=== PATIENT | female | born 1965 | race Caucasian/White ===

== ENCOUNTER 2020-05-08 10:59 | Outpatient (REF) | payer OTHER, SELFPAY ==
--- NOTE | 2020-05-08 11:04 | XR_ITS ---
EXAMINATION: XR ANKLE, LEFT XR FOOT, LEFT CLINICAL INFORMATION: Pain in left ankle and foot COMPARISON: None TECHNIQUE: 3 views of the left foot. 2 additional views of the left ankle. FINDINGS: Left foot: No fracture or dislocation. Alignment is anatomic. Degenerative changes at the first digit interphalangeal joint with narrowing and flattening of the head of the proximal phalanx. Osteophyte formation. Prominent heel spurs. The soft tissues are unremarkable. Left ankle: No fracture or dislocation. The ankle mortise is congruent. Mild degenerative change along the medial aspect of the ankle mortise at the medial malleolus with osseous spurring. The soft tissues are unremarkable. No ankle joint effusion. IMPRESSION: No acute abnormality of the left ankle or foot. Mild degenerative changes along the ankle mortise. Degenerative changes at the first interphalangeal joint.
== END 2020-05-08 11:00 | disposition home or self-care (01) ==
LOC: HO.HMGCX 10:59
PROVIDERS: PCP Internal Medicine; Visit Provider Hospitalist
DX: M25.572 Pain in left ankle and joints of left foot (principal)
CPT/HCPCS: 73600; 73620

== ENCOUNTER 2020-06-20 12:37 | Outpatient (REF) | payer OTHER, SELFPAY ==
[2020-06-20 13:15] LABS: MANUAL DIFF FLAG NO
[2020-06-20 13:21] LABS: Basophils Absolute Auto 0.1 X10*3/uL (0.0-0.2); Basophils Percent Auto 0.7 % (0-2); Eosinophils Absolute Auto 0.2 X10*3/uL (0.0-0.4); Eosinophils Percent Auto 2.7 % (0-4); Hematocrit 38.2 % (37-47); Hemoglobin 11.9 g/dl (12.0-16.0); Imm Gran Abs Auto 0.03 X10*3/uL (0.00-0.03); Imm Gran Pct Auto 0.3 % (0.0-0.4); Lymphocytes Absolute Auto 1.5 X10*3/uL (1.2-4.9); Mean Corpuscular HGB Conc 31.2 g/dl (31.0-35.0); Mean Corpuscular Hemoglobin 29.7 pg (27.0-33.0); Mean Corpuscular Volume 95.3 fL (80-98); Mean Platelet Volume 10.1 fL (9.4-12.3); Monocytes Absolute Auto 0.9 X10*3/uL (0.1-1.2); Monocytes Percent Auto 10.9 % (2-11); Neutrophils Absolute Auto 5.9 X10*3/uL (2.0-8.3); Neutrophils Percent Auto 68.4 % (45-73); Platelet Count 328 X10*3/uL (160-400); Red Blood Count 4.01 X10*6/uL (4.20-5.50); Red Cell Distribution Width 15.3 % (11.0-16.0); White Blood Count 8.7 X10*3/uL (4.8-10.8)
[2020-06-20 13:40] LABS: Alanine Aminotransferase 17 U/L (0-31); Albumin Level 4.1 g/dL (3.5-5.0); Alkaline Phosphatase 104 U/L (39-117); Anion Gap 12 (12-20); Anion Gap 13 (12-20); Aspartate Amino Transferase 19 U/L (5-31); Bilirubin Total 0.3 mg/dL (0.0-1.0); Blood Urea Nitrogen 17 mg/dL (9-16); Calcium 9.6 mg/dL (8.4-10.2); Carbon Dioxide 28 mmol/L (22-29); Carbon Dioxide 29 mmol/L (22-29); Chloride 102 mmol/L (96-108); Estimated Glomerular Filt Rate 30; Phosphorus 3.1 mg/dL (2.7-4.5); Potassium 3.6 mmol/l (3.3-5.1); Sodium 139 mmol/L (135-145); Total Protein 6.9 g/dL (6.5-8.0)
[2020-06-20 13:42] LABS: Glucose Random 92 mg/dL (60-115)
[2020-06-20 15:06] LABS: Protein/Creatinine Ratio, Ur 2.77 (<0.2); Total Protein Urine Random 341 mg/dL (<12)
[2020-06-23 16:22] LABS: Calcium (PTHI) 9.8 mg/dL (8.6-10.4); PTHI 45 pg/mL (14-64)
== END 2020-06-20 12:38 | disposition home or self-care (01) ==
LOC: HO.US 12:37
PROVIDERS: PCP Internal Medicine; Visit Provider Internal Medicine Gastroenterology
DX: K83.8 Other specified diseases of biliary tract (principal); R13.10 Dysphagia, unspecified
CPT/HCPCS: 36415; 80051; 80053; 82040; 82310; 82565; 83735; 83970; 84100; 84156; 84520; 85025

== ENCOUNTER 2020-07-03 10:10 | Outpatient (REF) | payer OTHER, SELFPAY ==
--- NOTE | 2020-07-03 10:15 | FL_ITS ---
EXAMINATION: FL BARIUM SWALLOW CLINICAL INFORMATION: Dysphagia. COMPARISON: None TECHNIQUE: Barium swallow examination is performed using fluoroscopic evaluation in addition to multiple fluoroscopic spot views. The patient is imaged both upright and prone and using both thick and thin sulfate along with effervescent granules. Fluoroscopy time: 2.1 minutes DAP: 19.465 Gycm2 Images: 54 FINDINGS: Following oral administration of thick barium, barium-coated turkey and thin barium in the upright view, there is normal propagation of bolus from the oral cavity through the pharynx into the stomach without any obstruction, narrowing or stricture. There is mild ballooning of the distal esophagus due to a gastric Lap-Band in the proximal stomach. The GE junction is open, however, restricted due to the Lap-Band. No intraluminal filling defects seen. On placing patient supine and prone, there is mild gastroesophageal reflux with no hiatal hernia seen. On the few images obtained through the upper abdomen reveals stomach to be of normal caliber. FL/FL barium swallow IMPRESSION: Slightly distended distal esophagus secondary to a gastric Lap-Band in the proximal stomach restriction emptying of the esophagus. Mild gastroesophageal reflux was seen in supine position but no hernia noted.
== END 2020-07-03 10:11 | disposition home or self-care (01) ==
LOC: HO.XRAY 10:10
PROVIDERS: Visit Provider Internal Medicine Gastroenterology
DX: R13.10 Dysphagia, unspecified (principal)
CPT/HCPCS: 74220

== ENCOUNTER → 2020-08-04 14:52 | Outpatient (BNVA) | payer OTHER, SELFPAY | PROVIDERS: PCP Internal Medicine; Referring Provider Internal Medicine; Visit Provider Internal Medicine Gastroenterology | DX: K83.8 Other specified diseases of biliary tract (principal); R13.10 Dysphagia, unspecified | CPT/HCPCS: Q3014 ==

== ENCOUNTER 2020-09-26 15:43 | Outpatient (REF) | payer OTHER, SELFPAY ==
[2020-09-26 16:12] LABS: MANUAL DIFF FLAG NO
[2020-09-26 16:23] LABS: Basophils Absolute Auto 0.1 X10*3/uL (0.0-0.2); Basophils Percent Auto 0.6 % (0-2); Eosinophils Absolute Auto 0.3 X10*3/uL (0.0-0.4); Eosinophils Percent Auto 2.5 % (0-4); Hematocrit 40.3 % (37-47); Hemoglobin 12.4 g/dl (12.0-16.0); Imm Gran Abs Auto 0.04 X10*3/uL (0.00-0.03); Imm Gran Pct Auto 0.4 % (0.0-0.4); Lymphocytes Absolute Auto 2.2 X10*3/uL (1.2-4.9); Lymphocytes Percent Auto 21.9 % (20-40); Mean Corpuscular HGB Conc 30.8 g/dl (31.0-35.0); Mean Corpuscular Hemoglobin 28.2 pg (27.0-33.0); Mean Corpuscular Volume 91.8 fL (80-98); Mean Platelet Volume 9.1 fL (9.4-12.3); Monocytes Percent Auto 10.5 % (2-11); Neutrophils Absolute Auto 6.4 X10*3/uL (2.0-8.3); Neutrophils Percent Auto 64.1 % (45-73); Platelet Count 438 X10*3/uL (160-400); Red Blood Count 4.39 X10*6/uL (4.20-5.50); Red Cell Distribution Width 16.8 % (11.0-16.0); White Blood Count 9.9 X10*3/uL (4.8-10.8)
[2020-09-26 16:57] LABS: Alanine Aminotransferase 14 U/L (0-31); Albumin Level 4.5 g/dL (3.5-5.0); Alkaline Phosphatase 144 U/L (39-117); Anion Gap 14 (12-20); Aspartate Amino Transferase 19 U/L (5-31); Bilirubin Total 0.2 mg/dL (0.0-1.0); Blood Urea Nitrogen 23 mg/dL (9-16); Calcium 9.9 mg/dL (8.4-10.2); Carbon Dioxide 27 mmol/L (22-29); Chloride 102 mmol/L (96-108); Cholesterol 259 mg/dL; Estimated Glomerular Filt Rate 28; Glucose Random 100 mg/dL (60-115); HDL Cholesterol 49 mg/dL; LDL Cholesterol Calculated 139 mg/dl; Potassium 4.1 mmol/L (3.3-5.1); Sodium 139 mmol/L (135-145); Total Protein 7.6 g/dL (6.5-8.0); Triglycerides 357 mg/dL
[2020-09-26 17:21] LABS: Free T4 (Free Thyroxine) 0.93 ng/dL (0.71-1.85); Thyroid Stimulating Hormone 1.21 uIU/mL (0.32-4.0); Vitamin D 25-OH Total 32.4 ng/mL (>30)
[2020-09-26 17:29] LABS: Folate 10.9 ng/mL (> or = 4.0); Vitamin B12 1056 pg/mL (200-900)
== END 2020-09-26 15:44 | disposition home or self-care (01) ==
LOC: HO.LAB 15:43
PROVIDERS: PCP Internal Medicine; Visit Provider Internal Medicine Gastroenterology
DX: N18.32 Chronic kidney disease, stage 3b (principal); E78.00 Pure hypercholesterolemia, unspecified
CPT/HCPCS: 36415; 80053; 80061; 82306; 82607; 82746; 84439; 84443; 85025

== ENCOUNTER → 2020-12-09 11:30 | Outpatient (BNVA) | payer OTHER, SELFPAY | PROVIDERS: PCP Internal Medicine; Visit Provider Internal Medicine Gastroenterology | CPT/HCPCS: Q3014 ==

== ENCOUNTER → 2021-03-09 15:45 | Outpatient (BNVA) | payer OTHER, SELFPAY | PROVIDERS: PCP Internal Medicine; Visit Provider Internal Medicine | DX: M96.1 Postlaminectomy syndrome, not elsewhere classified (principal); T84.84XD Pain due to internal orthopedic prosthetic devices, implants and grafts, subsequent encounter; Z96.651 Presence of right artificial knee joint | CPT/HCPCS: 99202 ==

== ENCOUNTER → 2021-04-14 10:56 | Outpatient (BNVA) | payer OTHER, SELFPAY | PROVIDERS: PCP Internal Medicine; Visit Provider Internal Medicine Gastroenterology | DX: R94.5 Abnormal results of liver function studies (principal); R13.10 Dysphagia, unspecified; K83.8 Other specified diseases of biliary tract | CPT/HCPCS: Q3014 ==

== ENCOUNTER → 2021-04-17 11:18 | Outpatient (BNVA) | payer OTHER, SELFPAY | PROVIDERS: PCP Internal Medicine; Visit Provider Internal Medicine | DX: M96.1 Postlaminectomy syndrome, not elsewhere classified (principal) | CPT/HCPCS: 99212 ==

== ENCOUNTER 2021-04-24 17:45 | Outpatient (REF) | payer OTHER, SELFPAY | END 2021-04-24 17:46 | disposition home or self-care (01) | LOC: HO.LNP 17:45 | PROVIDERS: Visit Provider Physician Assistant Medical | DX: K12.1 Other forms of stomatitis (principal) | CPT/HCPCS: 87071 ==

== ENCOUNTER 2021-05-08 12:23 | Outpatient (REF) | payer OTHER, SELFPAY ==
[2021-05-08 12:54] LABS: Hemoglobin 9.8 g/dl (12.0-16.0); Mean Corpuscular HGB Conc 31.6 g/dl (31.0-35.0); Mean Corpuscular Volume 94.8 fL (80-98); Mean Platelet Volume 9.2 fL (9.4-12.3); NRBC Pct Auto 0.9 /100WBC (0.0-0.2); Platelet Count 888 X10*3/uL (160-400); Red Blood Count 3.27 X10*6/uL (4.20-5.50); Red Cell Distribution Width 17.2 % (11.0-16.0); White Blood Count 4.3 X10*3/uL (4.8-10.8)
[2021-05-08 12:56] LABS: INTERNATIONAL NORM RATIO 1.1 (0.9-1.1); Prothrombin Time 12.3 SEC (9.9-13.0)
[2021-05-08 13:15] LABS: Alanine Aminotransferase 13 U/L (0-31); Albumin Level 3.8 g/dL (3.5-5.0); Alkaline Phosphatase 156 U/L (39-117); Anion Gap 14 (12-20); Aspartate Amino Transferase 15 U/L (5-31); Bilirubin Total < 0.2 mg/dL (0.0-1.0); Blood Urea Nitrogen 22 mg/dL (9-16); Calcium 10.5 mg/dL (8.4-10.2); Carbon Dioxide 26 mmol/L (22-29); Chloride 107 mmol/L (96-108); Estimated Glomerular Filt Rate 27; Glucose Random 100 mg/dL (60-115); Potassium 5.5 mmol/L (3.3-5.1); Sodium 141 mmol/L (135-145); Total Protein 6.5 g/dL (6.5-8.0)
[2021-05-08 13:33] LABS: Ferritin 61 ng/mL (10-250)
[2021-05-08 13:50] LABS: Vitamin B12 > 2000 pg/mL (200-900)
[2021-05-08 13:56] LABS: Atypical Lymph Absolute Manual 0.2 x10*3/uL; Atypical Lymphs Percent Manual 4 % (0-6); Band Neutrophils Percent 1 % (3-5); Eosinophils Absolute Manual 0.2 X10*3/UL (0.0-0.8); Eosinophils Percent Manual 5 % (0-4); Lymphocytes Absolute Manual 2.2 X10*3/uL (0.6-4.8); Lymphocytes Percent Manual 51 % (20-40); Metamyelocytes Absolute 0.1 X10*3/uL; Metamyelocytes Percent 2 %; Monocytes Absolute Manual 0.7 X10*3/uL (0.0-1.2); Monocytes Percent Manual 16 % (2-11); Neutrophils Absolute Manual 0.9 X10*3/uL (2.2-7.9); Neutrophils Percent Manual 21 % (45-73)
[2021-05-08 13:58] LABS: Platelet Estimate INCREASED (NORMAL); Platelet Morphology Comment NOTED
[2021-05-08 13:59] LABS: Large Platelet PRESENT; Macrocytosis 1+ (5-14) /OIF; RBC Morphology NOTED
[2021-05-09 11:42] LABS: Alpha 1 Anti-trypsin 165 mg/dL (83-199); Ceruloplasmin 32 mg/dL (18-53)
[2021-05-09 13:30] LABS: Immunoglobulin G 869 mg/dL (600-1640)
[2021-05-11 04:29] LABS: HBc Num1 0.06 S/CO (0.00-0.79); Hepatitis B Core Antibody Nonreactive (Nonreactive); ~HepC Num1 0.04 S/CO (0.00-0.79); ~Hepatitis C Antibody Nonreactive (Nonreactive)
[2021-05-11 04:40] LABS: HBS Num1 1.26 mIU/mL (0-7.99); HBsAGNum1 0.39 S/CO (0.00-0.99); Hepatitis B Surface Antigen Negative (Negative); ~Hepatitis B Surface Antibody NONREACTIVE (Nonreactive)
[2021-05-11 13:26] LABS: Mitochondrial Antibodies NEGATIVE (NEGATIVE)
[2021-05-11 15:50] LABS: Transglutaminase Ab IgG <1.0 U/mL; Transglutaminase IgA <1.0 U/mL
[2021-05-11 16:41] LABS: Anti Nuclear Antibody Screen NEGATIVE (NEGATIVE)
[2021-05-12 16:26] LABS: Zinc 58 mcg/dL (60-130)
[2021-05-12 18:56] LABS: Nicotinamide <20 ng/mL; Vit B3 - Nicotinic Acid <20 ng/mL
[2021-05-12 23:42] LABS: Smooth Muscle Antibody <20 U (<20)
[2021-05-13 07:58] LABS: ~Hepatitis A Antibody IgM Nonreactive (Nonreactive)
[2021-05-13 14:33] LABS: Aldolase 5.7 U/L (<=8.1)
[2021-05-13 22:41] LABS: Alk.Phos Iso. Macrohepatic 0 % (<=0); Alk.Phos Isoenzymes Bone 18 % (28-66); Alk.Phos Isoenzymes Intest 3 % (1-24); Alk.Phos Isoenzymes Liver 79 % (25-69); Alk.Phos Isoenzymes Placental 0 % (<=0); Alk.Phos Isoenzymes Total 148 U/L (37-153)
[2021-05-14 13:06] LABS: Soluble Liver Ag Autoantibody <20.1 U (0.0-20.0)
[2021-05-14 15:15] LABS: Alpha-Tocopherol 18.8 mg/L (5.7-19.9); Beta-Gamma Tocopherol 1.2 mg/L (<=4.3)
[2021-05-14 15:41] LABS: Vitamin A 52 mcg/dL (38-98)
[2021-05-14 17:02] LABS: Vitamin B6 3.5 ng/mL (2.1-21.7)
[2021-05-14 17:47] LABS: Vitamin C 0.5 mg/dL (0.3-2.7)
[2021-05-14 20:10] LABS: Vitamin K1 659 pg/mL (130-1500)
[2021-05-16 12:36] LABS: Vitamin B5 (Pantothenic Acid) 63 ng/mL (<275)
== END 2021-05-08 12:24 | disposition home or self-care (01) ==
LOC: HO.LAB 12:23
PROVIDERS: PCP Internal Medicine; Visit Provider Internal Medicine Gastroenterology
DX: K83.8 Other specified diseases of biliary tract (principal); R94.5 Abnormal results of liver function studies; R79.82 Elevated C-reactive protein (CRP); K75.81 Nonalcoholic steatohepatitis (NASH); R10.33 Periumbilical pain; K52.839 Microscopic colitis, unspecified; G89.4 Chronic pain syndrome
CPT/HCPCS: 36415; 80053; 82085; 82103; 82180; 82306; 82390; 82550; 82607; 82728; 82746; 82784; 83516; 83520; 83735; 84080; 84207; 84446; 84590; 84591; 84597; 84630; 85007; 85025; 85027; 85610; 86038; 86039; 86255; 86256; 86704; 86706; 86709; 86803; 87340

== ENCOUNTER → 2021-06-23 13:13 | Outpatient (BNVA) | payer OTHER, SELFPAY | PROVIDERS: PCP Internal Medicine; Referring Provider Internal Medicine; Visit Provider Internal Medicine Gastroenterology | DX: Z13.89 Encounter for screening for other disorder (principal) | CPT/HCPCS: Q3014 ==

== ENCOUNTER 2021-07-24 11:30 | Outpatient (REF) | payer OTHER, SELFPAY ==
[2021-07-24 11:43] LABS: MANUAL DIFF FLAG NO
[2021-07-24 11:48] LABS: Basophils Percent Auto 0.4 % (0-2); Eosinophils Absolute Auto 0.2 X10*3/uL (0.0-0.4); Eosinophils Percent Auto 2.2 % (0-4); Hematocrit 39.2 % (37.0-47.0); Hemoglobin 12.4 g/dl (12.0-16.0); Imm Gran Abs Auto 0.01 X10*3/uL (0.00-0.03); Imm Gran Pct Auto 0.1 % (0.0-0.4); Lymphocytes Absolute Auto 2.4 X10*3/uL (1.2-4.9); Lymphocytes Percent Auto 30.7 % (20-40); Mean Corpuscular HGB Conc 31.6 g/dl (31.0-35.0); Mean Corpuscular Hemoglobin 30.9 pg (27.0-33.0); Mean Corpuscular Volume 97.8 fL (80.0-98.0); Mean Platelet Volume 8.9 fL (9.4-12.3); Monocytes Absolute Auto 0.6 X10*3/uL (0.1-1.2); Monocytes Percent Auto 7.8 % (2-11); Neutrophils Absolute Auto 4.5 x10*3/uL (2.0-8.3); Neutrophils Percent Auto 58.8 % (45-73); Platelet Count 404 X10*3/uL (160-400); Red Blood Count 4.01 X10*6/uL (4.20-5.50); Red Cell Distribution Width 15.8 % (11.0-16.0); White Blood Count 7.7 X10*3/uL (4.8-10.8)
[2021-07-24 12:24] LABS: Alanine Aminotransferase 77 U/L (0-31); Alkaline Phosphatase 163 U/L (39-117); Anion Gap 9 (12-20); Aspartate Amino Transferase 67 U/L (5-31); Bilirubin Total 0.3 mg/dL (0.0-1.0); Blood Urea Nitrogen 21 mg/dL (9-16); Calcium 9.8 mg/dL (8.4-10.2); Carbon Dioxide 28 mmol/L (22-29); Chloride 107 mmol/L (96-108); Estimated Glomerular Filt Rate 26; Glucose Random 118 mg/dL (60-115); Iron 90 mcg/dL (30-160); Percent Iron Saturation 24 % (15-50); Potassium 3.8 mmol/L (3.3-5.1); Sodium 140 mmol/L (135-145); Total Iron Binding Capacity 374 mcg/dL (228-428); Unsaturated Iron Binding 284 ug/dL
[2021-07-24 12:34] LABS: Ferritin 23 ng/mL (10-250)
[2021-07-24 12:49] LABS: Folate 6.3 ng/mL (> or = 4.0); Vitamin B12 > 2000 pg/mL (200-900)
[2021-07-27 20:52] LABS: Transferrin 297 mg/dL (188-341)
== END 2021-07-24 11:31 | disposition home or self-care (01) ==
LOC: HO.LAB 11:30
PROVIDERS: Internal Medicine Gastroenterology; PCP Internal Medicine; Visit Provider Internal Medicine
DX: K83.8 Other specified diseases of biliary tract (principal); K75.81 Nonalcoholic steatohepatitis (NASH); D64.9 Anemia, unspecified; R94.5 Abnormal results of liver function studies
CPT/HCPCS: 36415; 80053; 82607; 82728; 82746; 83540; 84466; 85025

== ENCOUNTER → 2021-08-04 11:40 | Outpatient (BNVA) | payer OTHER, SELFPAY | PROVIDERS: PCP Internal Medicine; Visit Provider Internal Medicine Gastroenterology | CPT/HCPCS: Q3014 ==

== ENCOUNTER 2021-08-24 07:21 | Outpatient (REF) | payer OTHER, SELFPAY ==
--- NOTE | ~2021-08-24 | MR_ITS ---
EXAMINATION: MR ABDOMEN WITHOUT CONTRAST CLINICAL INFORMATION: Abnormal liver function tests COMPARISON: Previous CT of the abdomen and pelvis February 2011 TECHNIQUE: MR abdomen is performed without gadolinium contrast. MRCP sequences were also performed. FINDINGS: LUNG BASES: The visualized lung bases are unremarkable. LIVER, GALLBLADDER, AND BILIARY TREE: The liver is normal in size, smooth in contour, and normal in signal. No focal hepatic lesion or biliary ductal dilatation is present. Gallbladder has been removed. There is intrahepatic and extrahepatic biliary duct dilatation. The common bile duct measures up to 2 cm. This is increased from February 2011 CT when common bile duct measured 1.5 cm. No common bile duct stone is seen. PANCREAS: There is mild dilatation of the main pancreatic duct in the head of the pancreas measuring 4 mm. This is similar to previous CT scan. The pancreas is otherwise unremarkable. SPLEEN: Unremarkable. ADRENAL GLANDS: Unremarkable. KIDNEYS AND URETERS: The left kidney is smaller than the right. Left kidney measures 8 cm and the right 10.8 cm in length. There are areas of left renal cortical thinning or scarring. GASTROINTESTINAL TRACT: There are postoperative changes from gastric lap band. No bowel obstruction. No ascites or fluid collection. ABDOMINAL WALL: No significant hernia is appreciated. LYMPH NODES: No lymphadenopathy. VASCULAR: Unremarkable. OSSEOUS STRUCTURES: There are postsurgical changes to the lower lumbar spine. There is an overlying superficial fluid collection that measures 1 x 1 x 10 cm in length. MR/MR abdomen wo con IMPRESSION: Intrahepatic and extrahepatic biliary duct dilatation. The common bile duct measures up to 2 cm. This is slightly increased from previous CT of the abdomen and pelvis February 2011. Mild dilatation of the main pancreatic duct in the head of the pancreas measuring up to 4 mm. This is similar to previous exam. No mass seen. Postoperative changes from gastric lap band procedure. Left kidney is smaller than the right. There are areas of left renal cortical thinning or scarring. Postsurgical changes lower lumbar spine. Small overlying postoperative fluid collection measuring 1 x 1 x 10 cm.
== END 2021-08-24 07:22 | disposition home or self-care (01) ==
LOC: HO.MRI 07:21
PROVIDERS: Visit Provider Internal Medicine Gastroenterology
DX: R94.5 Abnormal results of liver function studies (principal); K83.8 Other specified diseases of biliary tract
CPT/HCPCS: 74181

== ENCOUNTER 2021-12-04 14:39 | Outpatient (REF) | payer OTHER, SELFPAY ==
[2021-12-04 14:48] LABS: MANUAL DIFF FLAG NO
[2021-12-04 15:12] LABS: Basophils Percent Auto 0.4 % (0-2); Eosinophils Absolute Auto 0.1 X10*3/uL (0.0-0.4); Eosinophils Percent Auto 0.9 % (0-4); Hematocrit 38.7 % (37.0-47.0); Hemoglobin 12.2 g/dl (12.0-16.0); Imm Gran Abs Auto 0.04 X10*3/uL (0.00-0.03); Imm Gran Pct Auto 0.4 % (0.0-0.4); Lymphocytes Absolute Auto 1.7 X10*3/uL (1.2-4.9); Mean Corpuscular HGB Conc 31.5 g/dl (31.0-35.0); Mean Corpuscular Hemoglobin 30.7 pg (27.0-33.0); Mean Corpuscular Volume 97.2 fL (80.0-98.0); Mean Platelet Volume 9.3 fL (9.4-12.3); Monocytes Absolute Auto 0.6 X10*3/uL (0.1-1.2); Monocytes Percent Auto 5.6 % (2-11); Neutrophils Absolute Auto 8.8 x10*3/uL (2.0-8.3); Neutrophils Percent Auto 77.7 % (45-73); Platelet Count 363 X10*3/uL (160-400); Red Blood Count 3.98 X10*6/uL (4.20-5.50); Red Cell Distribution Width 15.3 % (11.0-16.0); White Blood Count 11.3 X10*3/uL (4.8-10.8)
[2021-12-04 15:36] LABS: Alanine Aminotransferase 24 U/L (0-31); Albumin Level 4.4 g/dL (3.5-5.0); Alkaline Phosphatase 125 U/L (39-117); Anion Gap 13 (12-20); Aspartate Amino Transferase 24 U/L (5-31); Bilirubin Total 0.2 mg/dL (0.0-1.0); Blood Urea Nitrogen 26 mg/dL (9-16); Calcium 9.8 mg/dL (8.4-10.2); Carbon Dioxide 24 mmol/L (22-29); Chloride 109 mmol/L (96-108); Cholesterol 204 mg/dL; Estimated Glomerular Filt Rate 28; Glucose Random 117 mg/dL (60-115); HDL Cholesterol 46 mg/dL; LDL Cholesterol Calculated 132 mg/dl; Potassium 4.8 mmol/L (3.3-5.1); Sodium 141 mmol/L (135-145); Total Protein 7.4 g/dL (6.5-8.0); Triglycerides 131 mg/dL
[2021-12-04 15:37] LABS: Acetaminophen LAB 5 mcg/mL (<30)
[2021-12-04 15:54] LABS: Thyroid Stimulating Hormone 0.92 uIU/mL (0.32-4.0)
[2021-12-04 15:57] LABS: Vitamin D 25-OH Total 32.1 ng/mL (>30)
[2021-12-04 16:13] LABS: Folate 8.8 ng/mL (> or = 4.0); Vitamin B12 > 2000 pg/mL (200-900)
[2021-12-04 16:15] LABS: Free T4 (Free Thyroxine) 0.67 ng/dL (0.71-1.85)
== END 2021-12-04 14:40 | disposition home or self-care (01) ==
LOC: HO.LAB 14:39
PROVIDERS: Absent Provider Internal Medicine; PCP Internal Medicine; Visit Provider Internal Medicine Gastroenterology
DX: K83.8 Other specified diseases of biliary tract (principal); R79.89 Other specified abnormal findings of blood chemistry; R94.5 Abnormal results of liver function studies; K75.81 Nonalcoholic steatohepatitis (NASH); E78.00 Pure hypercholesterolemia, unspecified; N18.32 Chronic kidney disease, stage 3b; Z79.899 Other long term (current) drug therapy
CPT/HCPCS: 36415; 80053; 80061; 80143; 82306; 82607; 82746; 84439; 84443; 85025

== ENCOUNTER → 2021-12-09 09:58 | Outpatient (BNVA) | payer OTHER, SELFPAY | PROVIDERS: Visit Provider Internal Medicine | DX: Z51.81 Encounter for therapeutic drug level monitoring (principal); F11.20 Opioid dependence, uncomplicated | CPT/HCPCS: 80305; 99202 ==

== ENCOUNTER → 2021-12-16 13:23 | Outpatient (BNVA) | payer OTHER, SELFPAY | PROVIDERS: PCP Internal Medicine; Visit Provider Internal Medicine | DX: F11.20 Opioid dependence, uncomplicated (principal) | CPT/HCPCS: 80305; 99212 ==

== ENCOUNTER → 2021-12-23 13:22 | Outpatient (BNVA) | payer OTHER, SELFPAY | PROVIDERS: Visit Provider Internal Medicine | DX: Z51.81 Encounter for therapeutic drug level monitoring (principal); F11.20 Opioid dependence, uncomplicated | CPT/HCPCS: 80305; 99212 ==

== ENCOUNTER → 2022-01-01 13:36 | Outpatient (BNVA) | payer OTHER, SELFPAY | PROVIDERS: Visit Provider Internal Medicine | DX: Z51.81 Encounter for therapeutic drug level monitoring (principal); F11.20 Opioid dependence, uncomplicated | CPT/HCPCS: 80305; 99211 ==

== ENCOUNTER → 2022-01-08 11:37 | Outpatient (BNVA) | payer OTHER, SELFPAY | PROVIDERS: PCP Internal Medicine; Visit Provider Internal Medicine | DX: F11.20 Opioid dependence, uncomplicated (principal) | CPT/HCPCS: 80305; 99212 ==

== ENCOUNTER → 2022-01-15 14:36 | Outpatient (BNVA) | payer OTHER, SELFPAY | PROVIDERS: Visit Provider Internal Medicine | DX: F11.20 Opioid dependence, uncomplicated (principal) | CPT/HCPCS: 80305; 99212 ==

== ENCOUNTER → 2022-01-27 12:57 | Outpatient (BNVA) | payer OTHER, SELFPAY | PROVIDERS: Visit Provider Internal Medicine | DX: F11.20 Opioid dependence, uncomplicated (principal) | CPT/HCPCS: 80305; 99212 ==

== ENCOUNTER 2022-02-02 12:46 | Outpatient (REF) | payer OTHER, SELFPAY ==
--- NOTE | ~2022-02-02 | MM_ITS ---
EXAMINATION: MM SCREENING DIGITAL BREAST TOMOSYNTHESIS, BILATERAL CLINICAL INFORMATION: Screening. Asymptomatic. The lifetime risk of breast cancer based on the Tyrer-Cuzick Model is 6%. COMPARISON: Mammography: 05/23/2017 (baseline). TECHNIQUE: Digital breast tomosynthesis is performed in both the craniocaudal and mediolateral oblique views along with computer-aided detection (CAD). Synthesized 2D images are generated from the tomosynthesis. FINDINGS: There are scattered areas of fibroglandular density (ACR BI-RADS breast composition Category b). There are no significant masses, abnormal calcifications, or other abnormalities. No significant change from baseline exam. The axilla and skin contours are unremarkable. MM/MM tomosynthesis screening BI IMPRESSION: No mammographic evidence of malignancy. ASSESSMENT: BI-RADS 1: Negative RECOMMENDATION: Routine annual mammography screening. This patient's information was entered into a reminder system with a target due date for their next mammogram.
== END 2022-02-02 12:47 | disposition home or self-care (01) ==
LOC: HO.MAMMO 12:46
PROVIDERS: Visit Provider Internal Medicine
DX: Z12.31 Encounter for screening mammogram for malignant neoplasm of breast (principal)
CPT/HCPCS: 77063; 77067

== ENCOUNTER → 2022-02-12 10:15 | Outpatient (BNVA) | payer OTHER, SELFPAY | PROVIDERS: Visit Provider Internal Medicine | DX: F11.20 Opioid dependence, uncomplicated (principal) | CPT/HCPCS: 80305; 99212 ==

== ENCOUNTER → 2022-02-18 14:36 | Outpatient (BNVA) | payer OTHER, SELFPAY | PROVIDERS: PCP Internal Medicine; Visit Provider Surgery Vascular Surgery | DX: I73.9 Peripheral vascular disease, unspecified (principal) | CPT/HCPCS: 99212 ==

== ENCOUNTER → 2022-02-26 14:26 | Outpatient (BNVA) | payer OTHER, SELFPAY | PROVIDERS: PCP Internal Medicine; Visit Provider Internal Medicine | DX: Z51.81 Encounter for therapeutic drug level monitoring (principal); F11.20 Opioid dependence, uncomplicated | CPT/HCPCS: 99212 ==

== ENCOUNTER → 2022-03-31 14:42 | Outpatient (BNVA) | payer OTHER, SELFPAY | PROVIDERS: PCP Internal Medicine; Visit Provider Internal Medicine | DX: Z51.81 Encounter for therapeutic drug level monitoring (principal); F11.20 Opioid dependence, uncomplicated | CPT/HCPCS: 99212 ==

== ENCOUNTER → 2022-04-28 13:44 | Outpatient (BNVA) | payer OTHER, SELFPAY | PROVIDERS: PCP Internal Medicine; Visit Provider Internal Medicine | DX: F11.20 Opioid dependence, uncomplicated (principal); F90.9 Attention-deficit hyperactivity disorder, unspecified type; F43.10 Post-traumatic stress disorder, unspecified | CPT/HCPCS: 99212 ==

== ENCOUNTER → 2022-05-26 15:10 | Outpatient (BNVA) | payer OTHER, SELFPAY | PROVIDERS: Visit Provider Internal Medicine | DX: F11.20 Opioid dependence, uncomplicated (principal); Z51.81 Encounter for therapeutic drug level monitoring; Z79.899 Other long term (current) drug therapy | CPT/HCPCS: 99212 ==

== ENCOUNTER → 2022-06-16 13:47 | Outpatient (BNVA) | payer OTHER, SELFPAY | PROVIDERS: Visit Provider Internal Medicine | DX: Z51.81 Encounter for therapeutic drug level monitoring (principal); F11.20 Opioid dependence, uncomplicated | CPT/HCPCS: 99212 ==

== ENCOUNTER → 2022-07-30 09:05 | Outpatient (BNVA) | payer OTHER, SELFPAY | PROVIDERS: PCP Internal Medicine; Visit Provider Nurse Practitioner Psychiatric/Mental Health | DX: F11.20 Opioid dependence, uncomplicated (principal) | CPT/HCPCS: Q3014 ==

== ENCOUNTER → 2022-08-30 14:00 | Outpatient (BNVA) | payer OTHER, SELFPAY | PROVIDERS: PCP Internal Medicine; Visit Provider Nurse Practitioner Psychiatric/Mental Health | DX: F11.20 Opioid dependence, uncomplicated (principal); F17.210 Nicotine dependence, cigarettes, uncomplicated; Z51.81 Encounter for therapeutic drug level monitoring; Z79.899 Other long term (current) drug therapy | CPT/HCPCS: 80305; 99212 ==

== ENCOUNTER 2022-09-20 14:34 | Outpatient (REF) | payer OTHER, SELFPAY ==
--- NOTE | ~2022-09-20 | US_ITS ---
EXAMINATION: Noninvasive assessment of the bilateral lower extremities with ARTERIAL DUPLEX and ANKLE BRACHIAL INDICES (ABIs). CLINICAL INFORMATION: Peripheral vascular disease TECHNIQUE: Duplex Doppler techniques with waveform analysis and measurement of velocities in the bilateral common femoral, profunda femoris, superficial femoral, popliteal and tibial arteries were performed. Additionally, ankle pulse volume recordings, ankle pressure measurements and ankle brachial indices were obtained of the lower extremity arterial system bilaterally. The study was performed only at rest. COMPARISON: None FINDINGS: DIRECT DUPLEX DOPPLER FINDINGS: RIGHT LEG: Common femoral artery: 129 cm/s, phasicity: Triphasic Profunda femoris artery: 168 cm/s, phasicity: Triphasic Superficial femoral artery (proximal): 110 cm/s, phasicity: Triphasic Superficial femoral artery (mid): 316 cm/s, phasicity: Monophasic. A large amount of soft plaque is seen. Superficial femoral artery (distal): 123 cm/s, phasicity: Monophasic Popliteal artery: 72.3 cm/s, phasicity: Monophasic Posterior tibial artery: 123 cm/s, phasicity: Monophasic Peroneal artery: 21.6 cm/s, phasicity: Monophasic LEFT LEG: Common femoral artery: 114 cm/s, phasicity: Triphasic Profunda femoris artery: 220 cm/s, phasicity: Triphasic Superficial femoral artery (proximal): 139 cm/s, phasicity: Triphasic Superficial femoral artery (mid): 152 cm/s, phasicity: Triphasic Superficial femoral artery (distal): 202 cm/s, phasicity: Triphasic. Mild amount of noncalcified plaque Popliteal artery: 95.6 cm/s, phasicity: Triphasic. Mild calcified plaque Posterior tibial artery: 233 cm/s, phasicity: Triphasic Peroneal artery: 51.2 cm/s, phasicity: Monophasic ANKLE-BRACHIAL INDEX: Right: 0.53? Left: 1.04 ANKLE PRESSURES: Right: PT 86, DP 72 Left: PT?169, DP?157 ANKLE PVR WAVEFORMS: Right: Abnormal Left: Normal US/US arterial duplex LE BI IMPRESSION: Right leg: Moderately decreased ankle brachial index and pulse volume waveform. Elevated velocity consistent with a moderate to severe stenosis seen in the mid to superficial femoral artery with a dampened waveforms seen distally Left leg: Normal ankle brachial index and pulse volume waveform. Mildly elevated velocities in the mid to distal superficial femoral artery with mild atherosclerotic plaque consistent with mild stenosis. RADAMES Reference: - >1.4 = calcified vessels - 0.9 - 1.4 = normal - no significant arterial disease - 0.7 - 0.89 = mild peripheral arterial disease - 0.51 - 0.69 = moderate peripheral arterial disease - ? 0.50 = severe peripheral arterial disease - < .30 = critical arterial disease
== END 2022-09-20 14:35 | disposition home or self-care (01) ==
LOC: HO.US 14:34
PROVIDERS: PCP Internal Medicine; Visit Provider Surgery Vascular Surgery
DX: I70.213 Atherosclerosis of native arteries of extremities with intermittent claudication, bilateral legs (principal)
CPT/HCPCS: 93923; 93925

== ENCOUNTER → 2022-09-27 13:00 | Outpatient (BNVA) | payer OTHER, SELFPAY | PROVIDERS: PCP Internal Medicine; Visit Provider Nurse Practitioner Psychiatric/Mental Health | DX: F11.20 Opioid dependence, uncomplicated (principal) | CPT/HCPCS: 99212 ==

== ENCOUNTER → 2022-09-30 13:41 | Outpatient (BNVA) | payer OTHER, SELFPAY | PROVIDERS: PCP Internal Medicine; Visit Provider Surgery Vascular Surgery | DX: I73.9 Peripheral vascular disease, unspecified (principal) | CPT/HCPCS: 99212 ==

== ENCOUNTER → 2022-10-01 14:05 | Outpatient (BNVA) | payer OTHER, SELFPAY | PROVIDERS: PCP Internal Medicine; Visit Provider Nurse Practitioner Psychiatric/Mental Health | DX: F11.20 Opioid dependence, uncomplicated (principal) | CPT/HCPCS: 99212 ==

== ENCOUNTER → 2022-10-25 13:14 | Outpatient (BNVA) | payer OTHER, SELFPAY | PROVIDERS: PCP Internal Medicine; Visit Provider Nurse Practitioner Psychiatric/Mental Health | DX: Z51.81 Encounter for therapeutic drug level monitoring (principal); F11.20 Opioid dependence, uncomplicated | CPT/HCPCS: 99212 ==

== ENCOUNTER 2022-11-16 09:49 | Outpatient (REF) | payer OTHER, SELFPAY ==
[2022-11-16 10:00] LABS: MANUAL DIFF FLAG NO
[2022-11-16 10:29] LABS: Basophils Percent Auto 0.4 % (0-2); Eosinophils Absolute Auto 0.4 X10*3/uL (0.0-0.4); Eosinophils Percent Auto 4.4 % (0-4); Hematocrit 33.4 % (37.0-47.0); Hemoglobin 10.7 g/dl (12.0-16.0); Imm Gran Abs Auto 0.02 X10*3/uL (0.00-0.03); Imm Gran Pct Auto 0.2 % (0.0-0.4); Lymphocytes Absolute Auto 2.5 X10*3/uL (1.2-4.9); Lymphocytes Percent Auto 26.1 % (20-40); Mean Corpuscular Hemoglobin 30.4 pg (27.0-33.0); Mean Corpuscular Volume 94.9 fL (80.0-98.0); Mean Platelet Volume 9.2 fL (9.4-12.3); Monocytes Absolute Auto 0.9 X10*3/uL (0.1-1.2); Monocytes Percent Auto 9.6 % (2-11); Neutrophils Absolute Auto 5.6 x10*3/uL (2.0-8.3); Neutrophils Percent Auto 59.3 % (45-73); Platelet Count 393 X10*3/uL (160-400); Red Blood Count 3.52 X10*6/uL (4.20-5.50); Red Cell Distribution Width 14.4 % (11.0-16.0); White Blood Count 9.4 X10*3/uL (4.8-10.8)
[2022-11-16 11:46] LABS: Appearance Urine Clear; Color Urine Yellow; Glucose Urine UA Negative (Negative); Leukocyte Esterase Urine Negative (Negative); Nitrite Urine Negative (Negative); PH 5.5 (5.0-9.0); Specific Gravity - Urine 1.015 (1.005-1.025); Urine Blood Negative (Negative); Urine Ketones Negative (Negative); Urine Protein Negative (Neg-Trace)
[2022-11-16 11:53] LABS: Bacteria Urine None Seen (None Seen); Hyaline Casts Urine 0-2 /LPF (0-2); RBC Urine 0-2 /HPF (0-2); WBC Urine 0-5 /HPF (0-5)
[2022-11-16 12:32] LABS: Alanine Aminotransferase 18 U/L (0-31); Albumin Level 4.2 g/dL (3.5-5.0); Alkaline Phosphatase 100 U/L (39-117); Anion Gap 15 (12-20); Aspartate Amino Transferase 21 U/L (5-31); Bilirubin Total 0.2 mg/dL (0.0-1.0); Blood Urea Nitrogen 29 mg/dL (9-16); Calcium 9.9 mg/dL (8.4-10.2); Carbon Dioxide 21 mmol/L (22-29); Chloride 109 mmol/L (96-108); Cholesterol 195 mg/dL; Estimated Glomerular Filt Rate 23; Glucose Random 98 mg/dL (60-115); HDL Cholesterol 32 mg/dL; LDL Cholesterol Calculated 114 mg/dl; Potassium 4.8 mmol/L (3.3-5.1); Sodium 140 mmol/L (135-145); Total Protein 6.7 g/dL (6.5-8.0); Triglycerides 247 mg/dL
[2022-11-16 12:49] LABS: Folate 7.6 ng/mL (> or = 4.0); Free T4 (Free Thyroxine) 0.76 ng/dL (0.71-1.85); Thyroid Stimulating Hormone 1.18 uIU/mL (0.32-4.0); Vitamin B12 1240 pg/mL (200-900); Vitamin D 25-OH Total 35.6 ng/mL (>30)
== END 2022-11-16 09:50 | disposition home or self-care (01) ==
LOC: HO.LAB 09:49
PROVIDERS: PCP Internal Medicine; Visit Provider Internal Medicine
DX: N18.32 Chronic kidney disease, stage 3b (principal); E78.00 Pure hypercholesterolemia, unspecified
CPT/HCPCS: 36415; 80053; 80061; 81001; 82306; 82607; 82746; 84439; 84443; 85025

== ENCOUNTER → 2022-11-25 14:24 | Outpatient (BNVA) | payer OTHER, SELFPAY | PROVIDERS: PCP Internal Medicine; Visit Provider Surgery Vascular Surgery | DX: F11.20 Opioid dependence, uncomplicated (principal) | CPT/HCPCS: 99212 ==

== ENCOUNTER 2023-01-10 15:11 | Outpatient (REF) | payer OTHER, SELFPAY ==
--- NOTE | 2023-01-10 15:19 | ECG_ITS ---
Test Reason : PREOP Blood Pressure : / mmHG Vent. Rate : 063 BPM Atrial Rate : 063 BPM P-R Int : 152 ms QRS Dur : 076 ms QT Int : 396 ms P-R-T Axes : 069 050 072 degrees QTc Int : 405 ms Normal sinus rhythm Normal ECG When compared with ECG of 15-SEP-2017 21:57, Premature atrial complexes are no longer Present Referred By: Octavia Soto Electronically Signed By:ARLET CARR
[2023-01-10 15:30] LABS: MANUAL DIFF FLAG NO
[2023-01-10 16:49] LABS: Basophils Absolute Auto 0.1 X10*3/uL (0.0-0.2); Basophils Percent Auto 0.6 % (0-2); Eosinophils Absolute Auto 0.3 X10*3/uL (0.0-0.4); Eosinophils Percent Auto 2.2 % (0-4); Hematocrit 32.5 % (37.0-47.0); Hemoglobin 10.4 g/dl (12.0-16.0); Imm Gran Abs Auto 0.05 X10*3/uL (0.00-0.03); Imm Gran Pct Auto 0.4 % (0.0-0.4); Lymphocytes Absolute Auto 2.6 X10*3/uL (1.2-4.9); Lymphocytes Percent Auto 20.7 % (20-40); Mean Corpuscular Hemoglobin 30.3 pg (27.0-33.0); Mean Corpuscular Volume 94.8 fL (80.0-98.0); Mean Platelet Volume 9.5 fL (9.4-12.3); Monocytes Absolute Auto 0.9 X10*3/uL (0.1-1.2); Monocytes Percent Auto 7.1 % (2-11); Neutrophils Absolute Auto 8.7 x10*3/uL (2.0-8.3); Platelet Count 365 X10*3/uL (160-400); Red Blood Count 3.43 X10*6/uL (4.20-5.50); Red Cell Distribution Width 16.2 % (11.0-16.0); White Blood Count 12.6 X10*3/uL (4.8-10.8)
[2023-01-10 17:11] LABS: Alanine Aminotransferase 12 U/L (0-31); Albumin Level 4.2 g/dL (3.5-5.0); Alkaline Phosphatase 111 U/L (39-117); Anion Gap 17 (12-20); Aspartate Amino Transferase 17 U/L (5-31); Bilirubin Total 0.2 mg/dL (0.0-1.0); Blood Urea Nitrogen 45 mg/dL (9-16); Calcium 9.7 mg/dL (8.4-10.2); Carbon Dioxide 22 mmol/L (22-29); Chloride 109 mmol/L (96-108); Estimated Glomerular Filt Rate 21; Glucose Random 116 mg/dL (60-115); Potassium 4.8 mmol/L (3.3-5.1); Sodium 143 mmol/L (135-145); Total Protein 7.4 g/dL (6.5-8.0)
== END 2023-01-10 15:12 | disposition home or self-care (01) ==
LOC: HO.LAB 15:11
PROVIDERS: PCP Internal Medicine; Visit Provider Internal Medicine
DX: Z01.818 Encounter for other preprocedural examination (principal); S73.004D Unspecified dislocation of right hip, subsequent encounter
CPT/HCPCS: 36415; 80053; 85025; 93005

== ENCOUNTER 2023-01-18 14:26 | Outpatient (REF) | payer OTHER, SELFPAY ==
[2023-01-18 15:56] LABS: INTERNATIONAL NORM RATIO 0.9 (0.9-1.1); Prothrombin Time 10.7 SEC (10.0-13.1)
[2023-01-18 16:18] LABS: Alanine Aminotransferase 22 U/L (0-31); Albumin Level 4.2 g/dL (3.5-5.0); Alkaline Phosphatase 123 U/L (39-117); Anion Gap 15 (12-20); Aspartate Amino Transferase 23 U/L (5-31); Bilirubin Total 0.4 mg/dL (0.0-1.0); Blood Urea Nitrogen 29 mg/dL (9-16); Calcium 10.1 mg/dL (8.4-10.2); Carbon Dioxide 24 mmol/L (22-29); Chloride 109 mmol/L (96-108); Estimated Glomerular Filt Rate 23; Glucose Random 83 mg/dL (60-115); Potassium 4.7 mmol/L (3.3-5.1); Sodium 143 mmol/L (135-145); Total Protein 7.3 g/dL (6.5-8.0)
[2023-01-18 16:35] LABS: TSH reflex Free T4 1.45 uIU/mL (0.32-4.0)
== END 2023-01-18 14:27 | disposition home or self-care (01) ==
LOC: HO.LAB 14:26
PROVIDERS: PCP Internal Medicine; Visit Provider Nurse Practitioner Family
DX: Z01.812 Encounter for preprocedural laboratory examination (principal); N18.32 Chronic kidney disease, stage 3b
CPT/HCPCS: 36415; 80053; 84443; 85610

== ENCOUNTER 2023-02-01 14:38 | Outpatient (AMB) | payer OTHER, SELFPAY ==
--- NOTE | 2023-02-01 14:40 | A.OFFVIS_ITS ---
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 Reporting difficulties after last surgery. Currently prescribed Suboxone 8 mg b.i.d. and 2 mg q.d. denies any side effects related to this medication [facility] Medical History (Updated 02/02/23 @ 14:20 by Radha Ricketts CNP) ADHD Allergic rhinitis Colonoscopy refused Hypercholesterolemia Hypertension Insomnia Lumbar post-laminectomy syndrome Lumbar spinal stenosis Mammogram declined Opioid use disorder Painful total knee replacement, right Paronychia of great toe of right foot Peptic ulcer disease Posttraumatic stress disorder Primary osteoarthritis of right hip Protrusion of lumbar intervertebral disc Rheumatoid arthritis Tobacco abuse Surgical History H/O knee surgery H/O right knee surgery H/O wrist surgery History of back surgery History of carpal tunnel release History of cholecystectomy History of endometrial ablation History of foot surgery History of hip replacement History of surgical removal of squamous cell carcinoma of skin of right taoism History of tubal ligation LAP-BAND surgery status 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 Mother No problems noted. Social History (Updated 09/30/22 @ 13:56 by ARMANDO Alvarez) Housing: House Housing Other:: rents a room Alcohol intake: former Patient Tobacco Use Status: Current everyday Tobacco user Tobacco use type: Cigarette Cigarettes Per Day: 3 e-Cigarette/Vaping Use: Never Used Second Hand Smoke Exposure: Yes service: No Current occupational status: disabled Cognitive needs: No Hearing needs: No Vision needs: No Review of Systems Const Reports as per HPI and Reports no additional complaints Physical Exam Vital Signs: Last Vital Signs Pulse 77 02/01/23 14:48 BP 108/72 02/01/23 14:48 Pulse Ox 94 02/01/23 14:48 Oxygen Delivery Method Room Air 02/01/23 14:48 Const General: cooperative and no acute distress Nutritional Appearance: average body habitus Limitations: ambulation with cane Skin Wounds: no wounds Hair: normal Psych Appearance: grossly normal Mental Status: mental status grossly normal Speech and movement: Pressured speech present and Slowed movement present (Neuro) (ambulates with cane) Attitude: cooperative Thought process: Circumstantial thought process present (at times) Thought content: Normal thought content present Insight: Good insight present (Psych) Judgement: Good judgement present (Psych) Assessment & Plan Assessment & Plan (1) Opioid use disorder: Code(s): F11.90 - Opioid use, unspecified, uncomplicated Plan: * continue Suboxone at current dose * Follow-up 2 months Medications: New buprenorphine-naloxone 8-2 mg (Suboxone) 1 film sublingual BID 60 ea 1RF buprenorphine-naloxone 2-0.5 mg (Suboxone) 1 film sublingual DAILY 30 ea 0RF Discontinued buprenorphine-naloxone 2-0.5 mg take in addition to buprenorphine-naloxone 8mg-2mg twice daily Discontinued Reason: Doctor's Order 1 tab sublingual DAILY 30 tabs 1RF buprenorphine-naloxone 8-2 mg Discontinued Reason: Doctor's Order 1 tab sublingual BID 60 tabs 1RF Coding Level of Care Code Est Pt Level 3 (50228) Diagnoses Opioid use disorder F11.90
[2023-02-01 14:48] VITALS: BP 108/72; PULSE 77; O2SAT 94
== END 2023-02-01 15:20 | disposition home or self-care (01) ==
LOC: HO.HCC 14:38
PROVIDERS: PCP Internal Medicine; Visit Provider Nurse Practitioner Psychiatric/Mental Health
DX: F11.90 Opioid use, unspecified, uncomplicated (principal)
CPT/HCPCS: 99213

== ENCOUNTER → 2023-02-01 14:38 | Outpatient (BNVA) | payer OTHER, SELFPAY | PROVIDERS: PCP Internal Medicine; Visit Provider Nurse Practitioner Psychiatric/Mental Health | DX: F11.20 Opioid dependence, uncomplicated (principal) | CPT/HCPCS: 99212 ==

== ENCOUNTER 2023-03-29 13:10 | Outpatient (AMB) | payer OTHER, SELFPAY ==
--- NOTE | 2023-03-29 13:11 | A.OFFVIS_ITS ---
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 No issues with suboxone Cut down on suboxone following surgery for better pain control Has been taking Dilaudid p.r.n.. Having vascular surgery on April [facility] Medical History (Updated 02/02/23 @ 14:20 by Radha Ricketts CNP) ADHD Allergic rhinitis Colonoscopy refused Hypercholesterolemia Hypertension Insomnia Lumbar post-laminectomy syndrome Lumbar spinal stenosis Mammogram declined Opioid use disorder Painful total knee replacement, right Paronychia of great toe of right foot Peptic ulcer disease Posttraumatic stress disorder Primary osteoarthritis of right hip Protrusion of lumbar intervertebral disc Rheumatoid arthritis Tobacco abuse Surgical History H/O knee surgery H/O right knee surgery H/O wrist surgery History of back surgery History of carpal tunnel release History of cholecystectomy History of endometrial ablation History of foot surgery History of hip replacement History of surgical removal of squamous cell carcinoma of skin of right judaism History of tubal ligation LAP-BAND surgery status 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 Mother No problems noted. Social History (Updated 09/30/22 @ 13:56 by ARMANDO Alvarez) Housing: House Housing Other:: rents a room Alcohol intake: former Patient Tobacco Use Status: Current everyday Tobacco user Tobacco use type: Cigarette Cigarettes Per Day: 3 e-Cigarette/Vaping Use: Never Used Second Hand Smoke Exposure: Yes service: No Current occupational status: disabled Cognitive needs: No Hearing needs: No Vision needs: No Review of Systems Const Reports as per HPI Physical Exam Vital Signs: Last Vital Signs Pulse 58 03/29/23 13:28 BP 114/72 03/29/23 13:28 Pulse Ox 95 03/29/23 13:28 Oxygen Delivery Method Room Air 03/29/23 13:28 Const General: cooperative, healthy appearing, alert, awake and well groomed Limitations: ambulation with cane Results AMB 14 Panel Urine Drug Screen Urine Marijuana (THC) Negative Last Edit by Edwina Varela CMA on 03/29/23 13:30 Urine Cocaine Negative Last Edit by Edwina Varela CMA on 03/29/23 13:30 Urine Morphine Negative Last Edit by Edwina Varela CMA on 03/29/23 13:30 Urine Methamphetamine Negative Last Edit by Edwina Varela CMA on 03/29/23 13:30 Urine Amphetamine Positive Last Edit by Edwina Varela CMA on 03/29/23 13:3 0 Urine Benzodiazepine Positive Last Edit by Edwina Varela CMA on 03/29/23 13:30 Urine Barbiturates Negative Last Edit by Edwina Varela CMA on 03/29/23 13: 30 Urine Methadone Negative Last Edit by Edwina Varela CMA on 03/29/23 13:30 Urine Buprenorphine Positive Last Edit by Edwina Varela CMA on 03/29/23 13 :30 Urine Tricyclic Antidepressant Negative Last Edit by Edwina Varela CMA on 03/29/23 13:30 Urine MDMA Negative Last Edit by Edwina Varela CMA on 03/29/23 13:30 Urine Oxycodone Negative Last Edit by Edwina Varela CMA on 03/29/23 13:30 Urine Phencyclidine Negative Last Edit by Edwina Varela CMA on 03/29/23 13 :30 Urine Propoxyphene Negative Last Edit by Edwina Varela CMA on 03/29/23 13: 30 Results Reviewed Results Reviewed: Laboratory Last Values POC Urine Buprenorphine Positive 03/29/23 13:14 POC Urine Morphine Negative 03/29/23 13:14 POC Urine Oxycodone Negative 03/29/23 13:14 POC Urine Methadone Negative 03/29/23 13:14 POC Urine Propoxyphene Negative 03/29/23 13:14 POC Urine Barbiturates Negative 03/29/23 13:14 POC U Tricyclic Antidpr Negative 03/29/23 13:14 POC Urine PCP Negative 03/29/23 13:14 POC Ur Amphetamines Positive 03/29/23 13:14 POC Ur Methamphetamine Negative 03/29/23 13:14 POC Urine MDMA Negative 03/29/23 13:14 POC Ur Benzodiazepine Positive 03/29/23 13:14 POC Urine Cocaine Negative 03/29/23 13:14 POC Ur Marijuana (THC) Negative 03/29/23 13:14 Assessment & Plan Assessment & Plan (1) Opioid use disorder: Code(s): F11.90 - Opioid use, unspecified, uncomplicated Plan: * Continue Suboxone 8 mg b.i.d. * Overdose prevention discussion * Follow-up 8 weeks Orders: Orders AMB 14 Panel Urine Drug Screen 03/29/23 Z51.81 - Encounter for therapeutic drug level monitoring Medications: Refilled buprenorphine-naloxone 8-2 mg (Suboxone) 1 film sublingual BID 60 ea 1RF Coding Level of Care Code Est Pt Level 3 (91329) Diagnoses Opioid use disorder F11.90
[2023-03-29 13:28] VITALS: BP 114/72; PULSE 58; O2SAT 95
== END 2023-03-29 14:00 | disposition home or self-care (01) ==
LOC: HO.HCC 13:10
PROVIDERS: PCP Internal Medicine; Visit Provider Nurse Practitioner Psychiatric/Mental Health
DX: F11.90 Opioid use, unspecified, uncomplicated (principal)
CPT/HCPCS: 99213

== ENCOUNTER → 2023-03-29 13:10 | Outpatient (BNVA) | payer OTHER, SELFPAY | PROVIDERS: PCP Internal Medicine; Visit Provider Nurse Practitioner Psychiatric/Mental Health | DX: F11.20 Opioid dependence, uncomplicated (principal) | CPT/HCPCS: 80305; 99212 ==

== ENCOUNTER 2023-04-19 14:05 | Outpatient (AMB) | payer OTHER, SELFPAY ==
--- NOTE | 2023-04-19 14:07 | MHC.PC.OV ---
Vital Signs 04/19/23 14:08 Height 5 ft 3 in Weight 156 lb 6 oz BMI 27.7 BP 120/76 Blood Pressure Location Lt brachial Position Sitting Pulse 77 Pulse Source Pulse Oximeter Pulse Oximetry (%) 98 Oxygen Delivery Method Room Air Intake Visit Reasons: follow up after foot surgery Dive Master Required: No Accompanied by: Self / Same As Patient Allergies methotrexate Allergy (Mild, Verified 04/19/23 14:08) blisters in mouth Seasonal Allergies Allergy (Mild, Verified 04/19/23 14:08) runny nose, watery eyes, mucus Tobacco use date assessed: 04/19/23 Dental Screening Dental Screen Date: 04/19/23 Did you have a dental visit in the last 12 months?: Yes Did you have a dental problem in the last 6 months where you did not have access to dental care?: No Was dental information given to patient?: Patient has dentist HPI HPI Comments History of Present Illness Details 57-year-old female past medical history significant for hypercholesteremia, hypertension, rheumatoid arthritis ADHD, opiate abuse, CKD. Patient last seen in December, patient presents today for follow-up from her foot surgery Dr Ricci [facility] vascular surgery. Patient underwent right lower extremity angiogram the goal of restoring vascularization to left lower extremity to resolve her foot pain as well as toe discoloration. Patient reports that this was unsuccessful and that she has to follow-up with vascular surgery to undergo vein mapping on April 26 and follow-up with vascular surgeon on 04/28/2023. Patient reports she wanted to discuss with her PCP Dr Soto regarding her lorazepam script, patient requesting to have script sent for a larger quantity. Patient also reports that she established care with Dr. Yoo psychiatrist and was re-initiated on Adderall for her history of ADHD. Patient reports in the process of speaking to psychiatrist in regards to taking over her lorazepam script, however this not has been established at this time. Will send message to PCP. She also follows with counseling weekly. Patient reports established care with care doctor [facility] for CKD. [facility] Medical History (Updated 02/02/23 @ 14:20 by Radha Ricketts CNP) Paronychia of great toe of right foot Opioid use disorder Painful total knee replacement, right Lumbar post-laminectomy syndrome Colonoscopy refused Mammogram declined Peptic ulcer disease Hypercholesterolemia Tobacco abuse Hypertension Posttraumatic stress disorder Rheumatoid arthritis Protrusion of lumbar intervertebral disc Lumbar spinal stenosis Insomnia ADHD Primary osteoarthritis of right hip Allergic rhinitis Surgical History History of back surgery History of surgical removal of squamous cell carcinoma of skin of right yazidi 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 Mother No problems noted. Social History (Updated 09/30/22 @ 13:56 by Shona Ramsay [facility]) Housing: House Housing Other:: rents a room Alcohol intake: former Patient Tobacco Use Status: Current everyday Tobacco user Tobacco use type: Cigarette Cigarettes Per Day: 3 e-Cigarette/Vaping Use: Never Used Second Hand Smoke Exposure: Yes service: No Current occupational status: disabled Cognitive needs: No Hearing needs: No Vision needs: No Questionnaire PHQ-9 Over the last 2 weeks, how often have you been bothered by any of the following problems? 1. Little interest or pleasure in doing things: several days 2. Feeling down, depressed, or hopeless: several days 3. Trouble falling or staying asleep, or sleeping too much: several days 4. Feeling tired or having little energy: several days 5. Poor appetite or overeating: not at all 6. Feeling bad about yourself - or that you are a failure or have let yourself or your family down: not at all 7. Trouble concentrating on things, such as reading the newspaper or watching television: not at all 8. Moving or speaking so slowly that other people could have noticed. Or the opposite - being so fidgety or restless that you have been moving around a lot more than usual: not at all 9. Thoughts that you would be better off or of hurting yourself in some way: not at all Total score: 4 Depression Screening Interpretation: Positive Source: Developed by Drs. Etienne Barfield, Alina Amanda, Coy Pacheco and colleagues, with an educational leobardo from [employer]. Thrive Questionnaire Date Thrive assessed: 04/19/23 I am a: Patient What is your living situation today?: I have a steady place to live Within the past 12 months, did the food you bought not last and you didn't have the money to get more?: Never true Within the past 12 months, did you worry whether your food would run out before you got money to buy more?: Never true Do you have trouble paying for medicines?: No Do you have trouble getting transportation to medical appointments?: No Do you have trouble paying your heating and electricity bill?: No Do you have trouble taking care of your child, family member or friend?: No Do you have trouble with day-to-day activities such as bathing, preparing meals, shopping, managing finances, etc.?: No Are you currently unemployed and looking for a job?: No Are you interested in more education?: No Please select the resources that you would like help with: None Currently or been in a relationship where the following occur: no concerns reported AUDIT C Alcohol Use Questionnaire (AUDIT-C) 1. How often do you have a drink containing alcohol?: Never 3. How often do you have six or more drinks on one occasion?: Never Total Score: 0 GODFREY-7 AMB Questionnaire GODFREY-7 Date GODFREY - 7 assessed: 04/19/23 Feeling nervous, anxious, or on edge: 0 = Not at all Not being able to stop or control worryin = Not at all Worrying too much about different things: 0 = Not at all Trouble relaxin = Not at all Being so restless that it is hard to sit still: 0 = Not at all Becoming easily annoyed or irritable: 0 = Not at all Feeling afraid as if something awful might happen: 0 = Not at all Total GODFREY-7 score (0-4 normal; 5-9 mild; 10-14 moderate; 15-21 severe): 0 Source: Developed by Drs. Etienne Barfield, Alina Amanda, Coy Pacheco and colleagues, with an educational leobardo from [employer]. Review of Systems Const Denies chills, Denies fatigue, Denies fever(s) and Denies poor appetite Eyes Denies no additional complaints ENT Reports Normal hearing present Card Denies chest pain, Denies syncope, Denies rapid heart rate and Denies dyspnea Resp Denies cough and Denies dyspnea GI Denies change in stool character, Denies constipation, Denies diarrhea, Denies nausea and Denies vomiting Denies urinary frequency, Denies dysuria and Denies urinary urgency Neuro Reports Normal hearing present, Denies confusion and Denies syncope Psych Denies confusion Endo Denies fatigue Physical exam (Primary Care) Vital Signs: Last Vital Signs Pulse 77 04/19/23 14:08 BP 120/76 04/19/23 14:08 Pulse Ox 98 04/19/23 14:08 Oxygen Delivery Method Room Air 04/19/23 14:08 BMI result Body Mass Index 27.7 Tobacco/Smoking Status: Tobacco use Status Tobacco use date assessed 04/19/23 04/19/23 14:11 Patient Tobacco Use Status Current everyday Tobacco 04/19/23 14:11 Tobacco use type Cigarette 04/19/23 14:11 e-Cigarette/Vaping Use Never Used 04/19/23 14:11 PHQ-9: PHQ-9 Score PHQ-9: Total score 4 04/19/23 14:22 Depression Screening Interpretation: Positive Thrive Assessment: Date of Thrive Assessment Date Thrive assessed 04/19/23 04/19/23 14:11 Currently or been in a relationship where the following occur: no concerns reported Const General: No confusion Orientation/consciousness: No confusion HENMT Head: Yes normocephalic and Yes atraumatic Eyes Conjunctivae: conjunctivae normal Chest Chest palpation & inspection: normal inspection of the chest Resp Effort & Inspection: normal respiratory effort Auscultation: clear to auscultation bilaterally, no crackles, no rhonchi and no wheezes Cardio Rate: regular rate Rhythm: regular rhythm Heart sounds: S1 normal heart sound present and S2 normal heart sound present Peripheral pulses: dorsalis pedis present GI Inspection: Yes normal to inspection General: Yes no CVA tenderness Back/Spine/Pelvis Back: no CVA tenderness Neuro General: No confusion Cranial nerves: Yes Normal hearing present Extrem General: No edema Right lower extremity: foot (all digits on right foot remain red discoloration) Assessment and Plan Assessment & Plan (1) Foot pain, right: Code(s): M79.671 - Pain in right foot (2) PAD (peripheral artery disease): Code(s): I73.9 - Peripheral vascular disease, unspecified Plan: Continue to follow with [facility] vascular surgery. (3) Chronic kidney disease (CKD) stage G3b/A1, moderately decreased glomerular filtration rate (GFR) between 30-44 mL/min/1.73 square meter and albuminuria creatinine ratio less than 30 mg/g: Code(s): N18.32 - Chronic kidney disease, stage 3b (4) ADHD: Code(s): F90.9 - Attention-deficit hyperactivity disorder, unspecified type Qualifiers: Attention deficit-hyperactivity disorder type: predominantly hyperactive Qualified Code(s): F90.1 - Attention-deficit hyperactivity disorder, predominantly hyperactive type Plan: Continue on current medications. Continue to follow with psychiatrist . Coding Level of Care Code Est Pt Level 3 (93814) Diagnoses Foot pain, right M79.671 PAD (peripheral artery disease) I73.9 Chronic kidney disease (CKD) stage G3b/A1, moderately decreased glomerular filtration rate (GFR) between 30-44 mL/min/1.73 square meter and albuminuria creatinine ratio less than 30 mg/g N18.32 Attention deficit hyperactivity disorder (ADHD), predominantly hyperactive type F90.1 Attention deficit-hyperactivity disorder type: predominantly hyperactive
[2023-04-19 14:08] VITALS: BP 120/76; PULSE 77; O2SAT 98; BMI 27.7
== END 2023-04-19 15:41 | disposition home or self-care (01) ==
PROVIDERS: PCP Internal Medicine; Visit Provider Nurse Practitioner Family
DX: M79.671 Pain in right foot (principal); I73.9 Peripheral vascular disease, unspecified; N18.32 Chronic kidney disease, stage 3b; F90.1 Attention-deficit hyperactivity disorder, predominantly hyperactive type
CPT/HCPCS: 99213

== ENCOUNTER 2023-05-09 09:25 | Outpatient (AMB) | payer OTHER, SELFPAY ==
[2023-05-09 11:08] VITALS: BP 120/60; PULSE 92; TEMP 36.2; O2SAT 95; BMI 27.8
--- NOTE | 2023-05-09 11:08 | AM.OFFWIN_ITS ---
Intake Vital Signs 05/09/23 11:08 Height 5 ft 3 in Weight 71.214 kg BMI 27.8 BP 120/60 Blood Pressure Location Lt brachial Position Sitting Pulse 92 Pulse Source Pulse Oximeter Temp 97.1 F Temp Source Temporal Artery Scan Pulse Oximetry (%) 95 Oxygen Delivery Method Room Air Intake Visit Reasons: EP ?Bronchitis/Viral Infection/Sore RT Hip(masked) Intake Note: pt is here for c/o Patient Tobacco Use Status: Current everyday Tobacco user Allergies methotrexate Allergy (Mild, Verified 05/09/23 11:10) blisters in mouth Seasonal Allergies Allergy (Mild, Verified 05/09/23 11:10) runny nose, watery eyes, mucus Do you need a note to return to daycare/school/sports/work: Yes HPI EP ?Bronchitis/Viral Infection/Sore RT Hip(masked) HPI Details Patient presents today with which seems to be 8 days of worsening cough, congestion, and productive sputum. She notes her significant other at home is sick with similar symptoms. She denies fevers chills or change in appetite. She also notes a area of swelling and soreness over the incision of her right hip replacement which was done 02/19/2023 at [facility] in [place]. She notes there was bruising over the area but denies fall or any type of acute trauma. She has already called her orthopedic surgeon in [place] to discuss this with them and they have asked for pictures to be sent and they will be following up with her. She had been well recovered from her hip replacement and had been walking at the gym and doing some light weight training up until she became ill with a cough. [facility] Medical History (Updated 02/02/23 @ 14:20 by Radha Ricketts CNP) Paronychia of great toe of right foot Opioid use disorder Painful total knee replacement, right Lumbar post-laminectomy syndrome Colonoscopy refused Mammogram declined Peptic ulcer disease Hypercholesterolemia Tobacco abuse Hypertension Posttraumatic stress disorder Rheumatoid arthritis Protrusion of lumbar intervertebral disc Lumbar spinal stenosis Insomnia ADHD Primary osteoarthritis of right hip Allergic rhinitis Surgical History History of back surgery History of surgical removal of squamous cell carcinoma of skin of right presybeterian 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 Mother No problems noted. Social History (Updated 09/30/22 @ 13:56 by Shona Ramsay [facility]) Housing: House Housing Other:: rents a room Alcohol intake: former Patient Tobacco Use Status: Current everyday Tobacco user Tobacco use type: Cigarette Cigarettes Per Day: 3 e-Cigarette/Vaping Use: Never Used Second Hand Smoke Exposure: Yes service: No Current occupational status: disabled Cognitive needs: No Hearing needs: No Vision needs: No Review of Systems Const Reports as per HPI and Reports no additional complaints ENT Reports no additional complaints and Reports as per HPI Card Reports as per HPI and Reports no additional complaints Resp Reports as per HPI and Reports no additional complaints GI Reports as per HPI and Reports no additional complaints Musc Reports no additional complaints and Reports as per HPI Skin/Breast Denies lesions Neuro Reports no additional complaints and Reports as per HPI Physical Exam Vital Signs: Last Vital Signs Temp 97.1 F 05/09/23 11:08 Pulse 92 05/09/23 11:08 BP 120/60 05/09/23 11:08 Pulse Ox 95 05/09/23 11:08 Oxygen Delivery Method Room Air 05/09/23 11:08 BMI result Body Mass Index 27.8 Results Reviewed Results Reviewed: Chest x-ray contemporaneously read by me without acute finding. X-ray of the right hip also contemporaneously read by me appliance appears intact with no obvious e will report radiology results as available at different. ffusion or hematoma. Assessment & Plan Assessment & Plan (1) Lower respiratory infection: Code(s): J22 - Unspecified acute lower respiratory infection Plan: Will treat with Z-Jose and ProAir, she can also use Mucinex to help expected rate sputum. Strongly advised ER for symptoms do not improve in the next day or 2 or she develops worsening shortness of breath, develops chest pain or dyspnea on exertion or any new symptoms of concern. (2) Acute right hip pain: Code(s): M25.551 - Pain in right hip Plan: Advised patient to get disc of x-rays as well as follow-up with her surgeon as requested. ER if redness or fevers develop over the area or worsening pain or swelling. Orders: Orders XR chest 2V Today J22 - Unspecified acute lower respiratory infection XR hip RT min 2V Today M25.551 - Pain in right hip SARS-CoV2/FLU/RSV Today B34.9 - Viral infection, unspecified Medications: New azithromycin (Zithromax Z-Jose) 2 pills day one then 1 pill per day x 4 days 250 mg PO DAILY 5 days 6 tabs 0RF albuterol sulfate 90 mcg/actuation (ProAir HFA) 1 inh inhalation Q4-6H PRN 6.7 grams 0RF shortness of breath or wheezing Coding Level of Care Code Est Pt Level 4 (62648) Diagnoses Lower respiratory infection J22 Acute right hip pain M25.551
== END 2023-05-09 12:39 | disposition home or self-care (01) ==
PROVIDERS: PCP Internal Medicine; Visit Provider Physician Assistant
DX: J22 Unspecified acute lower respiratory infection (principal); M25.551 Pain in right hip
CPT/HCPCS: 99214

== ENCOUNTER 2023-05-09 11:56 | Outpatient (REF) | payer OTHER, SELFPAY ==
--- NOTE | ~2023-05-09 | XR_ITS ---
EXAMINATION: XR HIP, RIGHT CLINICAL INFORMATION: Pain in right hip. Pain and swelling over lateral hip incision 3 months status post hip replacement. COMPARISON: Right hip 04/29/2017. TECHNIQUE: Two views of the right hip. FINDINGS: The patient has undergone revision of her right total arthroplasty since the previous examination. No periprosthetic fracture. There is soft tissue swelling laterally. No soft tissue gas. XR/XR hip RT min 2V IMPRESSION: Lateral soft tissue swelling. No soft tissue gas.
--- NOTE | ~2023-05-09 | XR_ITS ---
EXAMINATION: XR CHEST CLINICAL INFORMATION: Worsening productive cough x1 week, shortness of breath. COMPARISON: Chest x-ray 03/23/2017. TECHNIQUE: 2 views of the chest were obtained. FINDINGS: The cardiomediastinal silhouette is stable. The lungs are well expanded. No consolidation or effusion. No pneumothorax. Degenerative changes in the spine. Laparoscopic gastric band. XR/XR chest 2V IMPRESSION: No focal pneumonia.
[2023-05-09 14:20] LABS: Influenza A PCR NEGATIVE (Negative); Influenza B PCR NEGATIVE (Negative); Resp Syncy Virus RNA Qual PCR NEGATIVE (Negative); SARS COV2 PCR INHOUSE NEGATIVE (Negative)
== END 2023-05-09 11:57 | disposition home or self-care (01) ==
LOC: HO.HMGCX 11:56
PROVIDERS: PCP Internal Medicine; Visit Provider Physician Assistant
DX: Z11.52 Encounter for screening for COVID-19 (principal); M25.551 Pain in right hip; B34.9 Viral infection, unspecified; J22 Unspecified acute lower respiratory infection
CPT/HCPCS: 0241U; 71046; 73502

== ENCOUNTER 2023-05-31 10:29 | Outpatient (AMB) | payer OTHER, SELFPAY ==
--- NOTE | 2023-05-31 10:35 | A.OFFVIS_ITS ---
Intake Vital Signs 05/31/23 14:31 BP 128/76 Blood Pressure Location Lt brachial Position Sitting Pulse 85 Pulse Source Pulse Oximeter Pulse Oximetry (%) 96 Oxygen Delivery Method Room Air Intake Visit Reasons: mat visit Allergies methotrexate Allergy (Mild, Verified 05/09/23 11:10) blisters in mouth Seasonal Allergies Allergy (Mild, Verified 05/09/23 11:10) runny nose, watery eyes, mucus HPI mat visit HPI Details Pt presents for follow up. Reports she was seen last month at a walk in clinic for a viral illness for which she took and finished a z-moncho for, and has since recovered from. Reports she has had some minor complications at the site of her THR that she is following up with the doctor who performed the surgery for. Reports that her vascular surgery was unsucessful and that she is exploring other treatment options at this time. Tolerating suboxone well. [facility] Medical History (Updated 02/02/23 @ 14:20 by Radha Ricketts CNP) Paronychia of great toe of right foot Opioid use disorder Painful total knee replacement, right Lumbar post-laminectomy syndrome Colonoscopy refused Mammogram declined Peptic ulcer disease Hypercholesterolemia Tobacco abuse Hypertension Posttraumatic stress disorder Rheumatoid arthritis Protrusion of lumbar intervertebral disc Lumbar spinal stenosis Insomnia ADHD Primary osteoarthritis of right hip Allergic rhinitis Surgical History History of back surgery History of surgical removal of squamous cell carcinoma of skin of right judaism 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 Mother No problems noted. Social History (Updated 09/30/22 @ 13:56 by ARMANDO Alvarez) Housing: House Housing Other:: rents a room Alcohol intake: former Patient Tobacco Use Status: Current everyday Tobacco user Tobacco use type: Cigarette Cigarettes Per Day: 3 e-Cigarette/Vaping Use: Never Used Second Hand Smoke Exposure: Yes service: No Current occupational status: disabled Cognitive needs: No Hearing needs: No Vision needs: No Review of Systems Const Reports as per HPI Physical Exam Vital Signs: Last Vital Signs Pulse 85 05/31/23 14:31 BP 128/76 05/31/23 14:31 Pulse Ox 96 05/31/23 14:31 Oxygen Delivery Method Room Air 05/31/23 14:31 Const General: cooperative and no acute distress Orientation/consciousness: patient oriented x3 Resp Effort & Inspection: normal respiratory effort and able to speak in complete sentences Neuro General: patient oriented x3 Psych Appearance: grossly normal Mental Status: mental status grossly normal Affect: Labile affect present Attitude: cooperative Thought process: Circumstantial thought process present Thought content: Normal thought content present Assessment & Plan Assessment & Plan (1) Opioid use disorder: Code(s): F11.90 - Opioid use, unspecified, uncomplicated Plan: Continue suboxone at current dose. Follow up in 8 weeks. Encouraged to call the clinic with questions/concerns, or if she needs a sooner appointment. Medications: Refilled buprenorphine-naloxone 8-2 mg (Suboxone) 1 film sublingual BID 60 ea 1RF Coding Level of Care Code Est Pt Level 3 (12581) Diagnoses Opioid use disorder F11.90
[2023-05-31 14:31] VITALS: BP 128/76; PULSE 85; O2SAT 96
== END 2023-05-31 11:36 | disposition home or self-care (01) ==
PROVIDERS: PCP Internal Medicine; Visit Provider Nurse Practitioner Family
DX: F11.90 Opioid use, unspecified, uncomplicated (principal)
CPT/HCPCS: 99213

== ENCOUNTER → 2023-05-31 10:29 | Outpatient (BNVA) | payer OTHER, SELFPAY | PROVIDERS: PCP Internal Medicine; Visit Provider Nurse Practitioner Family | DX: F11.20 Opioid dependence, uncomplicated (principal); Z51.81 Encounter for therapeutic drug level monitoring; Z79.899 Other long term (current) drug therapy | CPT/HCPCS: 99212 ==

== ENCOUNTER 2023-06-01 13:03 | Outpatient (AMB) | payer OTHER, SELFPAY ==
--- NOTE | 2023-06-01 13:04 | A.OFFPC_ITS ---
Vital Signs 06/01/23 13:06 Height 5 ft 3 in Weight 159 lb 6 oz BMI 28.2 BP 120/70 Blood Pressure Location Lt brachial Position Sitting Intake Visit Reasons: 1mth f/u Intake Note: Patient is here to follow up on medication management. Configuration Management Analyst Required: No Older Adult Social Work Specialist: Not Required per policy Accompanied by: Self / Same As Patient Allergies methotrexate Allergy (Mild, Verified 06/01/23 13:06) blisters in mouth Seasonal Allergies Allergy (Mild, Verified 06/01/23 13:06) runny nose, watery eyes, mucus Medication List - Last Reconciled 06/01/23 by Octavia Soto MD acetaminophen ER (Tylenol Arthritis Pain) 650 mg PO Q8H albuterol sulfate 90 mcg/actuation (Ventolin HFA) 2 puffs inhalation Q6H PRN albuterol sulfate 90 mcg/actuation (ProAir HFA) 1 inh inhalation Q4-6H PRN amlodipine 10 mg PO DAILY aspirin 81 mg PO DAILY 90 days buprenorphine-naloxone 2-0.5 mg (Suboxone) 1 film sublingual DAILY buprenorphine-naloxone 8-2 mg (Suboxone) 1 film sublingual BID diclofenac sodium 1% 4 grams topical QID food supplemt, lactose-reduced (Ensure oral liquid) 1 ea PO .QD 90 days hydrochlorothiazide 25 mg PO DAILY 90 days lorazepam 1 mg PO BID-TID PRN 28 days melatonin 3 mg PO BEDTIME PRN naloxone 4 mg/actuation (Narcan) 4 mg intranasal Q3M PRN zolpidem 10 mg PO BEDTIME 28 days Tobacco use date assessed: 06/01/23 Dental Screening Dental Screen Date: 06/01/23 Did you have a dental visit in the last 12 months?: Yes Did you have a dental problem in the last 6 months where you did not have access to dental care?: No Was dental information given to patient?: Patient has dentist HPI 1mth f/u HPI Details 57-year-old overweight female smoker wit h multiple medical problems chronic kidney disease hyper contention hypercholesterolemia generalized anxiety disorder rheumatoid arthritis lumbar spinal stenosis insomnia post laminectomy syndrome with chronic low back pain, opioid use disorder history of lap band surgery history of CVA coming in for follow-up.. Patient follows up with the [facility] now on Suboxone. 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 Patient had some recent x-ray of the hip history of right total arthroplasty right showing lateral soft tissue swelling but no gas.. Patient also had some recent foot surgery [facility] had a right lower extremity angiogram patient now has a psychiatrist and has been placed on ADHD medication. Patient also follows up with Rheumatology March 2023 complaining of left hand pain diagnosis of osteoarthritis and of course the rheumatoid arthritis on hydroxychloroquine 200 mg twice a day patient does see the vascular surgeon for right lower extremity pain having atherosclerosis of the leg and will have a right lower extremity angiogram. In January 2023 did have revision of the total hip replacement on the right has a history of dislocation in November 2022 had closed reduction right total hip arthroplasty. for the renal - state stop NSAID. for the HTN. patient has pad - testing 06/2023- seeing vascular wi Dr. Keiry Tyson Patient was given pain med. still smoking? pulse felt on foot though. will be getting test june. PAtient has a psychiatrist also- taking ADHD med. has therapist with [facility]. states saw [facility]- [facility] Medical History (Updated 06/01/23 @ 14:10 by Octavia Soto MD) Paronychia of great toe of right foot Opioid use disorder Painful total knee replacement, right Lumbar post-laminectomy syndrome Colonoscopy refused Mammogram declined Peptic ulcer disease Hypercholesterolemia Tobacco abuse Hypertension Posttraumatic stress disorder Rheumatoid arthritis Protrusion of lumbar intervertebral disc Lumbar spinal stenosis Insomnia ADHD Primary osteoarthritis of right hip Allergic rhinitis Surgical History (Updated 06/01/23 @ 13:14 by ARMANDO Montoya) History of back surgery History of surgical removal of squamous cell carcinoma of skin of right alevism 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 Mother No problems noted. Social History Housing: House Housing Other:: rents a room Alcohol intake: former Patient Tobacco Use Status: Current everyday Tobacco user Tobacco use type: Cigarette Cigarettes Per Day: 3 e-Cigarette/Vaping Use: Never Used Second Hand Smoke Exposure: Yes service: No Current occupational status: disabled Cognitive needs: No Hearing needs: No Vision needs: No Questionnaire Thrive Questionnaire Date Thrive assessed: 04/19/23 GODFREY-7 AMB Questionnaire GODFREY-7 Date GODFREY - 7 assessed: 04/19/23 Source: Developed by Drs. Etienne Barfield, Alina Amanda, Coy Pacheco and colleagues, with an educational leobardo from [employer]. Physical exam (Primary Care) Vital Signs: Last Vital Signs BP 120/70 06/01/23 13:06 BMI result Body Mass Index 28.2 Tobacco/Smoking Status: Tobacco use Status Tobacco use date assessed 06/01/23 06/01/23 13:15 Patient Tobacco Use Status Current everyday Tobacco 06/01/23 13:15 Tobacco use type Cigarette 06/01/23 13:15 e-Cigarette/Vaping Use Never Used 06/01/23 13:15 Thrive Assessment: Date of Thrive Assessment Date Thrive assessed 04/19/23 06/01/23 13:15 Const General: alert; No acute distress Eyes Conjunctivae: conjunctivae normal Resp Auscultation: clear to auscultation bilaterally Cardio Rate: regular rate Rhythm: regular rhythm GI Inspection: Yes normal to inspection Extrem General: Yes normal to inspection and No edema Assessment and Plan Assessment & Plan (1) Opioid use disorder: Code(s): F11.90 - Opioid use, unspecified, uncomplicated Plan: Patient continues to follow-up with compressive care on Suboxone (2) Tobacco abuse: Comment: PFT normal January 2020 Code(s): Z72.0 - Tobacco use Plan: Strongly advised to stop! (3) Hypercholesterolemia: Code(s): E78.00 - Pure hypercholesterolemia, unspecified Plan: Avoid fried foods, chicken skin, eggs, butter margarine, pastries and meat. Be it pork or beef they have a lot of cholesterol LDL goal of less than 70 and triglyceride of less than (4) Hypertension: Code(s): I10 - Essential (primary) hypertension Qualifiers: Hypertension type: essential hypertension Qualified Code(s): I10 - Essential (primary) hypertension Plan: Continue with blood pressure medication. Decrease salt intake and exercise on lisinopril 20 mg once a day hydrochlorothiazide 25 mg once a day and amlodipine 10 mg once a day did see nephrology and concern about low blood pressure (5) Rheumatoid arthritis: Code(s): M06.9 - Rheumatoid arthritis, unspecified Qualifiers: Rheumatoid arthritis location: multiple sites Rheumatoid factor presence: unspecified presence Qualified Code(s): M06.9 - Rheumatoid arthritis, unspecified Plan: Continued follow-up Rheumatology has been placed on hydroxychloroquine (6) ADHD: Comment: [facility] Code(s): F90.9 - Attention-deficit hyperactivity disorder, unspecified type Qualifiers: Attention deficit-hyperactivity disorder type: predominantly hyperactive Qualified Code(s): F90.1 - Attention-deficit hyperactivity disorder, predominantly hyperactive type Plan: Continue follow-up with psychiatry [facility] (7) Generalized anxiety disorder: Comment: [facility] therapist once a week Code(s): F41.1 - Generalized anxiety disorder Plan: Continued follow-up with Psychiatry (8) PVD (peripheral vascular disease): Code(s): I73.9 - Peripheral vascular disease, unspecified Plan: When sitting down elevate the legs, exercise, and support stockings patient follows up with vascular surgeon. testing 06/2023 (9) Hip dislocation, right: Comment: 10/29/2022 status post close reduction surgery Code(s): S73.004A - Unspecified dislocation of right hip, initial encounter Plan: Continue to follow-up with orthopedics (10) Breast cancer screening by mammogram: Code(s): Z12.31 - Encounter for screening mammogram for malignant neoplasm of breast (11) Colonoscopy refused: Code(s): Z53.20 - Procedure and treatment not carried out because of patient's decision for unspecified reasons Orders: Orders Complete Blood Count Auto Diff Today E78.00 - Pure hypercholesterolemia, unspecified Comprehensive Met. Panel Today E78.00 - Pure hypercholesterolemia, unspecified Thyroid Stimulating Hormone Today E78.00 - Pure hypercholesterolemia, unspecified Lipid Panel Today E78.00 - Pure hypercholesterolemia, unspecified Vitamin B12 and Folate Today E78.00 - Pure hypercholesterolemia, unspecified Free T4 (Free Thyroxine) Today E78.00 - Pure hypercholesterolemia, unspecified Vitamin D 25-OH Total Today E78.00 - Pure hypercholesterolemia, unspecified MM tomosynthesis screening BI Today Z12.31 - Encounter for screening mammogram for malignant neoplasm of breast Medications: New lisinopril 20 mg PO DAILY 90 tabs 1RF I10 - Essential (primary) hypertension gabapentin 1 tab in am and 1/2 tab in evening orally; 60 tabs 0RF hydroxychloroquine 200 mg PO BID 60 tabs 0RF M06.9 - Rheumatoid arthritis, unspecified Discontinued lisinopril Discontinued Reason: Change Referral Type 20 mg PO DAILY Coding Level of Care Code Est Pt Level 4 (21856) Diagnoses Opioid use disorder F11.90 Tobacco abuse Z72.0 Hypercholesterolemia E78.00 Essential hypertension I10 Hypertension type: essential hypertension Rheumatoid arthritis involving multiple sites, unspecified whether rheumatoid factor present M06.9 Rheumatoid arthritis location: multiple sites Rheumatoid factor presence: unspecified presence Attention deficit hyperactivity disorder (ADHD), predominantly hyperactive type F90.1 Attention deficit-hyperactivity disorder type: predominantly hyperactive Generalized anxiety disorder F41.1 PVD (peripheral vascular disease) I73.9 Hip dislocation, right S73.004A Breast cancer screening by mammogram Z12.31 Colonoscopy refused Z53.20
[2023-06-01 13:06] VITALS: BP 120/70; BMI 28.2
== END 2023-06-01 14:25 | disposition home or self-care (01) ==
PROVIDERS: PCP Internal Medicine; Visit Provider Internal Medicine
DX: M06.9 Rheumatoid arthritis, unspecified (principal); S73.004A Unspecified dislocation of right hip, initial encounter; I73.9 Peripheral vascular disease, unspecified; F11.90 Opioid use, unspecified, uncomplicated; Z72.0 Tobacco use; E78.00 Pure hypercholesterolemia, unspecified; I10 Essential (primary) hypertension; F90.1 Attention-deficit hyperactivity disorder, predominantly hyperactive type; F41.1 Generalized anxiety disorder; Z12.31 Encounter for screening mammogram for malignant neoplasm of breast; Z53.20 Procedure and treatment not carried out because of patient's decision for unspecified reasons
CPT/HCPCS: 99214

== ENCOUNTER 2023-07-12 15:39 | Outpatient (AMB) | payer OTHER, SELFPAY ==
[2023-07-12 15:45] VITALS: BP 124/60; PULSE 88; O2SAT 100; BMI 28.3
--- NOTE | 2023-07-12 15:45 | A.OFFPC_ITS ---
Vital Signs 07/12/23 15:45 Height 5 ft 3 in Weight 160 lb BMI 28.3 BP 124/60 Blood Pressure Location Lt brachial Position Sitting Pulse 88 Pulse Source Pulse Oximeter Pulse Oximetry (%) 100 Oxygen Delivery Method Room Air Intake Visit Reasons: 1mth f/u Hotel Valet Attendant Required: No Allergies methotrexate Allergy (Mild, Verified 07/12/23 15:45) blisters in mouth Seasonal Allergies Allergy (Mild, Verified 07/12/23 15:45) runny nose, watery eyes, mucus Tobacco use date assessed: 07/12/23 HPI 1mth f/u HPI Details 57-year-old female smoker with history o f of opioid use disorder hypercholesterolemia hypertension rheumatoid arthritis ADHD generalized anxiety disorder coming in for follow-up. Last seen in May 2023. Review of the notes was seen in June by Cardiology and vascular history of right popliteal occlusion with mid posterior tibial reconstruction and planer runoff March 2023 consistent with moderate arterial insufficiency absent significant rest pain or tissue loss would not recommend tibial artery bypass and this does indications. If there is no improvement the on cilostazol follow-up in 3 months can consider right femoral to posterior tibial bypass. Patient also follows up with Rheumatology on hydroxychloroquine and prednisone. PAtient is going for surgery under Dr. Warner Lerma middle finger- ? release tendone- trigger finger- for the vascular - states cannot take the full dose- gets sick with full dose- will follow up 10/2023 [facility] Medical History (Updated 06/01/23 @ 14:10 by Octavia Soto MD) Paronychia of great toe of right foot Opioid use disorder Painful total knee replacement, right Lumbar post-laminectomy syndrome Colonoscopy refused Mammogram declined Peptic ulcer disease Hypercholesterolemia Tobacco abuse Hypertension Posttraumatic stress disorder Rheumatoid arthritis Protrusion of lumbar intervertebral disc Lumbar spinal stenosis Insomnia ADHD Primary osteoarthritis of right hip Allergic rhinitis Surgical History (Updated 06/01/23 @ 13:14 by ARMANDO Montoya) History of back surgery History of surgical removal of squamous cell carcinoma of skin of right cheondoism 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 Mother No problems noted. Social History Housing: House Housing Other:: rents a room Alcohol intake: former Patient Tobacco Use Status: Current everyday Tobacco user Tobacco use type: Cigarette Cigarettes Per Day: 3 e-Cigarette/Vaping Use: Never Used Second Hand Smoke Exposure: Yes service: No Current occupational status: disabled Cognitive needs: No Hearing needs: No Vision needs: No Questionnaire Thrive Questionnaire Date Thrive assessed: 04/19/23 AUDIT C Alcohol Use Questionnaire (AUDIT-C) 1. How often do you have a drink containing alcohol?: Never 3. How often do you have six or more drinks on one occasion?: Never Total Score: 0 GODFREY-7 AMB Questionnaire GODFREY-7 Date GODFREY - 7 assessed: 04/19/23 Source: Developed by Drs. Etienne Barfield, Alina Amanda, Coy Pacheco and colleagues, with an educational leobardo from [employer]. Physical exam (Primary Care) Vital Signs: Last Vital Signs Pulse 88 07/12/23 15:45 BP 124/60 07/12/23 15:45 Pulse Ox 100 07/12/23 15:45 Oxygen Delivery Method Room Air 07/12/23 15:45 BMI result Body Mass Index 28.3 Tobacco/Smoking Status: Tobacco use Status Tobacco use date assessed 07/12/23 07/12/23 15:46 Patient Tobacco Use Status Current everyday Tobacco 07/12/23 15:46 Tobacco use type Cigarette 07/12/23 15:46 e-Cigarette/Vaping Use Never Used 07/12/23 15:46 Thrive Assessment: Date of Thrive Assessment Date Thrive assessed 04/19/23 07/12/23 15:46 Const General: alert; No acute distress Eyes Conjunctivae: conjunctivae normal Resp Auscultation: clear to auscultation bilaterally Cardio Rate: regular rate Rhythm: regular rhythm GI Inspection: Yes normal to inspection Extrem General: Yes normal to inspection and No edema Office Procedures Flu Questionnaire Does the patient have a severe egg allergy?: No Does the patient have severe life threatening allergies?: No Does the patient have a fever or illness today?: No Has the patient ever had Guillain-Milburn Syndrome?: No Has the patient ever had any past reaction to a flu shot?: No Immunizations flu vacc [id number] 6mos up(PF) 60 mcg(15 mcgx4)/0.5 mL IM syringe Performing Provider: Octavia Soto MD [facility] [place] [facility] Administered by: ARMANDO Das on 07/12/23 16:06 Dose Route Admin Location Dispensed Lot Number Expiration Date [employer] 0.5 mL IM Left Deltoid 0.5 mL [id number] 01/22/24 [id number] [employer] VIS Given Date VIS Provided VIS Publication Date 07/12/23 Single Vaccine 21 Eligibility Eligibility Date Funding Source Not [facility] Eligible 07/12/23 Private Assessment and Plan Assessment & Plan (1) Chronic kidney disease (CKD) stage G3b/A1, moderately decreased glomerular filtration rate (GFR) between 30-44 mL/min/1.73 square meter and albuminuria creatinine ratio less than 30 mg/g: Code(s): N18.32 - Chronic kidney disease, stage 3b Plan: Continue to follow-up with this requested blood work. PAtient states follows up with renal in [facility] had blood work May, (2) Hypercholesterolemia: Code(s): E78.00 - Pure hypercholesterolemia, unspecified Plan: Avoid fried foods, chicken skin, eggs, butter margarine, pastries and meat. Be it pork or beef they have a lot of cholesterol LDL goal of less than 70 and triglyceride of less than will request for blood work (3) Tobacco abuse: Comment: PFT normal January 2020 Code(s): Z72.0 - Tobacco use Plan: Patient is strongly advised to stop smoking! not ready to stop- still thinking. (4) Hypertension: Code(s): I10 - Essential (primary) hypertension Qualifiers: Hypertension type: essential hypertension Qualified Code(s): I10 - Essential (primary) hypertension Plan: Continue with blood pressure medication. Decrease salt intake and exercise on amlodipine hydrochlorothiazide lisinopril (5) Rheumatoid arthritis: Code(s): M06.9 - Rheumatoid arthritis, unspecified Qualifiers: Rheumatoid arthritis location: multiple sites Rheumatoid factor presence: unspecified presence Qualified Code(s): M06.9 - Rheumatoid arthritis, unspecified Plan: Follows up with Rheumatology continuing with hydroxychloroquine. do not take prednisone and states takes hydroxychloroquine once a day only (6) Opioid use disorder: Code(s): F11.90 - Opioid use, unspecified, uncomplicated Plan: Continue with comprehensive care (7) PAD (peripheral artery disease): Code(s): I73.9 - Peripheral vascular disease, unspecified Plan: Control the cholesterol, weight, blood pressure Orders: Orders Influenza [id number] Immunization Today Z23 - Encounter for immunization Coding Level of Care Code Est Pt Level 4 (70850) Diagnoses Chronic kidney disease (CKD) stage G3b/A1, moderately decreased glomerular filtration rate (GFR) between 30-44 mL/min/1.73 square meter and albuminuria creatinine ratio less than 30 mg/g N18.32 Hypercholesterolemia E78.00 Tobacco abuse Z72.0 Essential hypertension I10 Hypertension type: essential hypertension Rheumatoid arthritis involving multiple sites, unspecified whether rheumatoid factor present M06.9 Rheumatoid arthritis location: multiple sites Rheumatoid factor presence: unspecified presence Opioid use disorder F11.90 PAD (peripheral artery disease) I73.9
== END 2023-07-12 16:56 | disposition home or self-care (01) ==
PROVIDERS: PCP Internal Medicine; Visit Provider Internal Medicine
DX: I12.9 Hypertensive chronic kidney disease with stage 1 through stage 4 chronic kidney disease, or unspecified chronic kidney disease (principal); N18.32 Chronic kidney disease, stage 3b; M06.9 Rheumatoid arthritis, unspecified; Z23 Encounter for immunization; I73.9 Peripheral vascular disease, unspecified; E78.00 Pure hypercholesterolemia, unspecified; Z72.0 Tobacco use; F11.90 Opioid use, unspecified, uncomplicated
CPT/HCPCS: 90471; 90686; 99214

== ENCOUNTER 2023-07-26 11:24 | Outpatient (AMB) | payer OTHER, SELFPAY ==
[2023-07-26 10:15] VITALS: BP 195/95; PULSE 114; RESP 20; O2SAT 99
--- NOTE | 2023-07-26 15:08 | MHC.AM.SUB ---
Intake Vital Signs 07/26/23 10:15 BP 195/95 H Blood Pressure Location Lt brachial Position Sitting Respiration 20 Pulse 114 H Pulse Source Pulse Oximeter Pulse Oximetry (%) 99 Intake Visit Reasons: mat visit Allergies methotrexate Allergy (Mild, Verified 07/12/23 15:45) blisters in mouth Seasonal Allergies Allergy (Mild, Verified 07/12/23 15:45) runny nose, watery eyes, mucus HPI mat visit HPI Details Patient presents for [facility] treatment and follow up She is feeling stable in recovery, no recovery related concerns at this time. She reports being scammed out of $700 last month when attempting to buy a puppy from a breeder online, expressed anger over this. [facility] Medical History (Updated 06/01/23 @ 14:10 by Octavia Soto MD) Paronychia of great toe of right foot Opioid use disorder Painful total knee replacement, right Lumbar post-laminectomy syndrome Colonoscopy refused Mammogram declined Peptic ulcer disease Hypercholesterolemia Tobacco abuse Hypertension Posttraumatic stress disorder Rheumatoid arthritis Protrusion of lumbar intervertebral disc Lumbar spinal stenosis Insomnia ADHD Primary osteoarthritis of right hip Allergic rhinitis Surgical History (Updated 06/01/23 @ 13:14 by ARMANDO Montoya) History of back surgery History of surgical removal of squamous cell carcinoma of skin of right worship 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 Mother No problems noted. Social History Housing: House Housing Other:: rents a room Alcohol intake: former Patient Tobacco Use Status: Current everyday Tobacco user Tobacco use type: Cigarette Cigarettes Per Day: 3 e-Cigarette/Vaping Use: Never Used Second Hand Smoke Exposure: Yes service: No Current occupational status: disabled Cognitive needs: No Hearing needs: No Vision needs: No Review of Systems Const Reports as per HPI Physical Exam Vital Signs: Last Vital Signs Pulse 114 H 07/26/23 10:15 Resp 20 07/26/23 10:15 BP 195/95 H 07/26/23 10:15 Pulse Ox 99 07/26/23 10:15 Const General: cooperative and no acute distress Resp Effort & Inspection: normal respiratory effort Psych Appearance: grossly normal Mental Status: mental status grossly normal Speech and movement: Normal speech and movement present Assessment & Plan Assessment & Plan (1) Opioid use disorder: Code(s): F11.90 - Opioid use, unspecified, uncomplicated Plan: -Continue suboxone at current dose -Follow up 8 weeks Medications: Refilled buprenorphine-naloxone 8-2 mg (Suboxone) 1 film sublingual BID 60 ea 1RF Coding Level of Care Code Est Pt Level 3 (66284) Diagnoses Opioid use disorder F11.90
== END 2023-07-26 12:21 | disposition home or self-care (01) ==
PROVIDERS: PCP Internal Medicine; Visit Provider Nurse Practitioner Family
DX: F11.90 Opioid use, unspecified, uncomplicated (principal)
CPT/HCPCS: 99213

== ENCOUNTER → 2023-07-26 11:24 | Outpatient (BNVA) | payer OTHER, SELFPAY | PROVIDERS: PCP Internal Medicine; Visit Provider Nurse Practitioner Family | DX: F11.20 Opioid dependence, uncomplicated (principal) | CPT/HCPCS: 99212 ==

== ENCOUNTER 2023-08-11 14:51 | Outpatient (AMB) | payer OTHER, SELFPAY ==
[2023-08-11 14:54] VITALS: BP 142/76; PULSE 83; O2SAT 100; BMI 28.3
--- NOTE | 2023-08-11 14:54 | A.OFFPC_ITS ---
Vital Signs 08/11/23 14:54 Height 5 ft 3 in Weight 160 lb BMI 28.3 BP 142/76 H Blood Pressure Location Lt brachial Position Sitting Pulse 83 Pulse Source Pulse Oximeter Pulse Oximetry (%) 100 Oxygen Delivery Method Room Air Intake Visit Reasons: 4 Week Follow Up Wellness Nurse Rn Required: No Allergies methotrexate Allergy (Mild, Verified 08/11/23 14:54) blisters in mouth Seasonal Allergies Allergy (Mild, Verified 08/11/23 14:54) runny nose, watery eyes, mucus Tobacco use date assessed: 08/11/23 HPI 4 Week Follow Up HPI Details 57-year-old overweight female smoker wit h a history of chronic kidney d isease hypercholesterolemia hypertension rheumatoid arthritis peripheral arterial disease and opioid use disorder last seen in June 2023. Patient had shingles and called tele doc and was given valacyclovir did respond to the patient later that day for the reason that patient has chronic kidney disease was advised to modify directions for the antiviral. Patient is here for follow- up notes April 2023 lap band adjustment history of laparoscopic adjustable gastric band December 2008 Dr. Herndon. developed R chest and back and R arm . having a hard time with sleeping. September 14, 2023 Dr. Hylton hand surgery L 3rd finger. psychiatry Dr. Yoo . 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 pets [facility] Medical History (Updated 08/11/23 @ 15:25 by Octavia Soto MD) Paronychia of great toe of right foot Opioid use disorder Painful total knee replacement, right Lumbar post-laminectomy syndrome Colonoscopy refused Mammogram declined Peptic ulcer disease Hypercholesterolemia Tobacco abuse Hypertension Posttraumatic stress disorder Rheumatoid arthritis Protrusion of lumbar intervertebral disc Lumbar spinal stenosis Insomnia ADHD Primary osteoarthritis of right hip Allergic rhinitis Surgical History (Updated 06/01/23 @ 13:14 by ARMANDO Montoya) History of back surgery History of surgical removal of squamous cell carcinoma of skin of right taoism 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 Mother No problems noted. Social History Housing: House Housing Other:: rents a room Alcohol intake: former Patient Tobacco Use Status: Current everyday Tobacco user Tobacco use type: Cigarette Cigarettes Per Day: 3 e-Cigarette/Vaping Use: Never Used Second Hand Smoke Exposure: Yes service: No Current occupational status: disabled Cognitive needs: No Hearing needs: No Vision needs: No Questionnaire Thrive Questionnaire Date Thrive assessed: 08/11/23 AUDIT C Alcohol Use Questionnaire (AUDIT-C) 1. How often do you have a drink containing alcohol?: Never 3. How often do you have six or more drinks on one occasion?: Never Total Score: 0 GODFREY-7 AMB Questionnaire GODFREY-7 Date GODFREY - 7 assessed: 08/11/23 Source: Developed by Drs. Etienne Barfield, Alina Amanda, Coy Pacheco and colleagues, with an educational leobardo from [employer]. Physical exam (Primary Care) Vital Signs: Last Vital Signs Pulse 83 08/11/23 14:54 BP 142/76 H 08/11/23 14:54 Pulse Ox 100 08/11/23 14:54 Oxygen Delivery Method Room Air 08/11/23 14:54 BMI result Body Mass Index 28.3 Tobacco/Smoking Status: Tobacco use Status Tobacco use date assessed 08/11/23 08/11/23 14:55 Patient Tobacco Use Status Current everyday Tobacco 08/11/23 14:55 Tobacco use type Cigarette 08/11/23 14:55 e-Cigarette/Vaping Use Never Used 08/11/23 14:55 Thrive Assessment: Date of Thrive Assessment Date Thrive assessed 08/11/23 08/11/23 14:55 Const General: alert; No acute distress Eyes Conjunctivae: conjunctivae normal Resp Auscultation: clear to auscultation bilaterally Cardio Rate: regular rate Rhythm: regular rhythm GI Inspection: Yes normal to inspection Skin Other: Noted multiple petechial rash from the upper back to the right axilla to the right arm in groups Extrem General: Yes normal to inspection and No edema Assessment and Plan Assessment & Plan (1) LAP-BAND surgery status: Comment: lap band 2006 band adjustment 10/2018 Code(s): Z98.84 - Bariatric surgery status Plan: Received notes from Dr. Herndon with adjustment of lap band March 2023 (2) Tobacco abuse: Comment: PFT normal January 2020 Code(s): Z72.0 - Tobacco use Plan: Patient is strongly advised to stop smoking (3) Chronic kidney disease (CKD) stage G3b/A1, moderately decreased glomerular filtration rate (GFR) between 30-44 mL/min/1.73 square meter and albuminuria creatinine ratio less than 30 mg/g: Code(s): N18.32 - Chronic kidney disease, stage 3b Plan: Keep well hydrated avoid NSAIDs (4) Hypercholesterolemia: Code(s): E78.00 - Pure hypercholesterolemia, unspecified Plan: Avoid fried foods, chicken skin, eggs, butter margarine, pastries and meat. Be it pork or beef they have a lot of cholesterol LDL goal of less than 70 and triglyceride of less than 150. Patient is recommended to get blood work done (5) Generalized anxiety disorder: Comment: Salome Wright therapist once a week Code(s): F41.1 - Generalized anxiety disorder Plan: Continue with present medication (6) Opioid use disorder: Code(s): F11.90 - Opioid use, unspecified, uncomplicated Plan: Patient follows up with opiate management. (7) Shingles: Comment: R uuper back to R arm Code(s): B02.9 - Zoster without complications Plan: finshed valacyclovir. was on lorazepam and gabapentin, lidocaine patch (8) Insomnia: Code(s): G47.00 - Insomnia, unspecified Qualifiers: Insomnia type: primary Qualified Code(s): F51.01 - Primary insomnia Plan: continue with med Coding Level of Care Code Est Pt Level 4 (85192) Diagnoses LAP-BAND surgery status Z98.84 Tobacco abuse Z72.0 Chronic kidney disease (CKD) stage G3b/A1, moderately decreased glomerular filtration rate (GFR) between 30-44 mL/min/1.73 square meter and albuminuria creatinine ratio less than 30 mg/g N18.32 Hypercholesterolemia E78.00 Generalized anxiety disorder F41.1 Opioid use disorder F11.90 Shingles B02.9 Primary insomnia F51.01 Insomnia type: primary
== END 2023-08-11 15:36 | disposition home or self-care (01) ==
PROVIDERS: PCP Internal Medicine; Visit Provider Internal Medicine
DX: Z98.84 Bariatric surgery status (principal); Z72.0 Tobacco use; N18.32 Chronic kidney disease, stage 3b; E78.00 Pure hypercholesterolemia, unspecified; F41.1 Generalized anxiety disorder; F11.90 Opioid use, unspecified, uncomplicated; B02.9 Zoster without complications; F51.01 Primary insomnia
CPT/HCPCS: 99214

== ENCOUNTER 2023-09-20 10:11 | Outpatient (AMB) | payer OTHER, SELFPAY ==
[2023-09-20 10:17] VITALS: BP 110/70; PULSE 65; RESP 18
--- NOTE | 2023-09-20 10:17 | A.OFFVISCC_ITS ---
Intake Vital Signs 09/20/23 10:17 BP 110/70 Blood Pressure Location Rt brachial Position Sitting Respiration 18 Pulse 65 Oxygen Delivery Method Room Air Oxygen Flow Rate 96 Intake Visit Reasons: mat visit Allergies methotrexate Allergy (Mild, Verified 08/11/23 14:54) blisters in mouth Seasonal Allergies Allergy (Mild, Verified 08/11/23 14:54) runny nose, watery eyes, mucus HPI mat visit HPI Details Patient presents for routine follow up She reports she recently had shingles, and that it is still resolving She had surgery last week to left hand, no concerns She has no concerns related to recovery She is taking buprenorphine 8mg BID, tolerating dose well [facility] Medical History (Updated 09/20/23 @ 13:41 by Dixie Ortiz NP) Paronychia of great toe of right foot Opioid use disorder Painful total knee replacement, right Lumbar post-laminectomy syndrome Colonoscopy refused Mammogram declined Peptic ulcer disease Hypercholesterolemia Tobacco abuse Hypertension Posttraumatic stress disorder Rheumatoid arthritis Protrusion of lumbar intervertebral disc Lumbar spinal stenosis Insomnia ADHD Primary osteoarthritis of right hip Allergic rhinitis Surgical History (Updated 06/01/23 @ 13:14 by ARMANDO Montoay) History of back surgery History of surgical removal of squamous cell carcinoma of skin of right mandaen 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 Mother No problems noted. Social History Housing: House Housing Other:: rents a room Alcohol intake: former Patient Tobacco Use Status: Current everyday Tobacco user Tobacco use type: Cigarette Cigarettes Per Day: 3 e-Cigarette/Vaping Use: Never Used Second Hand Smoke Exposure: Yes service: No Current occupational status: disabled Cognitive needs: No Hearing needs: No Vision needs: No Review of Systems Const Reports as per HPI Physical Exam Vital Signs: Last Vital Signs Pulse 65 09/20/23 10:17 Resp 18 09/20/23 10:17 BP 110/70 02/27/24 10:17 Oxygen Delivery Method Room Air 09/20/23 10:17 Oxygen Flow Rate 96 09/20/23 10:17 Const General: cooperative and no acute distress Resp Effort & Inspection: normal respiratory effort Psych Appearance: grossly normal Mental Status: mental status grossly normal Speech and movement: Normal speech and movement present Affect: Animated affect present Attitude: cooperative Thought process: Tangential thought process present Assessment & Plan Assessment & Plan (1) Opioid use disorder: Code(s): F11.90 - Opioid use, unspecified, uncomplicated Plan: -Continue suboxone at current dose -Mass pat reviewed -Follow up 8 weeks Medications: Refilled buprenorphine-naloxone 8-2 mg (Suboxone) 1 film sublingual BID 60 ea 1RF Coding Level of Care Code Est Pt Level 3 (01355) Diagnoses Opioid use disorder F11.90
== END 2023-09-20 11:15 | disposition home or self-care (01) ==
LOC: HO.HCC 10:11
PROVIDERS: PCP Internal Medicine; Visit Provider Nurse Practitioner Family
DX: F11.90 Opioid use, unspecified, uncomplicated (principal)
CPT/HCPCS: 99213

== ENCOUNTER → 2023-09-20 10:11 | Outpatient (BNVA) | payer OTHER, SELFPAY | PROVIDERS: PCP Internal Medicine; Visit Provider Nurse Practitioner Family | DX: F11.20 Opioid dependence, uncomplicated (principal) | CPT/HCPCS: 99212 ==

== ENCOUNTER 2023-10-11 12:50 | Outpatient (AMB) | payer OTHER, SELFPAY ==
--- NOTE | 2023-10-11 12:55 | MHC.PC.OV ---
Vital Signs 10/11/23 12:56 Height 5 ft 3 in Weight 164 lb BMI 29.0 BP 122/64 Blood Pressure Location Lt brachial Position Sitting Pulse 101 H Pulse Source Pulse Oximeter Temp Source Skin Pulse Oximetry (%) 97 Oxygen Delivery Method Room Air Intake Visit Reasons: 4 Week Follow Up Intake Note: Patient is here to follow up on 4 weeks Allergies methotrexate Allergy (Mild, Verified 08/11/23 14:54) blisters in mouth Seasonal Allergies Allergy (Mild, Verified 08/11/23 14:54) runny nose, watery eyes, mucus Medication List - Last Reconciled 10/11/23 by Octavia Soto MD acetaminophen ER (Tylenol Arthritis Pain) 650 mg PO Q8H albuterol sulfate 90 mcg/actuation (Ventolin HFA) 2 puffs inhalation Q6H PRN amlodipine 10 mg PO DAILY aspirin 81 mg PO DAILY 90 days buprenorphine-naloxone 2-0.5 mg (Suboxone) 1 film sublingual DAILY buprenorphine-naloxone 8-2 mg (Suboxone) 1 film sublingual BID bupropion HCl (smoking deter) mg PO cilostazol 100 mg PO BID diclofenac sodium 1% 4 grams topical QID food supplemt, lactose-reduced (Ensure oral liquid) 1 ea PO .QD 90 days gabapentin 1 tab in am hydrochlorothiazide 25 mg PO DAILY 90 days hydroxychloroquine 200 mg PO BID lidocaine 5% 1 patch topical DAILY lisinopril 20 mg PO DAILY lorazepam 1 mg PO BID-TID PRN 28 days melatonin 3 mg PO BEDTIME PRN naloxone 4 mg/actuation (Narcan) 4 mg intranasal Q3M PRN polymyxin B sulf-trimethoprim 10,000 unit- 1 mg/mL 1 drp ophthalmic (eye) QID 5 days zolpidem 10 mg PO BEDTIME 28 days Tobacco use date assessed: 08/11/23 Dental Screening Dental Screen Date: 10/11/23 HPI 4 Week Follow Up HPI Details 57-year-old female smoker with a history of lap band surgery chronic kidney disease hypercholesterolemia generalized anxiety disorder opioid use disorder coming in for follow-up. Last seen in July 2023. Patient has declined colonoscopy. Review of the notes has seen Nephrology 09/20/2023 diagnosis chronic kidney disease stage 4 in the setting of chronic NSAID use. Or chronic thrombo micro angiopathy renal biopsy history showing acute on chronic thrombotic microangiopathy as well as interstitial nephritis patient have discussed with the toll bridge attendant regarding transplant. Spoke to the patient and was concerned that her kidney function is getting worse. Patient was asking for referral for Cardiology but discussed with the patient that I do not have a reason to see the addiction professional she had a CVA but that has not the reason anyway discussed on ordering for an echocardiogram 1st for structural check. Patient also request for physical therapy as she has gait instability she did have a history of hip surgery as well as CVA. [facility] Medical History (Updated 10/11/23 @ 13:52 by Octavia Soto MD) Chronic kidney disease (CKD) stage G3b/A1, moderately decreased glomerular filtration rate (GFR) between 30-44 mL/min/1.73 square meter and albuminuria creatinine ratio less than 30 mg/g Paronychia of great toe of right foot Opioid use disorder Painful total knee replacement, right Lumbar post-laminectomy syndrome Colonoscopy refused Mammogram declined Peptic ulcer disease Hypercholesterolemia Tobacco abuse Hypertension Posttraumatic stress disorder Rheumatoid arthritis Protrusion of lumbar intervertebral disc Lumbar spinal stenosis Insomnia ADHD Primary osteoarthritis of right hip Allergic rhinitis Surgical History (Updated 06/01/23 @ 13:14 by ARMANDO Montoya) History of back surgery History of surgical removal of squamous cell carcinoma of skin of right [place] 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 Mother No problems noted. Social History Housing: House Housing Other:: rents a room Alcohol intake: former Patient Tobacco Use Status: Current everyday Tobacco user Tobacco use type: Cigarette Cigarettes Per Day: 3 e-Cigarette/Vaping Use: Never Used Second Hand Smoke Exposure: Yes service: No Current occupational status: disabled Cognitive needs: No Hearing needs: No Vision needs: No Questionnaire Thrive Questionnaire Date Thrive assessed: 08/11/23 AUDIT C Alcohol Use Questionnaire (AUDIT-C) 1. How often do you have a drink containing alcohol?: Never 3. How often do you have six or more drinks on one occasion?: Never Total Score: 0 GODFREY-7 AMB Questionnaire GODFREY-7 Date GODFREY - 7 assessed: 08/11/23 Source: Developed by Drs. Etienne Barfield, Alina Amanda, Coy Pacheco and colleagues, with an educational leobardo from [employer]. Physical exam (Primary Care) Vital Signs: Last Vital Signs Pulse 101 H 10/11/23 12:56 BP 122/64 10/11/23 12:56 Pulse Ox 97 10/11/23 12:56 Oxygen Delivery Method Room Air 10/11/23 12:56 BMI result Body Mass Index 29.0 Tobacco/Smoking Status: Tobacco use Status Tobacco use date assessed 08/11/23 10/11/23 13:00 Patient Tobacco Use Status Current everyday Tobacco 10/11/23 13:00 Tobacco use type Cigarette 10/11/23 13:00 e-Cigarette/Vaping Use Never Used 10/11/23 13:00 Thrive Assessment: Date of Thrive Assessment Date Thrive assessed 08/11/23 10/11/23 13:00 Const General: alert; No acute distress Eyes Conjunctivae: conjunctivae normal Resp Auscultation: clear to auscultation bilaterally Cardio Rate: regular rate Rhythm: regular rhythm GI Inspection: Yes normal to inspection Extrem General: Yes normal to inspection and No edema Assessment and Plan Assessment & Plan (1) Tobacco abuse: Comment: PFT normal January 2020 Code(s): Z72.0 - Tobacco use Plan: Patient is strongly advised to stop smoking! (2) Breast cancer screening by mammogram: Code(s): Z12.31 - Encounter for screening mammogram for malignant neoplasm of breast Plan: Patient is reminded about mammogram (3) Hypertension: Code(s): I10 - Essential (primary) hypertension Qualifiers: Hypertension type: essential hypertension Qualified Code(s): I10 - Essential (primary) hypertension Plan: Continue with blood pressure medication. Decrease salt intake and exercise presently on amlodipine 10 mg once a day hydrochlorothiazide 25 mg once a day lisinopril 20 mg once a day (4) Hypercholesterolemia: Code(s): E78.00 - Pure hypercholesterolemia, unspecified Plan: Avoid fried foods, chicken skin, eggs, butter margarine, pastries and meat. Be it pork or beef they have a lot of cholesterol LDL goal of less than 70 and triglyceride of less than 150 (5) Chronic kidney disease, stage 4 (severe): Code(s): N18.4 - Chronic kidney disease, stage 4 (severe) Plan: Patient has met with Nephrology and continue to follow-up on kidney function (6) Lumbar spinal stenosis: Comment: Dr. Brunner June 2020 L3-S1 laminectomy, L3-S1 TLIF, PSH, L4 osteotomy Code(s): M48.061 - Spinal stenosis, lumbar region without neurogenic claudication Qualifiers: Neurogenic claudication status: without neurogenic claudication Qualified Code(s): M48.061 - Spinal stenosis, lumbar region without neurogenic claudication Plan: Narcotic pain meds: Is being prescribed with the understanding that these medications are potentially addictive and should be used only when absolutely necessary and must always be secured. Any remaining pills should be safely disposed off appropriately. Patient is advised that narcotics can impaired judgment and one should not drive or operate heavy machinery while taking these medications. Never share these medications with anybody and do not leave them unattended. They will not be replaced under any circumstances. 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 right-sided weakness Code(s): I63.9 - Cerebral infarction, unspecified Plan: Physical therapy requested (12) Hip dislocation, right: Comment: 10/29/2022 status post close reduction surgery Code(s): S73.004A - Unspecified dislocation of right hip, initial encounter Plan: Physical therapy requested Orders: Orders CA echo transthoracic complete Today I10 - Essential (primary) hypertension PT Evaluation and Treatment Today I63.9 - Cerebral infarction, unspecified, R26.81 - Unsteadiness on feet, S73.004A - Unspecified dislocation of right hip, initial encounter Medications: Changed From gabapentin 1 tab in am and 1/2 tab in evening orally; 60 tabs 2RF To gabapentin 1 tab in am 60 tabs 2RF Discontinued valacyclovir Discontinued Reason: Doctor's Order 1,000 mg PO DAILY 7 tabs 0RF albuterol sulfate 90 mcg/actuation (ProAir HFA) Discontinued Reason: Duplicate 1 inh inhalation Q4-6H PRN 6.7 grams 0RF shortness of breath or wheezing Coding Level of Care Code Est Pt Level 4 (19996) Diagnoses Tobacco abuse Z72.0 Breast cancer screening by mammogram Z12.31 Essential hypertension I10 Hypertension type: essential hypertension Hypercholesterolemia E78.00 Chronic kidney disease, stage 4 (severe) N18.4 Spinal stenosis of lumbar region without neurogenic claudication M48.061 Neurogenic claudication status: without neurogenic claudication Generalized anxiety disorder F41.1 Anemia D64.9 Opioid use disorder F11.90 Gait instability R26.81 CVA (cerebral vascular accident) I63.9 Hip dislocation, right S73.004A
[2023-10-11 12:56] VITALS: BP 122/64; PULSE 101; O2SAT 97; BMI 29.0
== END 2023-10-11 14:05 | disposition home or self-care (01) ==
PROVIDERS: PCP Internal Medicine; Visit Provider Internal Medicine
DX: I12.9 Hypertensive chronic kidney disease with stage 1 through stage 4 chronic kidney disease, or unspecified chronic kidney disease (principal); N18.4 Chronic kidney disease, stage 4 (severe); I69.951 Hemiplegia and hemiparesis following unspecified cerebrovascular disease affecting right dominant side; S73.004A Unspecified dislocation of right hip, initial encounter; Z72.0 Tobacco use; Z12.31 Encounter for screening mammogram for malignant neoplasm of breast; E78.00 Pure hypercholesterolemia, unspecified; M48.061 Spinal stenosis, lumbar region without neurogenic claudication; F41.1 Generalized anxiety disorder; D64.9 Anemia, unspecified; F11.90 Opioid use, unspecified, uncomplicated; R26.81 Unsteadiness on feet
CPT/HCPCS: 99214

== ENCOUNTER 2023-11-07 14:17 | Outpatient (AMB) | payer OTHER, SELFPAY ==
[2023-11-07 14:28] VITALS: BP 136/72; PULSE 92; O2SAT 97
--- NOTE | 2023-11-07 14:28 | A.OFFPC_ITS ---
Vital Signs 11/07/23 14:28 Height 5 ft 3 in BMI Reason not done Patient refused/unable BP 136/72 Blood Pressure Location Lt brachial Position Sitting Pulse 92 Pulse Source Pulse Oximeter Pulse Oximetry (%) 97 Oxygen Delivery Method Room Air Intake Visit Reasons: 4 Week Follow Up Allergies methotrexate Allergy (Mild, Verified 11/07/23 14:28) blisters in mouth Seasonal Allergies Allergy (Mild, Verified 11/07/23 14:28) runny nose, watery eyes, mucus Tobacco use date assessed: 11/07/23 Dental Screening Dental Screen Date: 11/07/23 Did you have a dental visit in the last 12 months?: No Did you have a dental problem in the last 6 months where you did not have access to dental care?: No Was dental information given to patient?: Patient has dentist HPI 4 Week Follow Up HPI Details 58-year-old overweight female smoker wit h hypertension hypercholesterolemia generalized anxiety disorder chronic kidney disease and lumbar spinal stenosis coming in for follow-up. Last seen in September 2023. Through Telehealth. ER visit 10/30/2023 tripped on the carpet and fell in the bathroom complaining of right knee pain with a history of arthroplasty at that. Had right ankle pain and the knee feels better. Suspected tiny avulsion fracture from the medial process of the talus with mild lateral ankle soft tissue swelling avulsion fracture lateral inferior aspect of the talus on CT scan. Donavan WOOD-(lives with patient) did see ROSE placed on a boot and wll see 1 week [facility] Medical History (Updated 11/07/23 @ 15:26 by Octavia Soto MD) Chronic kidney disease (CKD) stage G3b/A1, moderately decreased glomerular filtration rate (GFR) between 30-44 mL/min/1.73 square meter and albuminuria creatinine ratio less than 30 mg/g Paronychia of great toe of right foot Opioid use disorder Painful total knee replacement, right Lumbar post-laminectomy syndrome Colonoscopy refused Mammogram declined Peptic ulcer disease Hypercholesterolemia Tobacco abuse Hypertension Posttraumatic stress disorder Rheumatoid arthritis Protrusion of lumbar intervertebral disc Lumbar spinal stenosis Insomnia ADHD Primary osteoarthritis of right hip Allergic rhinitis Surgical History (Updated 06/01/23 @ 13:14 by ARMANDO Montoya) History of back surgery History of surgical removal of squamous cell carcinoma of skin of right mosque 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 Mother No problems noted. Social History Housing: House Housing Other:: rents a room Alcohol intake: former Patient Tobacco Use Status: Current everyday Tobacco user Tobacco use type: Cigarette Cigarettes Per Day: 3 e-Cigarette/Vaping Use: Never Used Second Hand Smoke Exposure: Yes service: No Current occupational status: disabled Cognitive needs: No Hearing needs: No Vision needs: No Questionnaire PHQ-9 Over the last 2 weeks, how often have you been bothered by any of the following problems? 1. Little interest or pleasure in doing things: several days 2. Feeling down, depressed, or hopeless: several days 3. Trouble falling or staying asleep, or sleeping too much: several days 4. Feeling tired or having little energy: several days 5. Poor appetite or overeating: not at all 6. Feeling bad about yourself - or that you are a failure or have let yourself or your family down: not at all 7. Trouble concentrating on things, such as reading the newspaper or watching television: not at all 8. Moving or speaking so slowly that other people could have noticed. Or the opposite - being so fidgety or restless that you have been moving around a lot more than usual: not at all 9. Thoughts that you would be better off or of hurting yourself in some way: not at all Total score: 4 Depression Screening Interpretation: Positive Depression Screening Done: Yes Source: Developed by Drs. Etienne Barfield, Alina Amanda, Coy Pacheco and colleagues, with an educational leobardo from [employer] ([employer]). Thrive Questionnaire Date Thrive assessed: 11/07/23 I am a: Patient What is your living situation today?: I have a steady place to live Within the past 12 months, did the food you bought not last and you didn't have the money to get more?: Never true Within the past 12 months, did you worry whether your food would run out before you got money to buy more?: Never true Do you have trouble paying for medicines?: No Do you have trouble getting transportation to medical appointments?: No Do you have trouble paying your heating and electricity bill?: No Do you have trouble taking care of your child, family member or friend?: No Do you have trouble with day-to-day activities such as bathing, preparing meals, shopping, managing finances, etc.?: No Are you currently unemployed and looking for a job?: No Are you interested in more education?: No Currently or been in a relationship where the following occur: no concerns reported THRIVE Score: 0 AUDIT C Alcohol Use Questionnaire (AUDIT-C) 1. How often do you have a drink containing alcohol?: Never 3. How often do you have six or more drinks on one occasion?: Never Total Score: 0 GODFREY-7 AMB Questionnaire GODFREY-7 Date GODFREY - 7 assessed: 11/07/23 Feeling nervous, anxious, or on edge: 0 = Not at all Not being able to stop or control worryin = Not at all Worrying too much about different things: 0 = Not at all Trouble relaxin = Not at all Being so restless that it is hard to sit still: 0 = Not at all Becoming easily annoyed or irritable: 0 = Not at all Feeling afraid as if something awful might happen: 0 = Not at all Total GODFREY-7 score (0-4 normal; 5-9 mild; 10-14 moderate; 15-21 severe): 0 Source: Developed by Drs. Etienne Barfield, Alina Amanda, Coy Pacheco and colleagues, with an educational leobardo from [employer] ([employer]). Physical exam (Primary Care) Vital Signs: Last Vital Signs Pulse 92 11/07/23 14:28 BP 136/72 11/07/23 14:28 Pulse Ox 97 11/07/23 14:28 Oxygen Delivery Method Room Air 11/07/23 14:28 Tobacco/Smoking Status: Tobacco use Status Tobacco use date assessed 11/07/23 11/07/23 14:32 Patient Tobacco Use Status Current everyday Tobacco 11/07/23 14:32 Tobacco use type Cigarette 11/07/23 14:32 e-Cigarette/Vaping Use Never Used 11/07/23 14:32 PHQ-9: PHQ-9 Score PHQ-9: Total score 4 11/07/23 14:41 Depression Screening Interpretation: Positive Thrive Assessment: Date of Thrive Assessment Date Thrive assessed 11/07/23 11/07/23 14:32 Currently or been in a relationship where the following occur: no concerns reported Const General: alert; No acute distress Eyes Conjunctivae: conjunctivae normal Resp Auscultation: clear to auscultation bilaterally Cardio Rate: regular rate Rhythm: regular rhythm GI Inspection: Yes normal to inspection Extrem General: Yes normal to inspection and No edema Assessment and Plan Assessment & Plan (1) Closed right ankle fracture: Comment: 10/30/2023 Code(s): S82.891A - Other fracture of right lower leg, initial encounter for closed fracture Plan: Received notes from ER October 29 from tripping having right ankle fracture avulsion fracture. patient presently on a boot and will be follow-up with orthopedics in a couple of weeks. (2) Chronic kidney disease, stage 4 (severe): Code(s): N18.4 - Chronic kidney disease, stage 4 (severe) Plan: Avoid NSAIDs keep well hydrated (3) Opioid use disorder: Code(s): F11.90 - Opioid use, unspecified, uncomplicated Plan: Narcotic pain meds: Is being prescribed with the understanding that these medications are potentially addictive and should be used only when absolutely necessary and must always be secured. Any remaining pills should be safely disposed off appropriately. Patient is advised that narcotics can impaired judgment and one should not drive or operate heavy machinery while taking these medications. Never share these medications with anybody and do not leave them unattended. They will not be replaced under any circumstances. (4) Tobacco abuse: Comment: PFT normal January 2020, stopped October 16, 2023 Code(s): Z72.0 - Tobacco use Plan: Patient is strongly advised to stop smoking! Patient has stop smoking 10/16/2023. Orders: Orders XR DEXA axial skeleton Today M81.0 - Age-related osteoporosis without current pathological fracture, S82.891A - Other fracture of right lower leg, initial encounter for closed fracture Coding Level of Care Code Est Pt Level 4 (90188) Diagnoses Closed right ankle fracture S82.891A Chronic kidney disease, stage 4 (severe) N18.4 Opioid use disorder F11.90 Tobacco abuse Z72.0
== END 2023-11-07 15:57 | disposition home or self-care (01) ==
PROVIDERS: PCP Internal Medicine; Visit Provider Internal Medicine
DX: S82.891A Other fracture of right lower leg, initial encounter for closed fracture (principal); N18.4 Chronic kidney disease, stage 4 (severe); F11.90 Opioid use, unspecified, uncomplicated; Z72.0 Tobacco use
CPT/HCPCS: 99214

== ENCOUNTER 2023-11-23 14:53 | Outpatient (AMB) | payer OTHER, SELFPAY ==
--- NOTE | 2023-11-23 14:50 | A.OFFVISCC_ITS ---
Vital Signs 11/23/23 14:56 BP 118/72 Blood Pressure Location Lt brachial Position Sitting Pulse 92 Pulse Source Pulse Oximeter Pulse Oximetry (%) 95 Oxygen Delivery Method Room Air Intake Visit Reasons: MAT Allergies methotrexate Allergy (Mild, Verified 11/23/23 14:50) blisters in mouth Seasonal Allergies Allergy (Mild, Verified 11/23/23 14:50) runny nose, watery eyes, mucus HPI HPI MAT: Details: Patient presents for OUD treatment and follow up She reports she found out recently her CKD has progressed to stage 4 Patient tearful in visit discussing this, states she does not want dialysis Upset because she has been 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 when trying to get a puppy Has been taking suboxone 8mg BID and tolerating well She is excited to begin gardening again for the season HPI Comments Details: Patient presents for MAT visit [facility] Medical History (Updated 11/07/23 @ 15:26 by Octavia Soto MD) Chronic kidney disease (CKD) stage G3b/A1, moderately decreased glomerular filtration rate (GFR) between 30-44 mL/min/1.73 square meter and albuminuria creatinine ratio less than 30 mg/g Paronychia of great toe of right foot Opioid use disorder Painful total knee replacement, right Lumbar post-laminectomy syndrome Colonoscopy refused Mammogram declined Peptic ulcer disease Hypercholesterolemia Tobacco abuse Hypertension Posttraumatic stress disorder Rheumatoid arthritis Protrusion of lumbar intervertebral disc Lumbar spinal stenosis Insomnia ADHD Primary osteoarthritis of right hip Allergic rhinitis Surgical History (Updated 06/01/23 @ 13:14 by ARMANDO Montoya) History of back surgery History of surgical removal of squamous cell carcinoma of skin of right sabianism 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 Mother No problems noted. Social History Housing: House Housing Other:: rents a room Alcohol intake: former Patient Tobacco Use Status: Current everyday Tobacco user Tobacco use type: Cigarette Cigarettes Per Day: 3 e-Cigarette/Vaping Use: Never Used Second Hand Smoke Exposure: Yes service: No Current occupational status: disabled Cognitive needs: No Hearing needs: No Vision needs: No Review of Systems Const Reports as per HPI Physical Exam Vital Signs: Last Vital Signs Pulse 92 11/23/23 14:56 BP 118/72 11/23/23 14:56 Pulse Ox 95 11/23/23 14:56 Oxygen Delivery Method Room Air 11/23/23 14:56 Const General: cooperative and no acute distress Resp Effort & Inspection: normal respiratory effort and able to speak in complete sentences Psych Appearance: grossly normal Mental Status: mental status grossly normal Speech and movement: Normal speech and movement present Affect: Labile affect present Attitude: cooperative Thought process: Normal thought process present Assessment & Plan Assessment & Plan (1) Opioid use disorder: Code(s): F11.90 - Opioid use, unspecified, uncomplicated Category: Medical Plan: -Continue suboxone at current dose -Mass pat reviewed -Follow up 8 weeks Medications: Refilled buprenorphine-naloxone 8-2 mg (Suboxone) 1 film sublingual BID 60 ea 1RF
[2023-11-23 14:56] VITALS: BP 118/72; PULSE 92; O2SAT 95
== END 2023-11-23 15:51 | disposition home or self-care (01) ==
LOC: HO.HCC 14:53
PROVIDERS: PCP Internal Medicine; Visit Provider Nurse Practitioner Family
DX: F11.90 Opioid use, unspecified, uncomplicated (principal)
CPT/HCPCS: 99213

== ENCOUNTER → 2023-11-23 14:53 | Outpatient (BNVA) | payer OTHER, SELFPAY | PROVIDERS: PCP Internal Medicine; Visit Provider Nurse Practitioner Family | DX: F11.20 Opioid dependence, uncomplicated (principal) | CPT/HCPCS: 99212 ==

== ENCOUNTER → 2023-12-13 12:59 | Outpatient (REF) | payer OTHER, SELFPAY ==
--- NOTE | 2023-12-13 13:02 | CA_ITS ---
Transthoracic Echocardiogram Patient (Last, First, Middle): Edwina Staton M Gender: Female Date of : 1965 Age: 58 Procedure Date: 12/13/2023 Procedure Type: Transthoracic Echocardiogram Location: OP Height: 160.02 cm Weight: 77.11 kg BSA: 1.80 m2 Heart Rate: 78 bpm BP: 105 / 65 mmHg Technical Proposal Writer: HUGH Referring MD: Octavia Soto MD Symptoms: I10 - Essential (primary) hypertension Study Quality: Adequate ECG Rhythm: Sinus Conclusions: - The left ventricular systolic function is normal. The calculated ejection fraction is 65% by biplane method. - There is moderate calcification of the aortic valve. At most, mild aortic stenosis. Findings Left Ventricle Normal left ventricular cavity size. There is normal left ventricular wall thickness. The left ventricular systolic function is normal. The calculated ejection fraction is 65% by biplane method. There is no evidence of regional wall motion abnormalities. Diastolic function is normal for age. LV peak GLS -21.5%. Right Ventricle Normal right ventricular cavity size and systolic function. Atria Both atria are normal in size. Aortic Valve There is moderate calcification of the aortic valve. There is no aortic valve regurgitation. Cannot assess if trileaflet or bicuspid. At most, mild aortic stenosis. Mitral Valve The mitral valve appears normal. There is no mitral valve regurgitation. There is no mitral valve stenosis. Pulmonic Valve The pulmonic valve is likely normal. Tricuspid Valve There is trace tricuspid valve regurgitation. There is no evidence of pulmonary hypertension. Great Vessels The asc aorta is normal in size. Venous The inferior vena cava is normal in size and collapses greater than 50% with inspiration. Pericardium/Pleural There is no evidence of pericardial effusion. Prior Study Comparison No prior study available for comparison. Measurements 2D Linear Measurements IVSd: 0.95 0.6-0.9/0.6-1.0 cm LVIDd: 3.26 3.9-5.3/4.2-5.9 cm LVIDd Index: 1.81 2.4-3.2/2.2-3.1 cm/m2 LVIDs: 1.90 2.0-3.6 cm LVPWd: 0.93 0.7-1.1 cm LA Diam: 3.20 2.7-3.8/3.0-4.0 cm LAIDs Index: 1.78 1.5-2.3 cm/m2 LV Mass: 105.36 67-162/88-224 g LV Mass Index: 58.53 43-95/49-115 g/m2 LVOT Diam: 2.20 3.0+(-)1.3 cm 2D Systolic Function EF 4C: 68.90 >55% EF 2C: 59.80 >55% EF BiP: 65.20 >55% Mitral Valve MV Pk E: 0.68 MV PK A: 0.97 MV Decel Time: 329.00 E/A: 0.70 E'Lateral: 10.20 E'Medial: 7.51 E/E' Med: 9.00 E/E' Lat: 6.70 PHT: 96.00 MVA PHT: 2.29 Decel [place]: 2.07 Aortic Valve AoV Pk [place]: 2.24 AoV Mn [place]: 1.57 AoV VTI: 0.40 AoV Pk Grad: 20.00 Aov Mn Grad: 11.00 GARETH Cont.VTI: 1.97 LVOT LVOT Pk [place]: 1.00 LVOT Mn [place]: 0.82 LVOT VTI: 0.21 LVOT Pk Grad: 4.00 LVOT Mn Grad: 3.00 LVOT Diam: 2.20 LVOT Area: 3.80 Diastolic Function MV Pk E: 0.68 MV Pk A: 0.97 E/A: 0.70 E'Medial: 7.51 E/E' Med: 9.00 E' Laterial: 10.20 E/E' Lat: 6.70 Right Ventricle TAPSE (mm): 22.60 TVS' [place]: 13.50 Tricuspid Valve TR Pk Don[place]: 1.56 TR Pk Grad: 10.00 RA Press: 3.00 RVSP: 13.00 Great Vessels Aorta Sinus of Valsalva: 3.00 2.0-3.5 cm Ao Asc: 2.80 2.1-3.4 cm Pulmonary Valve PV Pk Donell: 1.18 Peak PV Grad: 6.00 Updated in Other Vendor System with Status of Final Jerald Powers MD electronically signed on 12/13/2023 3:25:43 PM with status of Final
== END ==
LOC: HO.CARD 12:59
PROVIDERS: PCP Internal Medicine; Visit Provider Internal Medicine
DX: I10 Essential (primary) hypertension (principal)
CPT/HCPCS: 93306; 93356

== ENCOUNTER → 2023-12-13 13:02 | Outpatient (BNV) | payer OTHER, SELFPAY | PROVIDERS: PCP Internal Medicine; Visit Provider Internal Medicine | DX: I35.0 Nonrheumatic aortic (valve) stenosis (principal); I35.8 Other nonrheumatic aortic valve disorders | CPT/HCPCS: 93306; 93356 ==

== ENCOUNTER 2024-01-18 13:31 | Outpatient (AMB) | payer OTHER, SELFPAY ==
--- NOTE | 2024-01-18 13:47 | A.OFFVISCC_ITS ---
Intake Visit Reasons: MAT Tele Allergies methotrexate Allergy (Mild, Verified 01/19/24 14:36) blisters in mouth Seasonal Allergies Allergy (Mild, Verified 01/19/24 14:36) runny nose, watery eyes, mucus HPI HPI MAT Tele: Details: Patient presents for follow up via telehealth Tolerating current suboxone dose Bright affect --adopted a young dog recently No issues to report [facility] Medical History (Updated 01/19/24 @ 15:24 by Octavia Soto MD) Chronic kidney disease (CKD) stage G3b/A1, moderately decreased glomerular filtration rate (GFR) between 30-44 mL/min/1.73 square meter and albuminuria creatinine ratio less than 30 mg/g Paronychia of great toe of right foot Opioid use disorder Painful total knee replacement, right Lumbar post-laminectomy syndrome Colonoscopy refused Mammogram declined Peptic ulcer disease Hypercholesterolemia Tobacco abuse Hypertension Posttraumatic stress disorder Rheumatoid arthritis Protrusion of lumbar intervertebral disc Lumbar spinal stenosis Insomnia ADHD Primary osteoarthritis of right hip Allergic rhinitis Surgical History (Updated 06/01/23 @ 13:14 by ARMANDO Montoya) History of back surgery History of surgical removal of squamous cell carcinoma of skin of right mormonism 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 Mother No problems noted. Social History Housing: House Housing Other:: rents a room Alcohol intake: former Patient Tobacco Use Status: Current everyday Tobacco user Tobacco use type: Cigarette Cigarettes Per Day: 3 e-Cigarette/Vaping Use: Never Used Second Hand Smoke Exposure: Yes service: No Current occupational status: disabled Cognitive needs: No Hearing needs: No Vision needs: No Review of Systems Const Reports as per HPI and Reports no additional complaints Telehealth Telehealth Telehealth Platform: Telephone Location of provider rendering services: practice address Location of patient: address on file Patient Identification confirmed using: Name, : Yes Telehealth method: voice only Patient verbally consented to treatment: Yes Patient verbally consented to billing insurance company: Yes Minutes spent on Phone/Video with Pt.: 20 Assessment & Plan Assessment & Plan (1) Opioid use disorder: Code(s): F11.90 - Opioid use, unspecified, uncomplicated Category: Medical Plan: * continue suboxone at current dose * follow up 8 weeks * encouraged to call office prior to next appt if necessary Medications: Refilled buprenorphine-naloxone 8-2 mg (Suboxone) 1 film sublingual BID 60 ea 1RF
== END 2024-01-18 14:01 | disposition home or self-care (01) ==
PROVIDERS: PCP Internal Medicine; Visit Provider Nurse Practitioner Psychiatric/Mental Health
DX: F11.90 Opioid use, unspecified, uncomplicated (principal)
CPT/HCPCS: 99442

== ENCOUNTER → 2024-01-18 13:31 | Outpatient (BNVA) | payer OTHER, SELFPAY | PROVIDERS: PCP Internal Medicine; Visit Provider Nurse Practitioner Psychiatric/Mental Health ==

== ENCOUNTER 2024-01-19 14:19 | Outpatient (AMB) | payer OTHER, SELFPAY ==
[2024-01-19 14:36] VITALS: BP 140/58; PULSE 80; O2SAT 96; BMI 28.7
--- NOTE | 2024-01-19 14:36 | MHC.PC.OV ---
Vital Signs 01/19/24 14:36 Height 5 ft 3 in Weight 162 lb 4 oz BMI 28.7 BP 140/58 H Blood Pressure Location Lt brachial Position Sitting Pulse 80 Pulse Source Pulse Oximeter Pulse Oximetry (%) 96 Oxygen Delivery Method Room Air Intake Visit Reasons: 4 Week Follow Up-due for remi Intake Note: Patient is here to follow up Allergies methotrexate Allergy (Mild, Verified 01/19/24 14:36) blisters in mouth Seasonal Allergies Allergy (Mild, Verified 01/19/24 14:36) runny nose, watery eyes, mucus Medication List - Last Reconciled 01/19/24 by Octavia Soto MD acetaminophen ER (Tylenol Arthritis Pain) 650 mg PO Q8H albuterol sulfate 90 mcg/actuation (Ventolin HFA) 2 puffs inhalation Q6H PRN amlodipine 10 mg PO DAILY aspirin 81 mg PO DAILY 90 days buprenorphine-naloxone 8-2 mg (Suboxone) 1 film sublingual BID cilostazol 100 mg PO BID diclofenac sodium 1% 4 grams topical QID food supplemt, lactose-reduced (Ensure oral liquid) 1 ea PO .QD 90 days gabapentin 1 tab in am lidocaine 5% 1 patch topical DAILY [LIFT RECLINER As directed] lisinopril 20 mg PO DAILY lorazepam 1 mg PO BID-TID PRN 28 days naloxone 4 mg/actuation (Narcan) 4 mg intranasal Q3M PRN omeprazole 20 mg PO DAILY Tobacco use date assessed: 01/19/24 Dental Screening Dental Screen Date: 11/07/23 Did you have a dental visit in the last 12 months?: No Did you have a dental problem in the last 6 months where you did not have access to dental care?: No Was dental information given to patient?: Patient has dentist HPI 4 Week Follow Up-due for remi HPI Details 58-year-old overweight female smoker with multiple medical problems last seen in 11/12/2023 has an opioid use disorder chronic kidney disease closed right ankle fracture. Patient is here for follow-up. Patient on Suboxone presently. Noted in December seen by the vascular for CAD right RADAMES 0. Forty-five and the left RADAMES 0.93 unchanged from previous scans patient is on cilostazol and aspirin given her peripheral vascular disease and popliteal occlusion advised statins and follow-up in 6 months. Patient also follows up with Nephrology chronic kidney disease stage 4 secondary to possible NSAID use versus acute on chronic TMA. Patient was referred to transplant advised genetic testing refused dialysis. Has had echocardiogram in 12/12/2023The left ventricular systolic function is normal. The calculated ejection fraction is 65% by biplane method. - There is moderate calcification of the aortic valve. At most, mild aortic stenosis. PAtient continues to not smoke fro 3 months. wants shingles shot. complains of hearburn FOR[facility]LY [facility], [facility] Medical History (Updated 01/19/24 @ 15:24 by Octavia Soto MD) Chronic kidney disease (CKD) stage G3b/A1, moderately decreased glomerular filtration rate (GFR) between 30-44 mL/min/1.73 square meter and albuminuria creatinine ratio less than 30 mg/g Paronychia of great toe of right foot Opioid use disorder Painful total knee replacement, right Lumbar post-laminectomy syndrome Colonoscopy refused Mammogram declined Peptic ulcer disease Hypercholesterolemia Tobacco abuse Hypertension Posttraumatic stress disorder Rheumatoid arthritis Protrusion of lumbar intervertebral disc Lumbar spinal stenosis Insomnia ADHD Primary osteoarthritis of right hip Allergic rhinitis Surgical History (Updated 06/01/23 @ 13:14 by ARMANDO Montoya) History of back surgery History of surgical removal of squamous cell carcinoma of skin of right protestant 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 Mother No problems noted. Social History Housing: House Housing Other:: rents a room Alcohol intake: former Patient Tobacco Use Status: Current everyday Tobacco user Tobacco use type: Cigarette Cigarettes Per Day: 3 e-Cigarette/Vaping Use: Never Used Second Hand Smoke Exposure: Yes service: No Current occupational status: disabled Cognitive needs: No Hearing needs: No Vision needs: No Questionnaire Thrive Questionnaire Date Thrive assessed: 11/07/23 AUDIT C Alcohol Use Questionnaire (AUDIT-C) 1. How often do you have a drink containing alcohol?: Never 3. How often do you have six or more drinks on one occasion?: Never Total Score: 0 GODFREY-7 AMB Questionnaire GODFREY-7 Date GODFREY - 7 assessed: 11/07/23 Source: Developed by Drs. Etienne Barfield, Alina Amanda, Coy Pacheco and colleagues, with an educational leobardo from [employer]. Physical exam (Primary Care) Vital Signs: Last Vital Signs Pulse 80 01/19/24 14:36 BP 140/58 H 01/19/24 14:36 Pulse Ox 96 01/19/24 14:36 Oxygen Delivery Method Room Air 01/19/24 14:36 BMI result Body Mass Index 28.7 Tobacco/Smoking Status: Tobacco use Status Tobacco use date assessed 01/19/24 01/19/24 14:36 Patient Tobacco Use Status Current everyday Tobacco 01/19/24 14:36 Tobacco use type Cigarette 01/19/24 14:36 e-Cigarette/Vaping Use Never Used 01/19/24 14:36 Thrive Assessment: Date of Thrive Assessment Date Thrive assessed 11/07/23 01/19/24 14:36 Const General: alert; No acute distress Eyes Conjunctivae: conjunctivae normal Resp Auscultation: clear to auscultation bilaterally Cardio Rate: regular rate Rhythm: regular rhythm GI Inspection: Yes normal to inspection Extrem General: Yes normal to inspection and No edema Assessment and Plan Assessment & Plan (1) Tobacco abuse: Comment: PFT normal January 2020, stopped October 16, 2023 Code(s): Z72.0 - Tobacco use Plan: Patient is strongly advised to stop smoking! DOING GOOD!!! (2) Hypertension: Code(s): I10 - Essential (primary) hypertension Qualifiers: Hypertension type: essential hypertension Qualified Code(s): I10 - Essential (primary) hypertension Plan: Continue with blood pressure medication. Decrease salt intake and exercise on amlodipine 10 mg once a day hydrochlorothiazide 25 mg once a day lisinopril 20 mg once a day (3) Hypercholesterolemia: Code(s): E78.00 - Pure hypercholesterolemia, unspecified Plan: Avoid fried foods, chicken skin, eggs, butter margarine, pastries and meat. Be it pork or beef they have a lot of cholesterol with vascular problems and history of CVA advised to get cholesterol blood work and treatment (4) Generalized anxiety disorder: Comment: Salome Wright therapist once a week Code(s): F41.1 - Generalized anxiety disorder Plan: Continue with counseling and therapy (5) Opioid abuse: Code(s): F11.10 - Opioid abuse, uncomplicated Plan: Patient is being seen by ANJEL Shankar (6) PVD (peripheral vascular disease): Comment: CAD Code(s): I73.9 - Peripheral vascular disease, unspecified Plan: When sitting down elevate the legs, exercise, and support stockings patient follows up with the vascular surgeon also on cilostazol and aspirin (7) Breast cancer screening by mammogram: Code(s): Z12.31 - Encounter for screening mammogram for malignant neoplasm of breast Plan: Reminded about mammogram (8) CVA (cerebral vascular accident): Comment: 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 (10) GERD (gastroesophageal reflux disease): Code(s): K21.9 - Gastro-esophageal reflux disease without esophagitis Plan: avoid the foods that causes this, (11) Back pain: Code(s): M54.9 - Dorsalgia, unspecified Plan: asking for massage therapy Medications: New omeprazole 20 mg PO DAILY 30 caps 2RF K21.9 - Gastro-esophageal reflux disease without esophagitis Refilled food supplemt, lactose-reduced (Ensure oral liquid) 1 ea PO .QD 90 days 5,688 mL 0RF Z98.84 - Bariatric surgery status Coding Level of Care Code Est Pt Level 4 (07517) Complex EM visit Add On G2211 Diagnoses Tobacco abuse Z72.0 Essential hypertension I10 Hypertension type: essential hypertension Hypercholesterolemia E78.00 Generalized anxiety disorder F41.1 Opioid abuse F11.10 PVD (peripheral vascular disease) I73.9 Breast cancer screening by mammogram Z. CVA (cerebral vascular accident) I63.9 Chronic kidney disease, stage 4 (severe) N18.4 GERD (gastroesophageal reflux disease) K21.9 Back pain M54.9
== END 2024-01-19 15:27 | disposition home or self-care (01) ==
PROVIDERS: PCP Internal Medicine; Visit Provider Internal Medicine
DX: I12.9 Hypertensive chronic kidney disease with stage 1 through stage 4 chronic kidney disease, or unspecified chronic kidney disease (principal); N18.4 Chronic kidney disease, stage 4 (severe); F11.10 Opioid abuse, uncomplicated; I73.9 Peripheral vascular disease, unspecified; Z86.73 Personal history of transient ischemic attack (TIA), and cerebral infarction without residual deficits; Z72.0 Tobacco use; E78.00 Pure hypercholesterolemia, unspecified; F41.1 Generalized anxiety disorder; Z12.31 Encounter for screening mammogram for malignant neoplasm of breast; K21.9 Gastro-esophageal reflux disease without esophagitis; M54.9 Dorsalgia, unspecified
CPT/HCPCS: 99214; G2211

== ENCOUNTER 2024-03-09 14:16 | Outpatient (AMB) | payer OTHER, SELFPAY ==
--- NOTE | 2024-03-09 14:17 | MHC.PC.OV ---
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: No Allergies methotrexate Allergy (Mild, Verified 03/09/24 14:18) blisters in mouth Seasonal Allergies Allergy (Mild, Verified 03/09/24 14:18) runny nose, watery eyes, mucus Medication List - Last Reconciled 03/09/24 by Octavia Soto MD acetaminophen ER (Tylenol Arthritis Pain) 650 mg PO Q8H albuterol sulfate 90 mcg/actuation (Ventolin HFA) 2 puffs inhalation Q6H PRN amlodipine 10 mg PO DAILY aspirin 81 mg PO DAILY 90 days buprenorphine-naloxone 8-2 mg (Suboxone) 1 film sublingual BID cilostazol 100 mg PO BID diclofenac sodium 1% 4 grams topical QID food supplemt, lactose-reduced (Ensure oral liquid) 1 ea PO .QD 90 days gabapentin 1 tab in am lidocaine 5% 1 patch topical DAILY [LIFT RECLINER As directed] lisinopril 20 mg PO DAILY lorazepam 1 mg PO BID-TID PRN 28 days naloxone 4 mg/actuation (Narcan) 4 mg intranasal Q3M PRN omeprazole 20 mg PO DAILY Tobacco use date assessed: 01/19/24 Dental Screening Dental Screen Date: 11/07/23 HPI 4 Week Follow Up HPI Details 58-year-old overweight female smoker with hypertension hypercholesterolemia generalized anxiety disorder CVA chronic kidney disease GERD coming in for follow-up. Last seen in December 2023. Patient has a history of opiate abuse and being seen by comprehensive care. Patient's mammogram is due. Review of the notes has been follow-up with Nephrology February 13 chronic kidney disease stage 4 secondary to history of NSAID use or thrombotic microangiopathy. 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 Advised to quit smoking. sTOP smoking OCTOBER 18, 2023 has a new dog mix with [employer] and [employer] COUNTS INCLUDE 234 BEDS AT THE [facility] Medical History (Updated 01/19/24 @ 15:24 by Octavia Soto MD) Chronic kidney disease (CKD) stage G3b/A1, moderately decreased glomerular filtration rate (GFR) between 30-44 mL/min/1.73 square meter and albuminuria creatinine ratio less than 30 mg/g Paronychia of great toe of right foot Opioid use disorder Painful total knee replacement, right Lumbar post-laminectomy syndrome Colonoscopy refused Mammogram declined Peptic ulcer disease Hypercholesterolemia Tobacco abuse Hypertension Posttraumatic stress disorder Rheumatoid arthritis Protrusion of lumbar intervertebral disc Lumbar spinal stenosis Insomnia ADHD Primary osteoarthritis of right hip Allergic rhinitis Surgical History (Updated 06/01/23 @ 13:14 by ARMANDO Montoya) History of back surgery History of surgical removal of squamous cell carcinoma of skin of right taoism 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 Mother No problems noted. Social History Housing: House Housing Other:: rents a room Alcohol intake: former Patient Tobacco Use Status: Current everyday Tobacco user Tobacco use type: Cigarette Cigarettes Per Day: 3 e-Cigarette/Vaping Use: Never Used Second Hand Smoke Exposure: Yes service: No Current occupational status: disabled Cognitive needs: No Hearing needs: No Vision needs: No Questionnaire Thrive Questionnaire Date Thrive assessed: 11/07/23 AUDIT C Alcohol Use Questionnaire (AUDIT-C) 1. How often do you have a drink containing alcohol?: Never 3. How often do you have six or more drinks on one occasion?: Never Total Score: 0 GODFREY-7 AMB Questionnaire GODFREY-7 Date GODFREY - 7 assessed: 11/07/23 Source: Developed by Drs. Etienne Barfield, Alina Amanda, Coy Pacheco and colleagues, with an educational leobardo from [employer]. Physical exam (Primary Care) Vital Signs: Last Vital Signs Pulse 93 03/09/24 14:18 BP 132/68 03/09/24 14:18 Pulse Ox 98 03/09/24 14:18 Oxygen Delivery Method Room Air 03/09/24 14:18 BMI result Body Mass Index 27.6 Tobacco/Smoking Status: Tobacco use Status Tobacco use date assessed 01/19/24 03/09/24 14:19 Patient Tobacco Use Status Current everyday Tobacco 03/09/24 14:19 Tobacco use type Cigarette 03/09/24 14:19 e-Cigarette/Vaping Use Never Used 03/09/24 14:19 Thrive Assessment: Date of Thrive Assessment Date Thrive assessed 11/07/23 03/09/24 14:19 Const General: alert; No acute distress Eyes Conjunctivae: conjunctivae normal Resp Auscultation: clear to auscultation bilaterally Cardio Rate: regular rate Rhythm: regular rhythm GI Inspection: Yes normal to inspection Extrem General: Yes normal to inspection and No edema Assessment and Plan Assessment & Plan (1) Chronic kidney disease, stage 4 (severe): Code(s): N18.4 - Chronic kidney disease, stage 4 (severe) Plan: Patient is being followed up by Nephrology and discussed with the patient regarding renal replacement/transplant (2) Opioid use disorder: Code(s): F11.90 - Opioid use, unspecified, uncomplicated Plan: Continue to follow-up with comprehensive care management (3) GERD (gastroesophageal reflux disease): Code(s): K21.9 - Gastro-esophageal reflux disease without esophagitis Plan: Avoid the foods that causes that usually spicy foods, tomato products, juices, coffee, soda and foods that your sensitive to. After eating do not lie down, allow 3-4 hours before in lie down. And keep the head of bed above 30 degrees to avoid the acid from going up. 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 Decrease salt intake and exercise takes amlodipine 10 mg once a day lisinopril 20 mg once a day (7) Tobacco abuse: Comment: PFT normal January 2020, stopped October 16, 2023 Code(s): Z72.0 - Tobacco use Plan: SO far so good REmained stopped from September 2023 (8) Hypercholesterolemia: Code(s): E78.00 - Pure hypercholesterolemia, unspecified Plan: Avoid fried foods, chicken skin, eggs, butter margarine, pastries and meat. Be it pork or beef they have a lot of cholesterol LDL goal of less than 70 and triglyceride of less than 150 patient needs blood work (9) Breast cancer screening by mammogram: Code(s): Z12.31 - Encounter for screening mammogram for malignant neoplasm of breast Plan: Reminded about mammogram (10) Colonoscopy refused: Code(s): Z53.20 - Procedure and treatment not carried out because of patient's decision for unspecified reasons Coding Level of Care Code Est Pt Level 4 (52995) Complex EM visit Add On G2211 Diagnoses Chronic kidney disease, stage 4 (severe) N18.4 Opioid use disorder F11.90 GERD (gastroesophageal reflux disease) K21.9 CVA (cerebral vascular accident) I63.9 Generalized anxiety disorder F41.1 Essential hypertension I10 Hypertension type: essential hypertension Tobacco abuse Z72.0 Hypercholesterolemia E78.00 Breast cancer screening by mammogram Z12.31 Colonoscopy refused Z53.20
[2024-03-09 14:18] VITALS: BP 132/68; PULSE 93; O2SAT 98; BMI 27.6
== END 2024-03-09 14:58 | disposition home or self-care (01) ==
PROVIDERS: PCP Internal Medicine; Visit Provider Internal Medicine
DX: I12.9 Hypertensive chronic kidney disease with stage 1 through stage 4 chronic kidney disease, or unspecified chronic kidney disease (principal); N18.4 Chronic kidney disease, stage 4 (severe); F11.90 Opioid use, unspecified, uncomplicated; K21.9 Gastro-esophageal reflux disease without esophagitis; Z86.73 Personal history of transient ischemic attack (TIA), and cerebral infarction without residual deficits; F41.1 Generalized anxiety disorder; Z72.0 Tobacco use; E78.00 Pure hypercholesterolemia, unspecified; Z12.31 Encounter for screening mammogram for malignant neoplasm of breast; Z53.20 Procedure and treatment not carried out because of patient's decision for unspecified reasons
CPT/HCPCS: 99214; G2211

== ENCOUNTER 2024-03-16 08:50 | Outpatient (AMB) | payer OTHER, SELFPAY ==
--- NOTE | 2024-03-16 08:49 | MHC.AM.SUB ---
Intake Visit Reasons: MAT Tele Allergies methotrexate Allergy (Mild, Verified 03/09/24 14:18) blisters in mouth Seasonal Allergies Allergy (Mild, Verified 03/09/24 14:18) runny nose, watery eyes, mucus HPI HPI MAT Tele: Details: Patient presents for follow up via telehealth reporting worsening back pain--has an appt with surgeon in a couple of weeks Suboxone dose stable no issues related to medication PFSH Medical History (Updated 03/16/24 @ 14:16 by Radha Ricketts CNP) Chronic kidney disease (CKD) stage G3b/A1, moderately decreased glomerular filtration rate (GFR) between 30-44 mL/min/1.73 square meter and albuminuria creatinine ratio less than 30 mg/g Paronychia of great toe of right foot Opioid use disorder Painful total knee replacement, right Lumbar post-laminectomy syndrome Colonoscopy refused Mammogram declined Peptic ulcer disease Hypercholesterolemia Tobacco abuse Hypertension Posttraumatic stress disorder Rheumatoid arthritis Protrusion of lumbar intervertebral disc Lumbar spinal stenosis Insomnia ADHD Primary osteoarthritis of right hip Allergic rhinitis Surgical History (Updated 06/01/23 @ 13:14 by ARMANDO Montoya) History of back surgery History of surgical removal of squamous cell carcinoma of skin of right roman catholic 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 Mother No problems noted. Social History Housing: House Housing Other:: rents a room Alcohol intake: former Patient Tobacco Use Status: Current everyday Tobacco user Tobacco use type: Cigarette Cigarettes Per Day: 3 e-Cigarette/Vaping Use: Never Used Second Hand Smoke Exposure: Yes service: No Current occupational status: disabled Cognitive needs: No Hearing needs: No Vision needs: No Review of Systems Const Reports as per HPI and Reports no additional complaints Telehealth Telehealth Telehealth Platform: Telephone Location of provider rendering services: practice address Location of patient: address on file Patient Identification confirmed using: Name, : Yes Telehealth method: voice only Patient verbally consented to treatment: Yes Patient verbally consented to billing insurance company: Yes Minutes spent on Phone/Video with Pt.: 20 Assessment & Plan Assessment & Plan (1) Opioid use disorder, moderate, in sustained remission: Code(s): F11.21 - Opioid dependence, in remission Category: Medical Plan: continue suboxone at current dose follow up 3 months Medications: Refilled buprenorphine-naloxone 8-2 mg (Suboxone) 1 film sublingual BID 60 ea 2RF
== END 2024-03-16 10:41 | disposition home or self-care (01) ==
PROVIDERS: PCP Internal Medicine; Visit Provider Nurse Practitioner Psychiatric/Mental Health
DX: F11.21 Opioid dependence, in remission (principal)
CPT/HCPCS: 99213

== ENCOUNTER → 2024-03-16 08:50 | Outpatient (BNVA) | payer OTHER, SELFPAY | PROVIDERS: PCP Internal Medicine; Visit Provider Nurse Practitioner Psychiatric/Mental Health ==

== ENCOUNTER 2024-04-09 13:13 | Outpatient (REF) | payer OTHER, SELFPAY ==
[2024-04-09 13:36] LABS: MANUAL DIFF FLAG NO
[2024-04-09 13:59] LABS: Basophils Percent Auto 0.4 % (0-2); Eosinophils Absolute Auto 0.2 X10*3/uL (0.0-0.4); Eosinophils Percent Auto 2.2 % (0-4); Hemoglobin 11.5 g/dl (12.0-16.0); Imm Gran Abs Auto 0.03 X10*3/uL (0.00-0.03); Imm Gran Pct Auto 0.4 % (0.0-0.4); Lymphocytes Absolute Auto 1.8 X10*3/uL (1.2-4.9); Lymphocytes Percent Auto 22.2 % (20-40); Mean Corpuscular HGB Conc 31.9 g/dl (31.0-35.0); Mean Corpuscular Hemoglobin 29.4 pg (27.0-33.0); Mean Corpuscular Volume 92.1 fL (80.0-98.0); Mean Platelet Volume 8.7 fL (9.4-12.3); Monocytes Absolute Auto 0.7 X10*3/uL (0.1-1.2); Monocytes Percent Auto 8.1 % (2-11); Neutrophils Absolute Auto 5.5 x10*3/uL (2.0-8.3); Neutrophils Percent Auto 66.7 % (45-73); Platelet Count 396 X10*3/uL (160-400); Red Blood Count 3.91 X10*6/uL (4.20-5.50); Red Cell Distribution Width 14.7 % (11.0-16.0); White Blood Count 8.2 X10*3/uL (4.8-10.8)
[2024-04-09 14:43] LABS: Alanine Aminotransferase 11 U/L (0-31); Albumin Level 4.4 g/dL (3.5-5.0); Alkaline Phosphatase 139 U/L (39-117); Anion Gap 16 (12-20); Aspartate Amino Transferase 19 U/L (5-31); Bilirubin Total 0.2 mg/dL (0.0-1.0); Blood Urea Nitrogen 26 mg/dL (9-16); Calcium 9.8 mg/dL (8.4-10.2); Carbon Dioxide 22 mmol/L (22-29); Chloride 110 mmol/L (96-108); Cholesterol 188 mg/dL (<200); Estimated Glomerular Filt Rate 18; Glucose Random 99 mg/dL (60-115); HDL Cholesterol 39 mg/dL (>40); LDL Cholesterol Calculated 120 mg/dL (<100); Potassium 4.6 mmol/L (3.3-5.1); Sodium 143 mmol/L (135-145); Total Protein 7.7 g/dL (6.5-8.0); Triglycerides 145 mg/dL (<150)
[2024-04-09 14:49] LABS: Free T4 (Free Thyroxine) 0.75 ng/dL (0.71-1.85); Thyroid Stimulating Hormone 0.72 uIU/mL (0.32-4.0); Vitamin D 25-OH Total 42.3 ng/mL (>30)
[2024-04-09 15:06] LABS: Folate 4.3 ng/mL (> or = 4.0); Vitamin B12 546 pg/mL (200-900)
== END 2024-04-09 13:14 | disposition home or self-care (01) ==
LOC: HO.LAB 13:13
PROVIDERS: PCP Internal Medicine; Visit Provider Internal Medicine
DX: E78.00 Pure hypercholesterolemia, unspecified (principal); F11.21 Opioid dependence, in remission; N18.4 Chronic kidney disease, stage 4 (severe); M96.1 Postlaminectomy syndrome, not elsewhere classified; I10 Essential (primary) hypertension; F41.1 Generalized anxiety disorder; M25.521 Pain in right elbow
CPT/HCPCS: 36415; 80053; 80061; 82306; 82607; 82746; 84439; 84443; 85025; 99212

== ENCOUNTER 2024-04-09 14:50 | Outpatient (AMB) | payer OTHER, SELFPAY ==
--- NOTE | 2024-04-09 14:58 | A.OFFPC_ITS ---
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 Patient follows up with comprehensive care for the PT use on Suboxone. ff up with nephology, R elbow pain 1 day no fall but used the R arm to push to avoid falling PFSH Medical History (Updated 04/09/24 @ 15:58 by Octavia oSto MD) Chronic kidney disease (CKD) stage G3b/A1, moderately decreased glomerular filtration rate (GFR) between 30-44 mL/min/1.73 square meter and albuminuria creatinine ratio less than 30 mg/g Paronychia of great toe of right foot Opioid use disorder Painful total knee replacement, right Lumbar post-laminectomy syndrome Colonoscopy refused Mammogram declined Peptic ulcer disease Hypercholesterolemia Tobacco abuse Hypertension Posttraumatic stress disorder Rheumatoid arthritis Protrusion of lumbar intervertebral disc Lumbar spinal stenosis Insomnia ADHD Primary osteoarthritis of right hip Allergic rhinitis Surgical History History of back surgery History of surgical removal of squamous cell carcinoma of skin of right zoroastrianism 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 Mother No problems noted. Social History Housing: House Housing Other:: rents a room Alcohol intake: former Patient Tobacco Use Status: Current everyday Tobacco user Tobacco use type: Cigarette Cigarettes Per Day: 3 e-Cigarette/Vaping Use: Never Used Second Hand Smoke Exposure: Yes service: No Current occupational status: disabled Cognitive needs: No Hearing needs: No Vision needs: No Questionnaire Thrive Questionnaire Date Thrive assessed: 11/07/23 Are you currently unemployed and looking for a job?: I choose not to answer this question GODFREY-7 AMB Questionnaire GODFREY-7 Date GODFREY - 7 assessed: 11/07/23 Source: Developed by Drs. Etienne Barfield, Alina Amanda, Coy Pacheco and colleagues, with an educational leobardo from [employer]. Physical exam (Primary Care) Vital Signs: Last Vital Signs Pulse 88 04/09/24 15:04 BP 110/62 04/09/24 15:04 Pulse Ox 98 04/09/24 15:04 Oxygen Delivery Method Room Air 04/09/24 15:04 Care Plan Goal for BP management: R elbow pain and cannot straighten, has an angle 160 degrees on stretching BMI result Body Mass Index 26.8 Tobacco/Smoking Status: Tobacco use Status Tobacco use date assessed 01/19/24 04/09/24 14:59 Patient Tobacco Use Status Current everyday Tobacco 04/09/24 14:59 Tobacco use type Cigarette 04/09/24 14:59 e-Cigarette/Vaping Use Never Used 04/09/24 14:59 Thrive Assessment: Date of Thrive Assessment Date Thrive assessed 11/07/23 04/09/24 14:59 Const General: alert; No acute distress Eyes Conjunctivae: conjunctivae normal Resp Auscultation: clear to auscultation bilaterally Cardio Rate: regular rate Rhythm: regular rhythm GI Inspection: Yes normal to inspection Extrem General: Yes normal to inspection and No edema Assessment and Plan Assessment & Plan (1) Opioid use disorder, moderate, in sustained remission: Code(s): F11.21 - Opioid dependence, in remission Plan: Continue to follow-up with comprehensive care (2) Chronic kidney disease, stage 4 (severe): Code(s): N18.4 - Chronic kidney disease, stage 4 (severe) Plan: Avoid NSAIDs, keep well hydrated (3) Lumbar post-laminectomy syndrome: Comment: degenerative lumbar spinal stenosis admitted 07/16/2022 for L2-L3 laminectomy plus TLIF plus cage and revision L2-S1 fusion with exploration of fusion with Dr. Bigg Brunner. Code(s): M96.1 - Postlaminectomy syndrome, not elsewhere classified Plan: Patient continues to follow-up with comprehensive care. (4) Hypertension: Code(s): I10 - Essential (primary) hypertension Qualifiers: Hypertension type: essential hypertension Qualified Code(s): I10 - Essential (primary) hypertension Plan: Continue with blood pressure medication. Decrease salt intake and exercise on amlodipine 10 mg once a day lisinopril 20 mg once a day (5) Generalized anxiety disorder: Comment: Salome Wright therapist once a week Code(s): F41.1 - Generalized anxiety disorder Plan: Continue to follow-up with psychiatry and counseling. (6) Right elbow pain: Code(s): M25.521 - Pain in right elbow (7) Tobacco abuse: Comment: PFT normal January 2020started smoking 03/2024 Code(s): Z72.0 - Tobacco use Orders: Orders XR elbow RT 2V Today M25.521 - Pain in right elbow Medications: Refilled gabapentin 1 tab in am 60 tabs 2RF M25.521 - Pain in right elbow Coding Level of Care Code Est Pt Level 4 (34775) Diagnoses Opioid use disorder, moderate, in sustained remission F11.21 Chronic kidney disease, stage 4 (severe) N18.4 Lumbar post-laminectomy syndrome M96.1 Essential hypertension I10 Hypertension type: essential hypertension Generalized anxiety disorder F41.1 Right elbow pain M25.521 Tobacco abuse Z72.0
[2024-04-09 15:04] VITALS: BP 110/62; PULSE 88; O2SAT 98; BMI 26.8
== END 2024-04-09 16:50 | disposition home or self-care (01) ==
PROVIDERS: PCP Internal Medicine; Visit Provider Internal Medicine
DX: F11.21 Opioid dependence, in remission (principal); I12.9 Hypertensive chronic kidney disease with stage 1 through stage 4 chronic kidney disease, or unspecified chronic kidney disease; N18.4 Chronic kidney disease, stage 4 (severe); M96.1 Postlaminectomy syndrome, not elsewhere classified; F41.1 Generalized anxiety disorder; M25.521 Pain in right elbow; Z72.0 Tobacco use

== ENCOUNTER 2024-05-09 12:56 | Outpatient (AMB) | payer OTHER, SELFPAY ==
[2024-05-09 12:59] VITALS: BP 140/78; PULSE 85; O2SAT 99; BMI 26.7
--- NOTE | 2024-05-09 12:59 | A.OFFPC_ITS ---
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 Patient has declined colonoscopy has reminded mammograms. Review of the notes received vascular surgeon's notes for wound check 04/18/2024 right leg superficial without fibrinous tissue declined debridement patient was prescribed doxycycline for concerns about infection. Patient does have peripheral vascular disease 2022 popliteal occlusion of the proximal posterior tibial. declined talking about cholesterol discussion, transplant referral by nephrology. decline flu shot [facility] Medical History (Updated 05/09/24 @ 14:02 by Octavia Soto MD) Chronic kidney disease (CKD) stage G3b/A1, moderately decreased glomerular filtration rate (GFR) between 30-44 mL/min/1.73 square meter and albuminuria creatinine ratio less than 30 mg/g Paronychia of great toe of right foot Opioid use disorder Painful total knee replacement, right Lumbar post-laminectomy syndrome Colonoscopy refused Mammogram declined Peptic ulcer disease Hypercholesterolemia Tobacco abuse Hypertension Posttraumatic stress disorder Rheumatoid arthritis Protrusion of lumbar intervertebral disc Lumbar spinal stenosis Insomnia ADHD Primary osteoarthritis of right hip Allergic rhinitis Surgical History History of back surgery History of surgical removal of squamous cell carcinoma of skin of right anabaptism 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 Mother No problems noted. Social History Housing: House Housing Other:: rents a room Alcohol intake: former Patient Tobacco Use Status: Current everyday Tobacco user Tobacco use type: Cigarette Cigarettes Per Day: 3 e-Cigarette/Vaping Use: Never Used Second Hand Smoke Exposure: Yes service: No Current occupational status: disabled Cognitive needs: No Hearing needs: No Vision needs: No Questionnaire PHQ-9 Over the last 2 weeks, how often have you been bothered by any of the following problems? 1. Little interest or pleasure in doing things: several days 2. Feeling down, depressed, or hopeless: several days 3. Trouble falling or staying asleep, or sleeping too much: several days 4. Feeling tired or having little energy: several days 5. Poor appetite or overeating: not at all 6. Feeling bad about yourself - or that you are a failure or have let yourself or your family down: not at all 7. Trouble concentrating on things, such as reading the newspaper or watching television: not at all 8. Moving or speaking so slowly that other people could have noticed. Or the opposite - being so fidgety or restless that you have been moving around a lot more than usual: not at all 9. Thoughts that you would be better off or of hurting yourself in some way: not at all Total score: 4 Depression Screening Interpretation: Positive Depression Screening Done: Yes Source: Developed by Drs. Etienne Barfield, Coy Hickman and colleagues, with an educational leobardo from [employer]. Thrive Questionnaire Date Thrive assessed: 11/07/23 Are you currently unemployed and looking for a job?: I choose not to answer this question AUDIT C Alcohol Use Questionnaire (AUDIT-C) 1. How often do you have a drink containing alcohol?: Never 3. How often do you have six or more drinks on one occasion?: Never Total Score: 0 GODFREY-7 AMB Questionnaire GODFREY-7 Date GODFREY - 7 assessed: 11/07/23 Source: Developed by Drs. Etienne Barfield, Coy Hickman and colleagues, with an educational leobardo from [employer]. Physical exam (Primary Care) Vital Signs: Last Vital Signs Pulse 85 05/09/24 12:59 BP 140/78 H 05/09/24 12:59 Pulse Ox 99 05/09/24 12:59 Oxygen Delivery Method Room Air 05/09/24 12:59 BMI result Body Mass Index 26.7 Tobacco/Smoking Status: Tobacco use Status Tobacco use date assessed 01/19/24 05/09/24 13:06 Patient Tobacco Use Status Current everyday Tobacco 05/09/24 13:06 Tobacco use type Cigarette 05/09/24 13:06 e-Cigarette/Vaping Use Never Used 05/09/24 13:06 PHQ-9: PHQ-9 Score PHQ-9: Total score 4 05/09/24 13:06 Depression Screening Interpretation: Positive Thrive Assessment: Date of Thrive Assessment Date Thrive assessed 11/07/23 05/09/24 13:06 Const General: alert; No acute distress Eyes Conjunctivae: conjunctivae normal Resp Auscultation: clear to auscultation bilaterally Cardio Rate: regular rate Rhythm: regular rhythm GI Inspection: Yes normal to inspection Skin Full body images: 2 1. 1 cm round 5 mm deep ulcer white R anterior leg Extrem General: Yes normal to inspection and No edema Coding Level of Care Code Est Pt Level 4 (80122) Complex EM visit Add On G2211 Diagnoses Chronic kidney disease, stage 4 (severe) N18.4 Opioid use disorder, moderate, in sustained remission F11.21 Gastroesophageal reflux disease without esophagitis K21.9 Esophagitis presence: without esophagitis PVD (peripheral vascular disease) I73.9 Essential hypertension I10 Hypertension type: essential hypertension Tobacco abuse Z72.0 Hypercholesterolemia E78.00 Ulcer of leg, chronic, right L97.919 Assessment & Plan Assessment & Plan (1) Chronic kidney disease, stage 4 (severe): Code(s): N18.4 - Chronic kidney disease, stage 4 (severe) Category: Medical Plan: Discussed with the patient that renal function is getting worse and that patient does follow-up with Nephrology. Discussion with the patient but decline transplant evaluation (2) Opioid use disorder, moderate, in sustained remission: Code(s): F11.21 - Opioid dependence, in remission Category: Medical Plan: Continue to follow-up with comprehensive care on Suboxone (3) GERD (gastroesophageal reflux disease): Code(s): K21.9 - Gastro-esophageal reflux disease without esophagitis Category: Medical Qualifiers: Esophagitis presence: without esophagitis Qualified Code(s): K21.9 - Gastro-esophageal reflux disease without esophagitis Plan: Avoid the foods that causes that usually spicy foods, tomato products, juices, coffee, soda and foods that your sensitive to. After eating do not lie down, allow 3-4 hours before in lie down. And keep the head of bed above 30 degrees to avoid the acid from going up. (4) PVD (peripheral vascular disease): Comment: CAD Code(s): I73.9 - Peripheral vascular disease, unspecified Category: Medical Plan: When sitting down elevate the legs, exercise, and support stockings patient follows up with the vascular surgeon was recommended procedures. Patient on cilostazol (5) Hypertension: Code(s): I10 - Essential (primary) hypertension Category: Medical Qualifiers: Hypertension type: essential hypertension Qualified Code(s): I10 - Essential (primary) hypertension Plan: Continue with blood pressure medication. Decrease salt intake and exercise patient on amlodipine 10 mg once a day lisinopril 20 mg once a day (6) Tobacco abuse: Comment: PFT normal January 2020started smoking 03/2024 Code(s): Z72.0 - Tobacco use Category: Medical Plan: Patient is strongly advised to stop smoking (7) Hypercholesterolemia: Code(s): E78.00 - Pure hypercholesterolemia, unspecified Category: Medical Plan: Avoid fried foods, chicken skin, eggs, butter margarine, pastries and meat. Be it pork or beef they have a lot of cholesterol LDL goal of less than 70. (8) Ulcer of leg, chronic, right: Code(s): L97.919 - Non-pressure chronic ulcer of unspecified part of right lower leg with unspecified severity Category: Medical Plan: refer to wound care Orders: Referrals 2 Wound Care Referral L97.919 - Non-pressure chronic ulcer of unspecified part of right lower leg with unspecified severity
== END 2024-05-09 14:18 | disposition home or self-care (01) ==
PROVIDERS: PCP Internal Medicine; Visit Provider Internal Medicine
DX: I12.9 Hypertensive chronic kidney disease with stage 1 through stage 4 chronic kidney disease, or unspecified chronic kidney disease (principal); N18.4 Chronic kidney disease, stage 4 (severe); F11.21 Opioid dependence, in remission; I73.9 Peripheral vascular disease, unspecified; L97.919 Non-pressure chronic ulcer of unspecified part of right lower leg with unspecified severity; K21.9 Gastro-esophageal reflux disease without esophagitis; Z72.0 Tobacco use; E78.00 Pure hypercholesterolemia, unspecified

== ENCOUNTER → 2024-05-09 12:56 | Outpatient (BNVA) | payer OTHER, SELFPAY | PROVIDERS: PCP Internal Medicine; Visit Provider Internal Medicine | DX: I12.9 Hypertensive chronic kidney disease with stage 1 through stage 4 chronic kidney disease, or unspecified chronic kidney disease (principal); N18.4 Chronic kidney disease, stage 4 (severe); F11.21 Opioid dependence, in remission; K21.9 Gastro-esophageal reflux disease without esophagitis; I73.9 Peripheral vascular disease, unspecified; E78.00 Pure hypercholesterolemia, unspecified; L97.919 Non-pressure chronic ulcer of unspecified part of right lower leg with unspecified severity; Z72.0 Tobacco use | CPT/HCPCS: 96127; 99212 ==

== ENCOUNTER 2024-06-08 09:30 | Outpatient (AMB) | payer OTHER, SELFPAY ==
--- NOTE | 2024-06-08 08:51 | A.OFFVISCC_ITS ---
Intake Visit Reasons: MAT Tele Allergies methotrexate Allergy (Mild, Verified 05/09/24 13:00) blisters in mouth Seasonal Allergies Allergy (Mild, Verified 05/09/24 13:00) runny nose, watery eyes, mucus HPI HPI MAT Tele: Details: Patient presents for follow up via telelhealth Currently prescribed Suboxone 8mg BID Denies any issues related to medication or dosing, but she is having increasing pain in her leg Reporting that she will be having vascular surgery in her left leg in June expressing anxiety around this overall bright affect, feels well supported Review of Systems Const Reports as per HPI and Reports no additional complaints Telehealth Telehealth Telehealth Platform: Telephone Location of provider rendering services: practice address Location of patient: address on file Patient Identification confirmed using: Name, : Yes Telehealth method: voice only Patient verbally consented to treatment: Yes Patient verbally consented to billing insurance company: Yes Minutes spent on Phone/Video with Pt.: 25 Assessment & Plan Assessment & Plan (1) Opioid use disorder, moderate, in sustained remission: Code(s): F11.21 - Opioid dependence, in remission Category: Medical Plan: * no change to current suboxone dose * follow up 3 months * encouraged patient to call office prior to next appt if needed Medications: Refilled buprenorphine-naloxone 8-2 mg (Suboxone) 1 film sublingual BID 60 ea 2RF PFSH Medical History (Updated 05/09/24 @ 14:02 by Octavia Soto MD) Chronic kidney disease (CKD) stage G3b/A1, moderately decreased glomerular filtration rate (GFR) between 30-44 mL/min/1.73 square meter and albuminuria creatinine ratio less than 30 mg/g Paronychia of great toe of right foot Opioid use disorder Painful total knee replacement, right Lumbar post-laminectomy syndrome Colonoscopy refused Mammogram declined Peptic ulcer disease Hypercholesterolemia Tobacco abuse Hypertension Posttraumatic stress disorder Rheumatoid arthritis Protrusion of lumbar intervertebral disc Lumbar spinal stenosis Insomnia ADHD Primary osteoarthritis of right hip Allergic rhinitis Surgical History History of back surgery History of surgical removal of squamous cell carcinoma of skin of right mu-ism 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 Mother No problems noted. Social History Housing: House Housing Other:: rents a room Alcohol intake: former Patient Tobacco Use Status: Current everyday Tobacco user Tobacco use type: Cigarette Cigarettes Per Day: 3 e-Cigarette/Vaping Use: Never Used Second Hand Smoke Exposure: Yes service: No Current occupational status: disabled Cognitive needs: No Hearing needs: No Vision needs: No
== END 2024-06-08 09:30 | disposition home or self-care (01) ==
LOC: HO.HCC 09:30
PROVIDERS: PCP Internal Medicine; Visit Provider Nurse Practitioner Psychiatric/Mental Health
DX: F11.21 Opioid dependence, in remission (principal)
CPT/HCPCS: 98968

== ENCOUNTER → 2024-06-08 09:30 | Outpatient (BNVA) | payer OTHER, SELFPAY | PROVIDERS: PCP Internal Medicine; Visit Provider Nurse Practitioner Psychiatric/Mental Health ==

== ENCOUNTER → 2024-07-09 14:45 | Outpatient (BNVA) | payer OTHER, SELFPAY | PROVIDERS: PCP Internal Medicine; Visit Provider Internal Medicine ==

== ENCOUNTER 2024-10-05 09:32 | Outpatient (AMB) | payer OTHER, SELFPAY ==
--- NOTE | 2024-10-05 09:36 | A.OFFVISCC_ITS ---
Intake Visit Reasons: MAT Tele Allergies methotrexate Allergy (Mild, Verified 07/09/24 15:05) blisters in mouth Seasonal Allergies Allergy (Mild, Verified 07/09/24 15:05) runny nose, watery eyes, mucus HPI HPI MAT Tele: Details: Patient presents for follow up via telehealth Currently prescribed Suboxone 8mg BID Tolerating current dose Reports she will be having another surgery on her leg on Tuesday Reviewed [employer]ESTER with patient --has been prescribed hydromorphone 4mg PRN 1/2 tab q 4H PRN Lorazepam 1mg TID and gabapentin 600mg BID She reports she is taking gabapentin once a day and only taking pain medications when she needs them States that recent surgeries have worsened her pain, and she requires more assistance with her ADLs Discussed concern of respiratory depression with current medication regimen --patient assured t/w that she takes hydromprhone as a last resort and is hoping to not need it after this next surgery. Patient states that she has 2 insurance underwriting assistant that assist her with her care and medication administration Reports that she has naloxone at home Review of Systems Const Reports as per HPI and Reports difficulty sleeping (due to pain) Telehealth Telehealth Telehealth Platform: Telephone Location of provider rendering services: practice address Location of patient: address on file Patient Identification confirmed using: Name, : Yes Telehealth method: voice only Patient verbally consented to treatment: Yes Patient verbally consented to billing insurance company: Yes Minutes spent on Phone/Video with Pt.: 20 [facility] Medical History (Updated 07/09/24 @ 19:49 by Octavia Soto MD) Chronic kidney disease (CKD) stage G3b/A1, moderately decreased glomerular filtration rate (GFR) between 30-44 mL/min/1.73 square meter and albuminuria creatinine ratio less than 30 mg/g Paronychia of great toe of right foot Opioid use disorder Painful total knee replacement, right Lumbar post-laminectomy syndrome Colonoscopy refused Mammogram declined Peptic ulcer disease Hypercholesterolemia Tobacco abuse Hypertension Posttraumatic stress disorder Rheumatoid arthritis Protrusion of lumbar intervertebral disc Lumbar spinal stenosis Insomnia ADHD Primary osteoarthritis of right hip Allergic rhinitis Surgical History History of back surgery History of surgical removal of squamous cell carcinoma of skin of right yazidism 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 Mother No problems noted. Social History Housing: House Housing Other:: rents a room Alcohol intake: former Patient Tobacco Use Status: Current everyday Tobacco user Tobacco use type: Cigarette Cigarettes Per Day: 3 e-Cigarette/Vaping Use: Never Used Second Hand Smoke Exposure: Yes service: No Current occupational status: disabled Cognitive needs: No Hearing needs: No Vision needs: No Assessment & Plan Assessment & Plan (1) Opioid use disorder, moderate, in sustained remission: Code(s): F11.21 - Opioid dependence, in remission Category: Medical Plan: * overdose prevention discussion --reinforced concerns and risks with polypharm * surgery next week * follow up one month in office * will send narcan rx despite patient stating that she has one at home Medications: Refilled buprenorphine-naloxone 8-2 mg (Suboxone) 1 film sublingual BID 60 ea 0RF
--- OUTSIDE RECORDS SUMMARY | 2024-10-05 10:27 | XMS_ITS | Data Portability ---
Author Organization [employer], [employer] Address [address] [place] [id number] Care Team Providers Care Criminal Justice Lawyer Name Role Phone [facility] Referring Provider [facility] Referring Provider Assessment Encounter Date Assessment Date Assessment LastModified by Organization Details LastModified Time 08/24/2022 08/24/2022 Patient seen as part of a shared visit on the phone. Pictures uploaded and reviewed. Main complaint is swelling and redness. + itching but denies fever, chills, pain, claudication. Does state she has tingling at night but not currently. Was going to see a vascular doctor about her circulation but had a stroke. Also recently had a pedicure. There are no allergies to medications. Given swelling and slight erythema - will treat as cellulitis. Keflex times 7 days sent to preferred pharmacy. She will follow up with her PCP this week - and call immediately if she develops a fever or sees visable change in the foot. [email or web address] Not available 08/24/2022 18:07:16 Plan of Treatment Reminders Order Date Submit Date Provider Last Modified By Organization Details Last Modified Time Details Appointments None recorded. Lab None recorded. Referral None recorded. Procedures None recorded. Surgeries None recorded. Imaging None recorded. Medication Orders valacyclovi r 1 gram tablet 2023 024 [id number], [address] [place], [address], 4 13:32:46 cephalexin 500 mg capsule 2022 023 [id number], [address] [facility] [place], [address], 3 18:00:24 Patient TargetsNo targets recorded. Patient InstructionsNo instructions recorded. Reason for Referral None Reported. Medical Equipment None Reported. Allergies No known drug allergies Medications Name Sig Start Date Stop Date Status Note LastModified by Organization Details LastModified Time amoxicillin 500 mg capsule TAKE 4 CAPSULES BY MOUTH ONE HOUR BEFORE APPOINTMENT TIME active Not Available Not Available No t Available methocarbamo l 500 mg tablet TAKE 1 TABLET (500 MG TOTAL) BY MOUTH 3 (THREE) TIMES A DAY NEEDED. NEEDED FOR MUSCLE SPASMS active Not Available Not Available No t Available buspirone 5 mg tablet TAKE 1 TABLET BY MOUTH TWICE A DAY active Not Available Not Available No t Available cilostazol 100 mg tablet active Not Available Not Available Not Available atorvastatin 80 mg tablet TAKE 1 TABLET BY MOUTH EVERY EVENING active Not Available Not Available No t Available acetaminophe n 325 mg tablet TAKE 2 TABLETS BY MOUTH EVERY 6 HOURS active Not Available Not Available No t Available gabapentin 600 mg tablet TAKE 1 TABLET BY MOUTH EVERY MORNING AND 1/2 TABLET EVERY EVENING active Not Available Not Available No t Available nicotine 14 mg/[address] 1 PATCH ONTO THE SKIN DAILY. APPLY TO A CLEAN, DRY, HAIRLESS SITE ON THE UPPER ARM OR HIP. active Not Available Not Available No t Available polyethylene glycol 3350 17 gram oral powder packet MIX 17 G IN WATER AND DRINK BY MOUTH DAILY NEEDED (SEVERE CONSTIPATIO N). active Not Available Not Available No t Available azithromycin 250 mg tablet active Not Available Not Available Not Available valacyclovir 1 gram tablet TAKE 1 TABLET BY MOUTH EVERY 12 HOURS FOR 7 DAYS active Not Available Not Available N ot Available senna 8.6 mg tablet TAKE ONE TABLET BY MOUTH TWICE DAILY. STOP TAKING IF YOU DEVELOP LOOSE STOOLS active Not Available Not Available No t Available lisinopril 20 mg tablet TAKE 1 TABLET BY MOUTH DAILY active Not Available Not Available Not Available dextroamphet amine-amphet amine 10 mg tablet TAKE 1 TABLET BY MOUTH EVERY DAY IN THE AFTERNOON NEEDED FOR ADHD active Not Available Not Available No t Available prednisone 5 mg tablet TAKE 1 TABLET BY MOUTH EVERY DAY active Not Available Not Available No t Available melatonin 3 mg tablet TAKE 1 TABLET ORALLY BEDTIME NEEDED FOR SLEEP active Not Available Not Available No t Available aspirin 81 mg tablet,delay ed release TAKE 1 TABLET BY MOUTH EVERY DAY active Not Available Not Available No t Available carvedilol 3.125 mg tablet TAKE 1 TABLET BY MOUTH TWICE A DAY WITH MEALS active Not Available Not Available No t Available acetaminophe n ER 650 mg tablet,exten ded release TAKE 1 TABLET BY MOUTH EVERY 8 HOURS active Not Available Not Available No t Available hydromorphon e 2 mg tablet TAKE 1 TO 2 TABLETS BY MOUTH EVERY 4 HOURS NEEDED active Not Available Not Available No t Available dextroamphet amine-amphet amine ER 20 mg 24hr capsule,exte nd release TAKE 1 CAPSULE BY MOUTH EVERY DAY FOR ADHD active Not Available Not Available No t Available amlodipine 10 mg tablet TAKE 1 TABLET BY MOUTH DAILY active Not Available Not Available Not Available cephalexin 500 mg capsule TAKE 1 CAPSULE BY MOUTH EVERY 6 HOURS DIRECTED FOR 7 DAYS active Not Available Not Available N ot Available pantoprazole 40 mg tablet,delay ed release TAKE ONE TABLET BY MOUTH ONCE DAILY active Not Available Not Available No t Available erythromycin 5 mg/gram (0.5 %) eye ointment APPLY TOPICALLY TO AFFECTED AREA ON BOTH UPPER LIDS FOUR TIMES DAILY AFTER SURGERY active Not Available Not Available No t Available lisinopril 10 mg tablet TAKE 1 TABLET BY MOUTH DAILY active Not Available Not Available Not Available oxycodone 5 mg capsule TAKE 1 CAPSULE BY MOUTH EVERY 6 HOURS NEEDED FOR PAIN active Not Available Not Available No t Available docusate sodium 100 mg capsule TAKE ONE CAPSULE BY MOUTH TWICE DAILY. STOP TAKIING IF YOU DEVELOP LOOSE STOOLS active Not Available Not Available No t Available hydrochlorot hiazide 25 mg tablet TAKE 1 TABLET ORALLY DAILY FOR 90 DAYS active Not Available Not Available No t Available lorazepam 1 mg tablet TAKE 1 TAB BY MOUTH 2 TO 3 TIMES A DAY NEEDED FOR ANXIETY FOR 28 DAYS TAPERING DOSE 25-1 active Not Available Not Available No t Available diazepam 10 mg tablet TAKE 1 TO 3 TABLETS BY MOUTH THE DAY OF PROCEDURE. TO BE ADMINISTERE D BY THE DOCTOR active Not Available Not Available No t Available hydroxychlor oquine 200 mg tablet TAKE 1 TABLET BY MOUTH TWICE DAILY active Not Available Not Available No t Available zolpidem 10 mg tablet TAKE 1 TABLET BY MOUTH AT BEDTIME active Not Available Not Available No t Available methylpredni solone 4 mg tablets in a dose pack FOLLOW PACKAGE DIRECTIONS active Not Available Not Available N ot Available albuterol sulfate HFA 90 mcg/actuatio n aerosol inhaler INHALE 2 PUFFS BY MOUTH EVERY 6 HOURS NEEDED FOR SHORTNESS OF BREATH OR WHEEZING active Not Available Not Available Not Available dextroamphet amine-amphet amine ER 30 mg 24hr capsule,exte nd release TAKE 1 CAPSULE BY MOUTH EVERY DAY FOR ADHD active Not Available Not Available No t Available hydromorphon e 4 mg tablet PLEASE SEE ATTACHED FOR DETAILED DIRECTIONS active Not Available Not Available N ot Available lisinopril 40 mg tablet TAKE 1 TABLET BY MOUTH EVERY DAY FOR 90 DAYS active Not Available Not Available No t Available diazepam 5 mg tablet PLEASE SEE ATTACHED FOR DETAILED DIRECTIONS active Not Available Not Available N ot Available nabumetone 500 mg tablet TAKE 1 TABLET BY MOUTH TWICE DAILY active Not Available Not Available No t Available oxycodone 5 mg tablet TAKE 1 TO 2 TABLETS BY MOUTH EVERY FOUR HOURS NEEDED FOR MODERATE PAIN. DO NOT DRINK ALCOHOL OR DRIVE WHILE TAKING THIS MEDICATION active Not Available Not Available N ot Available buprenorphin e 2 mg-naloxone 0.5 mg sublingual tablet DISSOLVE 1 TAB SUBLINGUALL Y DAILY TAKE IN ADDITION TO BUPRENORPHI NE-NALOXONE 8MG-2MG TWICE DAILY active Not Available Not Available Not Available buprenorphin e 8 mg-naloxone 2 mg sublingual tablet DISSOLVE 1 TAB BY MOUTH TWICE DAILY active Not Available Not Available No t Available Pain Relief Extra Strength (acetaminoph en) 500 mg tablet TAKE 1 TO 2 TABLETS BY MOUTH EVERY EIGHT HOURS active Not Available Not Available Not Available sevelamer carbonate 800 mg tablet PLEASE SEE ATTACHED FOR DETAILED DIRECTIONS active Not Available Not Available N ot Available diclofenac 1 % topical gel PLEASE SEE ATTACHED FOR DETAILED DIRECTIONS active Not Available Not Available N ot Available buprenorphin e 2 mg-naloxone 0.5 mg sublingual film TAKE 1 FILM SUBLINGUALL Y DAILY active Not Available Not Available No t Available buprenorphin e 8 mg-naloxone 2 mg sublingual film DISSOLVE 1 FILM UNDER THE TONGUE TWICE DAILY active Not Available Not Available Not Available lidocaine 5 % topical ointment APPLY TO AFFECTED AREA TOPICALLY 2 TIMES A DAY NEEDED FOR PAIN active Not Available Not Available No t Available Bin[employer]NOW COVID-19 Ag Self Test kit TEST DIRECTED TODAY active Not Available Not Available No t Available Vitals Date Recorded Heart rate Oxygen saturation Oxygen saturation in Arterial blood by Pulse oximetry Body height Body weight Respiratory rate Body temperature Systolic blood pressure Diastolic blood pressure Provider Name and Address Organization Details Last Updated DateTime 4 89 /min 96 % 96 % 160.02 cm 14802.8 g 16 /min 98 [degF] 150 mm[Hg] 80 mm[Hg] Not Available [facility] 4 13:24:34 Date Recorded Body weight Respiratory rate Heart rate Body height Body temperature Oxygen saturation Oxygen saturation in Arterial blood by Pulse oximetry Systolic blood pressure Diastolic blood pressure Provider Name and Address Organization Details Last Updated DateTime 5 78926.8 g 14 /min 62 /min 152.4 cm 98.4 [degF] 98 % 98 % 171 mm[Hg] 91 mm[Hg] Not Available [facility] 5 18:01:41 Date Recorded Body temperature Heart rate Oxygen saturation Oxygen saturation in Arterial blood by Pulse oximetry Respiratory rate Systolic blood pressure Diastolic blood pressure Provider Name and Address Organization Details Last Updated DateTime 3 98 [degF] 80 /min 100 % 100 % 12 /min 166 mm[Hg] 76 mm[Hg] Not Available [facility] 3 17:53:52 Social History None recorded. Functional Status None recorded. Mental Status None recorded. Family History Nothing Reported. Medical History No medical history recorded. Gynecological HistoryNo gynecological history recorded. Obstetrics History GPAL:G 0 P 0 0 0 0 Past Encounters Encounter ID Performer Location Encounter Start Date Encounter Closed Date Diagnosis/Indication Diagnosis SNOMED-CT Code Diagnosis ICD10 Code Diagnosis Note [id number] Tracie Cartwright MD [facility] [address] [place] [phone] 08/24/2022 17:53:41 08/26/2022 11:26:13 Cellulitis of lower limb [id number] L03.119 [id number] Troy Mckeon MD [facility] [address] [place] [phone] 08/03/2023 13:24:25 08/04/2023 09:54:23 Localized eruption of skin [id number] R21 57yo woman presents with one day of unilateral rash on the arm and scapula. The rash in red and has a burning pain. She tried applying steroid but it did not clearly respond (at least not immediatel y). I reviewed photos.Ass essment: While hard to know for sure, this may be shingles. Differenti al also includes allergic dermatitis , though it's more painful than itchy.Jenifer tment:- Valacyclov ir 1000mg TID x 7 days- Followup with PCP or health care facility administrator- I advised that if no response to the treatment, this diagnosis may be incorrect and she should be sure to followup [id number] Molly Munoz MD [facility] [address] [place] [id number] 08/14/2024 18:01:32 08/14/2024 22:02:54 Chronic wound [id number] T14.8XXD 58 year old female with PVD being evaluated for chronic R lower extremity wound. Patient's wound began about a month ago, and she has been doing local wound care for it since. Patient reporting increased drainage and pain over the last week, and missed a FU today due to weather. Patient denies fever, was given oxycontin 5 mg x 12 tabs, of which she's taken two nightly which has been helpful, but is down to her last 2 pills. Exam notable for normal vital signs, RLE with superficia l wound noted, without erythema or purulence. Presentati on consistent with chronic lower extremity wound with delayed healing, in the setting of peripheral vascular disease. Patient with fdc plan to undergo elective revascular ization, reassuranc e offered that no evidence of superinfec tion today, continue outpatient FU as initially planned, recommende d contacting PCP to discuss longer term pain medication pending definitive management with vascular surgery. I have reviewed and agree with the assessment and plan as documented by the shipping and receiving. I provided real-time medical direction for this encounter and was immediatel y available to provide additional phone-base d assistance as needed. We discussed the diagnostic uncertaint y of home visits and associated risks. We discussed the need to seek care urgently/e mergently in the setting of any new or worsening symptoms. Health Concerns Section Related Observation LastModified by Organization Detai ls LastModified Time None Recorded Concern Status LastModified by Organization Details LastModified Time None Recorded Advance Directives Directive None Recorded Payers Encounter Date Sequence Insurance Name Policy Number Policy Fisher Covered Member ID Fisher Member ID Guarantor Name 08/24/2022 1 [facility] - DOS PRIOR TO 2022 - DUAL ELIGIBLE (MEDICARE REPLACEMENT/ADV ANTAGE - HMO) Edwina Staton [id number] Edwina Staton 08/03/2023 1 [facility] - DOS ON OR AFTER 2022 - DUAL ELIGIBLE - [facility] OPTIONS AND ONE CARE (MEDICARE REPLACEMENT/ADV ANTAGE - HMO) Ewdina Staton [id number] Edwina Staton 08/14/2024 1 [facility] - DOS ON OR AFTER 2022 - DUAL ELIGIBLE - [facility] OPTIONS AND ONE CARE (MEDICARE REPLACEMENT/ADV ANTAGE - HMO) Edwina Staton [id number] Edwina Staton Notes Date Note Type Note Provider Name and Address Organization Details Recorded Time 08/24/2022 text/html [facility] Nursing Assessment: Reason For Request: Right foot, something is wrong with the right foot, toes swollen, wakes her up everytime she goes to bed. Every 2 to 3 hours, member does not walk well due to a recent surgery. Member puts on socks, her foot is always cold to the touch. Chief Complaints: Pain PMH: Hypertension Allergies: No Known Comments: Member right foot swelling for 2-3 weeks but getting worse. Member had sx on Jul 16 spinal fusion / had a CVA in April. Member spoke with sx on the phone and no interventions but has a follow up in october. Right side residual from CVA. Just the foot. red and swollen/ cool to the touch . Identify verified by ................... ................... ................... ................... ................... ................... ................... ........ Customer Training Specialist Note From Nadege Trimble: Dispatched to 56 year-old females home with complaint of redness and cramping in her right foot. Patient states the pain and cramping usually happens while she? s asleep and she wakes up to this patient? s right foot presents red, warm to the touch. Good pulses and CSM. In foot . Will call Dr. Cartwright for further instruction. Call dr Cartwright although her was busy and texted that he will call back. Dr. Cartwright calls me back and I give patient 500 mg PO of Keflex as well as leave her another 500 mg dose of keflex to take it midnight Dr. Cartwright will call in additional keflex to patients pharmacy patient to follow up with her PCP ................... ................... ................... ................... ................... ................... ................... ........ Disposition: Fulfilled Tracie Cartwright MD [address] [place] [address],[address], [place], [phone], [employer] 08/24/2022 18:07:35 08/03/2023 text/html [facility] Nurse Triage Notes (Armond Wheeler): Chief Complaints: Wound Care, Abdominal Pain PMH: Hypertension Allergies: Unknown Comments: Motor Vehicle Light Assembler verified the pt.? s address and phone number - Education provided on the response time and was advised to monitor reported s/s and seek emergency treatment if needed. Member reports s/s started on Tuesday - Upper right back ache - scapula - down the right arm and elbow. There's a bumpy rash underneath my armpit . Fingers are numb on the same right side. Abdominal Discomfort - Cough -productive - Congestion - Denies fever - Denies N/V -Denies CP and SOB -Julian KESSLER Outreach call to the member -Visit rescheduled for AM -Capacity = Julian Mckeon MD [address] [facility],[address], [place], [phone], [employer] 08/03/2023 13:33:09 08/14/2024 text/html HPI: Mbr with PVD, has ulcer to right lower leg. (smalls area) Has been attending wound clinic at [facility] weekly and missed appt 08/13 d/t inclement weather. She is in need of wound assessment and possible dressing change, reports 10/10 pain, denies fever, reports substantial amount of drainage, needing to change dressing more that once a day. Also reports issue with right great toe all related to circulation issue. ................... ................... ................... ................... ................... ................... ................... ........ [facility] Nurse Triage Notes (Simin Tobias - RN): Chief Complaints: Wound care PMH: Hypertension, Chronic Kidney Disease PMH Reviewed at 08/14/2024 - 16:18 Allergies Reviewed at 08/14/2024 16:18 Comments: An outreach completed. The size of the wound half dollar on her smalls , she also has a hole in toe, that she puts can filler the area. She was explained that we do basic wound care and do not do packing or tunneling. Her leg is very swollen and her skin is sensitive. The area is weeping , clear liquid that is leaving a stain. She has supplies in the home. She feels that it is healing but is unsure. Difficult to get full details of wound / size / treatment ................... ................... ................... ................... ................... ................... ................... ........ Customer Training Specialist Note From Bigg Hemphill: Patient alert and oriented standing at door. Patient limping favoring right leg. Patient complains of weeping wound on right leg started yesterday. Leg has been swollen for the last month or more. Patient states small laceration July 19, 2024 progress to wound scene in pictures. Patient complains of 10 out of 10 pain at area. Patient was prescribed OxyContin 5 mg by PCP while scheduling vascular surgery on right leg. Patient also complains of heel pain. Patient denies nausea, vomiting, diarrhea, chest pain, difficulty breathing or any other pain or complaints. Patient pink warm dry secondary exam unremarkable. Wound on right lower leg, small crack in right heel no bleeding or swelling. Wounds re-bandaged. [facility] advises patient to follow up with OxyContin prescriber. Patient advised to use dry dressings and keep area clean. Red flag supportive care patient education discussed. Patient demonstrates understanding of care and plan. ................... ................... ................... ................... ................... ................... ................... ........ [facility] Consulted: Molly Munoz ................... ................... ................... ................... ................... ................... ................... ........ Disposition: Fulfilled Molly Munoz MD [address] [facility],[address], [place], [phone], [facility] [place], [employer] 08/14/2024 19:03:43 OBGyn Episode No OBEpisode recorded.
--- OUTSIDE RECORDS SUMMARY | 2024-10-05 10:27 | XMS_ITS | Data Portability ---
Author Organization [facility], Main Office Address [address] [place] [address] Care Team Providers Care Transport Coordinator Name Role Phone NICK QUICK OTHER LANCE MAZARIEGOS Computer System Validation Specialist PAM SLAUGHTER Orthopedic Surgeon Flex JUAN Pain Management Assessment No assessment recorded. Plan of Treatment Reminders Order Date Submit Date Provider Last Modified By Organization Details Last Modified Time Details Appointments None recorded. Lab None recorded. Referral None recorded. Procedures None recorded. Surgeries None recorded. Imaging None recorded. Medication Orders gabapentin 600 mg tablet 2016 017 INTERFACE Not available 7 10:44:56 amlodipine 10 mg tablet 2016 017 INTERFACE Not available 7 10:44:56 Chantix Starting Month Box 0.5 mg (11)-1 mg (42) tablets in dose pack 2016 017 INTERFACE Not available 7 14:01:17 clobetasol 0.05 % topical cream 2014 015 [email or web address] Not available 5 08:24:23 Patient TargetsNo targets recorded. Patient Instructions Encounter Date Encounter Id Patient Instructions Last Modified By Organization Details Last Modified Time 04/07/2016 [id number] attention defici t hyperactivity disorder (ADHD) in adults: care instructions [email or web address] Not available 04/08/2016 09:41:39 rheumatoid arthritis diet: care instructions [email or web address] Not available 04/08/2016 09:41:39 Rheumatoid Arthritis (RA): Care Instructions [email or web address] Not available 04/08/2016 09:41:39 10/22/2016 [id number] insomnia: care instructions Not available 10/22/2016 14:22:27 high blood pressure: care instructions Not available 10/22/2016 14:22:27 learning about high blood pressure Not available 10/22/2016 14:22:27 attention defici t hyperactivity disorder (ADHD) in adults: care instructions Not available 10/22/2016 14:22:27 Reason for Referral None Reported. Results Created Date Observation Date Name Description Value Unit Range Abnormal Flag Note LastModifiedBy Organization Detail LastModifiedTime 11/29/19 15 11/28/2014 cardi olite stres s test No observ ation record ed. [facility] [address], [place], [address], 11/28/2014 16:26:07 03/12/20 15 11/28/2014 imagi ng/di agnos tic resul t No observ ation record ed. BARCODE Not Available 2014 17:17:32 Result Notes None recorded. Problems Name Problem SNOMED Code Status Onset Date Resolution Date Notes Provider Name and Address Organization Details Recorded Time Tinea pedis [id number] Marcellus Alva MD [address] [place], [address], [facility] 6 16:18:10 Menopausal symptom 81768627 Marcellus Alva MD [address] [address] [place], [address], [facility] 6 16:18:10 Benign essential hypertension [id number] Marcellus Alva MD [address] [address] [place], [address], [facility] 6 22:14:35 Anxiety state [id number] Marcellus Alva MD [address] [address] [place], [address], [facility] 6 16:18:10 Knee pain Marcellus Alva MD [address] [address] [place], [address], [facility] 6 16:18:10 Insomnia [id number] Marcellus Alva MD [address] [place] [address], [address], [facility] 6 16:18:10 Depressive disorder [id number] Marcellus Al[facility] [address] [place] [address], [address], [facility] 6 16:18:10 Tobacco dependence syndrome [id number] MD Lizzy Truong jonathan [address] [place] [address], [address], [facility] 6 16:18:10 Dysmenorrhea [id number] [facility]cellus [facility] [address], [address], [facility] 6 16:18:10 Backache [id number] MD Lizzy Truong [address], [address] , [facility] 6 16:18:10 Acute bronchitis [id number] Marcellus [facility] [address], [address] , [facility] 6 16:18:10 Overweight [id number] MD Lizzy Truong jonathan [address] [place] [address], [phone] , [facility] 6 16:18:10 Pain in toe [id number] MD Lizzy Truong jonathan [address] [place] [address], [address] , [facility] 6 16:18:10 Hypercalcemia [id number] MD Lizzy Truong jonathan [address] [place] [address], [phone] , [facility] 6 16:18:10 Blood glucose outside reference range [id number] MD Lizzy Truong jonathan [address] [place] [address], [address], [facility] 6 16:18:10 Abscess [id number] Marcellus Alva MD [address] [place] [address], [address] [place] [address], [facility] 6 16:18:10 Osteoarthritis [id number] Marcellus Al[facility] [address], [address], [facility] 6 16:18:10 Hip pain 54692861 Marcellus Al[facility] [address], [address] [place] [address], [facility] 6 16:18:10 Shoulder pain [id number] MD Lizzy Truong [address], [address] [place] [address], [facility] 6 16:18:10 Undifferentiat ed attention deficit disorder [id number] Marcellus Alva MD [address] [place] [address], [address] [place] [address], [facility] 6 16:18:10 Contact dermatitis caused by urushiol from [facility] may [id number] Marcellus Alva MD [address] [place] [address], [address] [place] [address], [facility] 6 16:18:10 Chronic pain syndrome [id number] MD Lizzy Truong jonathan [address] [place] [address], [address], [facility] 6 22:14:35 Rheumatoid arthritis [id number] MD Lizzy Truong jonathan [address] [place] [address], [address], [facility] 6 22:14:35 Attention deficit hyperactivity disorder [id number] Marcellus Al[facility] [address], [address], [facility] 6 22:14:35 Problem Notes None recorded. Procedures Surgical History Date Name Laterality Status Provider Name and Address Organization Details Recorded Time 4 I & D (Incision & Drainage) completed Aquiles Darling MD [address] [place], [address], [facility] 03/26/2014 15:01:17 4 Endometrial Ablation completed Gissel Alva MD [address] [place], [address], [facility] 08/16/2013 10:22:45 Imaging Results Imaging Date Name Status LastModified by Organization Details LastModified Time 11/28/2014 cardiolite stress test completed [facility] [address], [place], [address], 11/28/2014 16:26:07 11/28/2014 imaging/diagno stic result completed BARCODE Information not available 03/12/2015 17:17:32 Procedure Notes None recorded. Medical Equipment None Reported. Allergies Allergen ID Allergen Name Allergen Category Reaction Reaction Severity Criticality Documentation Date Start Date Code Code System Note Provider Name and Address Organization Details Recorded Time 346780 codeine medicatio n diarrhea moderate Not available 02/22/2017 2670 RxNorm Esperanza Nguyen [facility] 7 10:23:44 Medications Name Sig Start Date Stop Date Status Note LastModified by Organization Details LastModified Time cyclobenzap rine 10 mg tablet active Not Available Not Available Not Available amoxicillin 500 mg capsule 10/22 completed Not Available Not Available Not Available Augmentin 875 mg-125 mg tablet Take 1 tablet every 12 hours by oral route for 7 days. 11/01 completed Not Available Not Available Not Available venlafaxine ER 75 mg capsule,ext ended release 24 hr active Not Available Not Available Not Available gabapentin 600 mg tablet TAKE 1 TABLET BY MOUTH 3 TIMES A DAY NEEDED 2016 active Not Available Not Available Not Avai lable cefuroxime axetil 250 mg tablet active Not Available Not Available No t Available sulfasalazi ne 500 mg tablet 02/22 completed Not Available Not Available Not Available nabumetone 750 mg tablet TAKE 1 TABLET BY MOUTH TWICE DAILY active Not Available Not Available No t Available clindamycin HCl 300 mg capsule active Not Available Not Available Not Available ibuprofen 800 mg tablet active Not Available Not Available Not Available hydrocodone 5 mg-acetamin ophen 325 mg tablet TAKE 1 TO 2 TABLETS BY MOUTH EVERY 4 HOURS NEEDED FOR PAIN active Not Available Not Available No t Available dextroamphe tamine-amph etamine 10 mg tablet TAKE 1 TABLET BY MOUTH EVERY DAY FOR 30 DAYS active Not Available Not Available No t Available fluoxetine 10 mg tablet active Not Available Not Available Not Available clonazepam 1 mg tablet active Not Available Not Available Not Available clobetasol 0.05 % topical cream APPLY A THIN LAYER TO THE AFFECTED AREA(S) BY TOPICAL ROUTE 2 TIMES PER DAY FOR UP TO 10 DAYS 02/22 completed Not Available Not Available Not Available leflunomide 10 mg tablet 02/22 completed Not Available Not Available Not Available Nexium 40 mg capsule,del ayed release TAKE ONE CAPSULE BY MOUTH EVERY DAY active Not Available Not Available No t Available EC-Naprosyn 500 mg tablet,dahlia yed release Take 1 tablet twice a day by oral route with meals for 30 days. 02/06 completed Not Available Not Available Not Available morphine ER 30 mg tablet,exte nded release active Not Available Not Available Not Available sulfamethox azole 800 mg-trimetho prim 160 mg tablet TAKE 2 TABLETS BY MOUTH TWICE A DAY 10/22 completed Not Available Not Available Not Available hydrocodone 10 mg-acetamin ophen 325 mg tablet Take 1 tablet every 4 hours by oral route. 10/22 completed Not Available Not Available Not Available omeprazole 40 mg capsule,del ayed release TAKE ONE CAPSULE BY MOUTH EVERY DAY 10/22 completed Not Available Not Available Not Available leflunomide 20 mg tablet active Not Available Not Available Not Available tramadol 50 mg tablet active Not Available Not Available No t Available oxycodone-a cetaminophe n 5 mg-325 mg tablet TAKE 1 TO 2 TABLETS BY MOUTH EVERY 6 TO 8 HOURS NEEDED active Not Available Not Available No t Available terbinafine HCl 250 mg tablet active Not Available Not Available Not Available lorazepam 0.5 mg tablet active Not Available Not Available Not Available oxycodone-a cetaminophe n 10 mg-325 mg tablet active Not Available Not Available No t Available ciprofloxac in 0.3 % eye drops active Not Available Not Available No t Available amlodipine 10 mg tablet TAKE 1 TABLET BY MOUTH EVERY DAY active Not Available Not Available No t Available doxycycline monohydrate 100 mg capsule active Not Available Not Available Not Available hydrocodone 7.5 mg-acetamin ophen 325 mg tablet Take 1 tablet every 6-8 hours by oral route as needed. active Not Available Not Available No t Available cephalexin 500 mg capsule TAKE 1 CAPSULE(S ) 4 TIMES A DAY BY ORAL ROUTE FOR 7 DAYS. 10/22 completed Not Available Not Available Not Available fluoxetine 20 mg tablet Take 1 tablet every day by oral route. active Not Available Not Available No t Available clotrimazol e-betametha sone 1 %-0.05 % topical cream APPLY TO SKIN TWICE DAILY active Not Available Not Available No t Available promethazin e 25 mg tablet active Not Available Not Available Not Available gabapentin 300 mg capsule take 1 or 2 caps daily active Not Available Not Available No t Available etodolac 400 mg tablet active Not Available Not Available Not Available hydrocodone 5 mg-acetamin ophen 500 mg tablet active Not Available Not Available No t Available mupirocin 2 % topical ointment APPLY A SMALL AMOUNT TO THE AFFECTED AREA BY TOPICAL ROUTE 3 TIMES PER DAY active Not Available Not Available No t Available norethindro ne acetate 5 mg tablet active Not Available Not Available Not Available gabapentin 100 mg capsule active Not Available Not Available Not Available lorazepam 1 mg tablet TAKE 1 TABLET BY MOUTH TWICE A DAY NEEDED active Not Available Not Available No t Available hydroxychlo roquine 200 mg tablet active Not Available Not Available No t Available prednisone 5 mg tablets in a dose pack 02/22 completed Not Available Not Available Not Available oxycodone-a cetaminophe n 7.5 mg-325 mg tablet active Not Available Not Available Not Available zolpidem 10 mg tablet TAKE 1 TABLET BY MOUTH AT BEDTIME active Not Available Not Available No t Available methylpredn isolone 4 mg tablets in a dose pack active Not Available Not Available Not Available dextroamphe tamine-amph etamine ER 30 mg 24hr capsule,ext end release TAKE ONE CAPSULE BY MOUTH EVERY DAY FOR 30 DAYS active Not Available Not Available No t Available hydromorpho ne 4 mg tablet TAKE 1 TABLET BY MOUTH EVERY 8 HOURS NEEDED active Not Available Not Available No t Available naproxen 500 mg tablet active Not Available Not Available Not Available Bactroban Nasal 2 % ointment APPLY A SMALL AMOUNT TO EACH NOSTRIL 2 DAYS PRIOR TO SURGERY active Not Available Not Available No t Available Amphetamine Salt Combo 10 mg tablet TAKE 1 TABLET BY MOUTH EVERY DAY active Not Available Not Available No t Available escitalopra m 20 mg tablet active Not Available Not Available Not Available Abilify 2 mg tablet active Not Available Not Available No t Available Voltaren 1 % topical gel APPLY 2 GRAM TO THE AFFECTED AREA(S) BY TOPICAL ROUTE 4 TIMES PER DAY active Not Available Not Available No t Available Seroquel XR 50 mg tablet,exte nded release active Not Available Not Available Not Available Butrans 5 mcg/hour transdermal patch APPLY 1 PATCH ONCE WEEKLY active Not Available Not Available No t Available Chantix Starting Month Box 0.5 mg (11)-1 mg (42) tablets in dose pack TAKE DIRECTED 02/22 completed Not Available Not Available Not Available potassium chloride ER 20 mEq tablet,exte nded release active Not Available Not Available Not Available Hysingla ER 40 mg tablet, crush resistant, extended release TAKE 1 TABLET BY MOUTH EVERY DAY 02/22 completed Not Available Not Available Not Available Vitals Date Recorded Body height Body mass index (BMI) Respiratory rate Body weight Heart rate Systolic blood pressure Diastolic blood pressure Provider Name and Address Organization Details Last Updated DateTime 5 158.75 cm 26.5 kg/m2 16 /min 82010.0 7839 g 74 /min 160 mm[Hg] 90 mm[Hg] Alysia Lu [facility] 5 11:18:42 Date Recorded Systolic blood pressure Diastolic blood pressure Provider Name and Address Organization Details Last Updated DateTime 11/20/2014 150 mm[Hg] 80 mm[Hg] Ariadna Preciado PA-C [address] [place], [address], [facility] 11/20/2014 11:32:21 Date Recorded Respiratory rate Body weight Body height Heart rate Body mass index (BMI) Systolic blood pressure Diastolic blood pressure Provider Name and Address Organization Details Last Updated DateTime 5 16 /min 23831.8 9365 g 158.75 cm 80 /min 26.1 kg/m2 120 mm[Hg] 70 mm[Hg] Es Robbins [facility] 5 07:59:42 Date Recorded Body height Body weight Heart rate Respiratory rate Body mass index (BMI) Systolic blood pressure Diastolic blood pressure Provider Name and Address Organization Details Last Updated DateTime 6 158.75 cm 04237.2 94177 g 76 /min 16 /min 26.6 kg/m2 144 mm[Hg] 90 mm[Hg] Amber Ingramfox [facility] 6 16:04:40 Date Recorded Body height Heart rate Oxygen saturation Oxygen saturation in Arterial blood by Pulse oximetry Body weight Body mass index (BMI) Systolic blood pressure Diastolic blood pressure Provider Name and Address Organization Details Last Updated DateTime 7 158.75 cm 88 /min 96 % 96 % 96363.7 1 g 25.7 kg/m2 150 mm[Hg] 92 mm[Hg] Esperanza Nguyen [facility] 7 13:32:11 Date Recorded Body height Body mass index (BMI) Body weight Heart rate Oxygen saturation Oxygen saturation in Arterial blood by Pulse oximetry Provider Name and Address Organization Details Last Updated DateTime 7 158.75 cm 25 kg/m2 98583.3 4 g 92 /min 98 % 98 % Esperanza Nguyen [facility] 7 10:29:53 Date Recorded Systolic blood pressure Diastolic blood pressure Provider Name and Address Organization Details Last Updated DateTime 02/22/2017 160 mm[Hg] 90 mm[Hg] Dora Santos PA-C [address] [place], [address], [facility] 02/22/2017 10:46:31 Social History Question Answer Notes LastModified by Organizat ion Details LastModified Time Tobacco Smoking Status Current Some Day Smoker Es figueroa, [facility] 12/26/2012 14:22:04 Do You Have An Advance Directive? Yes Information not available 02/22/2017 What Is Your Level Of Alcohol Consumption? None Information not available 12/26/2012 What Is Your Level Of Caffeine Consumption? Occasional 1 Cup Of Coffee QD Information not available 12/26/2012 Are You Currently Employed? No Information not available 12/26/2012 Which Illicit Or Recreational Drugs Have You Used? No Information not available 12/26/2012 How Many Days In The Past Year Have You Had A Heavy Drinking Consumption (4+ Female, 5+ Male)? 1 [email or web address] Information not available 02/22/2017 Marital Status frumonique Informatio n not available 12/26/2012 Are You Sexually Active? Yes [email or web address] Information not available 02/22/2017 At What Age Did You Start Smoking Tobacco? 18 [email or web address] Information not available 02/22/2017 How Much Tobacco Do You Smoke? 0.5 PPD [email or web address] Information not available 02/22/2017 How Many Years Have You Smoked Tobacco? 53 [email or web address] Information not available 02/22/2017 Sex: Unknown Functional Status Question Answer Note LastModified by Organizat ion Details LastModified Time Urinary incontinence assessment performed? No [email or web address] Information not available 02/22/2017 Mental Status None recorded. Family History Nothing Reported. Medical History Condition Response Anxiety Disorder Y Muscle, Joint, or Bone Problems Y Arthritis GERD/Reflux Y Rx database check ADD or ADHD Y Depression Y Gynecological HistoryNo gynecological history recorded. Obstetrics History GPAL:G 0 P 0 0 0 0 Past Encounters Encounter ID Performer Location Encounter Start Date Encounter Closed Date Diagnosis/Indication Diagnosis SNOMED-CT Code Diagnosis ICD10 Code Diagnosis Note [id number] [facility] [place] [address] 12/26/2012 14:03:52 12/26/2012 14:57:[id number] [address] 03/08/2013 16:19:03 03/09/2013 09:52:50 [id number] [facility] [address] 04/23/2013 13:27:56 04/25/2013 09:39:06 [id number] Aquiles Darling MD [facility] [address] [place] [address] 07/05/2013 13:57:16 07/05/2013 14:49:16 Anxiety state 319422138 again encouraged eval by Psychiatry ; she is enjoying her visits with her counselor; overall she feels medication is working and she wants to keep them as they are; followup or go to ER right away if mood acutely worsens or if she gets suicidal; pt understand s; f/u in 3 mos Insomnia 707431587 can t ry 20mg ambien if she needs to Benign ess ential hypertension 1772178 recheck at [facility] in 1 week and if still up would need additional med; could be up from back pain and anxiety Dysmenorrhea [id number] f /u with ANGIOGRAPHER soon Backache 540853563 impro ving per pt and she can f/u with her pain clinic if not improving or if symptoms worsen [id number] Aquiles Darling MD [address] [address] 08/03/2013 09:27:30 08/03/2013 11:01:41 Benign essential hypertension 6752741 [id number] [address] 08/16/2013 09:45:56 08/16/2013 10:43:06 Depressive disorder 00074262 Anxiety state 120068740 continue with therapist weekly and now with psych, start lexapro as directed Tobacco de pendence syndrome 05243010 discussed smoking cessation [id number] [address] [address] 10/25/2013 14:29:42 10/25/2013 15:05:28 Acute bronchitis 24901081 cover with augmentin, fluids, mucinex; if breathing acutely worsens or gets fever/chil ls then go to ER; followup if symptoms not resolved in 1 week Knee pain 22498005 stroenedelia sanderson advised Ortho followup; also repeatedly told her she is to avoid taking nsaids like aleve or ibuprofen because of her ulcer history and she states she will continue to take these meds Overweight 250698998 ref er to surgeon to recheck her lap band [id number] Alysia Lu [facility] [facility] [address] [place] [address] 01/07/2014 16:12:22 01/07/2014 17:06:01 Closed fracture of phalanx of foot 78951386 Gastroesop hageal reflux disease 233814722 [id number] Es Robbins [address] [address] 01/30/2014 15:20:39 01/30/2014 15:58:33 Pain in toe 401529669 get x-ray; if break near joint then will need to see Ortho; advised against nsaids again but pt plans to still take them; continue cameron taping, ice and protecting the area [id number] Feliberto Howard [address] [address] 03/08/2014 13:05:47 03/08/2014 14:36:51 Adult health examination 840882593 pt declines Mammo or Pap; encouraged smoking cessation Blood gluc ose outside reference range 559045471 recheck fasting sugar in 1 week Hypercalcemia 30590500 r esolved; pt was taking TUMs often [id number] Aquiles Darling MD [address] [address] 03/26/2014 13:10:19 03/26/2014 14:53:20 Abscess 183902043 see procedure note; finish antibiotic s; keep area clean and bandaged, apply vaseline with dressing changes; return to ER or followup here right away for any increase in pain, redness, swelling, pus drainage [id number] Brittney Bansal [address] [address] 07/31/2014 13:18:26 07/31/2014 14:45:14 Osteoarthritis 178287398 vicodin short term; advised she avoid nsaids with her ulcer history; sees Ortho next week [id number] Ariadna Preciado PA-C [address] [facility] [address] [place] [address] 09/12/2014 11:33:18 09/12/2014 12:36:48 Abscess 897150342 sites of abscess are healing well and there are no signs of current infection. Advised her to complete her ABX and return to care if she notices any redness or increase pain again. she understand s. Knee pain 40575925 discu ssed with Dr. naranjo who prescribed hydrocodon e 7.5/325. she will follow-up with Dr. slaughter. [id number] Amber Clayton [address] [address] 10/31/2014 14:32:45 10/31/2014 17:22:09 Hip pain 39758870 hip replacemen t as scheduled, will do short term pain meds Knee pain 22747941 Shoulder pain 90861595 Undifferen tiated attention deficit disorder 66438323 [id number] Ariadna Preciado PA-C [address] [facility] [address] [place] [address] 11/20/2014 11:07:34 11/20/2014 13:55:53 Pre-surgery evaluation 791447093 Here for pre-surger y evaluation for right total hip replacemen t. She has nausea and vomiting after anesthesia but otherwise has had no previous reaction. reviewed labs which were normal. reviewed EKG which showed sinus rhythm with twave inversions in aVL and V2. we have no previous EKGs in our office for comparison . will send patient for stress test before clearing for surgery. Hip pain 17647306 right hip replacemen t planned. Anxiety state 450838167 she is anxious now and has not had anxiety medication today. Benign ess ential hypertension 0575581 elevated today. she feels this is due to anxiety and she has not had her medication today. improved some on recheck. no changes for now. recent readings in office were normal. Abscess [id number] histor y of recurrent abscesses. no acute infections today. [id number] [address] [place] [address] 05/08/2015 07:50:09 05/08/2015 10:58:57 Adult health examination [id number] Z00.00 states she saw ANGIOGRAPHER; not ready to quit smoking Contact de rmatitis caused by urushiol from [facility] may [id number] L25.5 try strong steroid cream [id number] Gissel Alva MD [address] [place] [address] 04/07/2016 15:09:27 04/08/2016 09:42:49 Benign essential hypertension [id number] I10 BP 144/90 - pt to check BP at home. Chronic pain syndrome 37 9177783 G89[address] Juan - Currently on Dilaudid 4 mg. Rheumatoid arthritis 698 [address] M[address] Anton Attention deficit hyperactivity disorder [id number] F90.9 Continue meds [id number] KATHLEEN Saha [address] [place] [address] 10/22/2016 13:28:22 10/22/2016 14:22:32 Adult health examination [id number] Z00.00 Wants to wait to do labs, mammo, pelvic and c-scope when she moves back to [facility] in December. Insomnia 197270913 G47.0 0 Well controlled with ambien Anxiety 73847213 F41.9 Well controlled with lorazepam Smoker 83131063 F17.200 Encouraged pt to quit. Would like to restart chantix Attention deficit hyperactivity disorder 065195440 F90.9 Well controlled with adderall Essential hypertension 26062040 I10 Taking amlodipine 10. BP elevated in office today. Pt to monitor and let us know if consistent ly elevated. Chronic pain syndrome 37 7036820 [address]89[address] Juan Local infe ction of wound [id number] B99.9 Tattoo to L arm was infected so went to ED. On abx and pt reports is much improved. Pt to continue abx until gone [id number] Dora Santos PA-C [address] [place] [address] 02/22/2017 09:30:24 02/22/2017 12:20:30 Essential hypertension 16706857 I10 Taking amlodipine 10. BP elevated in office today. Pt to monitor and let us know if consistent ly elevated. Asymptomat ic. HAs not taken her BP med today-enco uraged compliance Chronic pain syndrome 37 3451031 G89[address] Juan. Taking gabapentin 1.5 mg in the afternoon and evening and 1 tablet in the morning with good control. Pt sts does not cause drowsiness . Will refill. Health Concerns Section Related Observation LastModified by Organization Detai ls LastModified Time None Recorded Concern Status LastModified by Organization Details LastModified Time None Recorded Advance Directives Directive Y: Payers Encounter Date Sequence Insurance Name Policy Number Policy Fisher Covered Member ID Fisher Member ID Guarantor Name 11/20/2014 1 MEDICARE [place]: TERRA [place]on [id number] Ej Staton 05/08/2015 1 [place]: [place] [id number] Ej Staton 04/07/2016 1 [place]ARE [place]: [place]RA [place] [id number] Ej Staton 10/22/2016 1 [place]: [place] [id number] Ej Staton 02/22/2017 1 [facility] [place] [id number] Ej Staton Notes Date Note Type Note Provider Name and Address Organization Details Recorded Time 11/20/2014 text/html Here for pre-surgery evaluation for right total hip replacement. She states that she is going to have her right knee replaced next and she thinks surgery on the right shoulder. She states she had pre-op labs and EKG and chest xray yesterday at [facility]. She states she has some nausea and vomiting with anesthesia but otherwise has no other reactions. She states she went to [facility] 2 weeks ago due to benzo withdraw. Ariadna Preciado PA-C [address] [facility] [address] [place], [address], [facility] 11/25/2014 14:07:27 05/08/2015 text/html PE; tolerating meds; dealing with hip pain with Ortho; has some poison may on hands and feet which is still itching a lot Aquiles Darling MD [address] [place], [address], [facility] 05/08/2015 08:24:35 04/07/2016 text/html Routine f/u - me d refills f/u RA - worse in ring fingers. Pt is following with Dr. Mazariegos - currently on sulfasalazine. f/u chronic pain syndrome pt has been following with Dr. 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 f/u pain in right leg - Pt states apparently when she had the hip replacement the femur cracked. Following with Dr. Slaughter. f/u ADD - taking adderall daily, no problems Gissel Alva MD [address] [place], [address], [facility] 04/07/2016 22:14:45 10/22/2016 text/html 51yo F presents to discuss chantix Dora Santos PA-C [address] [place], [address], [facility] 10/22/2016 14:05:57 02/22/2017 text/html 51yo Astrid presents for med refill before she moves Dora Santos PA-C [address] [place], [address], [facility] 02/22/2017 10:53:45 OBGyn Episode No OBEpisode recorded.
--- OUTSIDE RECORDS SUMMARY | 2024-10-05 10:28 | XMS_ITS | Continuity of Care Document ---
Author Organization [facility] ter Address [address] [place] [id number]- Care Team Providers Care Payroll Representative Name Role Phone Po Octavia SALDAÑA Primary Care Physician [phone] Encounter [facility] Date(s): 09/14/24 - 09/15/[address] [id number] Discharge Disposition: A-D/C Home Attending Physician: Imelda Mares MD Admitting Physician: Imelda Mares MD Referring Physician: Not on Staff, Referring MD Encounter Type: Disch IP Allergies, Adverse Reactions, Alerts Substance Criticality Severity Reaction Reaction Severity Status ibuprofen kidney function Acti ve Pollen Active Medications Acetaminophen = 650 mg, By Mouth, 2 times a day, 0 Refills, Maintenance, 06/20/24 7:16:00 AM EST, Partial fill upon patient request if the prescription is for a schedule II opioid drug. Start Date: 06/20/24 Status: Ordered Repeat number: 1 Acetaminophen Tablet 650 mg, Tablet, By Mouth, 09/15/24 7:00:00 AM EST Start Date: 09/15/24 Stop Date: 09/15/24 Status: Completed Repeat number: 1 Amlodipine = 10 mg, By Mouth, Daily, 0 Refills, Maintenance, 10/29/22 4:10:00 PM EDT Start Date: 10/29/22 Status: Ordered Repeat number: 1 amLODIPine 10 mg oral tablet 10 mg, Tablet, By Mouth, 09/15/24 11:10:00 AM EST Start Date: 09/15/24 Stop Date: 09/15/24 Status: Completed Repeat number: 1 amoxicillin 500 mg oral capsule 8 each, 0 Refill(s), TAKE 4 CAPSULES BY MOUTH 1 HOUR BEFORE APPOINTMENT TIME, 0 Refills, 05/16/24 11:19:00 AM EDT, Partial fill upon patient request if the prescription is for a schedule II opioid drug. Start Date: 05/16/24 Status: Ordered Repeat number: 1 amphetamine-dextroamphetamine 10 mg oral tablet 30 each, 0 Refill(s), TAKE 1 TABLET BY MOUTH EVERY DAY IN THE AFTERNOON NEEDED FOR ADHD, 0 Refills, 05/16/24 11:19:00 AM EDT, Partial fill upon patient request if the prescription is for a schedule II opioid drug. Start Date: 05/16/24 Status: Ordered Repeat number: 1 amphetamine-dextroamphetamine 30 mg oral capsule, extended release 30 each, 0 Refill(s), TAKE 1 CAPSULE BY MOUTH EVERY DAY FOR ADHD, 0 Refills, 05/16/24 11:19:00 AM EDT, Partial fill upon patient request if the prescription is for a schedule II opioid drug. Start Date: 05/16/24 Status: Ordered Repeat number: 1 aspirin 81 mg oral capsule 1 capsule = 81 mg, By Mouth, 2 times a day, 0 Refills, Maintenance, 10/29/22 4:11:00 PM EDT Start Date: 10/29/22 Status: Ordered Repeat number: 1 atorvastatin 80 mg oral tablet = 80 mg, By Mouth, Daily at bedtime, # 30 tablet, 2 Refills, Maintenance, 09/15/24 10:46:00 AM EST, Tablet, [facility], Partial fill upon patient request if the prescription is for a schedule II opioid drug., 155, cm, 09/15/24 8:47:00 EST, Height, 63.9, kg, 09/14/24 23:43:00 EST, Dry Weight Start Date: 09/15/24 Stop Date: 12/14/24 Status: Ordered Quantity: 30.0 Unit: tablet Repeat number: 3 buPROPion 150 mg/12 hours (SR) oral tablet, extended release 1 tablet = 150 mg, By Mouth, 2 times a day, Take 1 tablet once a day for first 3 days, then take 1 tablet twice a day going forward. Stop smoking after 5-7 days of treatment, # 240 tablet, 0 Refills,Maintenance, 08/02/24 12:38:00 PM EST, ER Tablet, [id number], Partial fill upon patient request if the prescription is for a schedule II opioid drug., 160, cm, 07/31/24 13:36:00 EST, Height, 66.8, kg, 06/20/24 7:22:00 EST, Dry Weight Start Date: 08/02/24 Stop Date: 11/30/24 Status: Ordered Quantity: 240.0 Unit: tablet Repeat number: 1 cilostazol 100 mg oral tablet 1 tablet = 100 mg, By Mouth, 2 times a day, 0 Refills, Maintenance, 09/22/23 12:32:00 PM EST, Partial fill upon patient request if the prescription is for a schedule II opioid drug. Start Date: 09/22/23 Status: Ordered Repeat number: 1 collagenase topical 250 u/gm ointment See Instructions, Topically Daily, # 30 Gm, 0 Refills, Acute 10/13/24 11:57:00 PM EDT, 09/15/24 10:46:00 AM EST, Ointment, [facility], Partial fill upon patient request if the prescription is for a schedule II opioid drug., Topically Daily, 155, cm, 09/15/24 8:47:00 EST, Height, 63.9, kg, 09/14/24 23:43:00 EST, Dry Weight Start Date: 09/15/24 Stop Date: 10/13/24 Status: Ordered Quantity: 30.0 Unit: g Repeat number: 1 diclofenac 1% topical gel 1 application, Topically, 4 times a day, # 100 Gm, 0 Refills, Maintenance, 10/29/22 4:14:00 PM EDT, Gel, Partial fill upon patient request if the prescription is for a schedule II opioid drug. Start Date: 10/29/22 Status: Ordered Quantity: 100.0 Unit: g Repeat number: 1 Dilaudid 2 mg oral tablet 2 mg, Tablet, By Mouth, Every 4 hours, PRN for Pain , Moderate, Routine, 09/15/24 11:15:00 AM EST Notes: Drug Shortage 07/30/24- use 4 mg tablets when possible Start Date: 09/15/24 Stop Date: 09/16/24 Status: Discontinued Repeat number: 1 Dilaudid 4 mg oral tablet See Instructions, PRN as needed for pain, 0.5 tablet By Mouth Every 4 hours, # 21 tablet, 0 Refills, Acute 09/22/24 11:59:00 PM EST, 09/15/24 11:31:00 AM EST, Tablet, [facility], Partial fill upon patient request if the prescription is for a schedule II opioid drug., 155, cm, 09/15/24 8:47:00 EST, Height, 63.9, kg, 09/14/24 23:43:00 EST, Dry Weight Start Date: 09/15/24 Stop Date: 09/22/24 Status: Ordered Quantity: 21.0 Unit: tablet Repeat number: 1 docusate sodium 100 mg oral capsule 1 capsule = 100 mg, By Mouth, 2 times a day, # 20 capsule, 0 Refills, Maintenance, 09/15/24 10:47:00AM EST, Capsule, [facility], Partial fill upon patient request if the prescription isfor a schedule II opioid drug., 155, cm, 09/15/24 8:47:00 EST, Height, 63.9, kg, 09/14/24 23:43:00 EST, Dry Weight Start Date: 09/15/24 Status: Ordered Quantity: 20.0 Unit: capsule Repeat number: 1 doxycycline monohydrate 100 mg oral capsule 20 capsule, 0 Refill(s), 0 Refills, 08/31/24 1:46:00 PM EST, Partial fill upon patient request if theprescription is for a schedule II opioid drug. Start Date: 08/31/24 Status: Ordered Repeat number: 1 gabapentin 600 mg oral tablet 60 each, 0 Refill(s), TAKE 1 TABLET BY MOUTH IN THE MORNING, 0 Refills, 05/16/24 11:19:00 AM EDT, Partial fill upon patient request if the prescription is for a schedule II opioid drug. Start Date: 05/16/24 Status: Ordered Repeat number: 1 HYDROmorphone Inj 0.5 mg, Injection, IV Push Slowly, Every 3 hours, PRN for Pain , Severe, Routine, 09/14/24 2:30:00 PM EST Start Date: 09/14/24 Stop Date: 09/16/24 Status: Discontinued Repeat number: 1 lisinopril 20 mg oral tablet 90 each, 0 Refill(s), TAKE 1 TABLET BY MOUTH DAILY, Refills 0, 05/16/24 11:19:00 AM EDT, Partial fill upon patient request if the prescription is for a schedule II opioid drug. Start Date: 05/16/24 Status: Ordered Repeat number: 1 LORazepam 1 mg oral tablet 90 each, 0 Refill(s), TAKE 1 TABLET BY MOUTH UP TO THREE TIMES DAILY NEEDED FOR ANXIETY OR SLEEP, 0 Refills, 05/16/24 11:19:00 AM EDT, Partial fill upon patient request if the prescription is for a schedule II opioid drug. Start Date: 05/16/24 Status: Ordered Repeat number: 1 omeprazole 20 mg oral enteric coated capsule 30 each, 0 Refill(s), TAKE 1 CAPSULE BY MOUTH DAILY, 0 Refills, 05/16/24 11:19:00 AM EDT, Partial fill upon patient request if the prescription is for a schedule II opioid drug. Start Date: 05/16/24 Status: Ordered Repeat number: 1 OxyCODONE IR Tablet 5 mg, Tablet, By Mouth, Every 4 hours, PRN for Pain , Moderate, Routine, 09/14/24 2:30:00 PM EST Start Date: 09/14/24 Stop Date: 09/15/24 Status: Discontinued Repeat number: 1 pramipexole 0.5 mg oral tablet 30 each, 0 Refill(s), TAKE 1 TABLET BY MOUTH EVERY NIGHT AT BEDTIME NEEDED FOR DEPRESSION OR RESTLESS LEGS, 0 Refills, 05/16/24 11:19:00 AM EDT, Partial fill upon patient request if the prescription is for a schedule II opioid drug. Start Date: 05/16/24 Status: Ordered Repeat number: 1 Suboxone 8 mg-2 mg Sublingual Film 60 each, 0 Refill(s), PLACE 1 FILM SUBLINGUALLY TWICE DAILY, 0 Refills, 05/16/24 11:19:00 AM EDT, Partial fill upon patient request if the prescription is for a schedule II opioid drug. Start Date: 05/16/24 Status: Ordered Repeat number: 1 Ventolin HFA 108 mcg/inh inhalation aerosol with adapter 0 Refills, Maintenance, 10/29/22 4:14:00 PM EDT, Partial fill upon patient request if the prescription is for a schedule II opioid drug. Start Date: 10/29/22 Status: Ordered Repeat number: 1 Problem List Condition Confirmation Course Effective Dates Status H ealth Status Informant Adult ADHD Confirmed Active Atherosclerosis of extremity with rest pain Confirmed Active Benign essential hypertension Confirmed Active Chronic depression Confirmed Active CKD (chronic kidney disease) stage 4, GFR 15-29 ml/min Confirmed Active Chronic, continuous use of opioids Confirmed Active Chronic hip pain Confirmed Active Hyperlipidemia Confirmed Active Lipodystrophy Confirmed Active Mild aortic stenosis Confirmed Active Nicotine dependence, uncomplicated Confirmed Active PVD (peripheral vascular disease) Confirmed Active Posttraumatic stress disorder Confirmed Active Current smoker Confirmed Active Persistent moderate somatic symptom disorder with predominant pain Confirmed Active Tobacco use Confirmed Active Results Radiology Reports * Exam Date Time Procedure Performing Provider Status 09/14/24 2:10 PM Toe Great Right Foot Candi Napoles ; Auth (Verified) Notes: (Toe Great Right Foot) Reason For Exam: Pain RESULT: Toe Great Right Foot Toe Great Right Foot, 3 views Reason: Pain; Clinical Question(s): Fracture COMPARISON: Right ankle radiograph 10/30/2023 FINDINGS: Soft tissue edema of the great toe. No definite underlying osseous abnormalities. No acute fractures or bone lesions. Degenerative changes of the great toe with fusion of the phalanges. Normal soft tissues. IMPRESSION: Soft tissue edema involving the great toe. No definite underlying osseous abnormality. I have personally reviewed the images and I agree with this report. WSN: [id number] Ordering Physician: Ariadna Mota Dictated By: Alejandra Moore DO Dictated Date/Time: 09/14/24 2:58 pm Reviewed By: Efren Rosa MD, V Signed By: Efren Rosa MD, V Signed Date/Time: 09/14/24 3:03 pm Transcribed By: BUDDY Transcribed Date/Time: 09/14/24 2:54 pm * Exam Date Time Procedure Performing Provider Status 09/14/24 2:10 PM Tibia/Fibula 2 Views Right Candi Napoles; Auth (Verified) Notes: (Tibia/Fibula 2 Views Right) Reason For Exam: Pain RESULT: Tibia/Fibula 2 Views Right Tibia/Fibula 2 Views Right Hx of Present Illness: From home, has had a leg wound x1 yr. Follows with wound care however feels like the wound is getting worse. +Redness, swelling, green colored drainage in wound bed.; Reason: Pain; Clinical Question(s): Fracture; COMPARISON: Tibia/fibular radiograph 10/30/2023 FINDINGS: No fractures or bone lesions. Post right knee arthroplasty. Visualized joints are normal. Diffuse lower extremity edema. Vascular calcifications. IMPRESSION: Diffuse lower extremity edema. No acute osseous abnormality. I have personally reviewed the images and I agree with this report. WSN: [id number] Ordering Physician: Ariadna Mota Dictated By: Alejandra Moore DO Dictated Date/Time: 09/14/24 2:57 pm Reviewed By: Efren Rosa MD, V Signed By: Efren Rosa MD, V Signed Date/Time: 09/14/24 3:02 pm Transcribed By: BUDDY Transcribed Date/Time: 09/14/24 2:48 pm Vital Signs Most recent to oldest [Reference Range]: 1 2 3 4 Height 155 cm (09/15/24 8:47 AM) 155 cm (09/14/24 11:00 PM) Weight 70.4 kg (09/14/24 11:00 PM) Oxygen Saturation [94-100 %] 100 % (09/15/24 8:47 AM) 99 % (09/15/24 4:02 AM) 100 % (09/15/24 12:01 AM) Pulse Rate [55-90 bpm] 73 bpm (09/15/24 8:47 AM) 75 bpm (09/15/24 4:02 AM) 92 bpm *H* (09/15/24 12:01 AM) Body Mass Index [18.5-24.99 kg/m2] 29.3 kg/m2 *H* (09/14/24 11:00 PM) Blood Pressure [90-138/55-84 mm Hg] 142/77mm Hg *H* (09/15/24 11:25 AM) 142/77mm Hg *H* (09/15/24 8:47 AM) 153/73mm Hg *H* (09/15/24 4:02 AM) Respiratory Rate [16-30 br/min] 18 br/min (09/15/24 2:25 PM) 18 br/min (09/15/24 10:43 AM) 18 br/min (09/15/24 10:18 AM) 18 br/min (09/15/24 10:18 AM) Temperature [96.8-100.4 DegF] 98 DegF (09/15/24 8:47 AM) 97.8 DegF (09/15/24 4:02 AM) 98.0 DegF (09/15/24 12:01 AM) Mode of Delivery (Oxygen) Room air (09/15/24 8:47 AM) Room air (09/15/24 4:02 AM) Room air (09/15/24 12:01 AM) Blood pressure sites Arm, right (09/15/24 8:47 AM) Arm, right (09/15/24 4:02 AM) Arm, right (09/15/24 12:01 AM) Temperature Route Oral (09/15/24 8:47 AM) Oral (09/15/24 4:02 AM) Oral (09/15/24 12:01 AM) Dry Weight 63.9 kg (09/14/24 11:00 PM) 66.8 kg (09/14/24 5:21 PM) 66.8 kg (09/14/24 5:07 PM) Weight Obtained Via Standing scale (09/14/24 11:00 PM) Social History Social History Type Response Smoking Status 10 or more cigarette s (1/2 pack or more)/day in last 30 days entered on: 05/29/24 Sex Sex Representation Female (finding) Admission evaluation note * Dipti Frederick: PERFORM Event Display: Admission Note Authored Date: [id number] Patient: ??EDWINA GUTIERREZ ? Age:??58 Years?Sex:??Female?:??1965?? Chief Complaint/Reason for Consult From home, has had a leg wound x1 yr. Follows with wound care however feels like the wound is getting worse. +Redness, swelling, green colored drainage in wound bed. History of Present Illness Edwina Gutierrez is a 58 year old woman with a PMHx??including CKD IV, prior CVA, multiple spinal and knee surgeries on chronic opioids, and PVD who presents to the ED 09/14/2024 with a RLE worsening wound. Patient reports she had an angiogram completed??om 05/2024 which revealed??occlusion of the popliteal artery, there has been ongoing planning for a??right??Fem-PT??bypass;??she had a phone visit??with Dr. Ricci and was scheduled to undergo surgery of September 25. However, since??last speaking with Dr. Ricci??the wound has increased in swelling, erythema, pain and has grown??size; draining yellow secretion and her toe nail fell off. She reports the pain worsens at night and requires to dangle herleg over the bed; she has not been able to sleep for the past 3 days and therefore came in to the hospital to have this evaluated. Review of Systems Constitutional:??No weight loss, fever, chills, weakness or fatigue. Allergy/Immune: Denies any??Eczema or hives Eyes:??No visual loss, blurred vision, double vision or yellow sclera ENT:??No hearing loss, sneezing, congestion, runny nose or sore throat. Respiratory:??No shortness of breath, cough or sputum production. Cardiovascular:??No chest pain, chest pressure or chest discomfort. No palpitations or pedal edema. Gastrointestinal:??No anorexia, nausea, vomiting or diarrhea. No abdominal pain or blood in stool. Genitourinary:??No burning micturition. No urinary frequency or incontinence. Neurologic:??No headache, dizziness, syncope, unilateral weakness, ataxia, numbness or tingling in the extremities. Musculoskeletal:??+back pain and stiffness from previous spinal surgeries. Hematologic/Lymphatics:??No bleeding or bruising. No painful lymph nodes. Skin:??No rash or itching. Endocrine:??No reports of sweating. No cold or heat intolerance. No polyuria or polydipsia. Psychiatric:??No depression or anxiety. Physical Exam Vitals & Measurements T:??98.1?F?? HR:??86??(Peripheral)?? RR:??18?? BP:??148/72?? SpO2:??99%?? Constitutional: Well-appearing, no acute distress Eyes: PERRL, no scleral icterus Neck: Soft, no JVD, no??carotid bruit Lymph: No lymphadenopathy of the neck or groins Cardiac: Regular rate and rhythm, no murmurs appreciated Respiratory: Respirations equal and nonlabored, lungs clear to auscultation bilaterally Abdomen: Soft, nontender, nondistended, +bowel sounds Skin: right anterior lower leg ulcer, erythematous and edema present; Tender to palpation. Neuro: Speech clear, motor and sensory grossly intact MSK: RLE swelling and erythema present; R1??toe??nail missing; toenail??discolored but non-draining.?? Pulse exam: ? Monophasic Right??AT, PT; no DP Assessment/Plan Edwina Gutierrez is 58 year with a PMHx of CKD IV, CVA, multiple spinal and knee surgeries, and PVD who presents with RLE worsening wound. Vascular team consulted for further evaluation.?? Plan is to admit under vascular surgery team. Patient was seen by cardiology on 09/06/24, Dr Stephens did not see any in dications to not proceed with surgery. She is scheduled on September 25, however, the pain is progressively worsening and would likely not be able to tolerate the pain until then. In the interim, we will start a heparin drip, control pain, and try to expedite her bypass. ?? Plan: - Admit to vascular tele, acute no tele. -??Start Heparin gtt - Multimodal pain control - Diet as tolerated - OOB as tolerated. - Home meds as appropriate - Daily Tulfa dressings to right leg wound, wrap with Kerlix. - Continue Doxycycline ?? Discussed with Dr. Mares Vascular Surgery [id number] Problem List/Past Medical History Ongoing Adult ADHD Atherosclerosis of extremity with rest pain Benign essential hypertension Chronic depression Chronic hip pain Chronic, continuous use of opioids CKD (chronic kidney disease) stage 4, GFR 15-29 ml/min Current smoker Hip dislocation, right Hyperlipidemia Lipodystrophy Mild aortic stenosis Nicotine dependence, uncomplicated Persistent moderate somatic symptom disorder with predominant pain Posttraumatic stress disorder PVD (peripheral vascular disease) Tobacco use Procedure/Surgical History Panniculectomy: 01/04/11 Home Medications Acetaminophen: 650 mg, By Mouth, 2 times a day Albuterol Amlodipine: 10 mg, By Mouth, Daily Amoxicillin: 8 each, 0 Refill(s), TAKE 4 CAPSULES BY MOUTH 1 HOUR BEFORE APPOINTMENT TIME Amphetamine-Dextroamphetamine: 30 each, 0 Refill(s), TAKE 1 CAPSULE BY MOUTH EVERY DAY FOR ADHD Amphetamine-Dextroamphetamine: 30 each, 0 Refill(s), TAKE 1 TABLET BY MOUTH EVERY DAY IN THE AFTERNOON NEEDED FOR ADHD Aspirin: 81 mg = 1 capsule, By Mouth, Every 4 hours Buprenorphine-Naloxone: 60 each, 0 Refill(s), PLACE 1 FILM SUBLINGUALLY TWICE DAILY BuPROpion: 150 mg = 1 tablet, By Mouth, 2 times a day, Take 1 tablet once a day for first 3 days, then take 1 tablet twice a day going forward. Stop smoking after 5-7 days of treatment Cadexomer-Iodine Topical: See Instructions, Apply to wound of Right leg every other day. Cilostazol: 100 mg = 1 tablet, By Mouth, 2 times a day Diclofenac Topical: 1 application, Topically, 4 times a day Doxycycline: 20 capsule, 0 Refill(s) Gabapentin: 60 each, 0 Refill(s), TAKE 1 TABLET BY MOUTH IN THE MORNING Lisinopril: 90 each, 0 Refill(s), TAKE 1 TABLET BY MOUTH DAILY Lorazepam: 90 each, 0 Refill(s), TAKE 1 TABLET BY MOUTH UP TO THREE TIMES DAILY NEEDED FOR ANXIETY OR SLEEP Omeprazole: 30 each, 0 Refill(s), TAKE 1 CAPSULE BY MOUTH DAILY Oxycodone: 5 mg = 1 tablet, By Mouth, Every 6 hours, PRN (for pain) Pramipexole: 30 each, 0 Refill(s), TAKE 1 TABLET BY MOUTH EVERY NIGHT AT BEDTIME NEEDED FOR DEPRESSION OR RESTLESS LEGS Allergies Pollen ibuprofen??(kidney function) Social History Tobacco Use: 10 or more cigarettes (1/2 pack or more)/day in last 30 days. Family History No family history recorded. Lab Results Labs Last 24 Hours BLOOD COUNT & DIFF ? Event Name?? Event Result?? Date/Time?? WBC 8.7 k/mm3 09/14/24 11:16:00 RBC 3.67 m/mm3??Low 09/14/24 11:16:00 Hgb 10.8 Gm/dL??Low 09/14/24 11:16:00 Hct 34.3 %??Low 09/14/24 11:16:00 MCV 93.5 femtoliters 09/14/24 11:16:00 MCH 29.4 pg 09/14/24 11:16:00 MCHC 31.5 Gm/dL??Low 09/14/24 11:16:00 Platelet Count 387 k/mm3 09/14/24 11:16:00 MPV 8.4 femtoliters??Low 09/14/24 11:16:00 Nucleated RBC (Automated) 0 #/100 WBC'S 09/14/24 11:16:00 ? CHEM GENERAL ? Event Name?? Event Result?? Date/Time?? Sodium 139 mmol/L 09/14/24 11:16:00 Chloride 107 mmol/L 09/14/24 11:16:00 Bicarbonate Level 21 mmol/L??Low 09/14/24 11:16:00 Anion Gap 11 mmol/L 09/14/24 11:16:00 Glucose Level 93 mg/dL 09/14/24 11:16:00 BUN 28 mg/dL??High 09/14/24 11:16:00 Creatinine-Blood 1.9 mg/dL??High 09/14/24 11:16:00 Alkaline Phosphatase 173 units/L??High 09/14/24 11:16:00 AST (SGOT) 17 units/L 09/14/24 11:16:00 ALT (SGPT) 18 units/L 09/14/24 11:16:00 Bilirubin, Total <0.2 09/14/24 11:16:00 ? * Priest HERNANDEZ, Abhijeet Mccord: PERFORM Event Display: Admission Note Authored Date: Pt seen and examined with DNP student Dipti Frederick.?? I agree with the documentation as it reflectsmy direct input.?? * Suzan SALDAÑA, Imelda Lee: PERFORM Event Display: Admission Note Authored Date: I personally saw and evaluated the patient. ??I personally reviewed and interpreted the relevant laboratory work and imaging. ??I reviewed the resident/PA/MAINTENANCE AIDE's note and findings and discussed it withthem. ??I agree with the documented plan of care. ?? The following is a modification??to the above HPI and??Plan: Right anterior tibial wound, has been growing??in size??with evidence of rest pain,??I can only find??a??PT signal. ?? This is consistent with previous??angiogram??demonstrating the same. ?? With evidence of a??nonhealing wound, rest pain,??discussion was had??with the patient would come for an elective??bypass surgery??using the PT as the target. ?? Will admit the patient for pain control, antibiotics for the wound, local wound care,??heparin drip??for the antrum and we will review the case??on Tuesday to see if we can take??the patient to the operating room for??a distal bypass??with CryoVein??sooner than the??intended date. ?? Neurovascular??and motor exam is intact in the right foot. ?? Patient is hyperesthetic around the wound??in the dorsum of the foot. ?? There is edema,??plain film does not show any??gas within the soft tissues, no osseous abnormality. ?? Conservative management for now,??planning for??operative intervention??after further discussion with the group??through the into Tuesday. ? --- Teresa Mares MD PhD [facility] Vascular Surgery Attending [phone] EKG study * Event Display: ECG 12-Lead Authored Date: Please click on pdf link to open report * Event Display: ECG 12-Lead Authored Date: Ventricular Rate: 88 BPM Atrial Rate: 88 BPM P-R Interval: 144 ms QRS Duration: 68 ms Q-T Interval: 372 ms QTC Calculation(Bazett): 450 ms P Rarden: 70 degrees R Rarden: 49 degrees T Rarden: 82 degrees Normal sinus rhythm Normal ECG When compared with ECG of 05-Sep-2024 16:47, No significant change was found Confirmed by JOBY DIANE MD ([id number]) on 09/14/2024 12:20:43 PM [place]: ROXI SALDAÑA,[facility] Progress note * Alva Isidro RN: PERFORM, SIGN, VERIFY Event Display: Progress Note Hospital Authored Date: [id number] Patient: EDWINA GUTIERREZ Age: 58 years Sex: Female : 1965 Associated Diagnoses: None Author: Alva Isidro RN Findings Problem Related to Alteration in Tissue Perfusion : Alteration in Tissue Perfusion 09/15/2024 2:00 EST Alteration Tissue Perfusion related to Other: Right leg Ischemia Goals & Outcomes: Tissue perfusion Pt will resume/maintain adequate peripheral circulation, Pt will experience improved tissue perfusion, Pt will achieve progressive healing of injured area, Pt will achieve normal/improved/optimal neuro status, Pt/ S.O. will state understanding of plan of care Interventions: Tissue Perfusion Assess/Monitor activity tolerance, Assess/Monitor CMS to affected extremity, Assess/Monitor mental status, Assess/Monitor peripheral pulses & capillary refill, Assess/Monitor presence & degree of edema, Assess/Monitor vital signs per unit standard & prn, Monitor Intake & Output, Position for comfort, Teach pt/caregiver on plan of care, treatment, s/s & meds Goals/Interventions, Tissue Perfusion Yes Tissue Perfusion, Problem Start 09/15/2024 0:01 Reviewed Plan with, Tissue Perfusion Patient Patient Progression, Tissue Perfusion Plan Initiation . Evaluation Pt admitted with Right leg Ischemia. A&O x4. Positive pedal pulses via doppler x6. Lung sounds clear on room air. Ambulates independently in the room. Right lower anterior leg vasculitic wound, erythema, edematous, ternder to touch, yellow/green colored drainage in wound bed, open to air. Pt complains 10/10 pain, medicated with PRN Dilauded with minimal relief. Heparin infusing as per protocol. IV Anitbiotic therapy ordered and started, infusing as per order. Call bonds within reach. Fall and safety precaution in place. See biophysical/ interactive flowsheet for further assessment. Note * Harriett Walton RN: PERFORM Event Display: Discharge/Transfer Note Hospital Authored Date: [id number] Nursing Discharge Note Entered On: 09/15/2024 14:51 EST Performed On: 09/15/2024 14:51 EST by Harriett Walton RN Nursing Discharge Note 2 Discharge Time : 09/15/2024 14:50 EST Discharge Level of Care at Discharge : Home/Residential/Foster Care Patient Left Unit Via : Wheelchair Patient Accompanied Off Unit with : Responsible adult DC Instructions Provided & Signed by Pt : Yes Patient Understands D/C Instructions : Yes Patient Instructions Discharge Signed : Yes Did Pt have Specialty Bed or Wound Vac : No Harriett Walton RN - 09/15/2024 14:51 EST * Abhijeet Moran NP: MODIFY, PERFORM, MODIFY, MODIFY Event Display: Discharge/Transfer Note Hospital Authored Date: Patient: ??EDWINA GUTIERREZ ? Age:??58 Years?Sex:??Female?:??1965?? Admit Date Admission Date: 09/14/2024 Discharge Date 09/15/24 Discharge Diagnoses General medical, 09/14/2024 Hospital Course Edwina Gutierrez is 58 year with PMH of CKD IV, CVA, multiple spinal and knee surgeries, and PVD who presents with RLE worsening wound. Vascular team consulted for further evaluation.?? Plan is to admit under vascular surgery team. Patient was seen by cardiology on 09/06/24, Dr Stephens did not see any indic ations to not proceed with surgery. She is scheduled on September 25, however, the pain is progressively worsening and would likely not be able to tolerate the pain until then. In the interim, we will start a heparin drip, control pain, and try to expedite her bypass.?? Pt expresses she has numerous social dilemmas and is unable to remain in the hospital.?? Her pain is better controlled today.?? Sheis willing to return on September 25 as previously scheduled for operative intervention.?? Pt toleratingdiet without nausea or vomiting.?? Pain well controlled with pain medicine.?? Pt voiding without difficulty.?? Pt ambulatory to baseline.?? Pt is seen as ready for discharge 09/15/24.?? Objective/Physical Exam on Day of Discharge Vitals & Measurements T:??98?F?? HR:??73??(Peripheral)?? RR:??21?? BP:??142/77?? SpO2:??100%?? HT:??155??cm?? WT:??70.4??kg?? BMI:??29.3?? Constitutional: Well-appearing, no acute distress Eyes: PERRL, no scleral icterus Neck: Soft, no JVD, no??carotid bruit Lymph: No lymphadenopathy of the neck or groins Cardiac: Regular rate and rhythm, no murmurs appreciated Respiratory: Respirations equal and nonlabored, lungs clear to auscultation bilaterally Abdomen: Soft, nontender, nondistended, +bowel sounds Skin: right anterior lower leg ulcer, erythematous and edema present; Tender to palpation. Neuro: Speech clear, motor and sensory grossly intact MSK: RLE swelling and erythema present; R1??toe??nail missing; toenail??discolored but non-draining.?? Pulse exam: ? Monophasic Right??AT, PT; no DP Future Appointments Tuesday 9:15 AM EST ?? With: Rigo Scott MD Where: [facility] [address] [place] [address]- Status: Pending Tuesday 7:30 AM EST ?? Where: [facility] Status: Pending Tuesday 12:30 PM EDT ?? With: Ariadna Haskins Where: [facility] [address] [place] [address]- Status: Pending Patient Discharge Condition Good Discharge Disposition Home Home Health Face to Face ^HomeHealthFTF Inpatient Medications Medications (23) Active SCHEDULED: (17) Acetaminophen 325 mg Tablet (Acetaminophen Tablet) ??650 mg, By Mouth, Every 4 hours Amlodipine 10 mg Tablet (amLODIPine 10 mg oral tablet) ??10 mg, By Mouth, Daily Amphetamine-Dextroamphetamine (Adderall XR oral capsule) ??30 mg, By Mouth, Daily Amphetamine-Dextroamphetamine 5 mg Tablet (Adderall Oral Tablet) ??10 mg, By Mouth, Daily before dinner Aspirin 81 mg Chew Tablet (aspirin 81 mg oral tablet, chewable) ??81 mg, By Mouth, 2 times a day Atorvastatin 80 mg Tablet (atorvastatin 80 mg oral tablet) ??80 mg, By Mouth, Daily at bedtime BuPROPion 150 mg SR Tablet (BuPROpion SR Tablet) ??150 mg, By Mouth, 2 times a day Collagenase Topical Oint (30 Gm) (Santyl Topical Oint) ??1 application, Topically, Daily Diclofenac Topical 1% Gel (diclofenac 1% topical gel) ??1 %, Topically, 4 times a day Docusate Sodium 100 mg Capsule (Docusate Sodium Capsule) ??100 mg 1 capsule, By Mouth, 2 times a day Fluzone Trivalent (6mo ??? 64yr) Inj 0.5mL (Influenza, Trivalent Vaccine) ??0.5 mL, Intramuscular, Once Gabapentin 300 mg Capsule (gabapentin 300 mg oral capsule) ??600 mg, By Mouth, Daily in AM Lorazepam 1 mg Tablet (LORazepam 1 mg oral tablet) ??1 mg, By Mouth, 3 times a day Pantoprazole 20 mg EC Tablet (pantoprazole 20 mg oral delayed release tablet) ??20 mg, By Mouth, Daily Piperacillin/Tazobactam 3.375 Gm Inj (Zosyn Extended IVPB) ??3.375 Gm, IVPB, Every 8 hours Pramipexole 0.5 mg Tablet (pramipexole 0.5 mg oral tablet) ??0.5 mg, By Mouth, Daily at bedtime Vancomycin 1 Gm / D5%W 200 mL (Vancomycin IVPB) ??1,000 mg 200 mL, IVPB, Every 48 hours CONTINUOUS: (1) Heparin 25,000 units / 250 mL D5W premix 25,000 units [15 units/kg/hr] + D5%W Premixed IV 250 mL (Heparin 25,000 units in 250 mL Premix 25,000 units [15 units/kg/hr] + D5%W Premixed IV 250 mL) ??250 mL, IV Infusion, 10.02 mL/hr PRN: (5) Bisacodyl 10 mg Suppository (Bisacodyl Supp) ??10 mg 1 supp, Rectally, Daily Heparin 5000 units/mL Inj (1 mL) (Heparin Inj) ??5,500 units 1.1 mL, IV Push, Every 6 hours Heparin 5000 units/mL Inj (1 mL) (Heparin Inj) ??2,500 units 0.5 mL, IV Push, Every 6 hours HYDROmorphone 0.5 mg/0.5 mL Inj Syringe (HYDROmorphone Inj) ??0.5 mg 0.5 mL, IV Push Slowly, Every 3 hours HYDROmorphone 2 mg Tablet (Dilaudid 2 mg oral tablet) ??2 mg, By Mouth, Every 4 hours Discharge Medications Acetaminophen??650 Milligram By Mouth 2 times a day Amlodipine??10 Milligram By Mouth Daily Amoxicillin (amoxicillin 500 mg oral capsule)??8 each, 0 Refill(s), TAKE 4 CAPSULES BY MOUTH 1 HOURBEFORE APPOINTMENT TIME Amphetamine-Dextroamphetamine (amphetamine-dextroamphetamine 30 mg oral capsule, extended release)??30 each, 0 Refill(s), TAKE 1 CAPSULE BY MOUTH EVERY DAY FOR ADHD Amphetamine-Dextroamphetamine (amphetamine-dextroamphetamine 10 mg oral tablet)??30 each, 0 Refill(s), TAKE 1 TABLET BY MOUTH EVERY DAY IN THE AFTERNOON NEEDED FOR ADHD Aspirin (aspirin 81 mg oral capsule)??1 capsule 81 Milligram By Mouth 2 times a day Atorvastatin (atorvastatin 80 mg oral tablet)??80 Milligram By Mouth Daily at bedtime for 30 Days Buprenorphine-Naloxone (Suboxone 8 mg-2 mg Sublingual Film)??60 each, 0 Refill(s), PLACE 1 FILM SUBLINGUALLY TWICE DAILY BuPROpion (buPROPion 150 mg/12 hours (SR) oral tablet, extended release)??1 tab(s) 150 Milligram ByMouth 2 times a day for 120 Days Take 1 tablet once a day for first 3 days, then take 1 tablet twice a day going forward. Stop smoking after 5-7 days of treatment Cilostazol (cilostazol 100 mg oral tablet)??1 tab(s) 100 Milligram By Mouth 2 times a day Collagenase Topical (collagenase topical 250 u/gm ointment)??See Instructions Topically Daily Diclofenac Topical (diclofenac 1% topical gel)??1 usha Topically 4 times a day Docusate (docusate sodium 100 mg oral capsule)??1 capsule 100 Milligram By Mouth 2 times a day Doxycycline (doxycycline monohydrate 100 mg oral capsule)??20 capsule, 0 Refill(s) Gabapentin (gabapentin 600 mg oral tablet)??60 each, 0 Refill(s), TAKE 1 TABLET BY MOUTH IN THE MORNING Hydromorphone (Dilaudid 4 mg oral tablet)??See Instructions as needed as needed for pain 0.5 tabletBy Mouth Every 4 hours Lisinopril (lisinopril 20 mg oral tablet)??90 each, 0 Refill(s), TAKE 1 TABLET BY MOUTH DAILY Lorazepam (LORazepam 1 mg oral tablet)??90 each, 0 Refill(s), TAKE 1 TABLET BY MOUTH UP TO THREE TIMES DAILY NEEDED FOR ANXIETY OR SLEEP Omeprazole (omeprazole 20 mg oral enteric coated capsule)??30 each, 0 Refill(s), TAKE 1 CAPSULE BY MOUTH DAILY Pramipexole (pramipexole 0.5 mg oral tablet)??30 each, 0 Refill(s), TAKE 1 TABLET BY MOUTH EVERY NIGHT AT BEDTIME NEEDED FOR DEPRESSION OR RESTLESS LEGS Labs Last 24 Hours BLOOD COUNT & DIFF ? Event Name?? Event Result?? Date/Time?? WBC 9.2 k/mm3 09/14/24 23:18:00 RBC 3.95 m/mm3??Low 09/14/24 23:18:00 Hgb 11.4 Gm/dL??Low 09/14/24 23:18:00 Hct 36.2 % 09/14/24 23:18:00 MCV 91.6 femtoliters 09/14/24 23:18:00 MCH 28.9 pg 09/14/24 23:18:00 MCHC 31.5 Gm/dL??Low 09/14/24 23:18:00 Platelet Count 370 k/mm3 09/14/24 23:18:00 MPV 8.9 femtoliters??Low 09/14/24 23:18:00 Nucleated RBC (Automated) 0 #/100 WBC'S 09/14/24 23:18:00 ? COAG ? Event Name?? Event Result?? Date/Time?? APTT 67.7 seconds??High 09/15/24 07:25:00 ? CHEM GENERAL ? Event Name?? Event Result?? Date/Time?? Sodium 140 mmol/L 09/14/24 23:18:00 Chloride 107 mmol/L 09/14/24 23:18:00 Bicarbonate Level 18 mmol/L??Low 09/14/24 23:18:00 Anion Gap 15 mmol/L 09/14/24 23:18:00 Glucose Level 93 mg/dL 09/14/24 11:16:00 BUN 28 mg/dL??High 09/14/24 23:18:00 Creatinine-Blood 1.98 mg/dL??High 09/14/24 23:18:00 Calcium, Ionized pH Corrected 1.35 mmol/L??High 09/14/24 23:18:00 Phosphorus 4.2 mg/dL 09/14/24 23:18:00 Magnesium 2.2 mg/dL 09/14/24 23:18:00 Alkaline Phosphatase 173 units/L??High 09/14/24 11:16:00 AST (SGOT) 17 units/L 09/14/24 11:16:00 ALT (SGPT) 18 units/L 09/14/24 11:16:00 Bilirubin, Total <0.2 09/14/24 11:16:00 ? * Ngozi SALDAÑA, Joselin Webber: PERFORM Event Display: Discharge/Transfer Note Hospital Authored Date: Attending Attestation: I have seen and evaluated this patient.?? I have discussed the case and its management with the vascular team and agree with the findings and plan as documented in the note.?? This patient has??chronic critical right leg ischemia??with an ulcer on her anterior smalls??as well as ischemic changes to the right great toe??and the heel.?? The??anterior mid smalls ulcer is necrotic??and ischemic in appearance??with exposed subcutaneous fatty tissue??and on the larger side.?? We were putting Santyl on it while she was here and the patient tells me that this is??improving the pain.?? I reviewed her chart,??I looked at her prior angiogram. 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 ??She has??a patent posterior tibial artery that goes to the ankle. ??She will need bypass??to improve her circulation??so that the ulcers can heal.?? Patient tells me that she has??significant ADHD??and a lot of anxiety??and she cannot stay in the hospital??to undergo bypass??earlier than her surgical date of September 24. ??She has??a number of social issues that she feels that she needs to deal with??before she can have her surgery.?? I tried to convince the patient that??because of her presentation, worsening pain, large ulcer??that??she should stay and have the operation done but she did not want to stay.?? She will call the officeif anything changes??or come back to the hospital.?? 45 minutes were spent in total??for discharge today. * Harriett Walton RN: PERFORM Event Display: Patient Education/Instruction Authored Date: [id number] Inpatient Adult Discharge Instructions. [address] [id number] Name: EDWINA GUTIERREZ : 1965?? Visit: 09/14/2024 14:00?? Current Date: 09/15/2024 13:50 ?? Account: [id number]?? Inpatient Adult Discharge Instructions We would like to thank you for allowing us to assist you with your healthcare needs. The following includes patient education materials and information regarding your injury/illness. Our entire staffstrives to provide an excellent experience for our patients and their families. PLEASE ENSURE YOU FOLLOW-UP PER THE INSTRUCTIONS BELOW! ?? YOUR OPINION IS IMPORTANT TO US! Please complete the survey you may receive by mail or email. Your feedback will be used to make improvements to the healthcare experiences of our patients and their families. Surveys are administered by [employer] ?? If further treatment with your primary care physician or another doctor is recommended, it is important for you to keep the appointment. Call your primary care physician or return to the Emergency Department immediately if your condition worsens, fails to improve, or new symptoms develop. If you need to find a doctor, you can call [facility] [employer] for a referral at [phone] or toll free at [phone] [email or web address] ([phone]) or log in to [email or web address].. ?? [facility], in keeping with [facility] guidance, no longer requires face masks for staff, patientsor visitors in most situations. Similiar to time spent indoors at other locations, there is the chance that you were exposed to repiratory viruses during your time with us (such as flu or COVID-19). If you develop symptoms concerning for a viral respiratory infection, please seek testing (and treatment if indicated) from your medical provider or home test kit. ?? You can view and manage your care through the patient portal or by using a health care usha of your choosing. [employer] is a website that allows you to securely view your medical information including your hospital discharge summary, office visit summaries, medications and follow-up visits. You can also request appointments, renew medications, and request access to your medical information using a health care usha of your choosing, or just ask a question. You can enroll at [email or web address] or register during your next office visit. You have been discharged from [facility], Patient Care Unit: M6??. If you have any questions regarding these instructions, including results of studies pending, afteryou leave, please call us and we will be happy to assist you 14/02. [facility] Your Care Team Attending Physician Imelda Mares MD?? Consulting Providers Imelda Mares MD?? Discharging Providers Priest HERNANDEZ, Abhijeet Mccord Reason for Your Visit From home, has had a leg wound x1 yr. Follows with wound care however feels like the wound is getting worse. +Redness, swelling, green colored drainage in wound bed.?? Your Diagnosis General medical Tests Performed Below is a partial list of the tests performed during your hospitalization. You may have had other tests and procedures not included in this list. Please discuss all test results with your provider. CBC w/ Differential Comprehensive Metabolic Panel HOLD GREEN TUBE HOLD LAVENDER TUBE PTT Toe Great Right Foot XR Tibia/Fibula 2 Views Right BUN?? CBC?? CBC w/ Differential?? Comprehensive Metabolic Panel?? Creatinine?? Electrolytes (Lytes)?? Hold Green Top Tube (HOLD GREEN TUBE)?? Hold Lavender Top Tube (HOLD LAVENDER TUBE)?? Ionized Calcium?? Magnesium Level?? PTT?? Phosphorus Level?? Tibia/Fibula 2 Views Right (XR Tibia/Fibula 2 Views Right)?? Toe Great Right Foot?? Primary Care Provider Octavia Soto MD? Advance Directive Health Care Proxy on File Yes - Health Care Proxy Discharge Vitals Temperature: 98 DegF Height: 155 cm Pulse Rate: 73 bpm Weight: 70.4 kg Respiratory Rate: 18 br/min Body Mass Index:??29.3 kg/m2??High Systolic Blood Pressure:??142 mm Hg??High Body surface area: 1.74 Diastolic Blood Pressure: 77 mm Hg ?? Oxygen Saturation: 100 % ?? Studies Pending All studies ordered during this hospital stay have been completed unless listed below. Please discuss all pending results with your provider listed above in these instructions. ?? BUN?? CBC?? Creatinine?? Electrolytes (Lytes)?? Ionized Calcium?? Magnesium Level?? Phosphorus Level?? What to do next Instructions From Your Doctor ?? Orders? 09/15/24 10:54:00 EST?? Prescriptions??, ??09/15/24 10:54:00 EST?? Scheduled Follow-Up Appointments Tuesday 9:15 AM EST ?? With: Rigo Scott MD Where: [facility] [address] [place] [address]- Status: Pending Tuesday 7:30 AM EST ?? [facility] Status: Pending Tuesday 12:30 PM EDT ?? With: Ariadna Haskins Where: [facility] [address] [place] [address]- Status: Pending Discharge Medications EDWINA GUTIERREZ :1965 Visit Date:09/14/2024 Medications: Please continue your medications until treatment is completed or stopped by your provider. Medications not listed below should be discontinued. Discuss any questions related to medications with your provider. What How Much When Instructions Next Dose New Atorvastatin (atorvastatin 80 mg oral tablet) 80 Milligram Oral Daily at Bedtime Duration: 30 Days Refills: 2 Pickup at [facility] 3 Tonight New Collagenase Topical (collagenase topical 250 u/ gm ointment) See instructions Topically Daily ?? Pickup at [place] [address] Tomorrow AM New Docusate (docusate sodium 100 mg oral capsule) 1 capsule Oral Twice a day Pickup at [place] [address] Tonight New Hydromorphone (Dilaudid 4 mg oral tablet) See instructions 0.5 tablet By Mouth Every 4 hours, As needed for as needed for pain ?? Pickup at [place] [address] Today @ 6 PM Unchanged Acetaminophen 650 Milligram Oral Twice a day Tonight Unchanged Albuterol (Ventolin HFA 108 mcg/ inh inhalation aerosol with adapter) Continue home regimen Unchanged Amlodipine 10 Milligram Oral Daily Tomorrow AM Unchanged Amoxicillin (amoxicillin 500 mg oral capsule) 8 each, 0 Refill(s), TAKE 4 CAPSULES BY MOUTH 1 HOUR BEFORE APPOINTMENT TIME ?? Continue home regimen Unchanged Amphetamine-Dextroamphetamine (amphetamine-dextroamphetamine 10 mg oral tablet) 30 each, 0 Refill(s), TAKE 1 TABLET BY MOUTH EVERY DAY IN THE AFTERNOON NEEDED FOR ADHD ?? This afternoon, continue home regimen Unchanged Amphetamine-Dextroamphetamine (amphetamine-dextroamphetamine 30 mg oral capsule, extendedrelease) 30 each, 0 Refill(s), TAKE 1 CAPSULE BY MOUTH EVERY DAY FOR ADHD ?? Tomorrow AM Unchanged Aspirin (aspirin 81 mg oral capsule) 1 capsule Oral Twice a day Tonight Unchanged Buprenorphine-Naloxone (Suboxone 8 mg-2 mg Sublingual Film) 60 each, 0 Refill(s), PLACE 1 FILM SUBLINGUALLY TWICE DAILY ?? Continue home regimen Unchanged BuPROpion (buPROPion 150 mg/ 12 hours (SR) oral tablet, extended release) 1 tab(s) Oral Twice a day Duration: 120 Days Take 1 tablet once a day for first 3 days, then take 1 tablet twice a day going forward. Stop smoking after 5-7 days of treatment ?? Tonight Unchanged Cilostazol (cilostazol 100 mg oral tablet) 1 tab(s) Oral Twice a day Tonight Unchanged Diclofenac Topical (diclofenac 1% topical gel) 1 usha Topically 4 times a day As needed Unchanged Doxycycline (doxycycline monohydrate 100 mg oral capsule) 20 capsule, 0 Refill(s) ?? Tonight Unchanged Gabapentin (gabapentin 600 mg oral tablet) 60 each, 0 Refill(s), TAKE 1 TABLET BY MOUTH IN THE MORNING ?? Tomorrow AM Unchanged Lisinopril (lisinopril 20 mg oral tablet) 90 each, 0 Refill(s), TAKE 1 TABLET BY MOUTH DAILY ?? Tomorrow AM Unchanged Lorazepam (LORazepam 1 mg oral tablet) 90 each, 0 Refill(s), TAKE 1 TABLET BY MOUTH UP TO THREE TIMES DAILY NEEDED FOR ANXIETY OR SLEEP?? As needed Unchanged Omeprazole (omeprazole 20 mg oral enteric coated capsule) 30 each, 0 Refill(s), TAKE 1 CAPSULE BY MOUTH DAILY ?? Tomorrow AM Unchanged Pramipexole (pramipexole 0.5 mg oral tablet) 30 each, 0 Refill(s), TAKE 1 TABLET BY MOUTH EVERY NIGHT AT BEDTIME NEEDED FOR DEPRESSION OR RESTLESS LEGS ?? Tonight Pharmacy Information [facility] 3: [address] [place] [address] [phone] ?? What How Much When Comments Stop Taking Cadexomer-Iodine Topical (Iodosorb 0.9% topical gel) Seeinstructions Apply to wound of Right leg every other day. ?? Stop Taking Oxycodone (oxyCODONE 5 mg oral tablet) 1 tab(s) Oral Every 6 hours as needed for for pain Prescription Given During Visit Atorvastatin (atorvastatin 80 mg oral tablet) - 80 mg, By Mouth, Daily at bedtime, # 30 tablet, 2 Refills, [place] [address], [address] [place] [phone]?? Collagenase Topical (collagenase topical 250 u/gm ointment) - , # 30 Gm, 0 Refills, Topically Daily, [facility] [address], [address] [place] [phone] [phone]?? Docusate (docusate sodium 100 mg oral capsule) - 1 capsule = 100 mg, By Mouth, 2 times a day, # 20 capsule, 0 Refills, [place] [phone]?? Hydromorphone (Dilaudid 4 mg oral tablet) - , # 21 tablet, 0 Refills, 0.5 tablet By Mouth Every 4 hours, [place] [phone]?? Laboratory Results Below is a partial list of the most recent Laboratory test results done prior to this discharge. You may have had other tests and procedures not included in this list. Please discuss all test resultswith your provider. Est Creatinine Clearance - 23.40 mL/min (09/15/2024) CBC w/ Differential (09/14/2024) ???WBC - 8.7 k/mm3???RBC - 3.67 m/mm3???Hgb - 10.8 Gm/dL???Hct - 34.3 %???MCV - 93.5 femtoliters???MCH - 29.4 pg???MCHC - 31.5 Gm/dL???Platelet Count - 387 k/mm3???RDW-SD - 50.6 femtoliters???MPV - 8.4 femtoliters???Nucleated RBC (Automated) - 0.0 #/100 WBC'S???Abs. NRBC - 0.0 k/mm3???Abs. Neut - 5.8 k/mm3???Abs. Lymph - 1.9 k/mm3???Abs. [place] - 0.7 k/mm3???Abs. Eo - 0.2 k/mm3???Abs. Baso - 0.0 k/mm3???Neut % - 66.5 %???Lymph % - 21.7 %???[place] % - 8.4 %???Eos % - 2.5 %???Baso % - 0.3 %???Imm Gran - 0.6 %???Abs. Imm Gran - 0.1 k/mm3 Comprehensive Metabolic Panel (09/14/2024) ???Sodium - 139 mmol/L???Potassium - 4.8 mmol/L???Chloride - 107 mmol/L???Bicarbonate Level - 21 mmol/L???Anion Gap - 11 mmol/L???Glucose Level - 93 mg/dL???BUN - 28 mg/dL???Creatinine-Blood - 1.90 mg/dL???Estimated GFR Creatinine - 30 ML/MIN/1.73 M2???Calcium - 9.4 mg/dL???Protein, Total - 7.8 Gm/d L???Albumin - 4.5 Gm/dL???AG Ratio - 1.4???Alkaline Phosphatase - 173 units/L???AST (SGOT) - 17 units/L? ?ALT (SGPT) - 18 units/L? ?Bilirubin, Total - <0.2 mg/dL HOLD GREEN TUBE (09/15/2024) ???Hold Green Top - SPECIMEN DISCARDED AFTER 1 WEEK HOLD LAVENDER TUBE (09/15/2024) ???Hold Lavender Top - SPECIMEN DISCARDED AFTER 24 HOURS. PTT (09/15/2024) ???APTT - 67.7 seconds You will be contacted within 72 hours with your results. Allergies (NKA means No Known Allergies) Pollen ibuprofen??(kidney function) Problems Active Problems??(17) Adult ADHD?? Atherosclerosis of extremity with rest pain?? Benign essential hypertension?? Chronic depression?? Chronic hip pain?? Chronic, continuous use of opioids?? CKD (chronic kidney disease) stage 4, GFR 15-29 ml/min?? Current smoker?? Hip dislocation, right?? Hyperlipidemia?? Lipodystrophy?? Mild aortic stenosis?? Nicotine dependence, uncomplicated?? Persistent moderate somatic symptom disorder with predominant pain?? Posttraumatic stress disorder?? PVD (peripheral vascular disease)?? Tobacco use?? Education Materials Below is the list of Educational Leaflet Providered with your Discharge Instructions. [employer] Patient Education - Peripheral Artery Disease (PAD)?? [employer] Patient Education - Discharge Instructions for Peripheral Arterial Disease (PAD)?? Valuables and Belongings I fully understand and agree that [facility] accepts no responsibility for all my personal property including clothing, toilet articles, radios, jewelry, dentures, hearing aids, rings, money, or any other property that is in my possession or is brought to me after admission. I understand certain valuables may be placed in a hospital safe for a short period of time. I understand that the hospital is not liable for loss or damage due to accident, fire, or other natural occurrence while said property is in the safe. I accept full responsibility for any personal property that I keep with me, and will not hold the hospital responsible in case of loss or disappearance. I acknowledge that i have been encouraged to send valuables and belongings home. ? Other Discharge Information ? Pulmonary Rehab Status?? Pulmonary Rehab Discharge Status?? Respiratory Rate: 18 br/min ? Common Emergency Awareness Tips IS IT A STROKE? Act FAST and Check for these signs: FACE Does the face look uneven? ARM Does one arm drift down? SPEECH Does their speech sound strange? TIME Call at any sign of stroke ?? Heart Attack Signs Chest discomfort: Most heart attacks involve discomfort in the center of the chest and lasts more than a few minutes, or goes away and comes back. It can feel like uncomfortable pressure, squeezing, fullness or pain. Discomfort in upper body: Symptoms can include pain or discomfort in one or both arms, back, neck, jaw or stomach. Shortness of breath: With or without discomfort. Other signs: Breaking out in a cold sweat, nausea, or lightheaded. Remember, MINUTES DO MATTER. If you experience any of these heart attack warning signs, call to get immediate medical attention! ?? Smoking can increase your chances of developing chronic health problems and can cause harmful effects to other family members in your house. If you smoke, you are strongly encouraged to quit. Please call [facility] [employer] Link at [phone] or [phone] ([phone]) or log in to [email or web address] for referrals to smoking cessation programs. ?? 309 Suicide & Crisis Lifeline is available 14/02 if you or someone you know needs to find a reason to keep living. By calling 610 you'll be connected to a skilled, trained counselor at a crisis center in your area. INPATIENT DISCHARGE INSTRUCTIONS SIGNATURE PAGE EDWINA GUTIERREZ Location:[facility] Registration Date and Time:09/14/2024 14:00 EST Primary Care Physician: Octavia Soto MD, Attending Physician: Suzan SALDAÑA, Im[facility], I EDWINA GUTIERREZ, have received the above patient education materials/instructions and have verbalized understanding. If ambulance or transport services are being used I further acknowledge being givena choice of service. ?? If you need to contact me, please call me at this number: . Patient/Apple Packing Header Name: Patient/Apple Packing Header Signature: Relationship to Patient: Witness Name/Signature: Date: * Abhijeet Moran NP: PERFORM Event Display: Patient Education Leaflets Authored Date: [id number] Peripheral Artery Disease (PAD) ?? [id number] Peripheral Artery Disease (PAD)?? Peripheral artery disease (PAD)??happens when the arteries that carry blood to the arms, legs, and head are narrowed or blocked.??This is usually from a buildup of plaque. Plaque is a fatty substancein the godoy of the arteries. PAD most often affects the arteries in the legs.??When these arteries are narrowed or blocked, lessblood gets to the legs. This can cause leg and foot pain. If severe enough, the lack of blood flow can lead to tissue (gangrene) and the loss of a toe, foot, or leg. Having PAD also makes it more likely that arteries in other body areas are blocked. For instance, arteries that carry blood to the heart or brain may be affected. This raises the chances of heart attack, stroke, and . Risk factors Certain things can make PAD more likely. They include: ??? Smoking. ??? Diabetes. ??? High blood pressure. ??? Unhealthy cholesterol levels. ??? Obesity. ??? An inactive lifestyle. ??? Older age. ???A family history of PAD. ?? Symptoms Many people with PAD have no symptoms. If symptoms do occur, they can include: ??? Pain in the muscles of the calves, thighs, or hips. It gets worse with activity and better with rest (intermittent claudication). ??? Achy, tired, or heavy feeling in the legs. ??? Weakness, numbness, tingling, or loss of feeling in the legs. ??? Changes in skin color of the legs. ??? Sores on the legs and feet that heal slowly. ??? Cold legs, feet, or toes. ??? Pain in the legs, feet, or toes even when you're lying down (rest pain) or asleep. ??? Trouble walking, such as not being able to walk as far as you used to walk. ?? Home care PAD is a lifelong (chronic) condition. Treatment focuses on managing your condition and lowering your health risks. This may include doing the following: ??? If you smoke, quit.??This helps prevent further damage to your arteries and lowers your health risks. Ask your health care provider about medicines or products that can help you quit smoking.??Also consider joining a stop-smoking program??orsupport group. ??? Be more active. This helps you lose weight and manage problems such as high blood pressure and unhealthy cholesterol levels. Start a walking program if your provider advises it. Your provider may also help you form a safe exercise program that is right for your needs. ??? Make healthy eating changes.??This includes eating less fat, salt, and sugar. ??? Take medicines for high blood pressure, blood clot prevention, unhealthy cholesterol levels, and diabetes as directed. ??? Have your blood pressure and cholesterol levels checked as often as directed. ??? If you have diabetes, try to keep your blood sugar well controlled.??Test your blood sugar as directed. ??? If you are overweight, talk with your provider about a weight-loss plan. ??? Watch for cuts, scrapes, or open sores on your feet. Poor blood flow to the feet may slow healing and increase the risk for infection from these problems.? If you have depression, talk to your health care provider about treatment to manage it. ?? Follow-up care Follow up with your health care provider as advised. If you've had imaging tests such as ultrasound, a doctor will review them. You will be told the results and any new findings that may affect your care. ?? When to seek medical advice?? Contact your health care provider right away if: ??? You have sudden severe pain in your legs or feet. ??? You have sudden cold, paleness, or blue color in your legs or feet. ??? You have weakness ornumbness in your legs or feet that gets worse. ??? Any sores or wounds on your legs or feet won???theal. ??? The pulse in your legs or feet is weak. ??? Your symptoms get worse, or you have new sympt oms. ?? Know the signs of heart attack and stroke People with PAD are at high risk for heart attack and stroke. Knowing the signs of these problems can help you protect your health and get help when you need it. Call 911 right away if: ??? You have chest discomfort, such as pain, aching, tightness, or pressure that lasts more than a few minutes orthat comes and goes. ??? You have pain or discomfort in your arms, back, shoulders, neck, or jaw. ??? You're short of breath. ??? You're sweating (often a cold, clammy sweat). ??? You have nausea. ??? You feel lightheaded. ??? You have sudden numbness, drooping, or weakness of the face, arms, or legs, especially on one side. ??? You have sudden confusion or trouble speaking or understanding. ??? You suddenly have trouble seeing in one or both eyes. ??? You suddenly have trouble walking, feel dizzy, or lose your balance. ??? You have a sudden, severe headache with no known cause. ?? Last Reviewed Date: 2024 ?? [id number] [employer]. All rights reserved. This information is not intended as a substitute for professional medical care. Always follow your healthcare professional's instructions. ?? * Abhijeet Moran NP: PERFORM Event Display: Patient Education Leaflets Authored Date: Discharge Instructions for Peripheral Arterial Disease (PAD) ?? 50969 Discharge Instructions for Peripheral Arterial Disease (PAD) You have been diagnosed with peripheral arterial disease (PAD). Peripheral arteries deliver oxygen-rich blood to your legs and feet. Over time,??your blood vessel godoy may thicken as they build up with??a fatty substance (plaque). As plaque builds up in an artery,??blood flow can be reduced or even blocked. This causes PAD. This can lead to pain when you walk (claudication) and pain when you rest. It can even cause ulcers or tissue due to lack of blood supply (gangrene). Home care ??? Stay at a healthy weight. Get help to lose any extra pounds. ??? Eat more fresh fruits and vegetables ??? Limit canned, dried, packaged, and fast foods. ??? Limit your salt intake. Don???t add more salt to your food at the table. ??? Season foods with herbs instead of salt when you cook. ??? Lower the amount of cholesterol, and saturated and trans fats in your diet.? Start an exercise program. Ask your healthcare provider how to get started. You can benefit from simple activities, such as walking or gardening. ??? Break your smoking habit. Join a stop-smoking program for abetter chance of success. ??? Take your medicines as directed. Don???t skip doses. ??? If you have diabetes, manage your blood sugar as directed by your healthcare provider. ?? Follow-up Talk to your healthcare provider about treatment choices. These may include an exercise program, medicines, angioplasty, or surgery. ?? When to call your healthcare provider Call your healthcare provider right away if any of the following occur: ??? Pain in your legs or a feeling that your legs are weak or giving out ??? Constant tingling, numbness, weakness, or coldnessin your feet ??? Change in the color of your toes ??? Open sores that won???t heal on your toes, feet, or legs ??? Chest pain ??? Shortness of breath ??? Trouble speaking or understanding ?? Last Reviewed Date: 2021 ?? 2443-1939 [employer]. All rights reserved. This information is not intended as a substitute for professional medical care. Always follow your healthcare professional's instructions. ?? Patient Care team information Care Team Personnel Name: Reji Missy Position: S Outreach Member Role: Lifetime Consulting Physician Name: Erick Reed MD Position: [facility] Renal MD Member Role: Lifetime Consulting Physician Address: [address] [facility] [place] [address]- [place] Tele[employer]: Name: Juan Murillo MD Position: [facility] Renal MD Member Role: Lifetime Consulting Physician Address: [address] [facility] [place] [address]- Tele[employer]: Name: Ainsley Rachel RN Position: [facility] RN Member Role: Primary Care Nurse Name: Octavia Soto MD Position: Reference Physician Member Role: PCP Address: [address] [place] [address]- Telecom: Name: Alva Isidro RN Position: [facility] RN Member Role: Primary Care Nurse Care Team Related Persons Name: MALKA GUTIERREZ Name: JOHN MARTIN Name: PT STATES NO ONE, NO ONE Insurance Providers Guarantor name: EDWINA GUTIERREZ Health Plan Information #: 1 Payer: [facility] [employer] Member Number: [id number] Policy Number: NA Group Number: [employer] Plan Information #: 2 Payer: [employer] Member Number: [id number] Policy Number: NA Group Number: NA
--- OUTSIDE RECORDS SUMMARY | 2024-10-05 10:28 | XMS_ITS | Encounter Summary ---
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 Role Phone Octavia Soto MD Primary Care Provider [phone] Encounter Details Date Type Department Care Team (Late st Contact Info) Description 07/13/2024 Documentation Only [facility], [address] [place] [address] Missy Mendoza [address] [place] [address] Social History Tobacco Use Types Packs/Day Years Used Date Smoking Tobacco: Every Day Cigarettes Smokeless Tobacco: Never Comments Unknown Sex and Gender Information Value Date Recorded Sex Assigned at Not on file Legal Sex Female 4:55 PM EST Gender Identity Not on file Sexual Orientation Not on file documented as of this encounter Plan of Treatment Not on file documented as of this encounter Visit Diagnoses Not on filedocumented in this encounter Care Teams Cement Truck Loader Relationship Specialty Start Date End Date Octavia Soto MD [address] [place], [place] PCP - General 08/04/20 documented as of this encounter
--- OUTSIDE RECORDS SUMMARY | 2024-10-05 10:28 | XMS_ITS | Encounter Summary ---
Author Organization [facility] Address [address] [place] [address] Phone Care Team Providers Care C.O.D. Audit Clerk Name Role Phone Octavia Soto MD Primary Care Provider [phone] Encounter Details Date Type Department Care Team (Late st Contact Info) Description 02/13/2024 Documentation Only [facility] [place], [address] [place] [address] Missy Mendoza [address] [place] [address] Social History Tobacco Use Types [...] on filedocumented in this encounter Care Teams C.O.D. Audit Clerk Relationship Specialty Start Date End Date Octavia Soto MD [address] [place], [place] PCP - General 08/04/20 documented as of this encounter
--- OUTSIDE RECORDS SUMMARY | 2024-10-05 10:28 | XMS_ITS | Data Portability ---
Author Organization [facility] Address [address] [place] [address] Care Team Providers Care Electric Cell Tender Name Role Phone GREYSON CARCAMO Primary Care Provider Flex JUAN OTHER Assessment Encounter Date Assessment Date Assessment LastModified by Organization Details LastModified Time 07/02/2015 07/02/2015 1.?? Status post right THR suspicious for aseptic loosening 2.?? Healed wound dehiscence 3.?? 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 Laryngitis 2. Status post right TKR and THR with thigh pain Not available 02/14/2017 18:44:07 Plan of Treatment Reminders Order Date Submit Date Provider Last Modified By Organization Details Last Modified Time Details Appointments None record ed. Lab cultur e, body fluid - right hip aspira tion fluid 2015 016 [facility] (Lab), [address] [place], [address], 6 15:12:27 cell count w/ diff, body fluid - right hip aspira tion fluid 2015 016 [facility] (Lab), [address], [place], [address], 6 04:05:10 Referral pain manage ment referr al - eval and treat for pain manage ment, call pt with appt date and time 2014 015 amalia Juan MD ([facility]), [address], [place], [address], 6 10:07:[address] referr al - please eval & tx for multip le joint pain; call pt to schedu le thank you 2014 015 [facility], [address], [place], [address], 6 06:19:54 Procedures hip aspira tion (PROC) - right hip aspira tion at time of arthro gram (I have sent separa te order for arthro gram) to be sent for cultur e and cell count w diff 2015 016 [id number] [facility] (Central Scheduling), [address] [place], [address], 6 04:05:10 Surgeries None record ed. Imaging XR, knee 2016 017 In-House Results, For Internal Use Only, Do Not Delete/merge, [id number] 7 16:50:26 XR, knee 2015 016 In-House Results, For Internal Use Only, Do Not Delete/merge, [id number] 6 04:05:09 XR, hip, unilat eral 2015 016 [id number] In-House Results, For Internal Use Only, Do Not Delete/merge, [id number] 6 04:05:11 XR, arthro gram, hip - right hip arthro gram. I have also sent a separa te order for right hip aspira tion as well to be sent for cultur es and cell count w diff. 2015 016 [facility] (Central [facility]uling), [address], [place], [address], 6 18:44:38 x-ray, hip 2015 016 In-House Results, For Internal Use Only, Do Not Delete/merge, [id number] 6 15:04:33 x-ray, hip 2014 015 In-House Results, For Internal Use Only, Do Not Delete/merge, [id number] 5 18:14:45 x-ray, knee 2014 015 In-House Results, For Internal Use Only, Do Not Delete/merge, [id number] 5 18:14:45 Medication Orders predni sone 5 mg tablet s in a dose pack 2016 017 Not available 7 16:50:26 Voltar en 1 % topica l gel 2016 017 Not available 7 16:50:26 mupiro ely 2 % topica l ointme nt 2015 016 [id number] Not available 6 04:05:10 mupiro ely 2 % topica l ointme nt 2015 016 Not available 6 11:06:21 Hysing la ER 30 mg tablet , crush resist ant, extend ed releas e 2014 015 [email or web address] Not available 7 15:27:21 Patient TargetsNo targets recorded. Patient Instructions Encounter Date Encounter Id Patient Instructions Last Modified By Organization Details Last Modified Time 07/02/2015 [id number] hip pain: care instructions saida Not available 07/04/2015 08:36:07 knee pain or injury: care instructions saida Not available 07/04/2015 08:36:07 I had a lengthy discussion with her.?? Her aspiration free much rules out any infection.?? He cell count is very sensitive and was negative.?? She could have aseptic loosening, but that would not be improved with a knee brace.?? Her knee is stable.?? Do not understand the pain.?? I have a lengthy discussion with her about her pain medications.?? She is taking up to 12 extra strength Tylenol a day which is way too much.?? She will be damage her liver.?? I will try to get her on some long-acting pain medication.?? We'll see her back in a couple months. saida Not available 07/02/2015 18:14:45 10/27/2015 [id number] hip pain: care instructions saida Not available 10/28/2015 11:06:21 learning about total hip replacement surgery saida Not available 10/28/2015 11:06:21 rheumatoid arthritis diet: care instructions saida Not available 10/28/2015 11:06:21 Rheumatoid Arthritis (RA): Care Instructions saida Not available 10/28/2015 11:06:21 I have given her some Bactroban to use on her blister.?? I talked her about her jaw.?? Think is a bad idea.?? With rheumatoid arthritis she does not need to be getting all these traumatic injuries.?? I discussed her hip.?? I am optimistic will continue to improve but we need to get a rongeur arthritis under control before making any further decisions.?? Follow-up in 6 months. saida Not available 10/27/2015 15:04:34 06/23/2016 [id number] learning about total hip replacement surgery saida Not available 06/24/2016 09:12:54 I'm going to nichol ck an arthrogram to see if there is fluid tracking around the prosthesis. I will send the fluid for cell count with differential and culture if there is any fluid obtained. I think she is headed towards a revision, but infection is a concern. I do not think an ESR or C-reactive protein would be of much benefit with her ewo onset inflammatory arthritis. Some parts of this dictation were generated by voice recognition software and may contain some typographical and/or grammatical inaccuracies. Not available 06/23/2016 18:07:59 09/27/2016 [id number] The arthrogram d id not show any tracking around the cup or the stem, however, she is clinically loose. She did have a perforation intraoperatively, but that should not affect ingrowth. She is a smoker and is on rheumatoid arthritis medications which put her at increased risk. I think she is looking at a hip revision. If she plans to move in December, I would do it when she arrives in [place], because it will be a 6 month recovery most likely. She is going to think about her options. She may have it done here. I would refer her to my partner, Dr. Clements for that if needed. Ice binder that I no longer do hip replacements. Some parts of this dictation were generated by voice recognition software and may contain some typographical and/or grammatical inaccuracies. Not available 09/27/2016 18:38:11 02/14/2017 [id number] learning about total hip replacement surgery [email or web address] Not available 02/15/2017 11:31:19 She could barely speak. She has postnasal drip from her allergies. I recommended nasal steroids, and antihistamine, and some oral steroids. The steroid should also help her knee and hip pain. I still think the pain is more likely related to her hip but I'm not going to argue that point with her since she does seem pretty to it into her body. She will be moving shortly and I will be happy to transfer any records her new physician wants. Some parts of this dictation were generated by voice recognition software and may contain some typographical and/or grammatical inaccuracies. [email or web address] Not available 02/14/2017 18:45:49 Reason for Referral Pain Management Referral for Multiple joint pain eval and treat for pain management, call pt with appt date and time Referring Physician: Rigo Salughter, Orthopedic Surgery, Encounter Date: 07/02/2015 [place] Referral for Multiple joint pain please eval & tx for multiple joint pain; call pt to schedule thank you Referring Physician: Rigo Slaughter, Orthopedic Surgery, Encounter Date: 07/02/2015 Results Created Date Observation Date Name Description Value Unit Range Abnormal Flag Note LastModifiedBy Organization Detail LastModifiedTime 06/10/20 15 06/10/2015 cell count , body fluid fluid source JOINT OTHER Not Available [facility] - Add On Order Set Only [address] [place], [address], 06/10/2015 13:45:26 06/10/20 15 06/10/2015 cell count , body fluid fluid appearance CLOUDY clear abnormal Not Available [facility] Lab - Add On Order Set Only [address] [place], [address], 06/10/2015 13:45:26 06/10/20 15 06/10/2015 cell count , body fluid fluid color YELLOW colorl ess abnormal Not Available [facility] - Add On Order Set Only [address] [place], [address], 06/10/2015 13:45:26 06/10/20 15 06/10/2015 cell count , body fluid fluid WBC 350 /mm3 0-0 high Not Available [facility] - Add On Order Set Only [address] [place], [address], 06/10/2015 13:45:26 06/10/20 15 06/10/2015 cell count , body fluid fluid RBC 2248 /mm3 0-0 high Not Available [facility] - Add On Order Set Only [address] [place], [address], 06/10/2015 13:45:26 06/10/20 15 06/10/2015 cell count , body fluid performing lab: [facility] [address] [facility] AY KELLY M[place], [facility] issa meehan MD Not Available [facility] - Add On Order Set Only [address] [place], [address], 06/10/2015 13:45:26 06/10/20 15 06/10/2015 diffe renti al, body fluid fluid poly 11 % 0-0 high Not Available [facility] - Add On Order Set Only [address] [place], [address], 06/10/2015 16:31:09 06/10/20 15 06/10/2015 diffe renti al, body fluid fluid lymphocyte 80 % 0-0 high Not Available [facility] Lab - Add On Order Set Only [address] [place], [address], 06/10/2015 16:31:09 06/10/20 15 06/10/2015 diffe renti al, body fluid fluid monocyte 6 % 0-0 high Not Available [facility] Lab - Add On Order Set Only [address] [place], [address], 06/10/2015 16:31:09 06/10/20 15 06/10/2015 diffe renti al, body fluid fluid eosinophil 3 % 0-0 high Not Available [facility] - Add On Order Set Only [address] [place], [address], 06/10/2015 16:31:09 06/10/20 15 06/10/2015 diffe renti al, body fluid performing lab: [facility] - [address] [facility] KELLY MACK [place], [facility] issa meehan MD Not Available [facility] - Add On Order Set Only [address] [place], [address], 06/10/2015 16:31:09 06/10/20 15 06/10/2015 gram stain gram stain See Below GRAM STAIN (F) Eleazar Date/ Time: 06/10 10:23 Jm Date/ Time: 06/13 09:24 SOURC E: ASPIR ATE SPEC DESC: GRAM STAIN : FEW WHITE BLOOD CELLS NO ORGAN ISMS SEEN (ON JORGE A NTRAT ED SMEAR ) Not Available [facility] - Add On Order Set Only [address] [place], [address], 06/13/2015 09:26:26 06/10/20 15 06/10/2015 gram stain performing lab: [facility] - [address] [place] [place], [place], [facility] issa meehan MD Not Available [facility] - Add On Order Set Only [address] [place], [address], 06/13/2015 09:26:26 06/10/20 15 06/10/2015 cultu re, body fluid body fluid culture See Below BODY FLUID CULTU RE(F) Eleazar Date/ Time: 06/10 10:23 Jm Date/ Time: 06/13 09:24 SOUR E: ASPIR ATE SPEC DESC: NG72 NO GROWT H AFTER 72 HOURS Not Available [facility] - Add On Order Set Only [address] [place], [address], 06/13/2015 09:26:27 06/10/20 15 06/10/2015 cultu re, body fluid performing lab: [facility] - [address] [facility] SHONDA Carmichael [place], [place], [facility] issa meehan MD Not Available [facility] - Add On Order Set Only [address] [place], [address], 06/13/2015 09:26:27 07/21/20 16 07/21/2016 gram stain gram stain SEE BELOW GRAM STAIN (F) Eleazar Date/ Time: 07/21 14:40 Jm Date/ Time: 07/24 09:27 SOURC E: JOINT FLUID SPEC DESC: GRAM STAIN : FEW WHITE BLOOD CELLS NO ORGAN ISMS SEEN (ON JORGE A NTRAT ED SMEAR ) Not Available [facility] - Add On Order Set Only [address] [place], [address], 07/24/2016 09:28:37 07/21/20 16 07/21/2016 gram stain performing lab: [facility] - [address] [facility] A[place], [facility] issa meehan MD Not Available [facility] - Add On Order Set Only [address] [place], [address], 07/24/2016 09:28:37 07/21/20 16 07/21/2016 cell count , body fluid fluid source HIP Not Available [facility] Lab - Add On Order Set Only [address] [place], [address], 07/21/2016 18:21:17 07/21/20 16 07/21/2016 cell count , body fluid fluid appearance MUCOID clear Not Available [facility] Lab - Add On Order Set Only [address] [place], [address], 07/21/2016 18:21:17 07/21/20 16 07/21/2016 cell count , body fluid fluid color YELLOW colorl ess abnormal Not Available [facility] - Add On Order Set Only [address] [place], [address], 07/21/2016 18:21:17 07/21/20 16 07/21/2016 cell count , body fluid fluid WBC 31 /mm3 0-0 high Not Available [facility] - Add On Order Set Only [address] [place], [address], 07/21/2016 18:21:17 07/21/20 16 07/21/2016 cell count , body fluid fluid RBC 5234 /mm3 0-0 high Not Available [facility] - Add On Order Set Only [address] [place], [address], 07/21/2016 18:21:17 07/21/20 16 07/21/2016 cell count , body fluid performing lab: - [facility] - [address] [place], [facility] issa meehan MD Not Available [facility] - Add On Order Set Only [address] [place], [address], 07/21/2016 18:21:17 07/21/20 16 07/21/2016 diffe renti al, body fluid fluid poly 8 % 0-0 high Not Available [facility] - Add On Order Set Only [address] [place], [address], 07/21/2016 18:22:19 07/21/20 16 07/21/2016 diffe renti al, body fluid fluid lymphocyte 37 % 0-0 high Not Available [facility] Lab - Add On Order Set Only [address] [place], [address], 07/21/2016 18:22:19 07/21/20 16 07/21/2016 diffe renti al, body fluid fluid monocyte 55 % 0-0 high Not Available [facility] Lab - Add On Order Set Only [address] [place], [address], 07/21/2016 18:22:19 07/21/20 16 07/21/2016 diffe renti al, body fluid performing lab: - [facility] [address] [facility] [place] [place], [facility] issa meehan MD Not Available [facility] - Add On Order Set Only [address] [place], [address], 07/21/2016 18:22:19 07/21/20 16 07/21/2016 cultu re, body fluid body fluid culture SEE BELOW BODY FLUID CULTU RE(F) Eleazar Date/ Time: 07/21 14:40 Jm Date/ Time: 07/24 09:27 SOURC E: JOINT FLUID SPEC DESC: NG72 NO GROWT H AFTER 72 HOURS Not Available [facility] - Add On Order Set Only [address] [place], [address], 07/24/2016 09:28:38 07/21/20 16 07/21/2016 cultu re, body fluid performing lab: - [facility] R - [address] [facility] KELLY Carmichael [place], [place], [facility] issa - Stephan meehan MD Not Available [facility] - Add On Order Set Only [address] [place], [address], 07/24/2016 09:28:38 06/10/20 15 06/10/2015 arthr ogram , hip DIAGNO STIC IMAGIN G REPORT [facility] - [address] [place] [place] [address] PHONE #: [phone] FAX #: [phone] ------ ------ ------ ------ ------ ------ ------ ------ ------ ------ ------ ------ ------ - Name: EDWINA GUTIERREZ Loc: [facility] No: : 1965 Age: 49 Sex: F Status : REG [facility] Unit No: [id number] Phys: Remberto Mckenna MD Acct: [id number] Reason For Exam: Exam Date: 2014 ------ ------ ------ ------ ------ ------ ------ ------ ------ ------ ------ ------ ------ - EXAMS: Reason for Exam:: [id number] ARTHRO GRAM HIP, RT HISTOR Y: Chroni c right thigh and hip pain. Evalua te for infect ion. Proced ure: Via an anteri or approa ch: 1. Fluoro scopic guided hip aspira tion/l imited arthro gram. Fluoro time 24 second s. Full report : After explai cas indica tions, risks and benefi ts of the proced ure to the patien t, inform ed consen t was obtain ed. Follow ing steril e prep and drape, using fluoro scopic guidan ce the right hip joint was entere d. 2 mL of clear yellow synovi al fluid was obtain ed and sent to the [facility] for analys is. Intra- articu lar locati on was confir med with minima l iodina katelyn contra st. Impres olimpia: Succes sful fluoro scopic guided hip aspira tion/l imited arthro gram as above. Electr onical ly Signed by PAYAL THOMPSON MD on 2014 at 1457 Report ed and signed by: PAYAL THOMPSON MD CC: Rigo daniels MD Dictat ed Date/T indu: 2014 (1457) Techno logist : OSMANI BROWN S; LEÓN OVIEDO, RT (R) Transc ribed Date/T indu: 2014 (1457) Transc riptio nist: RAD.VR Electr onic Signat ure Date/T indu: 2014 (1457) Printe d Date/T indu: 2014 (1715) PAGE 1 Signed Report [facility] [address] [facility] [address], [place], [address], 06/10/2015 16:26:02 06/10/20 15 06/10/2015 arthr ogram , hip No observ ation record ed. [email or web address] Not Available 06/12 16:36:04 07/21/20 16 07/21/2016 - arthr ogram hip, RT DIAGNO STIC IMAGIN G REPORT [facility] - [address] [facility], [place] [address] PHONE #: [phone] FAX #: [phone] ------ ------ ------ ------ ------ ------ ------ ------ ------ ------ ------ ------ ------ - Name: EDWINA GUTIERREZ Loc: [facility] No: : 1965 Age: 50 Sex: F Status : [facility] Unit No: [id number] Phys: REJI daniels,Remberto Marie MD Acct: [id number] Reason For Exam: Exam Date: 2015 ------ ------ ------ ------ ------ ------ ------ ------ ------ ------ ------ ------ ------ - EXAMS: Reason for Exam:: [id number] ARTHRO GRAM HIP, RT HISTOR Y: Right thigh and hip pain. Right hip replac ement in 2014. Compar tory: Plain radiog raphs of the right hip dated 2014. TECHNI QUE: After writte n inform ed consen t was obtain ed, the patien t was placed supine on the fluoro scopy table. Using steril e techni que, the right hip joint marked along the skin surfac e and anesth etized with 1% lidoca ine. Subseq uently , a 20-gau ge spinal needle was advanc ed into the joint space. Approx imatel y 1 mL of fluid was aspira katelyn from the right hip and sent to the lab. Subseq uently , 10 mL of Isovue 300 were inject ed into the right hip joint space. The patien t tolera katelyn the proced ure well. Fluoro Time: 0.5 minute s Radiat ion dose: 7.51 mGy. FINDIN GS: Contra st materi al is presen t within the right hip joint space with no contra st materi al extend ing along the femora l compon ent of the arthro plasty . No lucenc y along the femora l compon ent to sugges t loosen ing. Alignm ent is within normal limits . IMPRES OLIMPIA: 1. Succes sful fluoro scopic guided right hip aspira tion. 2. Normal right hip arthro gram with no eviden ce of loosen ing. Electr onical ly Signed by SHO GALEANO on 2015 at 1515 Report ed and signed by: SHO GALEANO PAGE 1 Signed Report (LAKHWINDER NUED) DIAGNO STIC IMAGIN G REPORT [facility] - [address] [place] [address] PHONE #: [phone] FAX #: [phone] ------ ------ ------ ------ ------ ------ ------ ------ ------ ------ ------ ------ ------ - Name: GUTIERREZ EDWINA Loc: [facility] D Radiol ogy No: : 1965 Age: 50 Sex: F Status : [facility] Unit No: [id number] Phys: Remberto Mckenna MD Acct: [id number] Reason For Exam: Exam Date: 2015 ------ ------ ------ ------ ------ ------ ------ ------ ------ ------ ------ ------ ------ - EXAMS: Reason for Exam:: [id number] ARTHRO GRAM HIP, RT CC: Rigo daniels MD Dictat ed Date/T indu: 2015 (1515) Techno logist : LEÓN OVIEDO, RT (R) Transc ribed Date/T indu: 2015 (1515) Transc riptio nist: RICHIRO BR Electr onic Signat ure Date/T indu: 2015 (1515) Printe d Date/T indu: 2015 (1520) PAGE 2 Signed Report [facility] [address] [facility] [address], [place], [address], 09/27/2016 18:34:23 07/22/20 16 07/21/2016 XR, arthr ogram , hip No observ ation record ed. [facility] (Radiology) [address] [place] [address], [place], [address], 07/29/2016 10:21:49 Result Notes None recorded. Problems Name Problem SNOMED Code Status Onset Date Resolution Date Notes Provider Name and Address Organization Details Recorded Time Injury of tendon of the rotator cuff of shoulder [id number] Active Rigo Slaughter MD [address] [facility] [address], [place], [address], [place] [facility] 6 15:01:16 Postoperati ve wound cellulitis Active Rigo Slaughter MD [address] [facility] [address] [place], [address], [place] [facility] 6 15:01:16 Dehiscence of surgical wound 16847867 Active Rigo Slaughter MD [address] [place], [place] [address]vd., [address] [place], [address], [place] [facility] 6 15:01:16 Swelling of limb 45801577 Active Rigo Slaughter MD [address] [facility] [address] [place], [address], [place] [facility] 6 15:01:16 Prosthetic joint infection 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 Active Rigo Slaughter MD [address] [facility] [address], [place], [address], [place] [facility] 6 15:01:16 Multiple joint pain 94270346 Active Rigo Slaughter MD [address] [place], [place] [address]vd., [address] [place], [address], [place] [facility] 6 15:04:33 Rheumatoid arthritis 83014741 Active Rigo Slaughter MD [address] [facility] [address] [place], [address], [place] [facility] 6 15:04:33 Traumatic bulla Active Rigo Slaughter MD [address] [facility] [address], [place], [address], [place] - [facility] 6 15:04:33 Osteoarthri tis of knee 098541108 Active Rigo Slaughter MD [address] [facility] [address], [place], [address], [place] [facility] 6 15:01:16 Derangement of knee 69573759 Active Rigo Slaughter MD [address] [facility] [address], [place], [address], [place] [facility] 6 15:01:16 Localized, primary osteoarthri tis 251712326 Active Rigo Slaughter MD [address] [facility] [address], [place], [address], [place] [facility] 6 15:01:15 Knee pain Active Rigo Slaughter MD [address] [facility] [address], [place], [address], [place] [facility] 6 15:01:16 Hip pain 61432972 Active Rigo Slaughter MD [address] [facility] [address], [place], [address], [place] [facility] 6 15:04:33 Localized, primary osteoarthri tis of the pelvic region and thigh 014203891 Active Rigo Slaughter MD [address] [facility] [address], [place], [address], [place] - [facility] 6 15:01:15 Knee joint ankylosis 267752694 Active Rigo Slaughter MD [address] [facility] [address], [place], [address], [place] [facility] 6 15:01:16 Degeneratio n of lumbosacral interverteb ral disc 36873928 Active Rigo Slaughter MD [address] [facility] [address], [place], [address], [place] [facility] 6 15:01:16 Shoulder joint pain 896021720 Active Rigo Slaughter MD [address] [facility] [address], [place], [address], [place] [facility] 6 15:01:16 Sprain of shoulder rotator cuff 828290850145 Active Rigo Slaughter MD [address] [facility] [address], [place], [address], [place] [facility] 6 15:01:16 Problem Notes None recorded. Procedures Surgical History Date Name Laterality Status Provider Name and Address Organization Details Recorded Time 0 Joint replacement surgery completed Kyleigh Hemlock [place] - [facility] 01/10/2013 10:08:22 5 Other completed Kyleigh Jonny [place] - [facility] 01/10/2013 10:08:22 4 Other completed Kyleigh [place] - [facility] 01/10/2013 10:08:22 9 Other completed Kyleigh Jonny [place] - [facility] 01/10/2013 10:08:22 5 Other completed Kyleigh [place] - [facility] 01/10/2013 10:08:22 4 Knee arthroscopy-lef t completed Kyleigh Jonny [place] - [facility] 01/10/2013 10:08:22 3 Other completed Kyleigh [place] - [facility] 01/10/2013 10:08:22 2 Knee arthroscopy-lef t completed Kyleigh [place] - [facility] 01/10/2013 10:08:22 0 Knee arthroscopy-lef t completed Kyleigh [place] [facility] 01/10/2013 10:08:22 8 Other completed Kyleigh Jonny [place] - [facility] 01/10/2013 10:08:22 7 Other completed Kyleigh [place] [facility] 01/10/2013 10:08:22 7 Other completed Kyleigh [place] [facility] 01/10/2013 10:08:22 05/01/198 6 Other completed Kyleigh Jonny [place] - [facility] 01/10/2013 10:08:22 5 Other completed Kyleigh [facility]U [facility] 01/10/2013 10:08:22 Imaging Results Imaging Date Name Status LastModified by Organiz ation Details LastModified Time 06/10/2015 arthrogram, hip completed [address] Radiology [address] [facility] [address], [place], [address], 06/10/2015 16:26:02 06/10/2015 arthrogram, hip completed [email or web address] not available 06/12/2015 16:36:04 07/21/2016 - arthrogram hip, RT completed [address] Radiology [address] [facility] [address], [place], [address], 09/27/2016 18:34:23 07/21/2016 XR, arthrogram, hip completed [address] (Radiology) [address] [place] [address], [place], [address], 07/29/2016 10:21:49 Procedure Notes None recorded. Medical Equipment None Reported. Allergies Allergen ID Allergen Name Allergen Category Reaction Reaction Severity Criticality Documentation Date Start Date Code Code System Note Provider Name and Address Organization Details Recorded Time 95185 codeine medicatio n rash moderate Not available 06/23/2016 2670 RxNorm Carmen figueroa [facility] 6 12:09:37 Medications Name Sig Start Date Stop Date Status Note LastModified by Organization Details LastModified Time Prescript ion - Clarifica tion active Not Available Not Available Not Available amoxicill in 500 mg capsule Take 1 capsule every 12 hours by oral route for 5 days. active Not Available Not Available No t Available Percocet 7.5 mg-325 mg tablet Take 1 tablet every 8 hours by oral route. 06/23 completed Not Available Not Available Not Available gabapenti n 600 mg tablet active Not Available Not Available Not Available sulfasala zine 500 mg tablet active Not Available Not Available No t Available nabumeton e 750 mg tablet 1 tablet twice a day by oral route. active Not Available Not Available No t Available hydrocodo ne 5 mg-acetam inophen 325 mg tablet Take 1 tablet every 6 hours by oral route as needed. 06/23 completed Not Available Not Available Not Available dextroamp hetamine- amphetami ne 10 mg tablet active Not Available Not Available Not Available clobetaso l 0.05 % topical cream 06/23 completed Not Available Not Available Not Available leflunomi de 10 mg tablet active Not Available Not Available Not Available morphine ER 30 mg tablet,ex tended release Take 1 tablet every 12 hours by oral route as needed. 06/23 completed Not Available Not Available Not Available sulfameth oxazole 800 mg-trimet hoprim 160 mg tablet Take 2 tablets twice a day by oral route as directed for 10 days. active Not Available Not Available No t Available hydrocodo ne 10 mg-acetam inophen 325 mg tablet active Not Available Not Available Not Available leflunomi de 20 mg tablet active Not Available Not Available Not Available tramadol 50 mg tablet active Not Available Not Available Not Available Bactroban 2 % topical cream APPLY A SMALL AMOUNT TO THE AFFECTED AREA BY TOPICAL ROUTE 3 TIMES PER DAY FOR 10 DAYS 06/23 completed Not Available Not Available Not Available lorazepam 0.5 mg tablet 1 tablet as needed by oral route. 06/23 completed Not Available Not Available Not Available oxycodone -acetamin ophen 10 mg-325 mg tablet 06/23 completed Not Available Not Available Not Available amlodipin e 10 mg tablet 1 tablet every day by oral route. active Not Available Not Available No t Available hydrocodo ne 7.5 mg-acetam inophen 325 mg tablet Take 1 tablet every 8 hours by oral route as needed. 06/23 completed Not Available Not Available Not Available cephalexi n 500 mg capsule Take 1 capsule 4 times a day by oral route for 7 days. active Not Available Not Available No t Available fluoxetin e 20 mg tablet 1 tablet every day by oral route. 06/23 completed Not Available Not Available Not Available mupirocin 2 % topical ointment APPLY A SMALL AMOUNT TO THE AFFECTED AREA BY TOPICAL ROUTE 3 TIMES PER DAY active Not Available Not Available No t Available lorazepam 1 mg tablet active Not Available Not Available Not Available hydroxych loroquine 200 mg tablet 06/23 completed Not Available Not Available Not Available prednison e 5 mg tablets in a dose pack Take by oral route as directed for 6 days 2016 active Not Available Not Available Not Avai lable zolpidem 10 mg tablet active Not Available Not Available Not Available dextroamp hetamine- amphetami ne ER 30 mg 24hr capsule,e xtend release active Not Available Not Available Not Available Percocet 5 mg-325 mg tablet Take 1 tablet every 6-8 hours by oral route as needed. 06/23 completed script given to patient Not Available Not Available Not Available hydromorp rudi 4 mg tablet active Not Available Not Available Not Available Ambien 5 mg tablet 1 tablet every day by oral route. 2012 active Not Available Not Available Not Avai lable Lortab 5 mg-500 mg tablet 1 PO BID 06/23 completed Not Available Not Available Not Available Bactroban Nasal 2 % ointment APPLY A SMALL AMOUNT TO EACH NOSTRIL 2 DAYS PRIOR TO SURGERY active Not Available Not Available No t Available Amphetami ne Salt Combo 10 mg tablet active Not Available Not Available No t Available Dilaudid 06/23 completed Not Available Not Available Not Available Voltaren 1 % topical gel APPLY 2 GRAM TO THE AFFECTED AREA(S) BY TOPICAL ROUTE 4 TIMES PER DAY 2016 active Not Available Not Available Not Avai lable Butrans 5 mcg/hour transderm al patch Apply 1 patch every week by transder mal route. 06/23 completed Not Available Not Available Not Available Chantix Starting Month Box 0.5 mg (11)-1 mg (42) tablets in dose pack active Not Available Not Available Not Available Hysingla ER 30 mg tablet, crush resistant , extended release Take 1 tablet every 24 hours by oral route as needed. 06/23 completed written rx given Not Available Not Available Not Available Hysingla ER 40 mg tablet, crush resistant , extended release active Not Available Not Available Not Available Vitals Date Recorded Body height Provider Name an d Address Organization Details Last Updated DateTime 06/23/2016 157.48 cm Carmen Y[facility] - [facility] 06/23/2016 12:09:30 Date Recorded Body height Body weight Body mass index (BMI) Provider Name and Address Organization Details Last Updated DateTime 09/27/2016 157.48 cm 06585.01 g 23.8 kg/m2 Adele Cardenas [facility] 09/27/2016 15:26:38 Date Recorded Body height Body mass index (BMI) Body weight Provider Name and Address Organization Details Last Updated DateTime 02/14/2017 157.48 cm 23.8 kg/m2 05666.01 g Missy Dorene [facility] 02/14/2017 15:15:30 Date Recorded Body weight Heart rate Body mass index (BMI) Body height Systolic blood pressure Diastolic blood pressure Provider Name and Address Organization Details Last Updated DateTime 5 29118.0 081 g 77 /min 23.8 kg/m2 157.48 cm 134 mm[Hg] 88 mm[Hg] Adele aguero [facility] 5 13:06:22 Date Recorded Body height Body weight Body mass index (BMI) Provider Name and Address Organization Details Last Updated DateTime 10/27/2015 157.48 cm 31378.0081 g 23.8 kg/m2 Adele Cardenas [facility] 10/27/2015 11:59:07 Date Recorded Heart rate Systolic blood pressure Diastolic blood pressure Provider Name and Address Organization Details Last Updated DateTime 10/27/2015 82 /min 136 mm[Hg] 73 mm[Hg] Debra Joiner [facility] 10/27/2015 12:02:54 Social History Question Answer Notes LastModified by Organizat ion Details LastModified Time Tobacco Smoking Status Current Some Day Smoker Carmen figueroa [facility] 06/23/2016 12:09:57 What Is Your Level Of Alcohol Consumption? None Information not available 06/23/2016 Are You Blind Or Do You Have Difficulty Seeing? No Information not available 01/10/2013 How Much Tobacco Do You Chew? None [email or web address] Information not available 10/27/2015 Are You Deaf Or Do You Have Serious Difficulty Hearing? No Information not available 01/10/2013 Which Illicit Or Recreational Drugs Have You Used? None Information not available 01/10/2013 Which Of Your Hands Is Dominant? Right Information not available 01/10/2013 Live Alone Or With Others? With Others Information not available 06/23/2016 At What Age Did You Start Smoking Tobacco? 18 Information not available 01/10/2013 How Much Tobacco Do You Smoke? 0.5 PPD Information not available 06/23/2016 What Types Of Sporting Activities Do You Participate In? General Maintance On My Yard. Gardening , When I Can. Obtained Pt Job At [employer]. Was 4 Days A Week, Now 2 Days. Getting More Difficult But Push Myself. Walking In Morning And Evening With Dogs. Alone. Yoga Stretches Everyday. Have Increased Exercise To Keep My Joint Mobile. Pin Point Muscle And Leg Stretches Everyday. Run Daily Errands When I Can. Have Found That With In Last Year Activity Has Slowed. Haveing Issues Keeping Up With Day To Day Activities So I Let Them Slide. Plans In Motion To Move Back [employer] By December 2016. Giving Myself 6 Months To Pack And Sell. Looking To Buy Row Apartment Or Place With Less Maintance Information not available 06/23/2016 Sex: Unknown Functional Status Question Answer Note LastModified by Organizat ion Details LastModified Time Do you have difficulty walking or climbing stairs? Yes Information not available 01/10/2013 Do you have difficulty doing errands alone? Yes Information not available 01/10/2013 Do you have difficulty dressing or bathing? Yes Information not available 06/23/2016 What is your exercise level? Occasional Information not available 01/10/2013 Mental Status Question Answer Note LastModified by Organization D etails LastModified Time Do you have difficulty concentrating, remembering or making decisions? Yes Information no t available 01/10/2013 Family History Nothing Reported. Medical History Condition Response Coronary Artery Disease N Other Y Gout N High Blood Pressure Y Thyroid Disease N Osteoarthritis Y Scoliosis N Enlarged Prostate N Emphysema N Lyme Disease N Neurological N Depression Y COPD N Heart Disease/Attack N Multiple Sclerosis N Vascular Disease N Congestive Heart Failure N Cholesterol N Stomach Ulcers Y Diabetes N Bleeding Disorder N Gastric Reflux Y Cancer N Asthma N Seizures N Hepatitis N Liver Disease N Rheumatoid Arthritis Y Fibromyalgia N Kidney Disease N Gynecological HistoryNo gynecological history recorded. Obstetrics History GPAL:G 0 P 0 0 0 0 Past Encounters Encounter ID Performer Location Encounter Start Date Encounter Closed Date Diagnosis/Indication Diagnosis SNOMED-CT Code Diagnosis ICD10 Code Diagnosis Note [id number] Debra Joiner [address], [address] [address] 01/10/2013 09:12:07 01/10/2013 11:06:27 [id number] Ana Paula Payne [address], [address] [address] 01/22/2013 14:26:24 01/22/2013 15:59:[id number], [address] [address] 08/09/2014 12:25:30 08/09/2014 14:34:58 Hip pain 54679925 Knee pain 98111206 Localized, primary osteoarthritis of the pelvic region and thigh 399171365 Knee joint ankylosis 810640982 Degenerati on of lumbosacral intervertebral disc 12991959 Osteoarthr itis of knee 627190081 Derangement of knee 61946751 [id number] [address], [address] [address] 08/23/2014 11:02:44 08/23/2014 12:45:07 Shoulder joint pain 183331700 Osteoarthr itis of knee 095406968 Sprain of shoulder rotator cuff 3287241318 04 Replacemen t of total knee joint 386084405 Transplant follow-up 079988939 Localized, primary osteoarthritis of the pelvic region and thigh 748864205 [id number] [address], [address] [address] 10/04/2014 09:59:49 10/04/2014 11:32:12 Shoulder joint pain 477468461 Localized, primary osteoarthritis of the pelvic region and thigh 923935023 Derangement of knee 21932625 Sprain of shoulder rotator cuff 5163431456 04 Replacemen t of total knee joint 588970294 [id number] Christa Oliva[address], [address] [address] 11/06/2014 09:28:55 11/06/2014 10:44:23 Shoulder joint pain 182514285 Sprain of shoulder rotator cuff 3556050163 [id number], [address] [address] 11/22/2014 11:18:28 11/22/2014 13:04:29 Shoulder joint pain 918272461 Injury of tendon of the rotator cuff of shoulder 428385579 [id number] Robert Riddle PA-C [address], [address] [address] 12/02/2014 13:48:30 12/02/2014 14:51:[id number], [address] [address] 12/23/2014 13:27:40 12/23/2014 14:14:00 Hip pain 79608893 Total repl acement of hip 33986828 Implantati on of joint prosthesis 73906888 [id number] [address], [address] [address] 01/08/2015 11:20:23 01/08/2015 11:59:25 Implantation of joint prosthesis 70365384 Total repl acement of hip 20824429 Postoperat jodi wound cellulitis 294789363 [id number] Debra Joiner [address], [address] [address] 01/21/2015 09:05:07 01/21/2015 10:23:59 Surgical follow-up 793779441 Total repl acement of hip 06310344 Postoperat jodi wound cellulitis 009654278 [id number] Jie Marino [address], [address] [address] 01/31/2015 12:34:44 01/31/2015 13:45:11 Postoperative wound cellulitis 199698875 Hip pain 53658339 History of operative procedure on hip 622992065 Implantati on of joint prosthesis 63946237 Total repl acement of hip 62799165 Dehiscence of surgical wound 32508268 [id number] [address], [address] [address] 02/21/2015 10:09:33 02/21/2015 11:25:12 Total replacement of hip 58842715 Surgical follow-up 343311855 Dehiscence of surgical wound 14667096 Procedure on musculoskeletal system 853657524 [id number] Robert Riddle PA-C [address], [address] [address] 03/13/2015 10:47:01 03/13/2015 11:46:39 Dehiscence of surgical wound [id number] [address], [address] [address] 03/17/2015 10:01:28 03/17/2015 11:18:12 Hip pain 20334994 History of operative procedure on hip 860311370 Postoperat jodi follow-up visit 744521910 Implantati on of joint prosthesis 03631538 Replacemen t of total knee joint 500523465 Total repl acement of hip 28234293 Swelling of limb 45429933 [id number] Ulises Freed [address] [address] 05/21/2015 11:00:21 05/21/2015 14:00:59 Hip pain 73412674 M25.551 Prosthetic joint infection 618626558 T84.51XD Total repl acement of hip 66464597 Z96.641 Implantati on of joint prosthesis 39338324 Z47.1 [id number] Rigo Slaughter MD [address] [address] 07/02/2015 12:50:48 07/02/2015 15:00:22 Knee pain 06696152 M25.561 Hip pain 63050466 M25.55 1 History of operative procedure on hip 940248130 Z96.641 Replacemen t of total knee joint 466554917 Z96.651 Multiple joint pain 3567 8005 M25.50 [id number] Rigo Slaughter MD [address], [address] [address] 10/27/2015 11:26:00 10/27/2015 12:40:08 Hip pain 51133673 M25.551 Replacemen t of total knee joint 715441943 Z96.651 Total repl acement of hip 38805204 Z96.641 Multiple joint pain 3567 8005 M25.50 Rheumatoid arthritis 698 94552 M06.9 Traumatic bulla 53227218 2 S90.424D [id number] Rigo Slaughter MD [address] [place] [address] 06/23/2016 11:07:38 06/23/2016 14:06:05 Replacement of total knee joint 025741312 Z96.651 Total repl acement of hip 36865575 Z96.641 [id number] Rigo Slaughter MD SOC [address] [facility] [address] [place] [address] 09/27/2016 14:59:12 09/27/2016 15:56:08 Prosthetic joint loosening 284417611 T84.030D [id number] Rigo Slaughter MD SOC [address] [facility] [address] [place] [address] 02/14/2017 14:39:43 02/14/2017 16:31:33 Laryngitis 87793548 J04.0 Replacemen t of total knee joint 898367638 Z96.651 Total repl acement of hip 19790590 Z96.641 Ligamentou s laxity of knee 568646405 M23.51 Health Concerns Section Related Observation LastModified by Organization Detai ls LastModified Time None Recorded Concern Status LastModified by Organization Details LastModified Time None Recorded Advance Directives Directive None Recorded Payers Encounter Date Sequence Insurance Name Policy Number Policy Fisher Covered Member ID Fisher Member ID Guarantor Name 07/02/2015 1 [place] Ro Shemar [id number] Ej Gutierrez 10/27/2015 1 [place] CASSIEj Ro Shemar [id number] A Edwina Gutierrez 06/23/2016 1 [place] Ro Shemar [id number] A Edwina Gutierrez 09/27/2016 1 [place] CASSIEj Ro Shemar [id number] A Edwina Gutierrez 02/14/2017 1 [place] Ro Shemar [id number] A Edwina Gutierrez Notes Date Note Type Note Provider Name and Address Organization Details Recorded Time 07/02/2015 text/html Post-OpReported bypatient.Onset/Jeferson ing:date of surgery: (R ant THR & wound revision) Quality:procedure: (12/10/14; wound revision 01/14/15) Associated Symptoms:incision healing well; no fatigue; normal appetite; normal bowel function; no constipation; no nausea; no emesis; pain improving; no fever; no bleeding; no lower extremity edema/pain; no dysuria/urinary symptomsNotes:Jackie delgado R knee/thigh pain. She still hurts but she is better. She is found the knee brace has helped her pain significantly. She is not had fevers or chills. She did overdo it for Thanksgiving and. The [facility] next couple days. She is still requiring pain medications. She does not have buckling, locking, or giving way. The pain is more in her thigh now and less in her groin. The pain in her thigh is better with the knee brace. She did have for aspiration. She also saw infectious disease. The aspiration was unremarkable for infection. The ID doctor concurred. Rigo Slaughter MD 210 [facility] [address], [address], [facility] 07/02/2015 18:14:56 10/27/2015 text/html Post-OpReported bypatient.Onset/Jeferson ing:date of surgery: (R ant THR & wound revision) Quality:procedure: (12/10/14; wound revision 01/14/15) Associated Symptoms:incision healing well; no fatigue; normal appetite; normal bowel function; no constipation; no nausea; no emesis; pain improving; no fever; no bleeding; no lower extremity edema/pain; no dysuria/urinary symptomsNotes:Jonathan aguayo 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 She just started a new part-time job. 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 It had been poorly cared for. She's been working hard. He has been hurting at the end of the day. Her hands are sore. Her hip is sore. She still has tenderness on the skin of her right hip. She is off her rheumatoid arthritis medications currently. The last medication was making her hair fallout. She has been treated for her rheumatoid arthritis now. Rigo Slaughter MD [address] [facility], [address], [place], [address], [facility] 10/27/2015 18:05:02 06/23/2016 text/html Post-OpReported bypatient.Onset/Jeferson ing:date of surgery: (R ant THR & wound revision) Quality:procedure: (12/10/14; wound revision 01/14/15) Context:Started having right thigh and knee pain back in March. Occasionally painful to bend. Associated Symptoms:incision healing well; no fatigue; normal appetite; normal bowel function; no constipation; no nausea; no emesis; pain improving; no fever; no bleeding; no lower extremity edema/pain; no dysuria/urinary symptomsNotes:She continues to have radial pain in her hip. He rates into her thigh and even into her knee. She is status post right THR which was complicated by some postoperative wound drainage. She underwent a washout deep penetration. She has pain with weightbearing activities. She does have some lateral femoral cutaneous nerve problems on the right. She has had a right TKR. She has OCD and anxiety disorder. She is a half-pack per day smoker. 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 She has been started on methotrexate for presumed rheumatoid arthritis. She began developing bad elbow problems which led to this. She is also on sulfasalazine. Rigo Slaughter MD [address] [facility] [address], [place], [address], [facility] 06/23/2016 18:08:06 09/27/2016 text/html F/UReported bypatient.How are you feeling?worse Change in symptoms:noNotes:pt completed her right hip arthrogram and aspiration for cultures. She continues to complain of right hip pain and thigh pain. It is waxing and waning. It tends to be bad after a very active day. The pain is anterior thigh pain. She does have recently diagnosed rotator arthritis and is on medication for that. She is a smoker. She is planning to move back to [place] in the summer. She had a hip arthrogram and is here today for follow-up. Rigo Slaughter MD [address] [facility] [address], [place], [address], [facility] 09/27/2016 18:38:23 02/14/2017 text/html KneeReported stiven.Location:[facility] Quality:aching; constant; worsening Severity:moderate; severe Duration:continuous since onset Timing:chronic Context:cannot identify Alleviating Factors:sitting Aggravating Factors:ROM; weightbearing Associated Symptoms:tingling;r adiation down leg Previous Surgery:surgical procedure: (TKR) Prior Imaging:no recent studies Previous Injections:none Previous PT:none Work Related:noNotes:She has not yet moved. She did just fell her mobile home and is moving in a couple weeks. She is back with the same complaints of right thigh pain. She is convinced the pain is coming from her knee not her hip. She says it feels somewhat like the pain she had prior to her knee replacement. When she stands up, it is painful and she has to wait a minute before she can start walking. Sometimes she'll be twisting on her feet and have sharp pain in her thigh. He has some mild achiness over the anterior hip but no severe pain. She does have some stiffness in the knee. She has not had any recent studies. She is still in pain management. Rigo Slaughter MD [address] [place] [address]., [address], [place], [address], [facility] 02/14/2017 18:45:55 OBGyn Episode No OBEpisode recorded.
--- OUTSIDE RECORDS SUMMARY | 2024-10-05 10:28 | XMS_ITS | Encounter Summary ---
Author Organization [facility] Address [address] [place] [address] Phone Care Team Providers Care Wet End Helper Name Role Phone Octavia Soto MD Primary Care Provider [phone] Encounter Details Date Type Department Care Team (Late st Contact Info) Description 07/23/2024 Documentation Only [facility] [place], [address] [place] [address] Missy Mendoza [address] [place] [address] Social History Tobacco Use Types [...] on filedocumented in this encounter Care Teams Wet End Helper Relationship Specialty Start Date End Date Octavia Soto MD [address] [place], [place] PCP - General 08/04/20 documented as of this encounter
--- OUTSIDE RECORDS SUMMARY | 2024-10-05 10:28 | XMS_ITS | Encounter Summary ---
Author Organization [facility] Address [address] [place] [address] Phone Care Team Providers Care Salt Machine Operator Name Role Phone Octavia Soto MD Primary Care Provider [phone] Encounter Details Date Type Department Care Team (Late st Contact Info) Description 02/14/2024 Documentation Only [facility] [place], [address] [place] [address] Missy Mendoza [address] [place] [address] Social History Tobacco Use Types [...] on filedocumented in this encounter Care Teams Salt Machine Operator Relationship Specialty Start Date End Date Octavia Soto MD [address] [place], [place] PCP - General 08/04/20 documented as of this encounter
--- OUTSIDE RECORDS SUMMARY | 2024-10-05 10:28 | XMS_ITS | Continuity of Care Document ---
Author Organization [facility] Address [address] [place] [address]- Care Team Providers Care Outreach Consultant Name Role Phone Po Octavia SALDAÑA Primary Care Physician Encounter [facility] Date(s): 08/20/24 - 09/19/24 [facility] [address] [place] [id number] Encounter Type: Triage Allergies, Adverse Reactions, Alerts Substance Criticality Severity Reaction Reaction Severity Status ibuprofen kidney function Acti ve Pollen Active Medications Acetaminophen = 650 mg, By Mouth, 2 times a day, 0 Refills, Maintenance, 06/20/24 7:16:00 AM EST, Partial fill upon patient request if the prescription is for a schedule II opioid drug. Start Date: 06/20/24 Status: Ordered Repeat number: 1 Amlodipine = 10 mg, By Mouth, Daily, 0 Refills, Maintenance, 10/29/22 4:10:00 PM EDT Start Date: 10/29/22 Status: Ordered Repeat number: 1 amoxicillin 500 mg oral [...] Refills, Maintenance, 09/15/24 10:46:00 AM EST, Tablet, [facility], Partial fill upon patient request [...] Refills,Maintenance, 08/02/24 12:38:00 PM EST, ER Tablet, [id number], Partial fill upon patient request if the [...] PM EDT, 09/15/24 10:46:00 AM EST, Ointment, [facility], Partial fill upon patient request [...] 100.0 Unit: g Repeat number: 1 Dilaudid 4 mg oral tablet See Instructions, PRN as needed for pain, 0.5 tablet By Mouth Every 4 hours, # 21 tablet, 0 Refills, Acute 09/22/24 11:59:00 PM EST, 09/15/24 11:31:00 AM EST, Tablet, [facility], Partial fill upon patient request [...] 0 Refills, Maintenance, 09/15/24 10:47:00AM EST, Capsule, [facility], Partial fill upon patient request [...] Date: 05/16/24 Status: Ordered Repeat number: 1 lisinopril 20 mg oral [...] Date: 05/16/24 Status: Ordered Repeat number: 1 pramipexole 0.5 mg oral [...] pain Confirmed Active Tobacco use Confirmed Active Social History Social History Type Response Smoking Status 10 or more cigarette s (1/2 pack or more)/day in last 30 days entered on: 05/29/24 Sex Sex Representation Female (finding) Patient Care team information Care Team Personnel Name: Missy Mendoza Position: [facility] Outreach Member Role: Lifetime Consulting Physician Name: Erick Reed MD Position: [facility] Renal MD Member Role: Lifetime Consulting Physician Address: [address] [place] [address] [address] [facility] [address] Telecom: Name: Juan Murillo MD Position: [facility] Renal MD Member Role: Lifetime Consulting Physician Address: [address] [facility] [address] [facility] [place] [address]- [place] Tele[employer]: Name: Ainsley Rachel RN Position: S RN Member Role: Primary Care Nurse Name: Octavia Soto MD Position: Reference Physician Member Role: PCP Address: [address] [place] [address]- [place] Tele[employer]: Name: Alva Isidro RN Position: S RN Member Role: Primary Care Nurse Care Team Related Persons Name: MALKA GUTIERREZ Name: JOHN MARTIN Name: PT STATES NO ONE, NO ONE Insurance Providers Guarantor name: RASHAD BRENDA Health Plan Information #: 1 Payer: [facility] Member Number: NA Policy Number: NA Group Number: NA Health Plan Information #: 2 Payer: [facility] Member Number: NA Policy Number: NA Group Number: NA
--- OUTSIDE RECORDS SUMMARY | 2024-10-05 10:28 | XMS_ITS | Continuity of Care Document ---
Author Organization [facility] ter Address [address] [place] [id number] Care Team Providers Care [employer] Name Role Phone Po Octavia SALDAÑA Primary Care Physician Encounter [facility] Date(s): 09/25/24 - 09/28/[address] [id number] Discharge Disposition: A-D/C Home Attending Physician: Raymon Ricci MD Admitting Physician: Raymon Ricci MD Referring Physician: Raymon Ricci MD Encounter Type: Disch IP Allergies, Adverse [...] oral tablet 10 mg, Tablet, By Mouth, 09/28/24 9:00:00 AM EST Start Date: 09/28/24 Stop Date: 09/28/24 Status: Completed Repeat number: 1 amphetamine-dextroamphetamine 30 mg oral [...] Refills, Maintenance, 09/15/24 10:46:00 AM EST, Tablet, [facility], Partial fill upon patient request if [...] Refills,Maintenance, 08/02/24 12:38:00 PM EST, ER Tablet, [id number], Partial fill upon patient request if the [...] PM EDT, 09/15/24 10:46:00 AM EST, Ointment, [facility], Partial fill upon patient request [...] 4 hours, # 21 tablet, 0 Refills, Maintenance, 09/21/24 5:12:00 PM EST, Tablet, [facility], Partial fill upon patient request if the prescription is for a schedule II opioid drug., 155, cm, 09/15/24 8:47:00 EST, Height,63.9, kg, 09/14/24 23:43:00 EST, Dry Weight Start Date: 09/21/24 Status: Ordered Quantity: 21.0 Unit: tablet Repeat number: 1 docusate sodium 100 mg oral capsule 1 capsule = 100 mg, By Mouth, 2 times a day, # 20 capsule, 0 Refills, Maintenance, 09/15/24 10:47:00AM EST, Capsule, [facility], Partial fill upon patient request [...] 08/31/24 Status: Ordered Repeat number: 1 gabapentin 300 mg oral capsule 600 mg, Capsule, By Mouth, 09/28/24 9:00:00 AM EST Start Date: 09/28/24 Stop Date: 09/28/24 Status: Completed Repeat number: 1 gabapentin 600 mg oral [...] Date: 05/16/24 Status: Ordered Repeat number: 1 oxyCODONE 5 mg oral tablet 5 mg, Tablet, By Mouth, Every 6 hours, PRN for Pain , Severe, Routine, 09/25/24 2:18:00 PM EST Start Date: 09/25/24 Stop Date: 09/28/24 Status: Discontinued Repeat number: 1 rivaroxaban 2.5 mg oral tablet = 2.5 mg, By Mouth, 2 times a day, # 120 tablet, 0 Refills, Maintenance, 09/28/24 11:00:00 AM EST, Tablet, [facility], Partial fill upon patient request if the prescription is for a schedule II opioid drug., 155, cm, 09/28/24 7:48:00 EST, Height, 71.4, kg, 09/26/24 2:00:00 EST, Dry Weight Start Date: 09/28/24 Stop Date: 11/27/24 Status: Ordered Quantity: 120.0 Unit: tablet Repeat number: 1 Suboxone 8 mg-2 mg [...] pain Confirmed Active Tobacco use Confirmed Active Vital Signs Most recent to oldest [Reference Range]: 1 2 3 Height 155 cm (09/28/24 11:09 AM) 155 cm (09/28/24 7:48 AM) 155 cm (09/28/24 6:04 AM) Weight 71.2 kg (09/25/24 8:32 PM) 71.4 kg (09/25/24 6:43 AM) 70.4 kg (09/24/24 7:59 AM) Oxygen Saturation [94-100 %] 100 % (09/28/24 11:09 AM) 100 % (09/28/24 7:48 AM) 100 % (09/28/24 6:04 AM) Pulse Rate [55-90 bpm] 73 bpm (09/28/24 11:09 AM) 73 bpm (09/28/24 7:48 AM) 86 bpm (09/28/24 6:04 AM) Body Mass Index [18.5-24.99 kg/m2] 29.64 kg/m2 *H* (09/25/24 8:32 PM) 29.72 kg/m2 *H* (09/25/24 6:43 AM) 29.3 kg/m2 *H* (09/24/24 7:59 AM) Blood Pressure [90-138/55-84 mm Hg] 124/62mm Hg (09/28/24 11:09 AM) 116/63mm Hg (09/28/24 8:24 AM) 116/63mm Hg (09/28/24 7:48 AM) Respiratory Rate [16-30 br/min] 18 br/min (09/28/24 11:09 AM) 20 br/min (09/28/24 8:24 AM) 20 br/min (09/28/24 8:23 AM) Temperature [96.8-100.4 DegF] 97.5 DegF (09/28/24 11:09 AM) 98.2 DegF (09/28/24 7:48 AM) 98.2 DegF (09/28/24 6:04 AM) Liters per Minute 6 L/min (09/25/24 1:45 PM) 6 L/min (09/25/24 1:30 PM) Mode of Delivery (Oxygen) Room air (09/28/24 11:09 AM) Room air (09/28/24 7:48 AM) Room air (09/28/24 6:04 AM) Blood pressure sites Arm, right (09/28/24 11:09 AM) Arm, right (09/28/24 6:04 AM) Arm, left (09/27/24 11:17 PM) Temperature Route Oral (09/28/24 11:09 AM) Oral (09/28/24 7:48 AM) Oral (09/28/24 6:04 AM) Dry Weight 71.4 kg (09/25/24 8:32 PM) 71.4 kg (3/4/25 6:43 AM) 70.4 kg (09/24/24 7:59 AM) Weight Obtained Via Standing scale (09/25/24 6:43 AM) Patient/family stated (09/24/24 7:59 AM) Dry Weight Obtained Via Standing scale (09/25/24 6:43 AM) Patient/family stated (09/24/24 7:59 AM) Social History Social History Type Response Smoking Status 10 or more cigarette s (1/2 pack or more)/day in last 30 days entered on: 05/29/24 Sex Sex Representation Female (finding) Consult note * Arlen Kirby MD: PERFORM Event Display: Consult Authored Date: [id number] Patient: ??EDWINA GUTIERREZ ? Age:??58 Years?Sex:??Female?:??1965?? Reason for Consultation CKD IV and hyperkalemia History of Present Illness 50-year-old??with history of??CKD stage IV in the setting of NSAID induced interstitial nephritis and hypertension. Also hx of??severe PAD, CVA, bariatric surgery and multiple knee and spinal surgeries, ADHD.??Presents for scheduled Fem-PT bypass. She has a chronic right ankle wound which has been getting worse. Refers she was here last week due to worsening swelling.??She is post-op day 1 and underwent the bypass along with SFA enterectomy and a limiter RL extremity angiogram.??Post-op complication of thigh hematoma, now stable.?? Refers feeling well.?? Review of Systems Const: no fever, no chills HEENT: no dizziness, no headaches, no vision changes Resp: no SOB, no wheezing, no cough CV: no chest pain, no palpitations, no edema, no orthopnea, no syncope GI: no abdominal pain, no n/v, no diarrhea, no constipation, no melena, no hematochezia : no dysuria, no hematuria MSK: Admits right leg pain,?no myalgias, no DROM, no back pain Neuro: no paresthesias, no focal weakness?? Skin: no rashes Heme: No easy bruising, no bleeding or clotting tendency ?? 05/03 systems were reviewed and were negative for any positive or negative complaint, except as mentioned above Physical Exam Vitals & Measurements T:??97.7?F?? TMIN:??97.7?F?? TMAX:??98.7?F?? HR:??76??(Peripheral)?? RR:??18?? BP:??125/79?? SpO2:??98%?? WT:??71.2??kg?? Physical exam GENERAL AOX3, NAD, verbose NEURO CN 2-12 INTACT,?? HEENT NC/AT, EOMIx2, no JVD CARDIO RRR, RESP CTAx2, ABD +BS, S+D, MSK/SKIN/EXT Right ankle with clean ulcer, swelling, erythematous, clean bandage.? No frias HEMODIALYSIS ACCESS No access Assessment/Plan ASSESMENT: 50-year-old??with history of??CKD stage IV in the setting of NSAID induced interstitial nephritis and hypertension. Also hx of??severe PAD, CVA, bariatric surgery and multiple knee and spinal surgeries, ADHD.??Presents for scheduled Fem-PT bypass. She has a chronic right ankle wound which has been getting worse. Refers she was here last week due to worsening swelling.??She is post-op day 1 and underwent the bypass along with SFA enterectomy and a limiter RL extremity angiogram.??Post-op complication of thigh hematoma, now stable.?? Refers feeling well.? CKD??stage IV?? HTN?? Hyperkalemia?? Pt is at baseline renal function. Would monitor??urine output while admitted. Agree with holding lisinopril at the moment. Hyperkalemia likely in the setting of??hematoma and vascular surgery.??As she has ckd,??the kidneys have difficulty in excreting the excess potassium. Agree with lokelma as needed. Would change her diet to a low potassium, renal one.? PLAN: ?? Lokelma??as needed??for??hyperkalemia?? Renal??diet with??low??k Daily??BMP I&Os ?? Patient evaluated and discussed with Dr. Clinton.? Arlen Kirby, PGY4 Nephrology Fellow Pager Number [phone]/Available [employer]? Problem List/Past Medical History Ongoing Adult ADHD [...] (peripheral vascular disease) Tobacco use Procedure/Surgical History ???Panniculectomy (01/04/2011) Medications Inpatient 0.9% NaCL 1000 mL, 1000 mL, IV Infusion amLODIPine 10 mg oral tablet, 10 mg, By Mouth, Daily Amphetamine-Dextroamphetamine Oral Tablet, 10 mg, By Mouth, Daily, PRN Amphetamine-Dextroamphetamine XR oral capsule, 30 mg, By Mouth, Daily aspirin 81 mg oral tablet, chewable, 81 mg, By Mouth, 2 times a day atorvastatin 80 mg oral tablet, 80 mg, By Mouth, Daily at bedtime Bacitracin Topical Oint, 1 application, Topically, 4 times a day BuPROpion SR Tablet, 150 mg, By Mouth, 2 times a day ceFAZolin Inj, 2 Gm, IV Push, Once gabapentin 300 mg oral capsule, 600 mg, By Mouth, Daily Lidocaine 5% Topical, 1 application, Topically, 4 times a day LORazepam 1 mg oral tablet, 1 mg, By Mouth, 3 times a day, PRN oxyCODONE 5 mg oral tablet, 5 mg, By Mouth, Every 6 hours, PRN rivaroxaban 2.5 mg oral tablet, 2.5 mg, By Mouth, 2 times a day Tylenol 325 mg oral tablet, 650 mg, By Mouth, Every 6 hours Zofran Inj, 4 mg, IV Push, Every 6 hours, PRN Home Acetaminophen, 650 mg, By Mouth, 2 times a day Amlodipine, 10 mg, By Mouth, Daily amoxicillin 500 mg oral capsule amphetamine-dextroamphetamine 10 mg oral tablet amphetamine-dextroamphetamine 30 mg oral capsule, extended release aspirin 81 mg oral capsule, 81 mg= 1 capsule, By Mouth, 2 times a day atorvastatin 80 mg oral tablet, 80 mg, By Mouth, Daily at bedtime, 2 refills buPROPion 150 mg/12 hours (SR) oral tablet, extended release, 150 mg= 1 tablet, By Mouth, 2 times aday cilostazol 100 mg oral tablet, 100 mg= 1 tablet, By Mouth, 2 times a day collagenase topical 250 u/gm ointment, See Instructions diclofenac 1% topical gel, 1 application, Topically, 4 times a day Dilaudid 4 mg oral tablet, See Instructions, PRN docusate sodium 100 mg oral capsule, 100 mg= 1 capsule, By Mouth, 2 times a day doxycycline monohydrate 100 mg oral capsule gabapentin 600 mg oral tablet lisinopril 20 mg oral tablet LORazepam 1 mg oral tablet omeprazole 20 mg oral enteric coated capsule pramipexole 0.5 mg oral tablet Suboxone 8 mg-2 mg Sublingual Film Ventolin HFA 108 mcg/inh inhalation aerosol with adapter Allergies Pollen ibuprofen??(kidney function) Social History Tobacco Use: 10 or more cigarettes (1/2 pack or more)/day in last 30 days. Immunizations Vaccine Date Status pneumococcal 23-valent vaccine - Not Given Comments : Patient Refused influenza virus vaccine, inactivated - Not Given Comments : Patient Refused Lab Results Last CBC, CMP & Coagulation?? WBC:??11.7 k/mm3??High (09/26/24) Hgb:??8.2 Gm/dL??Low (09/26/24) Hct:??26 %??Low (09/26/24) Platelet Count: 392 k/mm3 (09/26/24) Sodium: 140 mmol/L (09/26/24) Potassium: 5.2 mmol/L (09/26/24) Chloride: 106 mmol/L (09/26/24) Bicarbonate Level: 22 mmol/L (09/26/24) Anion Gap: 12 mmol/L (09/26/24) Glucose, POC:??117 mg/dL??High (09/26/24) BUN:??29 mg/dL??High (09/26/24) Creatinine-Blood:??2.31 mg/dL??High (09/26/24) Estimated GFR Creatinine: 24 ML/MIN/1.73 M2 (09/26/24) Phosphorus: 4 mg/dL (09/26/24) Magnesium: 1.9 mg/dL (09/26/24) * Diallo Clinton MD, I: PERFORM Event Display: Consult Authored Date: ?? I reviewed the patient's history, examined the patient, and confirmed the above findings as documented by the fellow/resident. I personally formulated the essential elements of the assessment and plan noted above. Dr. Clinton?? History and physical note * Event Display: History and Physical Hospital Authored Date: EKG study * Event Display: ECG 12-Lead Authored Date: Please click on pdf link to open report * Event Display: ECG 12-Lead Authored Date: Ventricular Rate: 65 BPM Atrial Rate: 65 BPM P-R Interval: 158 ms QRS Duration: 78 ms Q-T Interval: 410 ms QTC Calculation(Bazett): 426 ms P [place]: 70 degrees R [place]: 36 degrees T [place]: 66 degrees Normal sinus rhythm Normal ECG When compared with ECG of 14-Sep-2024 10:33, ST elevation has replaced ST depression in Anterior leads Confirmed by VAL FAULKNER MD ([id number]) on 09/26/2024 11:27:05 AM [place]: VAL FAULKNER MD Cardiology * Event Display: Cardiac Rhythm Strips Authored Date: * Event Display: Cardiac Rhythm Strips Authored Date: Hospital Progress note * Diallo Clinton MD, I: PERFORM, SIGN, VERIFY Event Display: Progress Note Hospital Authored Date: Patient: EDWINA GUTIERREZ Age: 58 years Sex: Female : 1965 Associated Diagnoses: None Author: Diallo Clinton MD, I Overnight Events & Current Issues appears comfortable, going home today Review of Systems Review of Systems Constitutional negative. Respiratory negative. Cardiovascular negative. Review / Management Frias Catheter No. Physical Examination Vitals Vitals : VITAL SIGNS SECTION 09/28/2024 11:09 EST Temperature 97.5 DegF Temperature Route Oral Pulse Rate 73 bpm Respiratory Rate 18 br/min Systolic Blood Pressure 124 mm Hg Diastolic Blood Pressure 62 mm Hg Blood pressure sites Arm, right Mean Arterial Pressure 83 mm Hg Pulse Pressure 62 mm Hg Oxygen Saturation 100 % Mode of Delivery (Oxygen) Room air . General Appearance No apparent distress. Respiratory Lungs: CTA. Cardiac No murmur/gallop/rub. Rhythms: RRR. Abdomen/GI Soft. Non-tender. Non-distended. Bowel sounds. Extremities No edema. Neurologic Alert. Results Review General resultsReviewed Results: Today's results. Impression and Plan 50-year-old with history of CKD stage IV in the setting of NSAID induced interstitial nephritis andhypertension. Also hx of severe PAD, CVA, bariatric surgery and multiple knee and spinal surgeries,ADHD. Presents for scheduled Fem- PT bypass. She has a chronic right ankle wound which has been getting worse. Refers she was here last week due to worsening swelling. She is post-op day 1 and underwent the bypass along with SFA enterectomy and a limiter RL extremity angiogram. Post-op complication of thigh hematoma, now stable. Refers feeling well. CKD stage IV HTN Hyperkalemia Pt is at baseline renal function. Would monitor urine output while admitted. Agree with holding lisinopril at the moment. Hyperkalemia likely in the setting of hematoma and vascular surgery. As she has ckd, the kidneys have difficulty in excreting the excess potassium. Agree with Lokelma as needed.Would change her diet to a low potassium, renal one. PLAN: Lokelma as needed for hyperkalemia Renal diet with low k Daily BMP I&Os Will arrange follow up * Latonya Fowler LPN: VERIFY, PERFORM, SIGN Event Display: Progress Note Hospital Authored Date: [id number] Patient: EDWINA GUTIERREZ Age: 58 years Sex: Female : 1965 Associated Diagnoses: None Author: Latonya Fowler LPN Findings Evaluation a/ox4 patient up most the night. Patient called multiple times during the night. Patient with anxiety and discomfort. Vascular changed dressings on legs, Oxy and Ativan given. call bonds in hand, resting watching tv.. Discharge Information Case Management Discharge Plan : Case Management Discharge Plan Data 09/27/2024 15:29 EST Discharge Level of Care at Discharge Homehealth/VNA Discharge VNA/Hospice/Home Care [facility] [phone] Name of Agency #1 [facility] Service Categories #1 Physical Therapy, [facility] Service Comments #1 The nurse will see you the day after discharge. They will call before they cometo set up a time to see you. If they do not call within 24 hours, please call the main VNA number to inquire when they are coming. Rehabilitation Discharge : Rehab Discharge Index 09/27/2024 8:45 EST Walker: distance >50 09/26/2024 8:57 EST Comments on treatment indicated 58F p/w nonhealing wound of RLE with pain, s/p R SFA endart with patch angioplasty, R Fem-PT bypass. PT to improve strength, gait, and stairs. Walker: distance >50 Distance pt will ambulate 200 Full chart review completed Yes Hospital course 09/25: R SFA endart with patch angioplasty, R Fem-PT bypass, R PT artery patch angioplasty Other findings Received in supine. Pt completed bed mob indep to EOB. Educated re: sitting upright to prevent pressure on incision. Pt reported pain/itchiness on her ulcer throughout session. Sit-stand S level to the RW with VC for hand placement. No dizziness. Plan of care PT Gait training, Transfer training, Therapeutic exercise, Functional Activities, Balance training * Diallo Clinton MD, I: PERFORM, SIGN, VERIFY Event Display: Progress Note Hospital Authored Date: Patient: EDWINA GUTIERREZ Age: 58 years Sex: Female : 1965 Associated Diagnoses: None Author: Diallo Clinton MD, I Overnight Events & Current Issues appears comfortable, receiving IVF, awaiting I&D Review of Systems Review of Systems Constitutional negative. Respiratory negative. Cardiovascular negative. Review / Management Frias Catheter No. Physical Examination Vitals Vitals : VITAL SIGNS SECTION 09/27/2024 11:39 EST Temperature 98.0 DegF Temperature Route Oral Pulse Rate 86 bpm Respiratory Rate 18 br/min Systolic Blood Pressure 115 mm Hg Diastolic Blood Pressure 59 mm Hg Blood pressure sites Arm, left Mean Arterial Pressure 78 mm Hg Pulse Pressure 56 mm Hg Oxygen Saturation 100 % Mode of Delivery (Oxygen) Room air . General Appearance No apparent distress. Respiratory Lungs: CTA. Cardiac No murmur/gallop/rub. Rhythms: RRR. Abdomen/GI Soft. Non-tender. Non-distended. Bowel sounds. Extremities No edema. Neurologic Alert. Results Review General resultsReviewed Results: Today's results. Impression and Plan 50-year-old with history of CKD stage IV in the setting of NSAID induced interstitial nephritis andhypertension. Also hx of severe PAD, CVA, bariatric surgery and multiple knee and spinal surgeries,ADHD. Presents for scheduled Fem- PT bypass. She has a chronic right ankle wound which has been getting worse. Refers she was here last week due to worsening swelling. She is post-op day 1 and underwent the bypass along with SFA enterectomy and a limiter RL extremity angiogram. Post-op complication of thigh hematoma, now stable. Refers feeling well. CKD stage IV HTN Hyperkalemia Pt is at baseline renal function. Would monitor urine output while admitted. Agree with holding lisinopril at the moment. Hyperkalemia likely in the setting of hematoma and vascular surgery. As she has ckd, the kidneys have difficulty in excreting the excess potassium. Agree with Lokelma as needed.Would change her diet to a low potassium, renal one. PLAN: Lokelma as needed for hyperkalemia Renal diet with low k Daily BMP I&Os Note * Ita Alvarez RN: PERFORM Event Display: Discharge/Transfer Note Hospital Authored Date: [id number] Nursing Discharge Note Entered On: 09/28/2024 11:16 EST Performed On: 09/28/2024 11:15 EST by Ita Alvarez RN Nursing Discharge Note 2 Discharge Time : 09/28/2024 12:35 EST Discharge Comments : no changes from reporting regulatory manager Ita Alvarez RN - 09/28/2024 12:43 EST Discharge Level of Care at Discharge : Home/Longterm/Foster Care Patient Left Unit Via : Wheelchair Patient Accompanied Off Unit with : Responsible adult DC Instructions Provided & Signed by Pt : Yes Patient Understands D/C Instructions : Yes Verbalized Understanding of D/C Plan By : Patient Patient Instructions Discharge Signed : Yes Did Pt have Specialty Bed or Wound Vac : Yes Ita Alvarez RN - 09/28/2024 11:15 EST * Clair Greenwood NP: PERFORM Event Display: Discharge/Transfer Note Hospital Authored Date: [id number] Patient: ??EDWINA GUTIERREZ ? Age:??58 Years?Sex:??Female?:??1965?? Admit Date Admission Date: 09/25/2024 Discharge Date 09/28/2024 Discharge Diagnoses PVD (peripheral vascular disease), 09/26/2024 Hospital Course Edwina Gutierrez is a 58 year old female who presented for elective right SFA endarterectomy and fem-PT bypass with CryoVein on 09/25/[address] Ricci.??Pt tolerated well.??Post op she developed hematoma inright thigh, which is soft and compressible.??Perfusion has improved distally; plan for debridementof anterior smalls wound as outpatient as it does not appear infected at this time. She is toleratingdiet, ambulating at her baseline and voiding appropriately. Objective/Physical Exam on Day of Discharge Vitals & Measurements T:??98.2?F?? HR:??73??(Peripheral)?? RR:??20?? BP:??116/63?? BP:??152/71(Line)?? SpO2:??100%?? HT:??155??cm?? WT:??71.2??kg?? BMI:??29.64?? General appearance: No apparent distress, appears stated age, well developed. Head: Normocephalic, atraumatic. Cardiac: RRR, no murmurs or gallops. Respiratory: Clear to auscultation bilaterally. Abdomen: Soft, nontender, nondistended. No guarding or rebound. No palpable mass. Incisions: Right groin and RLE Aquacel clean and dry.??Soft hematoma lower right thigh; compressible. Anterior smalls wound with dry eschar, non-purulent Extremities: Able to move all extremities without difficulty. Warm and well perfused. Neurologic status: Alert and oriented x 3. No focal deficits. Psych: Mood and affect normal. Vascular:??R strong??BP PT, MP AT/DP Future Appointments Tuesday 12:30 PM EDT ?? With: Ariadna Haskins Where: [facility] [place] [address]- Status: Pending Patient Discharge Condition Good, Improved Discharge Disposition Home, no services Inpatient Medications Medications (17) Active SCHEDULED: (11) Acetaminophen 325 mg Tablet (Tylenol 325 mg oral tablet) ??650 mg, By Mouth, Every 6 hours Amlodipine 10 mg Tablet (amLODIPine 10 mg oral tablet) ??10 mg, By Mouth, Daily Amphetamine-Dextroamphetamine 10 mg XR capsule (Amphetamine-Dextroamphetamine XR oral capsule) ??30mg, By Mouth, Daily Aspirin 81 mg Chew Tablet (aspirin 81 mg oral tablet, chewable) ??81 mg, By Mouth, 2 times a day Atorvastatin 80 mg Tablet (atorvastatin 80 mg oral tablet) ??80 mg, By Mouth, Daily at bedtime Bacitracin Topical 0.9 GM Ointment (UD) (Bacitracin Topical Oint) ??1 application, Topically, 4 times a day BuPROPion 150 mg SR Tablet (BuPROpion SR Tablet) ??150 mg, By Mouth, 2 times a day CeFAZolin 2 Gm Inj (ceFAZolin Inj) ??2 Gm, IV Push, Once Gabapentin 300 mg Capsule (gabapentin 300 mg oral capsule) ??600 mg, By Mouth, Daily Lidocaine 5% Ointment (Lidocaine 5% Topical) ??1 application, Topically, 4 times a day Rivaroxaban 2.5 mg Tablet (rivaroxaban 2.5 mg oral tablet) ??2.5 mg, By Mouth, 2 times a day CONTINUOUS: (1) NaCL 0.9% (1000 mL) Cont IV 1000 mL (0.9% NaCL 1000 mL) ??1,000 mL, IV Infusion, 75 mL/hr PRN: (5) Amphetamine-Dextroamphetamine 5 mg Tablet (Amphetamine-Dextroamphetamine Oral Tablet) ??10 mg, By Mouth, Daily Bacitracin Topical 0.9 GM Ointment (UD) (Bacitracin Topical Oint) ??1 application, Topically, 2 times a day Lorazepam 1 mg Tablet (LORazepam 1 mg oral tablet) ??1 mg, By Mouth, 3 times a day Ondansetron 2mg/mL Inj (2mL Vial) (Zofran Inj) ??4 mg, IV Push, Every 6 hours OxyCODONE 5 mg IR Tablet (oxyCODONE 5 mg oral tablet) ??5 mg, By Mouth, Every 6 hours Discharge Medications Acetaminophen??650 Milligram By Mouth 2 times a day Amlodipine??10 Milligram By Mouth Daily Amphetamine-Dextroamphetamine (amphetamine-dextroamphetamine 30 mg oral capsule, extended release)??30 each, 0 Refill(s), TAKE 1 CAPSULE BY MOUTH EVERY DAY FOR ADHD Aspirin (aspirin 81 mg oral [...] TIMES DAILY NEEDED FOR ANXIETY OR SLEEP rivaroxaban (rivaroxaban 2.5 mg oral tablet)??2.5 Milligram By Mouth 2 times a day for 60 Days Labs Last 24 Hours BLOOD COUNT & DIFF ? Event Name?? Event Result?? Date/Time?? WBC 10.6 k/mm3 09/28/24 01:40:00 RBC 2.95 m/mm3??Low 09/28/24 01:40:00 Hgb 8.5 Gm/dL??Low 09/28/24 01:40:00 Hct 26.8 %??Low 09/28/24 01:40:00 MCV 90.8 femtoliters 09/28/24 01:40:00 MCH 28.8 pg 09/28/24 01:40:00 MCHC 31.7 Gm/dL??Low 09/28/24 01:40:00 Platelet Count 341 k/mm3 09/28/24 01:40:00 MPV 9 femtoliters??Low 09/28/24 01:40:00 Nucleated RBC (Automated) 0 #/100 WBC'S 09/28/24 01:40:00 ? CHEM GENERAL ? Event Name?? Event Result?? Date/Time?? Sodium 139 mmol/L 09/28/24 01:40:00 Chloride 106 mmol/L 09/28/24 01:40:00 Bicarbonate Level 19 mmol/L??Low 09/28/24 01:40:00 Anion Gap 14 mmol/L 09/28/24 01:40:00 BUN 33 mg/dL??High 09/28/24 01:40:00 Creatinine-Blood 2.1 mg/dL??High 09/28/24 01:40:00 Phosphorus 3 mg/dL 09/28/24 01:40:00 Magnesium 2.2 mg/dL 09/28/24 01:40:00 ? * Antonio KESSLER, Ita Kinney: PERFORM Event Display: Patient Education/Instruction Authored Date: [id number] Inpatient Adult Discharge Instructions. [address] [address] Name: EDWINA GUTIERREZ : 1965?? Visit: 09/25/2024 05:47?? Current Date: 09/28/2024 11:21 ?? Account: [id number]?? Inpatient Adult Discharge Instructions We would like [...] and their families. Surveys are administered by [employer]. ?? If further treatment with your primary care physician or another doctor is recommended, it is important for you to keep the appointment. Call your primary care physician or return to the Emergency Department immediately if your condition worsens, fails to improve, or new symptoms develop. If you need to find a doctor, you can call [facility] charming charlie Link for a referral at [phone] or toll free at [phone] or log in to [email or web address].. ?? [facility], in keeping with [facility] guidance, no longer requires face masks [...] a health care usha of your choosing. [employer] is a website that allows you to securely view your medical information including your hospital discharge summary, office visit summaries, medications and follow-up visits. You can also request appointments, renew medications, and request access to your medical information using a health care usha of your choosing, or just ask a question. You are entitled to know the individuals who participated in your treatment. This information is available within your medical record and will be provided upon your request. You can enroll at [email or web address] or register d uring your next office visit. You have been discharged from [facility], Patient Care Unit: S15??. If you have any questions regarding these instructions, including results of studies pending, afteryou leave, please call us and we will be happy to assist you 14/02. [facility] Your Care Team Attending Physician Raymon Ricci MD?? Consulting Providers Raymon Ricci MD?? Discharging Providers Clair Greenwood NP Your Diagnosis PVD (peripheral vascular disease) Tests Performed Below is a partial list of the tests performed during your hospitalization. You may have had other tests and procedures not included in this list. Please discuss all test results with your provider. BUN CBC w/ Differential Creatinine GLUCOSE POC HOLD GREEN TUBE Lytes Magnesium Level Phosphorus Level POC Hemochron ACT-LR Potassium Level Potassium Plasma BUN?? CBC w/ Differential?? Creatinine?? Electrolytes (Lytes)?? Glucose POC?? Hold Green Top Tube (HOLD GREEN TUBE)?? Magnesium Level?? POC ACT-LR (POC Hemochron ACT-LR)?? Phosphorus Level?? Potassium Level?? Potassium Plasma?? RBCs for Surgery?? Transfuse RBCs?? Type and Screen?? Type and Screen, Use Hold Lavender?? Primary Care Provider Octavia Soto MD? Advance Directive Health Care Proxy on File Yes - Health Care Proxy Discharge Vitals Temperature: 97.5 DegF Height: 155 cm Pulse Rate: 73 bpm Weight: 71.2 kg Respiratory Rate: 18 br/min Body Mass Index:??29.64 kg/m2??High Systolic Blood Pressure: 124 mm Hg Body surface area: 1.75 Diastolic Blood Pressure: 62 mm Hg ?? Oxygen Saturation: 100 % ?? Studies Pending All studies ordered during this hospital stay have been completed unless listed below. Please discuss all pending results with your provider listed above in these instructions. ?? BUN?? CBC w/ Differential?? Creatinine?? Electrolytes (Lytes)?? Magnesium Level?? Phosphorus Level?? RBCs for Surgery?? Transfuse RBCs?? Type and Screen, Use Hold Lavender?? What to do next Instructions From Your Doctor Wound care: Apply a nickel-thick layer of Santyl to the wound, cover with dry sterile dressing and wrap in kerlix lightly (do not wrap tightly as you do have a bypass in that leg). Change once a day.You may shower; remove your dressing to do so ?? Orders? 09/28/24 11:08:00 EST?? Prescriptions??, ??09/28/24 11:08:00 EST?? Scheduled Follow-Up Appointments Tuesday 10:30 AM EDT ?? With: Gissel Barillas NP Where: [facility] [address] [place] [address]- Status: Pending Tuesday 12:30 PM EDT ?? With: Ariadna Haskins Where: [facility] [address] [place] [address]- Status: Pending You Need to Schedule the Following Appointments Follow Up with??Octavia Soto MD Where: [address] [place] [phone] (1) Follow Up with??[facility] [phone] Why: The office will contact you with the new date of your debridement procedure. You will also be seen in the office in 2 weeks for post-op follow up Discharge Medications EDWINA GUTIERREZ :1965 Visit Date:09/25/2024 Medications: Please continue your medications until treatment is completed or stopped by your provider. Medications not listed below should be discontinued. Discuss any questions related to medications with your provider. What How Much When Instructions Next Dose New rivaroxaban (rivaroxaban 2.5 mg oral tablet) 2.5 Milligram Oral Twice a day Duration: 60 Days Pickup at [facility] 3 09/28 tonight Changed Amphetamine-Dextroamphetamine (amphetamine-dextroamphetamine 30 mg oral capsule, extended release) 30 each, 0 Refill(s), TAKE 1 CAPSULE BY MOUTH EVERY DAY FOR ADHD ?? 09/29 tomorrow morning Unchanged Acetaminophen 650 Milligram Oral Twice a day 09/28 tonight Unchanged Albuterol (Ventolin HFA 108 mcg/ inh inhalation aerosol with adapter) resume home schedule Unchanged Amlodipine 10 Milligram Oral Daily 09/29 tomorrow morning Unchanged Aspirin (aspirin 81 mg oral capsule) 1 capsule Oral Twice a day 09/28 tonight Unchanged Atorvastatin (atorvastatin 80 mg oral tablet) 80 Milligram Oral Daily at Bedtime Duration: 30 Days 09/28 tonight Unchanged Buprenorphine-Naloxone (Suboxone 8 mg-2 mg Sublingual Film) 60 each, 0 Refill(s), PLACE 1 FILM SUBLINGUALLY TWICE DAILY ?? 09/28 tonight Unchanged BuPROpion (buPROPion 150 mg/ 12 hours (SR) oral tablet, extended release) 1 tab(s) Oral Twice a day Duration: 120 Days Take 1 tablet once a day for first 3 days, then take 1 tablet twice a day going forward. Stop smoking after 5-7 days of treatment ?? 09/28 tonight Unchanged Cilostazol (cilostazol 100 mg oral tablet) 1 tab(s) Oral Twice a day 09/28 tonight Unchanged Collagenase Topical (collagenase topical 250 u/ gm ointment) See instructions Topically Daily ?? 09/29 tomorrow morning Unchanged Diclofenac Topical (diclofenac 1% topical gel) 1 usha Topically 4 times a day resume home schedule Unchanged Docusate (docusate sodium 100 mg oral capsule) 1 capsule Oral Twice a day 09/28 tonight Unchanged Gabapentin (gabapentin 600 mg oral tablet) 60 each, 0 Refill(s), TAKE 1 TABLET BY MOUTH IN THE MORNING ?? 09/29 tomorrow morning Unchanged Hydromorphone (Dilaudid 4 mg oral tablet) See instructions 0.5 tablet By Mouth Every 4 hours, As needed for as needed for pain ?? as needed Unchanged Lisinopril (lisinopril 20 mg oral tablet) 90 each, 0 Refill(s), TAKE 1 TABLET BY MOUTH DAILY ?? 09/29 tomorrow morning Unchanged Lorazepam (LORazepam 1 mg oral tablet) 90 each, 0 Refill(s), TAKE 1 TABLET BY MOUTH UP TO THREE TIMES DAILY NEEDED FOR ANXIETY OR SLEEP?? as needed [facility]: [address] [place], [place] [id number] [phone] ?? What When Comments Stop Taking Amoxicillin (amoxicillin 500 mg oral capsule) 8 each, 0 Refill(s), TAKE 4 CAPSULES BY MOUTH 1 HOUR BEFORE APPOINTMENT TIME ?? Stop Taking Omeprazole (omeprazole 20 mg oral enteric coated capsule) 30 each, 0 Refill(s), TAKE 1 CAPSULE BY MOUTH DAILY ?? Stop Taking Pramipexole (pramipexole 0.5 mg oral tablet) 30 each, 0 Refill(s), TAKE 1 TABLET BY MOUTH EVERY NIGHT AT BEDTIME NEEDED FOR DEPRESSION OR RESTLESS LEGS ?? Prescription Given During Visit rivaroxaban (rivaroxaban 2.5 mg oral tablet) - 2.5 mg, By Mouth, 2 times a day, # 120 tablet, 0 Refills, [facility] 3, [address] [place] [phone]?? Laboratory Results Below is a partial list of the most recent Laboratory test results done prior to this discharge. You may have had other tests and procedures not included in this list. Please discuss all test resultswith your provider. Antibody Screen - Negative (09/27/2024) Blood Type - O Positive (09/27/2024) Est Creatinine Clearance - 22.06 mL/min (09/28/2024) RBC Available - PT (09/27/2024) RBC Unit ID - [id number] (09/27/2024) BUN (09/28/2024) ???BUN - 33 mg/dL CBC w/ Differential (09/28/2024) ???WBC - 10.6 k/mm3???RBC - 2.95 m/mm3???Hgb - 8.5 Gm/dL???Hct - 26.8 %???MCV - 90.8 femtoliters???MCH - 28.8 pg???MCHC - 31.7 Gm/dL???Platelet Count - 341 k/mm3???RDW-SD - 48.1 femtoliters???MPV - 9.0 femtoliters???Nucleated RBC (Automated) - 0.0 #/100 WBC'S???Abs. NRBC - 0.0 k/mm3???Abs. Neut - 6.7 k/mm3???Abs. Lymph - 2.6 k/mm3???Abs. Kendall - 1.1 k/mm3???Abs. Eo - 0.1 k/mm3???Abs. Baso - 0.0 k/mm3???Neut % - 63.5 %???Lymph % - 24.7 %???Kendall % - 9.9 %???Eos % - 1.2 %???Baso % - 0.3 %???Imm Gran - 0.4 %???Abs. Imm Gran - 0.0 k/mm3 Creatinine (09/28/2024) ???Creatinine-Blood - 2.10 mg/dL???Estimated GFR Creatinine - 27 ML/MIN/1.73 M2 GLUCOSE POC (09/26/2024) ???Glucose, POC - 117 mg/dL HOLD GREEN TUBE (09/26/2024) ???Hold Green Top - SPECIMEN DISCARDED AFTER 1 WEEK Lytes (09/28/2024) ???Sodium - 139 mmol/L???Potassium - 5.0 mmol/L???Chloride - 106 mmol/L???Bicarbonate Level - 19 mmol/L???Anion Gap - 14 mmol/L Magnesium Level (09/28/2024) ???Magnesium - 2.2 mg/dL Phosphorus Level (09/28/2024) ???Phosphorus - 3.0 mg/dL POC Hemochron ACT-LR (09/25/2024) ???POC ACT-LR - 215.0 seconds Potassium Level (09/26/2024) ???Potassium - 5.2 mmol/L Potassium Plasma (09/26/2024) ???Potassium Plasma - 5.5 mmol/L You will be contacted within 72 hours [...] Discharge Instructions. [employer] Patient Education - [facility]-Lower Extremity Artery Bypass Graft Discharge Instructions?? [employer] Patient Education - [facility]-Femoral Endarterectomy Post Operative Discharge Instruction?? Valuables and Belongings I fully understand and agree that [facility] accepts no responsibility for all my [...] encouraged to send valuables and belongings home. ?? Review of Valuable and Belonging List: With patient Disposition of Belongings: Valuables Locked Possessions released to: \ Date for Pt to Sign Valuables/Belongings: 09/28/24 11:09:00 ?? Other Discharge Information ? Case Management Discharge Plan?? Discharge Plan?? Discharge Level of Care at Discharge: Home/Longterm/Foster Care ?? Pulmonary Rehab Status?? Pulmonary Rehab Discharge Status?? [...] are strongly encouraged to quit. Please call [facility] charming charlie Link at [phone] or [phone]) or log in to [email or web address] for referrals to smoking cessation programs. ?? 986 Suicide & Crisis Lifeline is available 14/02 if you or someone you know needs to find a reason to keep living. By calling 959 you'll be connected to a skilled, trained counselor at a crisis center in your area. INPATIENT DISCHARGE INSTRUCTIONS SIGNATURE PAGE EDWINA GUTIERREZ Location:[facility] Registration Date and Time:09/25/2024 05:47 EST Primary Care Physician: Octavia Soto MD, Attending Physician: Keiry SALDAÑA, Raymon Pagan, I GUTIERREZEDWINA JOE, have received the above patient education materials/instructions and have verbalized understanding. If ambulance or transport services are being used I further acknowledge being givena choice of service. ?? If you need to contact me, please call me at this number: . Patient/Chemistry Lab Instructor Name: Patient/Chemistry Lab Instructor Signature: Relationship to Patient: Witness Name/Signature: Date: * Ita Alvarez RN: PERFORM, SIGN, VERIFY Event Display: Patient Education Handout Authored Date: [id number] * Ita Alvarez RN: PERFORM Event Display: Patient Education Leaflets Authored Date: [id number] Rivaroxaban ?? [id number] Rivaroxaban Brand Name(s): Xarelto? IMPORTANT WARNING: If you have atrial fibrillation (a condition in which the heart beats irregularly, increasing the chance of clots forming in the body, and possibly causing strokes) and are taking rivaroxaban to helpprevent strokes or serious blood clots, you are at a higher risk of having a stroke after you stop taking this medication. Do not stop taking rivaroxaban without talking to your doctor. Continue to take rivaroxaban even if you feel well. Be sure to refill your prescription before you run out of medication so that you will not miss any doses of rivaroxaban. If you need to stop taking rivaroxaban, your doctor may prescribe another anticoagulant (''blood thinner'') to help prevent a blood clot from forming and causing you to have a stroke. If you have epidural or spinal anesthesia or a spinal puncture while taking a 'blood thinner' such as rivaroxaban, you are at risk of having a blood clot form in or around your spine that could causeyou to become paralyzed. Tell your doctor if you have an epidural catheter that is left in your body or have or have ever had repeated epidural or spinal punctures, spinal deformity, or spinal surgery. Tell your doctor and pharmacist if you are taking medications that may cause bleeding including anticoagulants (blood thinners) such as warfarin (Jantoven), heparin, or other medications to treat or prevent blood clots and aspirin and other nonsteroidal anti-inflammatory drugs (NSAIDs) such as ibu profen (Advil, Motrin, others), indomethacin (Indocin), ketoprofen, and naproxen (Aleve, Anaprox, others). If you experience any of the following symptoms, call your doctor immediately: back pain, muscle weakness (especially in your legs and feet), numbness or tingling (especially in your legs), loss of control of your bowels or bladder, or inability to move your legs. Talk to your doctor about the risk of taking rivaroxaban. Your doctor or pharmacist will give you the video editor's patient information sheet (Medication Guide) when you begin treatment with rivaroxaban and each time you refill your prescription. Read the information carefully and ask your doctor or pharmacist if you have any questions. You can also visit the Food and Drug Administration (FDA) website (https://www.fda.gov/downloads/Drugs/DrugSafety/MII364890.pdf) or the video editor's website to obtain the Medication Guide. WHY is this medicine prescribed? Rivaroxaban is used to treat deep vein thrombosis (DVT; a blood clot, usually in the leg) and pulmonary embolism (PE; a blood clot in the lung) in adults. Rivaroxaban is also used to prevent DVT and PE from happening again after initial treatment is completed in adults. It is also used to help prevent strokes or serious blood clots in adults who have atrial fibrillation (a condition in which the heart beats irregularly, increasing the chance of clots forming in the body, and possibly causing strokes) that is not caused by heart valve disease. Rivaroxaban is also used to prevent DVT and PE in adults who are having hip replacement or knee replacement surgery or in people who are hospitalized for serious illnesses and are at risk of developing a clot due to decreased ability to move around or other risk factors. It is also used along with aspirin to lower the risk of a heart attack, stroke, or in adults with coronary artery disease (narrowing of the blood vessels that supply blood t o the heart) or peripheral arterial disease (poor circulation in the blood vessels that supply blood to the arms and legs). Rivaroxaban is also used to treat and prevent DVT and PE from happening again in children and certain infants who have received at least 5 days of initial anticoagulation (blood thinner) treatment. It is also used to prevent DVT and PE after heart surgery in children 2 yearsof age or older who have congenital heart disease (abnormality in the heart that develops before ). Rivaroxaban is in a class of medications called factor Xa inhibitors. It works by blocking theaction of a certain natural substance that helps blood clots to form. HOW should this medicine be used? Rivaroxaban comes as a tablet and a suspension (liquid) to take by mouth. When rivaroxaban is used to treat DVT or PE in adults, it is usually taken with food twice daily for 21 days, then once dailywith food. When rivaroxaban is used to prevent DVT or PE in adults, it is usually taken once daily with or without food after at least 6 months of anticoagulation (blood thinner) treatment. When rivar oxaban is used to prevent a stroke in those who have atrial fibrillation, it is usually taken once daily with the evening meal. When rivaroxaban is taken to prevent DVT and PE after hip or knee replacement surgery, it is usually taken with or without food once daily. The first dose should be taken at least 6 to 10 hours after surgery. Rivaroxaban is usually taken for 35 days after a hip replacement surgery and for 12 days after knee replacement surgery. When rivaroxaban is taken to prevent DVT and PE in adults who are hospitalized for serious illnesses and are at risk of developing a clot dueto decreased ability to move around, it is usually taken with or without food once daily starting wh en you are in the hospital and then continuing for a total of 31 to 39 days. When rivaroxaban is taken along with aspirin in adults with coronary artery disease or peripheral arterial disease, it is usually taken twice daily with or without food. When rivaroxaban is used in children and infants to treat or prevent DVT or PE, it is usually given 1 to 3 times a day with food after at least 5 days of anticoagulation (blood thinner) treatment. When rivaroxaban is taken in children 2 years of age orolder who have congenital heart disease, it is usually given 1 to 3 times a day with or without food after heart surgery. Take rivaroxaban at around the same time(s) every day. Follow the directions on your prescription label carefully, and ask your doctor or pharmacist to explain any part you do not understand. Take rivaroxaban exactly as directed. Do not take more or less of it or take it more often than prescribed by your doctor. For adults, if you are unable to swallow the tablets, you can crush them and mix with applesauce. Swallow the mixture right after you prepare it. Rivaroxaban can also be given in certain types of feeding tubes. Ask your doctor if you should take this medication in your feeding tube. Follow your doctor's directions carefully. For children taking rivaroxaban tablets, swallow the tablets whole; do not split them. If you or your child vomits or spits up within 30 minutes of taking a dose of rivaroxaban oral suspension, take another full dose as soon as possible after the vomiting episode and then take your next dose at the regularly scheduled time. To measure rivaroxaban oral suspension, follow these steps: ??? Use the oral syringe that came with the medication for measuring the liquid. Do not use a household spoon to measure your dose. Household teaspoons are not accurate measuring devices, and you mayreceive too much medication or not enough medication if you measure your dose with a household teaspoon. ??? Shake the bottle gently for 10 seconds before use. If there are remaining granules at the bottom of the bottle, shake gently again for another 10 seconds. Do not shake the bottle to avoid foaming. ??? Remove the bottle cap by pushing down on the cap, then turn it counterclockwise (to the left). Do not remove the adaptor from the top of the bottle. ??? Push all the air from the oral syringe into the bottle by pushing down on the plunger. Then insert the open tip of the oral syringe intothe adaptor. ??? While holding the oral syringe in place, carefully turn the bottle upside down. Draw some of the medication out of the bottle into the oral syringe by pulling back on the plunger. Becareful not to pull the plunger all the way out. ??? You will see a small amount of air near the end of the plunger in the oral syringe. Push on the plunger so the medication goes back into the bottle and the air disappears. Pull back on the plunger to draw your correct medication dose into the oral syringe. ??? While still holding the oral syringe in the bottle, carefully turn the bottle upwardsso the syringe is on top. Remove the oral syringe from the bottle neck adaptor without pushing on the plunger. Take the medication right after you draw it into the oral syringe. ??? Place the open tip of the oral syringe into one side of your child's mouth and push on the plunger slowly as the liquid goes into your child's mouth; have your child swallow the medication slowly as it goes into theirmouth. ??? If your dose is more than 5 mL, you will need to use the same syringe more than one timeand you will need to repeat steps 3 through 7. ??? Leave the adaptor in the bottle. Place the cap back on the bottle and turn it clockwise (to the right) to tighten it. ??? Rinse the oral syringe with clean tap water and allow it to air dry after each use. Continue to take rivaroxaban even if you feel well. Do not stop taking rivaroxaban without talking to your doctor. If you stop taking rivaroxaban, your risk of a blood clot may increase. Are there OTHER USES for this medicine? This medication may be prescribed for other uses; ask your doctor or pharmacist for more information. What SPECIAL PRECAUTIONS should I follow? Before taking rivaroxaban, ??? tell your doctor and pharmacist if you are allergic to rivaroxaban, any other medications, or any of the ingredients in rivaroxaban tablets. Ask your pharmacist for a list of the ingredients. ???tell your doctor and pharmacist what other prescription and nonprescription medications, vitamins, and nutritional supplements you are taking or plan to take. Your doctor may need to change the dosesof your medications or monitor you carefully for side effects. ??? tell your doctor what herbal products you are taking, especially Deepa's wort. ??? tell your doctor if you have an artificial heart valve or recently noticed any unusual bruising or bleeding. Your doctor will probably tell you not to take rivaroxaban. ??? tell your doctor if you have or have ever had any type of bleeding problem, antiphospholipid syndrome (APS; a condition that causes blood clots), bleeding or an ulcer in your stomach or intestine, or kidney or liver disease. ??? tell your doctor if you are , plan to become , or are . If you become while taking rivaroxaban, call your doctor. ??? talk to your doctor about the risks and benefits of taking rivaroxaban if you are 75 years of age or older. ??? if you are having surgery, including dental surgery, tell the doctor or dentist that you are taking rivaroxaban. Your doctor may tell you to stop taking rivaroxaban before the s urgery or procedure. Your doctor will tell you when you should start taking rivaroxaban again afteryour surgery. What SPECIAL DIETARY instructions should I follow? Unless your doctor tells you otherwise, continue your normal diet. What should I do IF I FORGET to take a dose? Adults: ??? If you take rivaroxaban once a day, take the missed dose as soon as you remember it on that day. Resume your regular dosing schedule the next day. ??? If you take rivaroxaban twice a day for the treatment of a DVT or PE, take the missed dose as soon as you remember it on that day. You may take 2 doses at the same time to make up for the missed dose. Resume your regular dosing schedule on the next day. ??? If you have CAD or PAD and take rivaroxaban twice a day to reduce the risk of DVT and PE and miss a dose, just continue your regular dosing schedule. Do not take a double dose to make upfor a missed one. Infants and children: ??? If you take rivaroxaban once a day, take the missed dose as soon as you remember it on that day. Resume your regular dosing schedule the next day. Do not take a double dose to make up for a missed one. ??? If you take rivaroxaban twice a day, take the missed morning dose as soon as you rememberit on that day. You may take 2 doses at the same time in the evening to make up for the missed morning dose. Resume your regular dosing schedule on the next day ??? If you take rivaroxaban three times a day and miss a dose, skip the missed dose and continue your regular dosing schedule. Do not takea double dose to make up for a missed one. What SIDE EFFECTS can this medicine cause? Some side effects can be serious. If you experience any of these symptoms or those listed in the IMPORTANT WARNING section, call your doctor immediately: ??? bloody, black, or tarry stools ??? pink, or brown urine ??? coughing up or vomiting blood or material that looks like coffee grounds ??? frequent nosebleeds ??? bleeding from your gums ??? heavy menstrual bleeding ??? weakness ??? tiredness ??? headache ??? dizziness or fainting ??? blurred vision ??? pain in arm or leg ??? rash ??? itching ??? difficulty breathing or swallowing ??? hives ???pain or swelling at wound sites ??? decreased urination ??? swelling in your legs, feet, or ankles Rivaroxaban prevents blood from clotting normally so it may take longer than usual for you to stop bleeding if you are cut or injured. This medication may also cause you to bruise or bleed more easily. Call your doctor right away if bleeding or bruising is unusual. Rivaroxaban may cause other side effects. Call your doctor if you have any unusual problems while taking this medication. If you experience a serious side effect, you or your doctor may send a report to the Food and Drug Administration's (FDA) MedWatch Adverse Event Reporting program online (https://www.fda.gov/Safety/MedWatch) or by phone ( ). What should I know about STORAGE and DISPOSAL of this medication? Keep this medication in the container it came in, tightly closed, and out of reach of children. Store it at room temperature and away from excess heat and moisture (not in the bathroom). It is important to keep all medication out of sight and reach of children as many containers (such as weekly pill minders and those for eye drops, creams, patches, and inhalers) are not child-resistant and young children can open them easily. To protect young children from poisoning, always lock safety caps and immediately place the medication in a safe location ??? one that is up and away and out of their sight and reach. https://www.upandaway.org Unneeded medications should be disposed of in special ways to ensure that pets, children, and otherpeople cannot consume them. However, you should not flush this medication down the toilet. Instead,the best way to dispose of your medication is through a medicine take-back program. Talk to your pharmacist or contact your local garbage/recycling department to learn about take-back programs in your community. See the FDA's Safe Disposal of Medicines website (https://goo.gl/c4Rm4p) for more information if you do not have access to a take-back program. What should I do in case of OVERDOSE? In case of overdose, call the poison control helpline at . Information is also available online at https://www.poisonhelp.org/help. If the victim has collapsed, had a seizure, has trouble breathing, or can't be awakened, immediately call emergency services at 521. Symptoms of overdose may include the following: ??? unusual bleeding or bruising ??? bloody, black, or tarry stools ??? blood in urine ??? coughingup or vomiting blood or material that looks like coffee grounds What OTHER INFORMATION should I know? Keep all appointments with your doctor and the laboratory. Your doctor may order certain lab tests to check your body's response to rivaroxaban. Do not let anyone else take your medication. Your prescription is probably not refillable. It is important for you to keep a written list of all of the prescription and nonprescription (utan-pql-[id number]) medicines you are taking, as well as any products such as vitamins, minerals, or otherdietary supplements. You should bring this list with you each time you visit a doctor or if you areadmitted to a hospital. It is also important information to carry with you in case of emergencies. This report on medications is for your information only, and is not considered individual patient advice. Because of the changing nature of drug information, please consult your physician or pharmacist about specific clinical use. The [place] [employer] represents that the information provided hereunder was formulated with a reasonable standard of care, and in conformity with professional standards in the field. The [place] [employer] makes no representations or warranties, express or implied, including, but not limited to, any implied warranty of merchantability and/or fitness for a particular purpose, with respect to such information and specifically disclaims all such warranties. Users are advised that decisions regarding drug therapy are complex medical decisions requiring the independent, informed decision of an appropriate health child daycare worker, and the information is provided for informational purposes only. The entire monograph for a drug should be reviewed for a thorough understanding of the drug's actions, uses and side effects. The [place] [employer] does not endorse or recommend the use of any drug.The information is not a substitute for medical care. AHFS?? Patient Medication Information???. ?? Copyright, 2023. The [place] [employer]??, [address], [address], [place], [place]. All Rights Reserved. Duplication for commercial use must be authorized by [facility]. Selected Revisions: November 06, 2022. AHFS?? Patient Medication Information???. ?? Copyright, 2024 ?? * Antonio KESSLER, Ita Kinney: PERFORM Event Display: Patient Education Leaflets Authored Date: [id number] BVS-Lower Extremity Artery Bypass Graft Discharge Instructions ?? 58 Lower Extremity Artery Bypass Graft Post Operative Discharge Instructions ?? You are being discharged from the hospital.?? Here is information related to your condition to helpyou when you get home.?? In addition, you may have been given the [facility] heart and vascular patient education book.?? This book provides written information and instruction for you to review at home with your family.? Special Instructions Post Operative Discharge Care Instructions Bathing ??? You can take a shower after you are discharged from the hospital if your incision is closed andnot draining on Post-Op Day #5.?? If you are unsteady on your feet use a shower chair.?? Do not take tub baths. ??? You may need assistance with showering the first few days or wait until you feel steady and safe on your feet.? Incision Care ??? Keep your incision clean and dry.?? Use only soapand water to cleanse the area around the incision.?? Once the incision is healed you may wash over the incision with a soft wash cloth and soap and water.? Avoid using perfumed soaps or bodywashes, lotions, creams, oils or ointments on your incision. This may irritate your incision and put you at risk for an infection. ??? Check your incision daily for drainage, redness, increased tenderness or edges pulling apart.?? Some bruising and discoloration is normal in the first week following surgery. ??? If your incision is still draining, you will learn how to apply dry clean dressings.? If you have steri strips on your incision, remove on Post-Op Day #5. ?? Limb Elevation ??? Youmay experience some leg swelling following surgery.?? If leg swelling does occur, check with your doctor for prescription elastic stockings ??? It is important that you are not sitting for long periods of time with feet down.?? Elevate your legs as much as possible. ??? If you notice swelling, eleva te your legs at or above heart level while seated.?? If swelling continues or worsens call the vascular surgery office. ?? Activity ??? Gradually increase your activity.?? This will promote wound healing.?? Remember to alternate periods of activity with periods of rest.?? Talk to your doctor beforebeginning an exercise program.? Avoid lifting anything over 10 pounds until cleared by surgeon.?? A gallon of milk is approximately 8 pounds.? It is important to continue to do the coughingand deep breathing exercises to help prevent breathing complications. ?? Driving ??? You shouldn???t drive until cleared by your vascular Surgeon.?? You may be a passenger, but avoid long rides whereyour feet are hanging down for an extended period of time. ??? Always wear a seat belt. ?? Sexual Relations ??? You may resume sexual activity as soon as you feel comfortable. ?? Emotions ??? It is common for people to feel more emotional or have difficulty concentrating or remembering after major surgery.?? These emotions may be the result of anesthesia, medications, not knowing whatto expect and difficulty doing simple tasks without becoming tired.? These feelings are temporary and usually go away as you get back to your normal routine and activities.? Pain ??? You may have some muscle or incision discomfort. You will be given prescription medication for the pain and use it if you need it.? Call the Vascular SURGEON ? For any incision redness, swelling, tenderness, drainage, or odor. ??? For a temperature of 101.5 degrees F or greater. ??? For unusual or severe leg pain, loss of sensation or movement, coldnessor discoloration of the legs, and any skin breakdown of the foot. ?? Seek care IMMEDIATELY if? You have bad pain in your abdomen, back or side unusual pain or numbness of leg, thigh or calf or sudden loss of movement in your leg ??? Your feet become very cold, or turn pale or blue ??? You have trouble breathing all of a sudden ??? Your stitches or andrew come apart of separate ??? Your incision suddenly starts bleeding and/or your dressing becomes soaked with blood ?You have signs of a heart attack:?? CALL 911 right away. You may need an ambulance to take you to the hospital. Do not drive yourself or wait for your doctor to call you back.?? Signs of a heart attack may be: o Chest pain or discomfort, including squeezing, crushing, pressure, tightness or heaviness in the chest. o Pain or discomfort in your arms, shoulders, neck, back or jaw. o Indigestion, such as heartburnand upset stomach. o Nausea (feel sick to your stomach) and vomiting (throwing up). o Pain in your abdomen (stomach). o Shortness of breath. o Sweating, weakness or fainting (passing out). Follow-up ??? A follow up appointment should be made with your surgeon for 2 weeks following discharge.?? If you do not have an appointment scheduled already, make an appointment when you get home.?? Follow upcare is important; it is strongly encouraged for you to keep your appointment. You may have more than one appointment, one with your surgeon and one with your primary care doctor. ??? Be sure to see your primary care physician 1-2 weeks after hospital discharge. ??? Ask your doctor when you can return to work. ??? If you have any questions, please call the vascular surgeons at [phone]. ??? If an artificial graft has been used, notify your physician and dentist before undergoing any procedur es.?? They may prescribe antibiotics prior to the procedure to reduce the risk of infection. ?? Heart and Vascular Healthy Living You can make style changes that can help lower your risk for heart and vascular disease.?? The following information can help you get started or maintain your current lifestyle. Diet ??? Eat a low fat, low cholesterol diet. ??? Eating 3 to 4 small meals daily may be better tolerated than 1-2 large meals daily ??? Limit caffeine and alcohol use ??? Limit the amount ofsalt in your diet Exercise ??? Routine regular or prescribed exercise is strongly encouraged. ??? Avoid strenuous exercise after meals Smoking ??? If you smoke, you are strongly encouraged to quit.? Smoking can increases blood pressure, decrease exercise tolerance and increase the tendency forblood to clot, decrease HDL (good) cholesterol and creates a higher risk for having a heart attack,stroke or other vascular events.? If you are ready to quit, please let us know; Referrals to smoking cessation programs are available. Lowering your cholesterol ??? Talk to your doctor about taking medicine for high cholesterol. Diet and exercise may not loweryour cholesterol enough. Cholesterol medicines may help prevent further cholesterol build up in thearteries. High blood pressure and diabetes ??? If you have high blood pressure or diabetes, continue with your prescribed treatments.?? These health problems if not controlled can put you at risk for having a heart attack, stroke or other vascular events. Stress ??? Stress may slow healing and cause illness later. Since it is hard to avoid stress, learn to control it. Learn new ways to relax (deep breathing, relaxing muscles, meditation, or biofeedback). Talk to your caregiver about things that upset you. ?? Medication Information Take all your medicationsas prescribed.?? Many medications have more than one name. Be sure you know the name of your medication.?? Call your physician if you have any questions after you get home.?? Keep a written list (Gradwellmedication card) of what medicines you take and when and why you take them. Bring the list of your medicines or the pill bottles when you see your caregivers. Learn why you take each medicine. Ask your caregiver for information about your medicine. Depending on your condition, you may have other medicines prescribed as part of your discharge plan of care.?? Some may include: ??? Pain Medication :?? Pain medications may be prescribed after surgery.?? Controlling your pain is important to help you heal and increase your activity level.?? One of the side effects of pain medication is constipation.?? If you are taking pain medication on a regular basis, it is important to also take a stool softener that is prescribed. Also, adding high fiber foods, fiber medicines and prune juice may help.? Antibiotics :?? You may be prescribed antibiotics following surgery.?? This medicine may be given to help you fight infection. It is important for you to finish the prescription. ??? GABE inhibitors : These are medicines that keep your blood vessels relaxed and open. They help keep oxygen-rich blood flowing into your heart. These medicines may be used to treat high blood pressure and prevent your heart muscle from weakening. ??? Aldosterone Inhibitors : These medicines prevent scar tissue from forming in your heart.?? It also helps with eliminating extra salt and water. ??? Angiotensin Receptor Blockers (ARB): These medicines lower blood pressure and prevent your heart muscle from weakening. These medicines are used for patients who can not tolerate GABE Inhibitors. ??? Beta-blockers : These medicines keep your heart pumping strongly and regularly and may also lower your blood pressure. Beta blockers lower blood pressure, prevent chest pain and irregular heart beats. ??? Digoxin: This medicine keeps your heart rate slow if your heart is in an irregular rhythm.?? Digoxin may improveactivity tolerance as well.? Diuretics: ?? These medicines help the heart work better by decrea sing the extra fluid in your body.?? Getting rid of the extra fluid will help your heart to not work so hard.?? These medicines may need to be adjusted by your doctor. ??? Vasodilators : These medicines decrease the pressure in your arteries, especially in the vessels around your heart. ??? Anti-coagulants: These medicines help keep the blood from clotting in an artery, vein or the heart. Clots can block the blood flow to your heart muscle and cause a heart attack.?? Clots can also block bloodflow to your brain, causing a stroke. ??? Anti-platelets : Anti-platelet medicines, such as aspirin, keep platelets from sticking to a damaged part of your artery. Sticky platelets may cause a blockage in your artery and keep blood from going to your heart muscle. ??? Blood pressure (Anti-hypertensives): These medicines may be given to lower your blood pressure. Keeping your blood pressure under control protects your heart, lungs, brain, kidneys, and other organs. ??? Cholesterol lowering medicines: These help to lower cholesterol that causes coronary (heart) artery disease. ??? Diabetes medicines : These may be given to control the amount of sugar in your blood. It helps your body move thesugar from the blood to your cells, where it is needed for energy. ??? Nitroglycerin: This medicinemay also be called nitro. Nitroglycerin opens the arteries to your heart so the heart gets more oxygen. Nitroglycerin can be given in an IV, by mouth, or put on your body as a patch or paste. ? * Antonio KESSLER, Ita Kinney: PERFORM Event Display: Patient Education Leaflets Authored Date: [id number] BVS-Femoral Endarterectomy Post Operative Discharge Instruction ?? 54 Femoral Endarterectomy Post Operative Discharge Instructions ?? You are being discharged from the hospital.?? Here is information related to your condition to helpyou when you get home.?? In addition, you may have been given the [facility] heart and vascular patient education book.?? This book provides written information and instruction for you to review at home with your family.? Special Instructions Post Operative Discharge Care Instructions Bathing ??? You can take a shower after you are discharged from the hospital if your incision is closed andnot draining on Post-Op Day #5. If you are unsteady on your feet use a shower chair.?? Do not take tub baths. ??? You may need assistance with showering the first few days or wait until you feel steady and safe on your feet. ?? Incision Care ??? Keep your incision clean and dry.?? Use only soap andwater to cleanse the area around the incision.?? Once the incision is healed you may wash over the incision with a soft wash cloth and soap and water.? Avoid using perfumed soaps or body washes, lotions, creams, oils or ointments on your incision. This may irritate your incision and put you at risk for an infection. ??? Check your incision daily for drainage, redness, increased tenderness or edges pulling apart.?? Some bruising and discoloration is normal in the first week following surgery. ??? If your incision is still draining, you will learn how to apply dry clean dressings.? If you have steri strips on your incision, remove them on Post-Op Day #5. ?? Limb Elevation ??? You may experience some leg swelling following surgery.?? If leg swelling does occur, check with your doctor for prescription elastic stockings ??? It is important that you are not sitting for long periods of time with feet down.?? Elevate your legs as much as possible. ??? If you notice swelling, elevate your legs at or above heart level while seated.?? If swelling continues or worsens call the vascular surgery office. ?? Activity ??? Gradually increase your activity.?? This will promote wound healing.?? Remember to alternate periods of activity with periods of rest.?? Talk to your doctor before beginning an exercise program.? Avoid lifting anything over 10 pounds until cleared by surgeon.?? A gallon of milk is approximately 8 pounds.? It is important to continue to do the coughing and deep breathing exercises to help prevent breathing complications. ?? Driving ??? You shouldn???t drive until cleared by your vascular Surgeon.?? You may be a passenger, but avoid long rides where your feet are hanging down for an extended period of time. ??? Always wear a seat belt. ?? Sexual Relations ??? You may resume sexual activity as soon as you feel comfortable. ?? Emotions ??? It is common for people to feel more emotional or have difficulty concentrating or remembering after major surgery.?? These emotions may be the result of anesthesia, medications, not knowing whatto expect and difficulty doing simple tasks without becoming tired.? These feelings are temporary and usually go away as you get back to your normal routine and activities.? Pain ??? You may have some muscle or incision discomfort. You will be given prescription medication for the pain and use it if you need it.? Call the Vascular SURGEON ? For any incision redness, swelling, tenderness, drainage, or odor. ??? For a temperature of 101.5 degrees F or greater. ??? For unusual or severe leg pain, loss of sensation or movement, coldnessor discoloration of the legs, and any skin breakdown of the foot. ?? Seek care IMMEDIATELY if? You have bad pain in your abdomen, back or side unusual pain or numbness of leg, thigh or calf or sudden loss of movement in your leg ??? Your feet become very cold, or turn pale or blue ??? You have trouble breathing all of a sudden ??? Your stitches or andrew come apart of separate ??? Your incision suddenly starts bleeding and/or your dressing becomes soaked with blood ?You have signs of a heart attack:?? CALL 911 right away. You may need an ambulance to take you to the hospital. Do not drive yourself or wait for your doctor to call you back.?? Signs of a heart attack may be: o Chest pain or discomfort, including squeezing, crushing, pressure, tightness or heaviness in the chest. o Pain or discomfort in your arms, shoulders, neck, back or jaw. o Indigestion, such as heartburnand upset stomach. o Nausea (feel sick to your stomach) and vomiting (throwing up). o Pain in your abdomen (stomach). o Shortness of breath. o Sweating, weakness or fainting (passing out). Follow-up ??? A follow up appointment should be made with your surgeon for 2 weeks following discharge.?? If you do not have an appointment scheduled already, make an appointment when you get home.?? Follow upcare is important; it is strongly encouraged for you to keep your appointment. You may have more than one appointment, one with your surgeon and one with your primary care doctor. ??? Be sure to see your primary care physician 1-2 weeks after hospital discharge. ??? Ask your doctor when you can return to work. ??? If you have any questions, please call the vascular surgeons at [phone]. ?? Heart and Vascular Healthy Living You can make style changes that can help lower your risk for heart and vascular disease.?? The following information can help you get started or maintain your current lifestyle. Diet ??? Eat a low fat, low cholesterol diet. ??? Eating 3 to 4 small meals daily may be better tolerated than 1-2 large meals daily ??? Limit caffeine and alcohol use ??? Limit the amount of salt in your diet Exercise ??? Routine regular or prescribed exercise is strongly encouraged. ???Avoid strenuous exercise after meals Smoking ??? If you smoke, you are strongly encouraged to quit.? Smoking can increases blood pressure, decrease exercise tolerance and increase the tendency for blood to clot, decrease HDL (good) cholesterol and creates a higher risk for having a heart attack, stroke or other vascular events.? If you are ready to quit, please let us know; Referrals tosmoking cessation programs are available. Lowering your cholesterol ??? Talk to your doctor about taking medicine for high cholesterol. Diet and exercise may not loweryour cholesterol enough. Cholesterol medicines may help prevent further cholesterol build up in thearteries. High blood pressure and diabetes ??? If you have high blood pressure or diabetes, continue with your prescribed treatments.?? These health problems if not controlled can put you at risk for having a heart attack, stroke or other vascular events. Stress ??? Stress may slow healing and cause illness later. Since it is hard to avoid stress, learn to control it. Learn new ways to relax (deep breathing, relaxing muscles, meditation, or biofeedback). Talk to your caregiver about things that upset you. ?? Medication Information Take all your medicationsas prescribed.?? Many medications have more than one name. Be sure you know the name of your medication.?? Call your physician if you have any questions after you get home.?? Keep a written list (Gradwellmedication card) of what medicines you take and when and why you take them. Bring the list of your medicines or the pill bottles when you see your caregivers. Learn why you take each medicine. Ask your caregiver for information about your medicine. Depending on your condition, you may have other medicines prescribed as part of your discharge plan of care.?? Some may include: ??? Pain Medication :?? Pain medications may be prescribed after surgery.?? Controlling your pain is important to help you heal and increase your activity level.?? One of the side effects of pain medication is constipation.?? If you are taking pain medication on a regular basis, it is important to also take a stool softener that is prescribed. Also, adding high fiber foods, fiber medicines and prune juice may help.? Antibiotics :?? You may be prescribed antibiotics following surgery.?? This medicine may be given to help you fight infection. It is important for you to finish the prescription. ??? GABE inhibitors : These are medicines that keep your blood vessels relaxed and open. They help keep oxygen-rich blood flowing into your heart. These medicines may be used to treat high blood pressure and prevent your heart muscle from weakening. ??? Aldosterone Inhibitors : These medicines prevent scar tissue from forming in your heart.?? It also helps with eliminating extra salt and water. ??? Angiotensin Receptor Blockers (ARB): These medicines lower blood pressure and prevent your heart muscle from weakening. These medicines are used for patients who can not tolerate GABE Inhibitors. ??? Beta-blockers : These medicines keep your heart pumping strongly and regularly and may also lower your blood pressure. Beta blockers lower blood pressure, prevent chest pain and irregular heart beats. ??? Digoxin: This medicine keeps your heart rate slow if your heart is in an irregular rhythm.?? Digoxin may improveactivity tolerance as well.? Diuretics: ?? These medicines help the heart work better by decrea sing the extra fluid in your body.?? Getting rid of the extra fluid will help your heart to not work so hard.?? These medicines may need to be adjusted by your doctor. ??? Vasodilators : These medicines decrease the pressure in your arteries, especially in the vessels around your heart. ??? Anti-coagulants: These medicines help keep the blood from clotting in an artery, vein or the heart. Clots can block the blood flow to your heart muscle and cause a heart attack.?? Clots can also block blood flow to your brain, causing a stroke. ??? Anti-platelets : Anti-platelet medicines, such as aspirin,keep platelets from sticking to a damaged part of your artery. Sticky platelets may cause a blockage in your artery and keep blood from going to your heart muscle. ??? Blood pressure (Anti-hypertensives): These medicines may be given to lower your blood pressure. Keeping your blood pressure under control protects your heart, lungs, brain, kidneys, and other organs. ??? Cholesterol lowering medicines: These help to lower cholesterol that causes coronary (heart) artery disease. ??? Diabetes medicines : These may be given to control the amount of sugar in your blood. It helps your body move the sugar from the blood to your cells, where it is needed for energy. ??? Nitroglycerin: This medicine may also be called nitro. Nitroglycerin opens the arteries to your heart so the heart gets more oxygen. Nitroglycerin can be given in an IV, by mouth, or put on your body as a patch or paste. ? Patient Care team information Care Team Personnel Name: Daxa Clifton RN Position: [facility] RN Member Role: Primary Care Nurse Name: Missy Mendoza Position: [facility] Outreach Member Role: Lifetime Consulting Physician Name: Erick Reed MD Position: [facility] Renal MD Member Role: Lifetime Consulting Physician Address: [address] [place] [address] [address] [facility] [address] Telecom: Name: Tyrell Barros RN Position: [facility] RN Member Role: Primary Care Nurse Name: Juan Murillo MD Position: [facility] Renal MD Member Role: Lifetime Consulting Physician Address: [address] [facility] [place] [address]- [place] Telecom: Name: Art De La Garza RN Position: [facility] RN Member Role: Primary Care Nurse Name: Ainsley Rachel RN Position: S RN Member Role: Primary Care Nurse Name: Octavia Soto MD Position: Reference Physician Member Role: PCP Address: [address] [place] [address]- Telecom: Name: Alva Isidro RN Position: [facility] RN Member Role: Primary Care Nurse Care Team Related Persons Name: MALKA GUTIERREZ Name: JOHN MARTIN Name: PT STATES NO ONE, NO ONE Insurance Providers Guarantor name: EDWINA GUTIERREZ Health Plan Information #: 1 Payer: [employer] Member Number: [id number] Policy Number: NA Group Number: [employer] Health Plan Information #: 2 Payer: [employer] Member Number: [id number] Policy Number: NA Group Number: NA Health Plan Information #: 3 Payer: [place] Member Number: NA Policy Number: NA Group Number: NA
--- OUTSIDE RECORDS SUMMARY | 2024-10-05 10:28 | XMS_ITS | Continuity of Care Document ---
Author Organization [facility] Address [address] [place] [address]- Care Team Providers Care Casting Carrier Name Role Phone Po Octavia SALDAÑA Primary Care Physician Encounter [facility] [place] Date(s): 08/17/24 - 09/16/24 [facility] [address] [place] [id number] Attending Physician: Judith Watt Admitting Physician: Judith Watt Referring Physician: Judith Watt Encounter Type: Triage Allergies, Adverse Reactions, Alerts [...] Refills, Maintenance, 09/15/24 10:46:00 AM EST, Tablet, [facility] 3, Partial fill upon patient request [...] Refills,Maintenance, 08/02/24 12:38:00 PM EST, ER Tablet, [id number], Partial fill upon patient request if the [...] PM EDT, 09/15/24 10:46:00 AM EST, Ointment, [facility], Partial fill upon patient [...] PM EST, 09/15/24 11:31:00 AM EST, Tablet, [facility], Partial fill upon patient [...] 0 Refills, Maintenance, 09/15/24 10:47:00AM EST, Capsule, [facility], Partial fill upon patient [...] Care Team Personnel Name: Missy Mendoza Position: [facility] Outreach Member Role: Lifetime Consulting Physician Name: Erick Reed MD Position: [facility] Renal MD Member Role: Lifetime Consulting Physician Address: [address] [place] [address] [address] [facility] [place] [address]- Telecom: Name: Juan Murillo MD Position: [facility] Renal MD Member Role: Lifetime Consulting Physician Address: [address] [facility] [place] [address]- Telecom: Name: Ainsley Rachel RN Position: S RN Member Role: Primary Care Nurse Name: Octavia Soto MD Position: Reference Physician Member Role: PCP Address: [address] [place] [address]- Telecom: Name: Alva Isidro RN Position: S RN Member Role: Primary Care Nurse Care Team Related Persons Name: MALKA GUTIERREZ Name: JOHN MARTIN Name: PT STATES NO ONE, NO ONE Insurance Providers Guarantor name: RASHAD BRENDA Health Plan Information #: 1 Payer: [facility] CARE ALLIANCE/ONE CARE Member Number: NA Policy Number: NA Group Number: NA Health Plan Information #: 2 Payer: [place] Member Number: NA Policy Number: NA Group Number: NA
--- OUTSIDE RECORDS SUMMARY | 2024-10-05 10:28 | XMS_ITS | Encounter Summary ---
Author Organization [facility] Address [address] [place] [address] Phone Care Team Providers Care Stamp Pad Maker Name Role Phone Octavia Soto MD Primary Care Provider [phone] Encounter Details Date Type Department Care Team (Late st Contact Info) Description 02/13/2024 Documentation Only [facility] [place], [address] [address] Missy Mendoza [address] [place] [address] Social History Tobacco Use Types [...] on filedocumented in this encounter Care Teams Stamp Pad Maker Relationship Specialty Start Date End Date Octavia Soto MD [address] [place], [place] PCP - General 08/04/20 documented as of this encounter
--- OUTSIDE RECORDS SUMMARY | 2024-10-05 10:28 | XMS_ITS | Encounter Summary ---
Author Organization [facility] Address [address] [place] [address] Phone Care Team Providers Care Perioperative Educator Name Role Phone Octavia Soto MD Primary Care Provider [phone] Encounter Details Date Type Department Care Team (Late st Contact Info) Description 07/13/2024 Documentation Only [facility] [place], [address] [place] [address] Missy Mendoza [address] [place] [address] Social History Tobacco Use Types [...] on filedocumented in this encounter Care Teams Perioperative Educator Relationship Specialty Start Date End Date Octavia Soto MD [address] [place], [place] PCP - General 08/04/20 documented as of this encounter
--- OUTSIDE RECORDS SUMMARY | 2024-10-05 10:28 | XMS_ITS | Encounter Summary ---
Author Organization [facility] Address [address] [place] [address] Phone Care Team Providers Care Crochet Machine Operator Name Role Phone Octavia Soto MD Primary Care Provider [phone] Encounter Details Date Type Department Care Team (Late st Contact Info) Description 11/11/2022 Documentation Only [facility] [place], [address] [place] [address] Octavia Soto MD [facility] [address] [place] [address] Social History Tobacco Use Types Packs/Day Years [...] on filedocumented in this encounter Care Teams Crochet Machine Operator Relationship Specialty Start Date End Date Ocatvia Soto MD [facility] OR [address] [place] [address] PCP - General 08/04/20 documented as of this encounter
--- OUTSIDE RECORDS SUMMARY | 2024-10-05 10:28 | XMS_ITS | Continuity of Care Document ---
Author Organization [facility] Address [address] [place] [address]- Care Team Providers Care Knitter Operator Name Role Phone Po Octavia SALDAÑA Primary Care Physician [phone] [place] [facility] [place]): [place]03[place]24 - 10/03/24 [facility] [address] [place] [id number] Encounter Type: Triage Allergies, Adverse Reactions, Alerts [...] Date: 10/29/22 Status: Ordered Repeat number: 1 amphetamine-dextroamphetamine 30 [...] Refills, Maintenance, 09/15/24 10:46:00 AM EST, Tablet, [facility] 3, Partial fill upon patient [...] Refills,Maintenance, 08/02/24 12:38:00 PM EST, ER Tablet, [id number], Partial fill upon patient request if the [...] PM EDT, 09/15/24 10:46:00 AM EST, Ointment, [facility], Partial fill upon patient [...] hours, # 21 tablet, 0 Refills, Maintenance, 10/02/24 2:10:00 PM EDT, Tablet, [id number], Partial fill upon patient request if the prescription is for a schedule II opioid drug., 155, cm, 09/28/24 11:09:00 EST, Height, 71.4, kg, 09/26/24 2:00:00 EST, Dry Weight Start Date: 10/02/24 Status: Ordered Quantity: 21.0 Unit: tablet Repeat number: 1 docusate sodium 100 mg oral capsule 1 capsule = 100 mg, By Mouth, 2 times a day, # 20 capsule, 0 Refills, Maintenance, 09/15/24 10:47:00AM EST, Capsule, [facility], Partial fill upon patient [...] Date: 05/16/24 Status: Ordered Repeat number: 1 rivaroxaban 2.5 mg oral tablet = 2.5 mg, By Mouth, 2 times a day, # 120 tablet, 0 Refills, Maintenance, 09/28/24 11:00:00 AM EST, Tablet, [facility], Partial fill upon patient request [...] Team Personnel Name: Daxa Clifton RN Position: [facility] RN Member Role: Primary Care Nurse Name: Missy Mendoza Position: [facility] Outreach Member Role: Lifetime Consulting Physician Name: Erick Reed MD Position: [facility] Renal MD Member Role: Lifetime Consulting Physician Address: [address] [place] [address] [address] [facility] [place] [address]- Telecom: Name: Tyrell Barros RN Position: S RN Member Role: Primary Care Nurse Name: Juan Murillo MD Position: [facility] Renal MD Member Role: Lifetime Consulting Physician Address: [address] [place] [address] [address] [facility] [place] [address]- Telecom: Name: Art De La Garza RN Position: S RN Member Role: Primary Care Nurse Name: Ainsley Rachel RN Position: S RN Member Role: Primary Care Nurse Name: Octavia Soto MD Position: Reference Physician Member Role: PCP Address: [address] [place], [place] [address] Telecom: Name: Alva Isidro RN Position: S RN Member Role: Primary Care Nurse Care Team Related Persons Name: MALKA GUTIERREZ Name: JOHN MARTIN Name: PT STATES NO ONE, NO ONE Insurance Providers Guarantor name: RASHAD [facility] Plan Information #: 1 Payer: [facility] Member Number: NA Policy Number: NA Group Number: NA
--- OUTSIDE RECORDS SUMMARY | 2024-10-05 10:28 | XMS_ITS | Encounter Summary ---
Author Organization [facility] Address [address] [place] [address] Phone Care Team Providers Care Satellite Dish Technician Name Role Phone Octavia Soto MD Primary Care Provider [phone] Encounter Details Date Type Department Care Team (Late st Contact Info) Description 01/19/2023 Documentation Only [facility] [place], [address] [place] [address] Octavia Soto MD [facility] [address] [place] [address] Social History Tobacco Use Types Packs/Day Years [...] on filedocumented in this encounter Care Teams Satellite Dish Technician Relationship Specialty Start Date End Date Octavia Soto MD [facility] [address] [place] [address] PCP - General 08/04/20 documented as of this encounter
--- OUTSIDE RECORDS SUMMARY | 2024-10-05 10:28 | XMS_ITS | Clinical Summary ---
Author Organization [facility] Address [address] [place] [address] Phone Care Team Providers Care Choker Hooker Name Role Phone Octavia Soto MD Primary Care Provider [phone] Allergies Active Allergy Reactions Criticality Noted Date Comments Codeine Rash,Other (see comments) Medium 12/09/2020 Ibuprofen 10/20/2023 Methotrexate Hives 07/21/2021 Other 10/20/2023 Other Environmental Allergy seasonal Medications amLODIPine (NORVASC) 10 MG tablet Take 10 mg by mouth 1 (one) time each day Active gabapentin (NEURONTIN) 600 MG tablet Take 600 mg by mouth 1 (one) time each day 05/28/2020 Active acetaminophen (TYLENOL) 325 MG tablet Take 1-2 tablets by mouth in the morning and 1 tablet by mouth in the evening Active amphetamine-dex troamphetamine (ADDERALL) 10 MG tablet Take 10 mg by mouth 1 (one) time each day Active lisinopril 20 MG tablet Take 20 mg by mouth 1 (one) time each day Active buprenorphine-n aloxone (SUBOXONE) 8-2 MG per SL tablet Place 1 tablet under the tongue 1 (one) time each day Active aspirin (ST LAURIE) 81 MG EC tablet Take 81 mg by mouth 1 (one) time each day Active Active Problems Problem Noted Date Diagnosed Date Hypertension 10/20/2023 Chronic kidney disease, stage 4 (severe) 024 Proteinuria 12/08/2020 Peripheral vascular disease Resolved Problems Problem Noted Date Diagnosed Date Resolved Date Rheumatoid arthritis 12/08/2020 024 Encounters Date Type Department Care Team Description 10/02/2024 Telephone [facility] [place], [address] [place] [address] Reji, Missy 09/04/2024 Documentation Only [facility] [address] [place] [address] Reji, Missy 08/07/2024 Telephone [facility] [address] [place] [address] Reji, Missy 07/23/2024 Documentation Only [facility] [address] [place] [address] Reji, Missy 07/23/2024 Documentation Only [facility] [address] [place] [address] Reji, Missy 07/19/2024 Telephone [facility] [address] [place] [address] Reji, Missy 07/13/2024 Documentation Only [facility] [address] [place] [address] Reji, Missy 07/13/2024 Documentation Only [facility] [address] [place] [address] Reji, Missy 07/13/2024 Documentation Only [facility] [address] [place] [address] Reji, Missy 07/13/2024 Telephone [facility] [address] [place] [address] Reji, Missy from Last 3 Months Immunizations Name Administration Dates Next Due Influenza, Quadrivalent, Preservative Free 05/04,04/21/2018 Influenza, Unspecified 05/25/2021 Pneumococcal Polysaccharide 06/07/2019 TD Preservative Free 03/22/2017,03/23/2012 Family History Relation Status Comments Father Mother Social History Tobacco Use Types Packs/Day Years Used Date Smoking Tobacco: Every Day Cigarettes Smokeless Tobacco: Never Comments Unknown Sex and Gender Information Value Date Recorded Sex Assigned at Not on file Legal Sex Female 4:55 PM EST Gender Identity Not on file Sexual Orientation Not on file Last Filed Vital Signs Vital Sign Reading Time Taken Comments Blood Pressure 99/69 05/12/2023 4:22 PM EDT Pulse 93 05/12/2023 4:22 PM EDT Temperature - - Respiratory Rate - - Oxygen Saturation 97% 06/26/2020 12:00 PM EST Inhaled Oxygen Concentration - - Weight 69.7 kg (153 lb 9.6 oz) 06/26/2020 12:00 PM EST Height 160 cm (5' 3 ) 06/26/2020 12:00 PM EST Body Mass Index 27.21 06/26/2020 12:00 PM EST Plan of Treatment Health Maintenance Due Date Last Done Comments Breast Cancer Screening 1965 Hepatitis B Vaccine (1 of 3 - 19+ 3-dose series) 1984 Colorectal Cancer Screening: Annual FOBT 2014 Colorectal Cancer Screening: Colonoscopy 2014 Colorectal Cancer Screening: Sigmoidoscopy 2014 Pneumococcal Vaccine: Pediat rics (0 to 5 Years) and At-Risk Patients (6 to 64 Years) (2 of 2 - PCV) 06/07/2020 06/07/2019 Influenza Vaccine (#1) 2024 , 05/04/2021, 04/21/2018 Insurance [facility] ([id number]) VANESSA LANGE [id number] [employer] DUAL SNP ([id number]) Care Teams Choker Hooker Relationship Specialty Start Date End Date Octavia Soto MD [address] [place] PCP - General 08/04/20
--- OUTSIDE RECORDS SUMMARY | 2024-10-05 10:28 | XMS_ITS | Continuity of Care Document ---
Author Organization [facility] Address [address] [place] [address]- Care Team Providers Care Motion Picture Cameraman Name Role Phone Po Octavia SALDAÑA Primary Care Physician Encounter [facility] [place] Date(s): 08/22/24 - 09/21/24 [facility] [address] [place] [id number] Encounter Type: Triage Allergies, Adverse Reactions, [...] Refills, Maintenance, 09/15/24 10:46:00 AM EST, Tablet, [facility] 3, Partial fill upon patient request [...] Refills,Maintenance, 08/02/24 12:38:00 PM EST, ER Tablet, [facility][id number], Partial fill upon patient request if the [...] PM EDT, 09/15/24 10:46:00 AM EST, Ointment, [facility], Partial fill upon patient [...] PM EST, 09/15/24 11:31:00 AM EST, Tablet, [facility], Partial fill upon patient request if the prescription is for a schedule II opioid drug., 155, cm, 09/15/24 8:47:00 EST, Height, 63.9, kg, 09/14/24 23:43:00 EST, Dry Weight Start Date: 09/15/24 Stop Date: 09/22/24 Status: Ordered Quantity: 21.0 Unit: tablet Repeat number: 1 Dilaudid 4 mg oral tablet See Instructions, PRN as needed for pain, 0.5 tablet By Mouth Every 4 hours, # 21 tablet, 0 Refills, Maintenance, 09/21/24 5:12:00 PM EST, Tablet, [facility], Partial fill upon patient [...] 0 Refills, Maintenance, 09/15/24 10:47:00AM EST, Capsule, [facility], Partial fill upon patient [...] Care Team Personnel Name: Missy Mendoza Position: [facility] Outreach Member Role: Lifetime Consulting Physician Name: Erick Reed MD Position: [facility] Renal MD Member Role: Lifetime Consulting Physician Address: [address] [facility] [address] [facility] [place] [address]- Telecom: Name: Juan Murillo MD Position: [facility] Renal MD Member Role: Lifetime Consulting Physician Address: [address] [facility] [address] [facility] [address] [facility] [place] [address] [place] Telecom: Name: Ainsley Rachel RN Position: [facility] RN Member Role: Primary Care Nurse Name: Octavia Soto MD Position: Reference Physician Member Role: PCP Address: [address] [place] [address] [place] Telecom: Name: Alva Isidro RN Position: [facility] RN Member Role: Primary Care Nurse Care Team Related Persons Name: MALKA GUTIERREZ Name: JOHN MARTIN Name: PT STATES NO ONE, NO ONE Insurance Providers Guarantor name: RASHAD GUTIERREZ Health Plan Information #: 1 Payer: [facility] CARE ALLIANCE/ONE CARE Member Number: NA Policy Number: NA Group Number: NA Health Plan Information #: 2 Payer: [place] Member Number: NA Policy Number: NA Group Number: NA
--- OUTSIDE RECORDS SUMMARY | 2024-10-05 10:28 | XMS_ITS | Encounter Summary ---
Author Organization [facility] Address [address] [place] [address] Phone Care Team Providers Care Heel Reducer Name Role Phone Octavia Soto MD Primary Care Provider [phone] Encounter Details Date Type Department Care Team (Late st Contact Info) Description 02/14/2024 Documentation Only [facility] [place], [address] [place] [address] Missy Mendoza [address] [place] [address] Social History Tobacco Use Types [...] on filedocumented in this encounter Care Teams Heel Reducer Relationship Specialty Start Date End Date Octavia Soto MD [address] [place], [place] PCP - General 08/04/20 documented as of this encounter
--- OUTSIDE RECORDS SUMMARY | 2024-10-05 10:28 | XMS_ITS | Encounter Summary ---
Author Organization [facility] Address [address] [place] [address] Phone Care Team Providers Care Cryptography Teacher Name Role Phone Octavia Soto MD Primary Care Provider [phone] Encounter Details Date Type Department Care Team (Late st Contact Info) Description 02/13/2024 Documentation Only [facility] [place], [address] [place] [address] Missy Mendoza [address] [place] [address] Social History Tobacco Use Types [...] on filedocumented in this encounter Care Teams Cryptography Teacher Relationship Specialty Start Date End Date Octavia Soto MD [address] [place], [place] PCP - General 08/04/20 documented as of this encounter
--- OUTSIDE RECORDS SUMMARY | 2024-10-05 10:28 | XMS_ITS | Encounter Summary ---
Author Organization [facility] Address [address] [place] [address] Phone Care Team Providers Care Specimen Collector Name Role Phone Octavia Soto MD Primary Care Provider [phone] Encounter Details Date Type Department Care Team (Late st Contact Info) Description 07/13/2024 Documentation Only [facility] [place], [address] [place] [address] Missy Mendoza [address] [place] [address] Social History Tobacco Use Types [...] on filedocumented in this encounter Care Teams Specimen Collector Relationship Specialty Start Date End Date Octavia Soto MD [address] [place], [place] PCP - General 08/04/20 documented as of this encounter
--- OUTSIDE RECORDS SUMMARY | 2024-10-05 10:28 | XMS_ITS | Encounter Summary ---
Author Organization [facility] Address [address] [place] [address] Phone Care Team Providers Care Unit Assembler Name Role Phone Octavia Soto MD Primary Care Provider [phone] Encounter Details Date Type Department Care Team (Late st Contact Info) Description 07/23/2024 Documentation Only [facility] [place], [address] [place] [address] Missy Mendoza [address] [place] [address] Social History Tobacco Use Types [...] on filedocumented in this encounter Care Teams Unit Assembler Relationship Specialty Start Date End Date Octavia Soto MD [address] [place], [place] PCP - General 08/04/20 documented as of this encounter
--- OUTSIDE RECORDS SUMMARY | 2024-10-05 10:29 | XMS_ITS | Continuity of Care Document ---
Author Organization [facility] Address [address] [place] [address]- Care Team Providers Care Cnc Programmer Name Role Phone Octavia Soto MD Primary Care Physician [id number] Date(s): 08/31/24 - 09/07/24 [facility] [address] [place] [address] Encounter Diagnosis Atherosclerosis of extremity with rest pain(Discharge Diagnosis) - 08/28/24 CKD (chronic kidney disease) stage 4, GFR 15-29 ml/min(Discharge Diagnosis) - 08/28/24 Tobacco use(Discharge Diagnosis) - 08/31/24 Attending Physician: Raymon Ricci MD Admitting Physician: Raymon Ricci MD Referring Physician: Octavia Soto MD Encounter Type: Office Visit Allergies, Adverse Reactions, Alerts Substance Criticality Severity [...] Date: 10/29/22 Status: Ordered Repeat number: 1 buPROPion 150 mg/12 hours (SR) oral tablet, extended release 1 tablet = 150 mg, By Mouth, 2 times a day, Take 1 tablet once a day for first 3 days, then take 1 tablet twice a day going forward. Stop smoking after 5-7 days of treatment, # 240 tablet, 0 Refills,Maintenance, 08/02/24 12:38:00 PM EST, ER Tablet, [facility] #[id number], Partial fill upon patient request if the [...] Date: 09/22/23 Status: Ordered Repeat number: 1 diclofenac 1% topical gel 1 application, Topically, 4 times a day, # 100 Gm, 0 Refills, Maintenance, 10/29/22 4:14:00 PM EDT, Gel, Partial fill upon patient request if the prescription is for a schedule II opioid drug. Start Date: 10/29/22 Status: Ordered Quantity: 100.0 Unit: g Repeat number: 1 doxycycline monohydrate 100 mg [...] Date: 05/16/24 Status: Ordered Repeat number: 1 Iodosorb 0.9% topical gel See Instructions, Apply to wound of Right leg every other day., # 40 Gm, 1 Refills, Maintenance, 07/16/24 4:23:00 PM EST, Partial fill upon patient request if the prescription is for a schedule II opioid drug. Start Date: 07/16/24 Status: Ordered Quantity: 40.0 Unit: g Repeat number: 2 lidocaine 4% topical cream 1 application, Topically, 2 times a day, Apply to leg ulcer twice a day if needed, # 30 Gm, 0 Refills, Acute 09/10/24 9:48:00 AM EST, 08/27/24 9:47:00 AM EST, Cream, [facility] #[id number], Partialfill upon patient request if the prescription is for a schedule II opioid drug., 1 application Topically 2 times a day,Instr:Apply to leg ulcer twice a day if needed, 160, cm, 07/31/24 13:36:00 EST, Height, 66.8, kg, 06/20/24 7:22:00 EST, Dry Weight Start Date: 08/27/24 Stop Date: 09/10/24 Status: Ordered Quantity: 30.0 Unit: g Repeat number: 1 lisinopril 20 mg oral [...] oxyCODONE 5 mg oral tablet 5 mg, 1, tablet, By Mouth, Every 6 hours, PRN, # 45 tablet, Refills 0, Tot. Refills 0, Acute :57:00 PM EST, for pain, 08/31/24 1:57:00 PM EST, [id number], Partial fill upon patient request if the prescription is for a schedule II opioid drug., 160, cm, 08/31/24 13:46:00 EST, Height, 66.8, kg, 06/20/24 7:22:00 EST, Dry Weight Start Date: 08/31/24 Stop Date: 09/28/24 Status: Ordered Quantity: 45.0 Unit: tablet Repeat number: 1 pramipexole 0.5 mg oral [...] pain Confirmed Active Tobacco use Confirmed Active Diagnosis Diagnosis Type Effective Dates Health Status Clinical Service Informant Atherosclerosis of extremity with rest pain Discharge Diagnosis 08/28/24 CKD (chronic kidney disease) stage 4, GFR 15-29 ml/min Discharge Diagnosis 08/28/24 Tobacco use Discharge Diagnosis 08/31/24 Vital Signs Most recent to oldest [Reference Range]: 1 Height 160 cm (08/31/24 1:46 PM) Weight 63.50 kg (08/31/24 1:46 PM) Oxygen Saturation [94-100 %] 98 % (08/31/24 1:46 PM) Pulse Rate [55-90 bpm] 72 bpm (08/31/24 1:46 PM) Body Mass Index [18.5-24.99 kg/m2] 24.8 kg/m2 (08/31/24 1:46 PM) Blood Pressure [90-138/55-84 mm Hg] 120/ 76mm Hg (08/31/24 1:46 PM) Mode of Delivery (Oxygen) Room air (08/31/24 1:46 PM) Blood pressure sites Arm, right (08/31/24 1:46 PM) Social History Social History Type Response Smoking Status 10 or more cigarette s (1/2 pack or more)/day in last 30 days entered on: 05/29/24 Sex Sex Representation Female (finding) Note * Andres Choudhary: PERFORM Event Display: Patient Education/Instruction Authored Date: Ambulatory Adult Visit Summary [facility] [address] [address] Name: RASHAD GUTIERREZ : 1965?? Visit: 08/31/2024 13:39?? Ambulatory Visit Instructions ?? Your Care Team Primary Care Provider Octavia Soto MD? This Visit Provider Raymon Ricci MD Your Diagnosis Atherosclerosis of extremity with rest pain CKD (chronic kidney disease) stage 4, GFR 15-29 ml/min Tobacco use Vitals Signs Pulse Rate: 72 bpm Height: 160 cm Systolic Blood Pressure: 120 mm Hg Weight: 63.5 kg Diastolic Blood Pressure: 76 mm Hg Body Mass Index: 24.8 kg/m2 Oxygen Saturation: 98 % Body surface area: 1.68 What to do next Scheduled Follow-Up Appointments Tuesday 4:05 PM EST ?? With: Angelo SALDAÑA, Agustín Lerma Where: [facility] [address] [place] [address]- Status: Pending Tuesday 10:00 AM EST ?? With: Gissel Barillas NP Where: [address] [address]- Status: Pending Medications The list below reflects the information in our records and provided by you today along with any changes made during this visit. Please continue your medications until treatment is completed or stopped by your provider. If this is different from the information you have or there are other questions,please contact the prescribing provider. What How Much When Instructions Changed Oxycodone (oxyCODONE 5 mg oral tablet) 1 tab(s) Oral Every 6 hours as needed for for pain Pickup at [facility] #[id number] Unchanged Acetaminophen 650 Milligram Oral Twice a day Unchanged Acetaminophen 325 Milligram Oral Twice a day 1-2 tabs in the am & 1 tab in the evening ?? Unchanged Albuterol (Ventolin HFA 108 mcg/ inh inhalation aerosol with adapter) Unchanged Amlodipine 10 Milligram Oral Daily Unchanged Amlodipine (amLODIPine 10 mg oral tablet) 90 each, 0 Refill(s), TAKE 1 TABLET BY MOUTH DAILY ?? Unchanged Amoxicillin (amoxicillin 500 mg oral capsule) 8 each, 0 Refill(s), TAKE 4 CAPSULES BY MOUTH 1 HOUR BEFORE APPOINTMENT TIME ?? Unchanged Amphetamine-Dextroamphetamine (amphetamine-dextroamphetamine 10 mg oral tablet) 30 each, 0 Refill(s), TAKE 1 TABLET BY MOUTH EVERY DAY IN THE AFTERNOON NEEDED FOR ADHD ?? Unchanged Amphetamine-Dextroamphetamine (amphetamine-dextroamphetamine 30 mg oral capsule, extendedrelease) 30 each, 0 Refill(s), TAKE 1 CAPSULE BY MOUTH EVERY DAY FOR ADHD ?? Unchanged Aspirin (aspirin 81 mg oral capsule) 1 capsule Oral Twice a day Unchanged Aspirin (Aspirin Low Dose 81 mg oral delayed release tablet) 90 each, 0 Refill(s), TAKE 1 TABLET BY MOUTH EVERY DAY ?? Unchanged Buprenorphine-Naloxone (Suboxone 8 mg-2 mg sublingual film) 2 Film Sublingual Daily dissolve under the tongue ?? Unchanged Buprenorphine-Naloxone (Suboxone 8 mg-2 mg Sublingual Film) 60 each, 0 Refill(s), PLACE 1 FILM SUBLINGUALLY TWICE DAILY ?? Unchanged BuPROpion (BuPROPion (Eqv-Wellbutrin SR) 150 mg/ 12 hours oral tablet, extended release) 177 each, 0 Refill(s) ?? Unchanged BuPROpion (buPROPion 150 mg/ 12 hours (SR) oral tablet, extended release) 1 tab(s) Oral Twice a day Duration: 120 Days Take 1 tablet once a day for first 3 days, then take 1 tablet twice a day going forward. Stop smoking after 5-7 days of treatment ?? Unchanged Cadexomer-Iodine Topical (Iodosorb 0.9% topical gel) See instructions Apply to wound of Right leg every other day. ?? Unchanged Cilostazol (cilostazol 100 mg oral tablet) 1 tab(s) Unchanged Diclofenac Topical (diclofenac 1% topical gel) 1 usha Topically 4 times a day Unchanged Doxycycline (doxycycline monohydrate 100 mg oral capsule) 20 capsule, 0 Refill(s) ?? Unchanged Gabapentin (gabapentin 600 mg oral tablet) 60 each, 0 Refill(s), TAKE 1 TABLET BY MOUTH IN THE MORNING ?? Unchanged Hydroxychloroquine (hydroxychloroquine 200 mg oral tablet) 180 each, 0 Refill(s), TAKE 1 TABLET BY MOUTH TWICE DAILY ?? Unchanged Lidocaine Topical (lidocaine 4% topical cream) 1 usha Topically Twice a day Apply to leg ulcer twice a day if needed ?? Unchanged Lisinopril (lisinopril 20 mg oral tablet) 90 each, 0 Refill(s), TAKE 1 TABLET BY MOUTH DAILY ?? Unchanged Lorazepam (LORazepam 1 mg oral tablet) 90 each, 0 Refill(s), TAKE 1 TABLET BY MOUTH UP TO THREE TIMES DAILY NEEDED FOR ANXIETY OR SLEEP?? Unchanged Miscellaneous Rx 90 each, 0 Refill(s), TAKE 1 TABLET BY MOUTH EVERY DAY ?? Unchanged Omeprazole (omeprazole 20 mg oral enteric coated capsule) 30 each, 0 Refill(s), TAKE 1 CAPSULE BY MOUTH DAILY ?? Unchanged Pramipexole (pramipexole 0.5 mg oral tablet) 30 each, 0 Refill(s), TAKE 1 TABLET BY MOUTH EVERY NIGHT AT BEDTIME NEEDED FOR DEPRESSION OR RESTLESS LEGS ?? Pharmacy Information [facility] #[id number]: [address] [place], [place] [id number] [phone] Medications and Immunizations Administered Medications Given During Visit No medications given during this visit.?? Allergies (NKA means No Known Allergies) ibuprofen??(kidney function) Common Emergency Awareness Tips IS IT A [...] are strongly encouraged to quit. Please call [facility] at [phone] or [phone] ([phone]) or log in to [email or web address] for referrals to smoking cessation programs. ?? The National Suicide Prevention Hotline is available 14/02 if you or someone you know needs to find a reason to keep living. By calling 7-521-257-WeAre.Us (3728) you'll be connected to a skilled, trained counselor at a crisis center in your area. [facility] Portal You can view and manage your care through the patient portal or by using a health care usha of your choosing. [employer] is a website that allows you to securely view your medical information including your hospital discharge summary, office visit summaries, medications and follow-up visits. You can also request appointments, renew medications, and request access to your medical information using a health care usha of your choosing, or just ask a question. You can enroll at [email or web address] or register during your next office visit. [facility], in keeping with [facility] guidance, no longer requires face masks [...] medical provider or home test kit. ?? Disclaimer: The information provided is of a general nature and is intended to be used in conjunction with the recommendations and advice of your health care practitioner. Every effort has been made to ensure that the information provided is accurate and complete at the time it is provided to you however, as your needs change, or, as new information becomes available, different or additional instructions may be required. ?? If you have questions, please consult with your primary care provider or pharmacist, as appropriate. This information is not intended to serve as substitution for assessment and evaluation by a qualified health care provider. If you do not have a primary care provider, you may find a [facility] provider by calling [facility] at [phone]. Patient Care team information Care Team Personnel Name: Missy Mendoza Position: [facility] Outreach Member Role: Lifetime Consulting Physician Name: Erick Reed MD Position: [facility] Renal MD Member Role: Lifetime Consulting Physician Address: [address] [facility] [address] [facility] [place] [address]- Telecom: Name: Juan Murillo MD Position: [facility] Renal MD Member Role: Lifetime Consulting Physician Address: [address] [facility] [address] [facility] [place] [address]- [place] Telecom: Name: Ainsley Rachel RN Position: [facility] RN Member Role: Primary Care Nurse Name: Octavia Soto MD Position: Reference Physician Member Role: PCP Address: [address] [place] [address]- [place] Telecom: Care Team Related Persons Name: MALKA GUTIERREZ Name: JOHN MARTIN Name: PT STATES NO ONE, NO ONE Insurance Providers Guarantor name: RASHAD GUTIERREZ Health Plan Information #: 1 Payer: [facility] CARE ALLIANCE/ONE CARE Member Number: [id number] Policy Number: NA Group Number: ICO Health Plan Information #: 2 Payer: [facility] Member Number: NA Policy Number: NA Group Number: NA
--- OUTSIDE RECORDS SUMMARY | 2024-10-05 10:29 | XMS_ITS | Continuity of Care Document ---
Author Organization [facility] Address [address] [place] [phone] Phone Care Team Providers Care Forensic Artist Name Role Phone Brittany De La Fuente MD Unavailable Unavailable Advance Directives Directive Yes / No Effective Date File Name No Information Encounters Encounter Description Practice Location Reason(s) For Visit Diagnoses Date Provider Providers Copied on Encounter [facility], [address] [place] [address], [id number], tel:[phone] [facility] No Information Sudhakar Soto. [address] [place] [address], [id number] , . tel: [phone] Family History Family Member Type Diagnosis Age [...]
--- OUTSIDE RECORDS SUMMARY | 2024-10-05 10:29 | XMS_ITS | Continuity of Care Document ---
Author Organization [facility] Address [address] [place] [address]- Care Team Providers Care Credit Risk Associate Name Role Phone Po Octavia SALDAÑA Primary Care Physician Encounter [facility] Date(s): 09/03/24 - 10/03/24 [facility] [address] [place] [address] Encounter Type: Triage Allergies, Adverse Reactions, [...] Refills, Maintenance, 09/15/24 10:46:00 AM EST, Tablet, [facility] 3, Partial fill upon patient request [...] Refills,Maintenance, 08/02/24 12:38:00 PM EST, ER Tablet, [id number], Partial fill upon patient request if the [...] PM EDT, 09/15/24 10:46:00 AM EST, Ointment, [facility], Partial fill upon patient [...] Refills, Maintenance, 10/02/24 2:10:00 PM EDT, Tablet, [id number], Partial fill upon patient request if the [...] 0 Refills, Maintenance, 09/15/24 10:47:00AM EST, Capsule, [facility], Partial fill upon patient [...] Refills, Maintenance, 09/28/24 11:00:00 AM EST, Tablet, [facility] 3, Partial fill upon patient request [...] Team Personnel Name: Daxa Clifton RN Position: [facility] RN Member Role: Primary Care Nurse Name: Missy Mendoza Position: [facility] Outreach Member Role: Lifetime Consulting Physician Name: Erick Reed MD Position: [facility] Renal MD Member Role: Lifetime Consulting Physician Address: [address] [place] [address] [address] [facility] [place] [address]- Telecom: Name: Tyrell Barros RN Position: S RN Member Role: Primary Care Nurse Name: Juan Murillo MD Position: [facility] Renal MD Member Role: Lifetime Consulting Physician Address: [address] [place] [address] [address] [facility] [place] [address]- Telecom: Name: Art De La Garza RN Position: S RN Member Role: Primary Care Nurse Name: Ainsley Rachel RN Position: S RN Member Role: Primary Care Nurse Name: Octavia Soto MD Position: Reference Physician Member Role: PCP Address: [address] [place], [place] [address] Telecom: Name: Alva Isidro RN Position: S RN Member Role: Primary Care Nurse Care Team Related Persons Name: MALKA GUTIERREZ Name: JOHN MARTIN Name: PT STATES NO ONE, NO ONE Insurance Providers Guarantor name: RASHAD [facility] Plan Information #: 1 Payer: [facility] Member Number: NA Policy Number: NA Group Number: NA
--- OUTSIDE RECORDS SUMMARY | 2024-10-05 10:29 | XMS_ITS | Encounter Summary ---
Author Organization [facility] Address [address] [place] [address] Phone Care Team Providers Care Diabetes Specialist Name Role Phone Octavia Soto MD Primary Care Provider [phone] Encounter Details Date Type Department Care Team (Late st Contact Info) Description 10/20/2023 Documentation Only [facility] [place], [address] [place] [address] Missy Mendoza [address] [place] [address] Social History Tobacco Use Types [...] on filedocumented in this encounter Care Teams Diabetes Specialist Relationship Specialty Start Date End Date Octavia Soto MD [address] [place], [place] PCP - General 08/04/20 documented as of this encounter
--- OUTSIDE RECORDS SUMMARY | 2024-10-05 10:29 | XMS_ITS | Continuity of Care Document ---
Author Organization [facility] Address [address] [place] [address]- Care Team Providers Care Change Manager Name Role Phone Octavia Soto MD Primary Care Physician [phone] [id number]): 08[facility]10/24 - 09/15/24 [facility] [address] [place] [address] Attending Physician: Rigo Scott MD Admitting Physician: Rigo Scott MD Referring Physician: Octavia Soto MD Encounter Type: Pre-OutPatient One Time Allergies, Adverse Reactions, Alerts Substance Criticality Severity [...] Refills, Maintenance, 09/15/24 10:46:00 AM EST, Tablet, [facility] 3, Partial fill upon patient [...] Refills,Maintenance, 08/02/24 12:38:00 PM EST, ER Tablet, [facility] #[id number], Partial fill upon patient request if the [...] PM EDT, 09/15/24 10:46:00 AM EST, Ointment, [facility], Partial fill upon patient [...] PM EST, 09/15/24 11:31:00 AM EST, Tablet, [facility], Partial fill upon patient [...] 0 Refills, Maintenance, 09/15/24 10:47:00AM EST, Capsule, [facility], Partial fill upon patient [...] MD Member Role: Lifetime Consulting Physician Address: [address] [place] [address] [address] [facility] [place] [address] [place] Telecom: Name: Juan Murillo MD Position: [facility] Renal MD Member Role: Lifetime Consulting Physician Address: [address] [facility] [place] [address]- [place] Telecom: Name: Ainsley Rachel RN Position: S RN Member Role: Primary Care Nurse Name: Octavia Soto MD Position: Reference Physician Member Role: PCP Address: [address] [place] [address]- Telecom: Name: Alva Isidro RN Position: [facility] RN Member Role: Primary Care Nurse Care Team Related Persons Name: MALKA GUTIERREZ Name: JOHN MARTIN Name: PT STATES NO ONE, NO ONE Insurance Providers Guarantor name: RASHAD MACTON Health Plan Information #: 1 Payer: [facility] [employer] Member Number: [id number] Policy Number: NA Group Number: [employer] Health Plan Information #: 2 Payer: [facility] [employer] Member Number: [id number] Policy Number: NA Group Number: NA Health Plan Information #: 3 Payer: [place] Member Number: NA Policy Number: NA Group Number: NA
--- OUTSIDE RECORDS SUMMARY | 2024-10-05 10:29 | XMS_ITS | Encounter Summary ---
Author Organization [facility] Address [address] [place] [address] Phone Care Team Providers Care Flaking Roll Operator Name Role Phone Octavia Soto MD Primary Care Provider [phone] Encounter Details Date Type Department Care Team (Late st Contact Info) Description 11/17/2021 Documentation Only [facility] [place], [address] [place] [address] [facility]avia [facility] [address] [place] [address] Social History Tobacco Use Types Packs/Day Years [...] on filedocumented in this encounter Care Teams Flaking Roll Operator Relationship Specialty Start Date End Date Octavia Soto MD [facility] [place] [address] [place] [address] PCP - General 08/04/20 documented as of this encounter
--- OUTSIDE RECORDS SUMMARY | 2024-10-05 10:29 | XMS_ITS | Continuity of Care Document ---
Author Organization [facility] Address [address] [place] [address]- Care Team Providers Care Information Management Officer Name Role Phone Po Octavia SALDAÑA Primary Care Physician [place] [facility] [place]s): 08/22/24 - 09/21/24 [facility] [address] [place] [id number] Encounter Type: Triage Allergies, Adverse Reactions, Alerts [...] Refills, Maintenance, 09/15/24 10:46:00 AM EST, Tablet, [facility], Partial fill upon patient request [...] Refills,Maintenance, 08/02/24 12:38:00 PM EST, ER Tablet, [id number], Partial fill upon patient request if the [...] PM EDT, 09/15/24 10:46:00 AM EST, Ointment, [facility], Partial fill upon patient request [...] PM EST, 09/15/24 11:31:00 AM EST, Tablet, [facility], Partial fill upon patient request [...] Refills, Maintenance, 09/21/24 5:12:00 PM EST, Tablet, [facility], Partial fill upon patient request [...] 0 Refills, Maintenance, 09/15/24 10:47:00AM EST, Capsule, [facility], Partial fill upon patient request [...] Care Team Personnel Name: Missy Mendoza Position: [facility] Outreach Member Role: Lifetime Consulting Physician Name: Erick Reed MD Position: [facility] Renal MD Member Role: Lifetime Consulting Physician Address: [address] [facility] [address] [facility] [place] [address]- Telecom: Name: Juan Murillo MD Position: [facility] Renal MD Member Role: Lifetime Consulting Physician Address: [address] [facility] [place] [address]- [place] Telecom: Name: Ainsley Rachel RN Position: [facility] RN Member Role: Primary Care Nurse Name: Octavia Soto MD Position: Reference Physician Member Role: PCP Address: [address] [place] [address] [place] Telecom: Name: Alva Isidro RN Position: [facility] RN Member Role: Primary Care Nurse Care Team Related Persons Name: MALKA GUTIERREZ Name: JOHN MARTIN Name: PT STATES NO ONE, NO ONE Insurance Providers Guarantor name: RASHAD GUTIERREZ Health Plan Information #: 1 Payer: [facility] [employer]/ONE CARE Member Number: NA Policy Number: NA Group Number: NA Health Plan Information #: 2 Payer: [place] Member Number: NA Policy Number: NA Group Number: NA
--- OUTSIDE RECORDS SUMMARY | 2024-10-05 10:29 | XMS_ITS | Encounter Summary ---
Author Organization [facility] Address [address] [place] [address] Phone Care Team Providers Care Jira Developer Name Role Phone Octavia Soto MD Primary Care Provider [phone] Encounter Details Date Type Department Care Team (Late st Contact Info) Description 10/02/2024 Telephone [facility] [place], [address] [place] [address] Missy Mendoza [address] [place] [address] Social History Tobacco Use Types Packs/Day Years Used Date Smoking Tobacco: Every Day Cigarettes Smokeless Tobacco: Never Comments Unknown Sex and Gender Information Value Date Recorded Sex Assigned at Not on file Legal Sex Female 4:55 PM EST Gender Identity Not on file Sexual Orientation Not on file documented as of this encounter Miscellaneous Notes * Telephone Encounter - Missy Mendoza - 10/02/2024 2:44 PM EDT Made contact with patient, she was recently inpatient at [facility] and was discharged on 09/28 so she missed her renal doppler. Patient stated she will be going back to [facility] on 10/09 for a scheduled surgery to have her leg scrapped and for skin grafts. Patient stated she is going to reach out to [facility] about rescheduling her doppler and ask if it's a possibility for her to get the doppler while she is in for her leg surgery. Patient will call the office back once an appt has been made. documented in this encounter Plan of Treatment Not on file documented as of this encounter Visit Diagnoses Not on filedocumented in this encounter Care Teams Jira Developer Relationship Specialty Start Date End Date Octavia Soto MD [address] [place] PCP - General 08/04/20 documented as of this encounter
--- OUTSIDE RECORDS SUMMARY | 2024-10-05 10:29 | XMS_ITS | Encounter Summary ---
Author Organization [facility] Address [address] [place] [address] Phone Care Team Providers Care Ore Feeder Name Role Phone Octavia Soto MD Primary Care Provider [phone] Encounter Details Date Type Department Care Team (Late st Contact Info) Description 11/10/2022 Documentation Only [facility] [place], [address] [place] [address] Octavia Soto MD [facility] [address] [place] [address] Social History Tobacco Use Types Packs/Day Years [...] on filedocumented in this encounter Care Teams Ore Feeder Relationship Specialty Start Date End Date Octavia Soto MD [place] [facility] [place] [address] [place] [address] PCP - General 08/04/20 documented as of this encounter
--- OUTSIDE RECORDS SUMMARY | 2024-10-05 10:29 | XMS_ITS | Encounter Summary ---
Author Organization [facility] Address [address] [place] [address] Phone Care Team Providers Care School Commissioner Name Role Phone Octavia Soto MD Primary Care Provider [phone] Encounter Details Date Type Department Care Team (Late st Contact Info) Description 10/20/2023 Documentation Only [facility] [place], [address] [place] [address] Missy Mendoza [address] [place] [address] Social History Tobacco Use Types [...] on filedocumented in this encounter Care Teams School Commissioner Relationship Specialty Start Date End Date Octavia Soto MD [address] [place], [place] PCP - General 08/04/20 documented as of this encounter
--- OUTSIDE RECORDS SUMMARY | 2024-10-05 10:29 | XMS_ITS | Encounter Summary ---
Author Organization [facility] Address [address] [place] [address] Phone Care Team Providers Care Regulatory Specialist Name Role Phone Octavia Soto MD Primary Care Provider [phone] Encounter Details Date Type Department Care Team (Late st Contact Info) Description 09/04/2024 Documentation Only [facility] [place], [address] [place] [address] Missy Mendoza [address] [place] [address] Social History Tobacco Use Types [...] on filedocumented in this encounter Care Teams Regulatory Specialist Relationship Specialty Start Date End Date Octavia Soto MD [address] [place], [place] PCP - General 08/04/20 documented as of this encounter
== END 2024-10-05 10:02 | disposition home or self-care (01) ==
LOC: HO.HCC 09:33
PROVIDERS: PCP Internal Medicine; Visit Provider Nurse Practitioner Psychiatric/Mental Health
DX: F11.21 Opioid dependence, in remission (principal)
CPT/HCPCS: 99214

== ENCOUNTER → 2024-10-05 09:32 | Outpatient (BNVA) | payer OTHER, SELFPAY | PROVIDERS: PCP Internal Medicine; Visit Provider Nurse Practitioner Psychiatric/Mental Health ==

== ENCOUNTER 2024-12-31 13:02 | Outpatient (AMB) | payer OTHER, SELFPAY ==
--- NOTE | 2024-12-31 13:12 | A.OFFVIS_ITS ---
Vital Signs 12/31/24 13:18 Height 5 ft 3 in Pulse 84 Pulse Source Pulse Oximeter Pulse Oximetry (%) 94 Oxygen Delivery Method Room Air Intake Visit Reasons: MAT Allergies methotrexate Allergy (Mild, Verified 12/31/24 13:18) blisters in mouth Seasonal Allergies Allergy (Mild, Verified 12/31/24 13:18) runny nose, watery eyes, mucus HPI Comments Details: She takes SUboxone 8/2 bid strips and was asking about pills but told pills need to be dissolved in mouth also so not wanting. She is very tangential as usual. She is using Dilaudid 2 mg every 4-6 hours but is tapering on her last script. This medicine was prescribed for pain after venous reflux operation by surgeon apparently on legs and she has sutures on lower leg. She has seen Radha Ricketts NP virtually in past. [facility] Medical History Chronic kidney disease (CKD) stage G3b/A1, moderately decreased glomerular filtration rate (GFR) between 30-44 mL/min/1.73 square meter and albuminuria creatinine ratio less than 30 mg/g Paronychia of great toe of right foot Opioid use disorder Painful total knee replacement, right Lumbar post-laminectomy syndrome Colonoscopy refused Mammogram declined Peptic ulcer disease Hypercholesterolemia Tobacco abuse Hypertension Posttraumatic stress disorder Rheumatoid arthritis Protrusion of lumbar intervertebral disc Lumbar spinal stenosis Insomnia ADHD Primary osteoarthritis of right hip Allergic rhinitis Surgical History History of back surgery History of surgical removal of squamous cell carcinoma of skin of right zoroastrian 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 Mother No problems noted. Social History Housing: House Housing Other:: rents a room Alcohol intake: former Patient Tobacco Use Status: Current everyday Tobacco user Tobacco use type: Cigarette Cigarettes Per Day: 3 e-Cigarette/Vaping Use: Never Used Second Hand Smoke Exposure: Yes service: No Current occupational status: disabled Cognitive needs: No Hearing needs: No Vision needs: No Review of Systems Const All systems reviewed & are unremarkable except as noted in HPI and below Physical Exam Vital Signs: Last Vital Signs Pulse 84 12/31/24 13:18 Pulse Ox 94 12/31/24 13:18 Oxygen Delivery Method Room Air 12/31/24 13:18 Const General: cooperative Assessment & Plan Assessment & Plan (1) Opioid use disorder, moderate, in sustained remission: Comment: She is doing well with Suboxone 8/2 bid Code(s): F11.21 - Opioid dependence, in remission Category: Medical Plan: Would continue Suboxone 8/2 bid,60 and two refills. This is an inperson visit but next visit is virtual. Coding Level of Care Code Est Pt Level 3 (70843) Diagnoses Opioid use disorder, moderate, in sustained remission F11.21
[2024-12-31 13:18] VITALS: PULSE 84; O2SAT 94
--- OUTSIDE RECORDS SUMMARY | 2024-12-31 14:42 | XMS_ITS | Encounter Summary ---
Author Organization [facility] Address [address] [place] [address] Phone Care Team Providers Care Night Guard Name Role Phone Octavia Soto MD Primary Care Provider [phone] Encounter Details Date Type Department Care Team (Late st Contact Info) Description 11/07/2024 Documentation Only [facility] [place], [address] [place] [address] Missy Mendoza [address] [place] [address] Social History Tobacco Use Types [...] on filedocumented in this encounter Care Teams Night Guard Relationship Specialty Start Date End Date Octavia Soto MD [address] [place], [place] PCP - General 08/04/20 documented as of this encounter
== END 2024-12-31 14:12 | disposition home or self-care (01) ==
LOC: HO.HCC 13:02
PROVIDERS: PCP Internal Medicine; Visit Provider Internal Medicine
DX: F11.21 Opioid dependence, in remission (principal)
CPT/HCPCS: 99213

== ENCOUNTER → 2024-12-31 13:02 | Outpatient (BNVA) | payer OTHER, SELFPAY | PROVIDERS: PCP Internal Medicine; Visit Provider Internal Medicine | DX: F11.21 Opioid dependence, in remission (principal) | CPT/HCPCS: 99212 ==

== ENCOUNTER 2025-01-21 13:59 | Outpatient (AMB) | payer OTHER, SELFPAY ==
--- OUTSIDE RECORDS SUMMARY | 2016-12-21 20:00 | XMS_ITS | Continuity of Care Document ---
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 [address] [place] [address], [id number] , . tel: [phone] Family History Family Member Type Diagnosis Age At Onset No Information Payers Payer name Insurance type Covered libertarian ID Authoriza tion(s) No Information Social History Type Description Quantity Date Captured Comments Sex Female Smoking Status No Information Chief Complaint And Reason For Visit No Information Reason For Referral Reason For Referral No Information History Of Present Illness Encounter Date Complaint History Of Prese nt Illness No Information Functional Status Date Functional Assessmen t No Information Instructions Date Instruction Additional Infor mation No Information Assessments Type Assessment Date No Information Patient Care Teams Name Effective Dates (start - stop) Status Members No Information
--- OUTSIDE RECORDS SUMMARY | 2025-01-15 23:59 | XMS_ITS | Continuity of Care Document ---
Author Organization [facility] Address [address] [place] [address]- Care Team Providers Care Pigment Making Supervisor Name Role Phone Octavia Soto MD Primary Care Physician [id number] Date(s): 01/08/25 - 01/15/25 [facility] [address] [place] [address] Encounter Diagnosis Status post femorotibial bypass(Discharge Diagnosis) - 01/08/25 Attending Physician: Gissel Barillas NP Admitting Physician: Gissel Barillas NP Referring Physician: Octavia Soto MD Encounter Type: Office Visit Allergies, Adverse Reactions, Alerts Substance Criticality Severity Reaction Reaction Severity Status ibuprofen kidney function Acti ve Pollen Active Medications acetaminophen 325 mg oral tablet 975 mg, By Mouth, Every 6 hours, PRN, Refills 0, Maintenance, Pain , Moderate, 12/04/24 8:02:00 AM EDT, Partial fill upon patient request if the prescription is for a schedule II opioid drug. Start Date: 12/04/24 Status: Ordered Repeat number: 1 Amlodipine = 10 mg, By Mouth, Daily, 0 Refills, Maintenance, 10/29/22 4:10:00 PM EDT Start Date: 10/29/22 Status: Ordered Repeat number: 1 amphetamine-dextroamphetamine 10 mg oral tablet TAKE 1 TABLET BY MOUTH EVERY DAY IN THE AFTERNOON NEEDED FOR ADHD Start Date: 11/28/24 Status: Ordered Repeat number: 1 amphetamine-dextroamphetamine 30 mg oral capsule, extended release 1 capsule = 30 mg, By Mouth, Daily in AM, 0 Refills, Maintenance, 11/28/24 5:02:00 PM EDT, CR Capsule, Partial fill upon patient request if the prescription is for a schedule II opioid drug. Start Date: 11/28/24 Status: Ordered Repeat number: 1 aspirin 81 mg oral capsule 1 capsule = 81 mg, By Mouth, Every 24 hours, 0 Refills, Maintenance, 10/29/22 4:11:00 PM EDT Start Date: 10/29/22 Status: Ordered Repeat number: 1 atorvastatin 80 mg oral tablet = 80 mg, By Mouth, Daily at bedtime, # 30 tablet, 2 Refills, Maintenance, 09/15/24 10:46:00 AM EST, Tablet, [facility], Partial fill upon patient request if the prescription is for a schedule II opioid drug., 155, cm, 09/15/24 8:47:00 EST, Height, 63.9, kg, 09/14/24 23:43:00 EST, Dry Weight Start Date: 09/15/24 Stop Date: 12/14/24 Status: Ordered Quantity: 30.0 Unit: tablet Repeat number: 3 gabapentin 600 mg oral tablet 60 each, [...] Date: 05/16/24 Status: Ordered Repeat number: 1 mirtazapine 15 mg oral tablet 1 tablet = 15 mg, By Mouth, Daily at bedtime, # 30 tablet, 0 Refills, Maintenance, 11/28/24 5:04:00 PM EDT, Tablet, Partial fill upon patient request if the prescription is for a schedule II opioid drug. Start Date: 11/28/24 Status: Ordered Quantity: 30.0 Unit: tablet Repeat number: 1 rivaroxaban 2.5 mg oral tablet = 2.5 mg, By Mouth, 2 times a day, # 120 tablet, 0 Refills, Maintenance, 09/28/24 11:00:00 AM EST, Tablet, [facility] 3, Partial fill upon patient request [...] Date: 05/16/24 Status: Ordered Repeat number: 1 Problem List [...] symptom disorder with predominant pain Confirmed Active Aftercare following surgery of the circulatory system Confirmed Active Tobacco use Confirmed Active Diagnosis Diagnosis Type Effective Dates Health Status Clinical Service Informant Status post femorotibial bypass Discharge Diagnosis 01/08/25 Social History Social History Type Response Smoking Status 10 or more cigarette s (1/2 pack or more)/day in last 30 days entered on: 05/29/24 Sex Sex Representation Female (finding) Note * [place] Gorman: PERFORM Event Display: Patient Education/Instruction Authored Date: [id number] Ambulatory Adult Visit Summary [facility] [address] [place] [id number] [address] [address] Name: RASHAD GUTIERREZ : 1965?? Visit: 01/08/2025 13:56?? Ambulatory Visit Instructions ?? Your Care Team Primary Care Provider Octavia Soto MD? This Visit Provider Gissel Barillas NP Your Diagnosis Status post femorotibial bypass Vitals Signs Pulse Rate: 78 bpm Height: 160 cm Systolic Blood Pressure: 120 mm Hg ?? Diastolic Blood Pressure: 60 mm Hg ?? Oxygen Saturation: 98 % ?? What to do next Scheduled Follow-Up Appointments Tuesday 1:30 PM EDT ?? With: Gissel Barillas NP Where: [address] [address]- Status: Pending Medications The list below reflects the information in our records and provided by you today along with any changes made during this visit. Please continue your medications until treatment is completed or stopped by your provider. If this is different from the information you have or there are other questions,please contact the prescribing provider. What How Much When Instructions Unchanged Acetaminophen (acetaminophen 325 mg oral tablet) 975 Milligram Oral Every 6 hours as needed for Pain , Moderate Unchanged Amlodipine 10 Milligram Oral Daily Unchanged Amphetamine-Dextroamphetamine (amphetamine-dextroamphetamine 10 mg oral tablet) TAKE 1 TABLET BY MOUTH EVERY DAY IN THE AFTERNOON NEEDED FOR ADHD ?? Unchanged Amphetamine-Dextroamphetamine (amphetamine-dextroamphetamine 30 mg oral capsule, extendedrelease) 1 capsule Oral Daily in the morning Unchanged Aspirin (aspirin 81 mg oral capsule) 1 capsule Oral Twice a day Unchanged Atorvastatin (atorvastatin 80 mg oral tablet) 80 Milligram Oral Daily at Bedtime Duration: 30 Days Unchanged Buprenorphine-Naloxone (Suboxone 8 mg-2 mg Sublingual Film) 60 each, 0 Refill(s), PLACE 1 FILM SUBLINGUALLY TWICE DAILY ?? Unchanged Gabapentin (gabapentin 600 mg oral tablet) 60 each, 0 Refill(s), TAKE 1 TABLET BY MOUTH IN THE MORNING ?? Unchanged Hydromorphone (Dilaudid 2 mg oral tablet) 1 tab(s) Oral Every 6 hours Duration: 7 Days PRN for moderate pain ?? Unchanged Lisinopril (lisinopril 20 mg oral tablet) 90 each, 0 Refill(s), TAKE 1 TABLET BY MOUTH DAILY ?? Unchanged Lorazepam (LORazepam 1 mg oral tablet) 90 each, 0 Refill(s), TAKE 1 TABLET BY MOUTH UP TO THREE TIMES DAILY NEEDED FOR ANXIETY OR SLEEP?? Unchanged Mirtazapine (mirtazapine 15 mg oral tablet) 1 tab(s) Oral Daily at Bedtime Unchanged rivaroxaban (rivaroxaban 2.5 mg oral tablet) 2.5 Milligram Oral Twice a day Duration: 60 Days Medications and Immunizations Administered Medications Given During Visit No medications given during this visit.?? Allergies (NKA means No Known Allergies) Pollen ibuprofen??(kidney function) Common Emergency Awareness Tips IS [...] are strongly encouraged to quit. Please call [employer] Link at [phone] or [phone] ([phone]) or log in to [email or web address] for referrals to smoking cessation programs. ?? The National Suicide Prevention Hotline is available 14/02 if you or someone you know needs to find a reason to keep living. By calling 9-143-152-quyq (9271) you'll be connected to a skilled, trained counselor at a crisis center in your area. [facility] You can view and manage your care through the patient portal or by using a health care usha of your choosing. [employer] is a website that allows you to securely view your medical information including your hospital discharge summary, office visit summaries, medications and follow-up visits. You can also request appointments, renew medications, and request access to your medical information using a health care usha of your choosing, or just ask a question. You can enroll at [email or web address] or register during your next office visit. [facility], in keeping with [facility] guidance, no longer requires face masks [...] primary care provider, you may find a [facility] provider by calling [facility] Link at [phone]. Patient Care team information Care Team Personnel Name: Daxa Clifton RN Position: [facility] RN Member Role: Primary Care Nurse Name: Missy Mendoza Position: [facility] Outreach Member Role: Lifetime Consulting Physician Name: Sonja Garcia RN Position: [facility] RN Member Role: Primary Care Nurse Name: Erick Reed MD Position: [facility] Renal MD Member Role: Lifetime Consulting Physician Address: [address] [facility] [place] [address]- [place] Telecom: Name: Tyrell Barros RN Position: S RN Member Role: Primary Care Nurse Name: Joe Stout RN Position: S RN Member Role: Primary Care Nurse Name: Juan Murillo MD Position: S Renal MD Member Role: Lifetime Consulting Physician Address: [address] [facility] [place] [address]- [place] Telecom: Name: Art De La Garza RN Position: S RN Member Role: Primary Care Nurse Name: Ainsley Rachel RN Position: S RN Member Role: Primary Care Nurse Name: Octavia Soto MD Position: Reference Physician Member Role: PCP Address: [address] [place] [address]- [place] Telecom: Name: Patrick Craft RN Position: S RN Member Role: Primary Care Nurse Name: Alva Isidro RN Position: S RN Member Role: Primary Care Nurse Name: Lana Alonzo LPN Position: S RN Member Role: Primary Care Nurse Care Team Related Persons Name: MALKA GUTIERREZ Name: JOHN MARTIN Name: PT STATES NO ONE, NO ONE Insurance Providers Guarantor name: RASHAD GUTIERREZ Health Plan Information #: 1 Payer: [facility] Payer Identifier: NA Member Number: [id number] Group Number: [id number] Subscriber Identifier: [id number] Relationship to Subscriber: self Coverage Type: Medicare Managed Care (Includes Medicare Advantage Plans) Coverage Verification Date: NA Telecom: NA Address: NA
--- NOTE | 2025-01-21 14:09 | A.OFFPC_ITS ---
Vital Signs 3 01/21/25 14:11 Height 5 ft 3 in Weight 163 lb 8 oz BMI 29.0 BP 132/62 Blood Pressure Location Lt brachial Position Sitting Pulse 67 Pulse Source Pulse Oximeter Temp 97.3 F Temp Source Temporal Artery Scan Pulse Oximetry (%) 97 Oxygen Delivery Method Room Air Intake Visit Reasons: annual exam Intake Note: Patient is here today for a physical. Senior Db2 Systems Programmer Required: No Produce Associate: Present Accompanied by: FUR TRIMMER Allergies methotrexate Allergy (Mild, Verified 01/21/25 14:31) blisters in mouth Seasonal Allergies Allergy (Mild, Verified 01/21/25 14:31) runny nose, watery eyes, mucus ibuprofen Adverse Reaction (Intermediate, Verified 01/21/25 14:31) Kidney issues Medication List - Last Reconciled 01/21/25 by Kelsie Nazario PA-C acetaminophen ER (Tylenol Arthritis Pain) 650 mg PO Q8H albuterol sulfate 90 mcg/actuation (Ventolin HFA) 2 puffs inhalation Q6H PRN amlodipine 10 mg PO DAILY aspirin 81 mg PO DAILY 90 days buprenorphine-naloxone 8-2 mg (Suboxone) 1 film sublingual BID 30 days buprenorphine-naloxone 8-2 mg (Suboxone) 1 film sublingual BID diclofenac sodium 1% 4 grams topical QID food supplemt, lactose-reduced (Ensure oral liquid) 1 ea PO .QD 90 days gabapentin 1 tab in am lidocaine 5% 1 appl topical BID PRN [LIFT RECLINER As directed] lisinopril 20 mg PO DAILY lorazepam 1 mg PO BID-TID PRN 28 days naloxone 4 mg/actuation 4 mg intranasal Q2M PRN omeprazole 20 mg PO DAILY Tobacco use date assessed: 01/21/25 Dental Screening Dental Screen Date: 01/21/25 Did you have a dental visit in the last 12 months?: Yes Did you have a dental problem in the last 6 months where you did not have access to dental care?: No Was dental information given to patient?: Patient has dentist HPI annual exam 2 HPI0 Details 59-year-old female with past medical his tory of hypercholesterolemia, tobacco abuse, hypertension, PTSD, rheumatoid arthritis, insomnia, ADHD, post laminectomy syndrome, generalized anxiety disorder, obesity, peripheral vascular disease, peripheral arterial disease, CVA, CKD, GERD last seen 06/2024 coming in for annual exam. In review of the notes, patient was seen by [facility] vascular surgery 01/15/2025 for lower extremity wounds on the anterior smalls and right medial ankle a new dressing was placed and advised to leave on for 1 week until VNA can remove it. She was seen by [facility] Cardiology 09/05/2024 recommended a high- intensity statin for treatment of LDL. Presenting for an annual wellness visit and management of chronic conditions. The patient has a chronic wound complicated by infection, initially treated with a wound vacuum, which was damaged, leading to further complications. Signs of infection include redness and moisture, with plans for antibiotics and vascular surgeon consultation. The patient has stage 4 chronic kidney disease and prefers not to pursue dialysis if her condition worsens. History of cerebrovascular accident (stroke) with high cholesterol levels, not currently on cholesterol- lowering medication. Reports symptoms of athlete's foot, including itching and swelling of the toes, attributed to walking barefoot and moisture retention. Post-traumatic stress disorder (PTSD) managed with lorazepam, prescribed by her psychiatrist. mammogram: declining mammograms colonoscopy: declining colonoscopy at this time DEXA: declining today pap smear: declining [facility] Medical History (Updated 01/21/25 @ 15:33 by Kelsie Nazario PA-C) Shingles COVID-19 virus infection Chronic kidney disease (CKD) stage G3b/A1, moderately decreased glomerular filtration rate (GFR) between 30-44 mL/min/1.73 square meter and albuminuria creatinine ratio less than 30 mg/g Paronychia of great toe of right foot Opioid use disorder Painful total knee replacement, right Lumbar post-laminectomy syndrome Colonoscopy refused Mammogram declined Peptic ulcer disease Hypercholesterolemia Tobacco abuse Hypertension Posttraumatic stress disorder Rheumatoid arthritis Protrusion of lumbar intervertebral disc Lumbar spinal stenosis Insomnia ADHD Primary osteoarthritis of right hip Allergic rhinitis Surgical History History of arterial bypass of lower extremity History of back surgery History of surgical removal of squamous cell carcinoma of skin of right congregational 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 Mother No problems noted. Social History Housing: House Housing Other:: rents a room Alcohol intake: former Patient Tobacco Use Status: Former Tobacco user Tobacco use type: Cigarette Cigarette Packs Per Day: 0.25 Cigarettes Per Day: 3 e-Cigarette/Vaping Use: Never Used Second Hand Smoke Exposure: Yes service: No Current occupational status: disabled Cognitive needs: Yes (Cane) Hearing needs: No Vision needs: No Questionnaire PHQ-9 Over the last 2 weeks, how often have you been bothered by any of the following problems? 1. Little interest or pleasure in doing things: nearly every day 2. Feeling down, depressed, or hopeless: several days 3. Trouble falling or staying asleep, or sleeping too much: nearly every day 4. Feeling tired or having little energy: nearly every day 5. Poor appetite or overeating: nearly every day 6. Feeling bad about yourself - or that you are a failure or have let yourself or your family down: several days 7. Trouble concentrating on things, such as reading the newspaper or watching television: more than half the days 8. Moving or speaking so slowly that other people could have noticed. Or the opposite - being so fidgety or restless that you have been moving around a lot more than usual: not at all 9. Thoughts that you would be better off or of hurting yourself in some way: not at all Total score: 16 Depression Screening Interpretation: Positive Depression Screening Follow-up: Existing condition and In treatment Depression Screening Done: Yes Source: Developed by Drs. Etienne Barfield, Alina Amanda, Coy Pacheco and colleagues, with an educational leobardo from [employer]. Thrive Questionnaire Date Thrive assessed: 01/21/25 I am a: Patient What is your living situation today?: I have a steady place to live Within the past 12 months, did the food you bought not last and you didn't have the money to get more?: Sometimes True Within the past 12 months, did you worry whether your food would run out before you got money to buy more?: Sometimes True Do you have trouble paying for medicines?: No Do you have trouble getting transportation to medical appointments?: No Do you have trouble paying your heating and electricity bill?: No Do you have trouble taking care of your child, family member or friend?: I choose not to answer this question Do you have trouble with day-to-day activities such as bathing, preparing meals, shopping, managing finances, etc.?: Yes Are you currently unemployed and looking for a job?: Yes Are you interested in more education?: No Please select the resources that you would like help with: None Currently or been in a relationship where the following occur: I choose not to answer THRIVE Score: 2 AUDIT C Alcohol Use Questionnaire (AUDIT-C) 1. How often do you have a drink containing alcohol?: Never Total Score: 0 GODFREY-7 AMB Questionnaire GODFREY-7 Date GODFREY - 7 assessed: 01/21/25 Feeling nervous, anxious, or on edge: 1 = Several days Not being able to stop or control worryin = Several days Worrying too much about different things: 1 = Several days Trouble relaxin = Several days Being so restless that it is hard to sit still: 1 = Several days Becoming easily annoyed or irritable: 2 = More than half the days Feeling afraid as if something awful might happen: 0 = Not at all Total GODFREY-7 score (0-4 normal; 5-9 mild; 10-14 moderate; 15-21 severe): 7 Source: Developed by Drs. Etienne Barfield, Alina Amanda, Coy Pacheco and colleagues, with an educational leobardo from [employer]. Review of Systems Const Denies body aches, Denies fatigue, Denies fever(s), Denies frequent falls, Denies headache(s) and Denies weakness Eyes Reports no additional complaints and Denies change in vision ENT Denies dysphagia, Denies dizziness, Denies facial pain, Denies headache(s), Denies nasal congestion and Denies odynophagia Card Denies chest pain, Denies syncope, Denies irregular heart rhythm, Denies leg edema, Denies lightheadedness and Denies dyspnea Resp Denies cough and Denies dyspnea GI Denies abdominal pain, Denies constipation, Denies dysphagia, Denies dyspepsia, Denies diarrhea, Denies nausea, Denies odynophagia and Denies vomiting Denies urinary frequency, Denies dysuria, Denies urinary hesitancy and Denies urinary urgency Musc Denies back pain and Denies myalgias Skin/Breast Reports system reviewed and no additional complaints, except as documented Neuro Denies dizziness, Denies syncope, Denies frequent falls, Denies headache(s) and Denies weakness Psych Reports no additional complaints Endo Denies fatigue Physical exam (Primary Care) Vital Signs: Last Vital Signs Temp 97.3 F 01/21/25 14:11 Pulse 67 01/21/25 14:11 BP 132/62 01/21/25 14:11 Pulse Ox 97 01/21/25 14:11 Oxygen Delivery Method Room Air 01/21/25 14:11 BMI result Body Mass Index 29.0 Tobacco/Smoking Status: Tobacco use Status Tobacco use date assessed 01/21/25 01/21/25 14:16 Patient Tobacco Use Status Former Tobacco user (08/07/24 01/21/25 14:22 ) Tobacco use type Cigarette 01/21/25 14:16 e-Cigarette/Vaping Use Never Used 01/21/25 14:16 PHQ-9: PHQ-9 Score PHQ-9: Total score 16 01/22/25 07:32 Depression Screening Interpretation: Positive Depression Screening Follow-up: Existing condition and In treatment Thrive Assessment: Date of Thrive Assessment Date Thrive assessed 01/21/25 01/21/25 14:16 Currently or been in a relationship where the following occur: I choose not to answer Const General: cooperative, healthy appearing, comfortable and no acute distress Orientation/consciousness: patient oriented x3 HENMT Head: Yes normocephalic Ears: hearing grossly normal bilaterally, external ears normal, TM's normal bilaterally and EAC's normal General nose exam: Normal external nose present Face and sinus: Yes normal facial exam and Yes sinuses nontender Mouth: Normal oral and palatal mucosa present and tongue normal Throat: Yes posterior oropharynx normal Eyes General: appearance normal, both eyes and all related structures Conjunctivae: conjunctivae normal Pupils: Equal, round and reactive pupils present EOM: EOMs intact bilaterally and No Nystagmus present Neck Neck: Yes normal visual inspection, Yes full ROM and Yes no lymphadenopathy Chest Chest palpation & inspection: normal inspection of the chest Resp Effort & Inspection: normal respiratory effort Auscultation: clear to auscultation bilaterally, no crackles, no rales, no rhonchi, no wheezes and breath sounds present Cardio Rate: regular rate Rhythm: regular rhythm Peripheral pulses: radial pulses present and dorsalis pedis present GI Inspection: Yes normal to inspection and No Abdominal wall edema Palpation (GI): Soft to palpation, not firm and nontender Auscultation: normal bowel sounds Rectal Exam - Female: deferred General: Yes no CVA tenderness Back/Spine/Pelvis Back: no CVA tenderness Skin Other: Medial aspect of right lower extremity Anterior aspect of right lower extremity General skin exam: no rashes or lesions noted Neuro General: patient oriented x3 Cranial nerves: Yes Equal, round and reactive pupils present, Yes Midline tongue present, Yes Ability to bilaterally elevate shoulders present and No Nystagmus present Gait exam (Neuro): Normal gait present Extrem General: Yes normal to inspection, Yes full ROM, No no pedal edema and No edema Psych Speech and movement: Normal speech and movement present Affect: normal affect Insight: Good insight present (Psych) Judgement: Good judgement present (Psych) Coding Level of Care Code Est Pt Level 3 (83155) Est Pt Prev Care 40-64y(96892) Diagnoses Chronic ulcer of lower extremity, right, with unspecified severity L97.919 Non-pressure ulcer stage: unspecified non-pressure ulcer stage Tobacco abuse Z72.0 Primary insomnia F51.01 Insomnia type: primary CVA (cerebral vascular accident) I63.9 Rheumatoid arthritis involving multiple sites, unspecified whether rheumatoid factor present M06.9 Rheumatoid arthritis location: multiple sites Rheumatoid factor presence: unspecified presence Anemia D64.9 Chronic kidney disease, stage 4 (severe) N18.4 Gastroesophageal reflux disease without esophagitis K21.9 Esophagitis presence: without esophagitis Obesity (BMI 30.0-34.9) E66.9 Hypercholesterolemia E78.00 PVD (peripheral vascular disease) I73.9 Essential hypertension I10 Hypertension type: essential hypertension Opioid use disorder, moderate, in sustained remission F11.21 Generalized anxiety disorder F41.1 Attention deficit hyperactivity disorder (ADHD), predominantly hyperactive type F90.1 Attention deficit-hyperactivity disorder type: predominantly hyperactive Posttraumatic stress disorder F43.10 Tinea pedis B35.3 Cervical cancer screening Z12.4 Colonoscopy refused Z53.20 Mammogram declined Z53.20 Assessment & Plan Assessment & Plan (1) Ulcer of leg, chronic, right: Code(s): L97.919 - Non-pressure chronic ulcer of unspecified part of right lower leg with unspecified severity Category: Medical Qualifiers: Non-pressure ulcer stage: unspecified non-pressure ulcer stage Q ualified Code(s): L97.919 - Non-pressure chronic ulcer of unspecified part of right lower leg with unspecified severity Plan: Keep patient has the presence of 2 ulcers 1 on the anterior aspect of the right lower extremity and 1 on the medial aspect of the right lower extremity. The anterior wound appears to be infected today as it is surrounded by erythema and warmth. The patient states this is not typical for her and this is a new change in the wound. There is no purulent drainage. At this time plan to treat with Keflex and advised patient to follow up as soon as possible with her surgeon to inform her of the new infection and to further guide treatment. Reviewed red flag symptoms and when to present for re-evaluation. No calf swelling, tenderness or erythema. (2) Tobacco abuse: Comment: PFT normal January 2020started smoking 03/2024 Code(s): Z72.0 - Tobacco use Category: Medical Plan: Patient is not currently smoking. (3) Insomnia: Code(s): G47.00 - Insomnia, unspecified Category: Medical Qualifiers: Insomnia type: primary Qualified Code(s): F51.01 - Primary insomnia Plan: Uses Lorazepam for sleeping and finds this beneficial. Currently following with psychiatrist. (4) CVA (cerebral vascular accident): Comment: Subacute left internal capsule infarct April 2022 right-sided weakness Code(s): I63.9 - Cerebral infarction, unspecified Category: Medical Plan: Patient had history of CVA in 2021. Per last cardiology note recommending cholesterol-lowering statin. I did discuss with the patient for prophylaxis a statin is recommended regardless of LDL results. She would like to have labs drawn prior to administration of statin and new orders were placed. Continue on aspirin. (5) Rheumatoid arthritis: Code(s): M06.9 - Rheumatoid arthritis, unspecified Category: Medical Qualifiers: Rheumatoid arthritis location: multiple sites Rheumatoid factor presence: unspecified presence Qualified Code(s): M06.9 - Rheumatoid arthritis, unspecified Plan: Patient is not currently following with a buffing machine operator and declines referral today. (6) Anemia: Code(s): D64.9 - Anemia, unspecified Category: Medical Plan: Continue to monitor CBC. Repeat blood work was ordered (7) Chronic kidney disease, stage 4 (severe): Code(s): N18.4 - Chronic kidney disease, stage 4 (severe) Category: Medical Plan: Patient has chronic kidney disease. Continue to monitor creatinine and GFR, repeat blood work ordered. Avoid kidney irritants such as NSAIDs and stay well hydrated. Patient is declining treatment should the kidney disease progress further. (8) GERD (gastroesophageal reflux disease): Code(s): K21.9 - Gastro-esophageal reflux disease without esophagitis Category: Medical Qualifiers: Esophagitis presence: without esophagitis Qualified Code(s): K21.9 - Gastro-esophageal reflux disease without esophagitis Plan: Avoid trigger foods such as citrus, tomato products, soda, caffeine, spicy foods and other foods that may be irritating to your stomach. Avoid laying flat 3-4 hours after eating and elevate the head of the bed 30 degrees to prevent acid from moving into the esophagus. Continue on omeprazole (9) Obesity (BMI 30.0-34.9): Code(s): E66.9 - Obesity, unspecified Category: Medical Plan: Healthy diet and regular exercise is encouraged. (10) Hypercholesterolemia: Code(s): E78.00 - Pure hypercholesterolemia, unspecified Category: Medical Plan: Avoid foods that are high in cholesterol such as red meat, fried foods, eggs and baked goods. Triglyceride goal of less than 150 and LDL goal of less than 70 due to history of CVA. Patient is declining medical management at this time plan to repeat blood work and follow up in 3 months (11) PVD (peripheral vascular disease): Comment: CAD Right SFA endarterectomy and fem PT bypass with cryo vein September 2024 revision 11/30/2024Dr. Ricci Code(s): I73.9 - Peripheral vascular disease, unspecified Category: Medical Plan: Patient to continue to follow with vascular surgeon. She is currently following with vascular surgery as well as VNA for management of right lower extremity nonhealing ulcers. What appears to be infected today and recommended following up with vascular surgeon as soon as possible. (12) Hypertension: Code(s): I10 - Essential (primary) hypertension Category: Medical Qualifiers: Hypertension type: essential hypertension Qualified Code(s): I10 - Essential (primary) hypertension Plan: Continue on current blood pressure medication. Avoid salt intake and encourage healthy diet and regular exercise. (13) Opioid use disorder, moderate, in sustained remission: Comment: She is doing well with Suboxone 8/2 bid Code(s): F11.21 - Opioid dependence, in remission Category: Medical Plan: Continue on Suboxone. (14) Generalized anxiety disorder: Comment: Salome Wright therapist once a week Code(s): F41.1 - Generalized anxiety disorder Category: Medical Plan: Patient is currently following with a psychiatrist as well as a counselor for management of her mental health concerns. She feels good on her current medication regimen. Continue with current medications and continue to follow with psychiatry (15) ADHD: Comment: [facility] Code(s): F90.9 - Attention-deficit hyperactivity disorder, unspecified type Category: Medical Qualifiers: Attention deficit-hyperactivity disorder type: predominantly hyperactive Qualified Code(s): F90.1 - Attention-deficit hyperactivity disorder, predominantly hyperactive type Plan: See above (16) Posttraumatic stress disorder: Code(s): F43.10 - Post-traumatic stress disorder, unspecified Category: Medical Plan: See above (17) Tinea pedis: Code(s): B35.3 - Tinea pedis Category: Medical Plan: Patient states she likes to walk barefoot and often gets water in between her toes. Currently having concern for fungal infection in between the 4th and 5th digit of the right foot. Prescription for ciclopirox sent to pharmacy. Advised against walking barefoot as she has poor circulation in the feet and risk for further infection. (18) Cervical cancer screening: Code(s): Z12.4 - Encounter for screening for malignant neoplasm of cervix Category: Medical Plan: Declining cervical cancer screening today. (19) Colonoscopy refused: Code(s): Z53.20 - Procedure and treatment not carried out because of patient's decision for unspecified reasons Category: Medical Plan: Declining colonoscopy and understands the risk of not having these screening tests performed. (20) Mammogram declined: Comment: December 2024 Code(s): Z53.20 - Procedure and treatment not carried out because of patient's decision for unspecified reasons Category: Medical Plan: Declining mammogram and understands the risks of not having this screening test performed Plan The patient will begin antibiotic therapy to treat the infection in her chronic wound, with a vascular surgeon consultation to consider further interventions like a skin graft. Monitoring for changes in the wound is essential, and any worsening should be reported promptly. Given her stage 4 chronic kidney disease, regular kidney function monitoring is recommended. The patient should follow up with her paper pattern folder for cholesterol management. A cholesterol panel will be conducted to evaluate the need for statin therapy, considering her stroke history and elevated cholesterol levels. For athlete's foot, a topical antifungal cream will be prescribed. The patient should avoid walking barefoot to prevent further irritation and potential infection. This note was constructed using voice recognition software. While every effort has been made to ensure accuracy and brush or broom cutter, still areas may have been included sometimes these areas may affect the content or meeting of the given symptoms. Total time spent caring for the patient today was 45 minutes. This includes time spent before the visit reviewing the chart, time spent during the visit, and time spent after the visit and documentation. Patient was informed and verbally consented to the use of an ambient scribe for clinic note documentation during this visit. Orders: Orders 2 Lipid Panel 01/21/25 E78.00 - Pure hypercholesterolemia, unspecified Comprehensive Met. Panel 01/21/25 I63.9 - Cerebral infarction, unspecified, Z00.00 - Encounter for general adult medical examination without abnormal findings Free T4 (Free Thyroxine) 01/21/25 I63.9 - Cerebral infarction, unspecified, Z00.00 - Encounter for general adult medical examination without abnormal findings Vitamin B12 and Folate 01/21/25 I63.9 - Cerebral infarction, unspecified, Z13.21 - Encounter for screening for nutritional disorder Complete Blood Count Auto Diff 01/21/25 I63.9 - Cerebral infarction, unspecified, Z00.00 - Encounter for general adult medical examination without abnormal findings TSH reflex Free T4 01/21/25 I63.9 - Cerebral infarction, unspecified, Z00.00 - Encounter for general adult medical examination without abnormal findings Vitamin D 25-OH Total 01/21/25 I63.9 - Cerebral infarction, unspecified, Z00.00 - Encounter for general adult medical examination without abnormal findings Medications: New 2 cephalexin 500 mg PO QID 28 caps 0RF 7 days ciclopirox 0.77% 1 appl topical BID 15 grams 0RF 4 weeks Refilled 2 gabapentin 1 tab in am 60 tabs 2RF M25.521 - Pain in right elbow omeprazole 20 mg PO DAILY 30 caps 2RF K21.9 - Gastro-esophageal reflux disease without esophagitis food supplemt, lactose-reduced (Ensure oral liquid) Chocolate and strawberry 1 ea PO .QD 5,688 mL 0RF 90 days Z98.84 - Bariatric surgery status
[2025-01-21 14:11] VITALS: BP 132/62; PULSE 67; TEMP 36.3; O2SAT 97; BMI 29.0
--- OUTSIDE RECORDS SUMMARY | 2025-01-21 14:33 | XMS_ITS | Encounter Summary ---
Author Organization [facility] Address [address] [place] [address] Phone Care Team Providers Care Operations And Maintenance Supervisor Name Role Phone Octavia Soto MD Primary Care Provider [phone] Encounter Details Date Type Department Care Team (Late st Contact Info) Description 11/07/2024 Documentation Only [facility], [address] [place] [address] Missy Mendoza [address] [place] [address] Social History Tobacco Use Types [...] on filedocumented in this encounter Care Teams Operations And Maintenance Supervisor Relationship Specialty Start Date End Date Octavia Soto MD [id number] [place], [place] PCP - General 08/04/20 documented as of this encounter
--- OUTSIDE RECORDS SUMMARY | 2025-01-21 14:34 | XMS_ITS | Data Portability ---
Author Organization [facility], [facility] Address [address] [place] [address] Care Team Providers Care Dimensional Engineer Name Role Phone GREYSON CARCAMO Primary Care Provider [phone] Flex JUAN OTHER Assessment Encounter Date Assessment Date Assessment LastModified by Organization Details LastModified Time 07/02/2015 07/02/2015 1. Status post right THR suspicious for aseptic loosening 2. Healed wound dehiscence 3. Right knee pain status post TKR Not [...] 016 [facility] (Lab), [address] [place], [address], 6 15:12:27 cell count w/ diff, body fluid - right hip aspira tion fluid [address] [facility] (Lab), [address], [place], [address], 6 04:05:10 Referral pain manage ment referr al - eval and treat for pain manage ment, call pt with appt date and time 2014 015 amalia Juan MD ([facility] [address], [place], [address], 6 10:07:[address] referr al - please eval & tx for multip le joint pain; call pt to schedu le thank you 2014 015 [facility], [address], [place], [address], 6 06:19:54 Procedures hip aspira tion (PROC) - right hip aspira tion at time of arthro gram (I have sent separa te order for arthro gram) to be sent for cultur e and cell count w diff 2015 016 [id number] [facility] (Central Scheduling), [address] [place], [address], 6 04:05:10 Surgeries None record ed. Imaging XR, knee 2016 017 In-House Results, For Internal Use Only, Do Not Delete/merge, [id number] 7 16:50:26 XR, knee 2015 016 In-House Results, For Internal Use Only, Do Not Delete/merge, [id number] 6 04:05:09 XR, hip, unilat eral 2015 016 [id number] In-House Results, For Internal Use Only, Do Not Delete/merge, [id number] 6 04:05:11 XR, arthro gram, hip - right hip arthro gram. I have also sent a separa te order for right hip aspira tion as well to be sent for cultur es and cell count w diff. 2015 016 [facility] (Central Scheduling), [address], [place], [address], 6 18:44:38 x-ray, hip 2015 016 In-House Results, For Internal Use Only, Do Not Delete/merge, [id number] 6 15:04:33 x-ray, hip 2014 015 In-House Results, For Internal Use Only, Do Not Delete/merge, [id number] 5 18:14:45 x-ray, knee 2014 015 In-House Results, For Internal Use Only, Do Not Delete/merge, [id number] 5 18:14:45 Medication Orders predni sone 5 [...] By Organization Details Last Modified Time 07/02/2015 [id number] hip pain: care instructions [email or web address] Not available 07/04/2015 08:36:07 knee pain or injury: care instructions [email or web address] Not available 07/04/2015 08:36:07 I had a lengthy discussion with her. Her aspiration free much rules out any infection. He cell count is very sensitive and was negative. She could have aseptic loosening, but that would not be improved with a knee brace. Her knee is stable. Do not understand the pain. I have a lengthy discussion with her about her pain medications. She is taking up to 12 extra strength Tylenol a day which is way too much. She will be damage her liver. I will try to get her on some long-acting pain medication. We'll see her back in a couple months. saida Not available 07/02/2015 18:14:45 10/27/2015 [id number] hip pain: care instructions saida Not available 10/28/2015 11:06:21 learning about total hip replacement surgery [email or web address] Not available 10/28/2015 11:06:21 rheumatoid arthritis diet: care instructions Not available 10/28/2015 11:06:21 Rheumatoid Arthritis (RA): Care Instructions Not available 10/28/2015 11:06:21 I have given her some Bactroban to use on her blister. I talked her about her jaw. Think is a bad idea. With rheumatoid arthritis she does not need to be getting all these traumatic injuries. I discussed her hip. I am optimistic will continue to improve but we need to get a rongeur arthritis under control before making any further decisions. Follow-up in 6 months. saida Not available 10/27/2015 15:04:34 06/23/2016 [id number] learning about total hip replacement surgery [email or web address] Not available 06/24/2016 09:12:54 I'm going to [...] may contain some typographical and/or grammatical inaccuracies. saida Not available 06/23/2016 18:07:59 09/27/2016 [id number] The arthrogram d id not show any [...] would do it when she arrives in [place], because it will be a 6 month [...] may contain some typographical and/or grammatical inaccuracies. [email or web address] Not available 09/27/2016 18:38:11 02/14/2017 [id number] learning about total hip replacement surgery [facility] [...] may contain some typographical and/or grammatical inaccuracies. 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 for Pain of multiple joints please eval & tx for multiple joint pain; call pt to schedule thank you Referring Physician: Rigo Slaughter, Orthopedic Surgery, Encounter Date: 07/02/2015 Results Created Date Observation Date Name Description Value Unit Range Abnormal Flag Note LastModifiedBy Organization Detail LastModifiedTime 06/10/20 15 06/10/2015 cell count , body fluid fluid source JOINT OTHER Not Available [facility] - Add On Order Set Only [address] [place], [address], 06/10/2015 13:45:26 06/10/20 15 06/10/2015 cell count , body fluid fluid appearance CLOUDY clear abnormal Not Available [facility] Lab - Add On Order Set [place] [address] [place], [address], 06/10/2015 13:45:26 06/10/20 15 06/10/2015 cell count , body fluid fluid color YELLOW colorl ess abnormal Not Available [facility] - Add On Order Set Only [address] [place], [address], 06/10/2015 13:45:26 06/10/20 15 06/10/2015 cell count , body fluid fluid WBC 350 /mm3 0-0 high Not Available [facility] - Add On Order Set Only [address] [place], [address], 06/10/2015 13:45:26 06/10/20 15 06/10/2015 cell count , body fluid fluid RBC 2248 /mm3 0-0 high Not Available [facility] - Add On Order Set Only [address] [place], [address], 06/10/2015 13:45:26 06/10/20 15 06/10/2015 cell count , body fluid performing lab: [facility] - [address] [facility] AY KELLY Carmichael [place], [place], [facility] issa meehan MD Not Available [facility] - Add On Order Set Only [address] [place], [address], 06/10/2015 13:45:26 06/10/20 15 06/10/2015 diffe renti al, body fluid fluid poly 11 % 0-0 high Not Available [facility] - Add On Order Set Only [address] [place], [address], 06/10/2015 16:31:09 06/10/20 15 06/10/2015 diffe renti al, body fluid fluid lymphocyte 80 % 0-0 high Not Available [facility] Lab - Add On Order Set [place] [address] [place], [address], 06/10/2015 16:31:09 06/10/20 15 06/10/2015 diffe renti al, body fluid fluid monocyte 6 % 0-0 high Not Available [facility] - Add On Order Set Only [address] [place], [address], 06/10/2015 16:31:09 06/10/20 15 06/10/2015 diffe renti al, body fluid fluid eosinophil 3 % 0-0 high Not Available [facility] Lab - Add On Order Set Only [address] [place], [address], 06/10/2015 16:31:09 06/10/20 15 06/10/2015 diffe renti al, body fluid performing lab: [facility] - [address] [facility] JAZZMINENATASHA Jany [place], [place], [facility] issa meehan MD Not Available [facility] - Add On Order Set Only [address] [place], [address], 06/10/2015 16:31:09 06/10/20 15 06/10/2015 gram stain gram stain See Below GRAM STAIN (F) Eleazar Date/ Time: 06/10 10:23 Jm Date/ Time: 06/13 09:24 SOURC E: ASPIR ATE SPEC DESC: GRAM STAIN : FEW WHITE BLOOD CELLS NO ORGAN ISMS SEEN (ON JORGE A NTRAT ED SMEAR ) Not Available [facility] - Add On Order Set Only [address] [place], [address], 06/13/2015 09:26:26 06/10/20 15 06/10/2015 gram stain performing lab: [facility] - [address] [facility] SHONDA [place], [facility] issa meehan MD Not Available [facility] - Add On Order Set Only [address] [place], [address], 06/13/2015 09:26:26 06/10/20 15 06/10/2015 cultu re, body fluid body fluid culture See Below BODY FLUID CULTU RE(F) Eleazar Date/ Time: 06/10 10:23 Jm Date/ Time: 06/13 09:24 SOURC E: ASPIR ATE SPEC DESC: NG72 NO GROWT H AFTER 72 HOURS Not Available [facility] - Add On Order Set Only [address] [place], [address], 06/13/2015 09:26:27 06/10/20 15 06/10/2015 cultu re, body fluid performing lab: [facility] - [address] [facility] KELLY Carmichael [place], [place], [facility] issa meehan MD Not Available [facility] - Add On Order Set Only [address] [place], [address], 06/13/2015 09:26:27 07/21/20 16 07/21/2016 gram stain gram stain SEE BELOW GRAM STAIN (F) Eleazar Date/ Time: 07/21 14:40 Mj Date/ Time: 07/24 09:27 SOURC E: JOINT FLUID SPEC DESC: GRAM STAIN : FEW WHITE BLOOD CELLS NO ORGAN ISMS SEEN (ON JORGE A NTRAT ED SMEAR ) Not Available [facility] - Add On Order Set Only [address] [place], [address], 07/24/2016 09:28:37 07/21/20 16 07/21/2016 gram stain performing lab: [facility] - [address] [place] Carmichael [place], [facility] issa meehan MD Not Available [facility] - Add On Order Set Only [address] [place], [address], 07/24/2016 09:28:37 07/21/20 16 07/21/2016 cell count , body fluid fluid source HIP Not Available [facility] Lab - Add On Order Set Only [address] [place], [address], 07/21/2016 18:21:17 07/21/20 16 07/21/2016 cell count , body fluid fluid appearance MUCOID clear Not Available [facility] Lab - Add On Order Set Only [address] [place], [address], 07/21/2016 18:21:17 07/21/20 16 07/21/2016 cell count , body fluid fluid color YELLOW colorl ess abnormal Not Available [facility] - Add On Order Set Only [address] [place], [address], 07/21/2016 18:21:17 07/21/20 16 07/21/2016 cell count , body fluid fluid WBC 31 /mm3 0-0 high Not Available [facility] - Add On Order Set Only [address] [place], [address], 07/21/2016 18:21:17 07/21/20 16 07/21/2016 cell count , body fluid fluid RBC 5234 /mm3 0-0 high Not Available [facility] - Add On Order Set Only [address] [place], [address], 07/21/2016 18:21:17 07/21/20 16 07/21/2016 cell count , body fluid performing lab: [facility] - [address] Carmichael [place], [facility] sisa meehan MD Not Available [facility] - Add On Order Set Only [address] [place], [address], 07/21/2016 18:21:17 07/21/20 16 07/21/2016 diffe renti al, body fluid fluid poly 8 % 0-0 high Not Available [facility] - Add On Order Set Only [address] [place], [address], 07/21/2016 18:22:19 07/21/20 16 07/21/2016 diffe renti al, body fluid fluid lymphocyte 37 % 0-0 high Not Available [facility] - Add On Order Set Only [address] [place], [address], 07/21/2016 18:22:19 07/21/20 16 07/21/2016 diffe renti al, body fluid fluid monocyte 55 % 0-0 high Not Available [facility] - Add On Order Set Only [address] [place], [address], 07/21/2016 18:22:19 07/21/20 16 07/21/2016 diffe renroxie al, body fluid performing lab: - [facility] [address] [place] [place], [facility] issa meehan MD Not Available [facility] - Add On Order Set Only [address] [place], [address], 07/21/2016 18:22:19 07/21/20 16 07/21/2016 cultu re, body fluid body fluid culture SEE BELOW BODY FLUID CULTU RE(F) Eleazar Date/ Time: 07/21 14:40 Jm Date/ Time: 07/24 09:27 SOURC E: JOINT FLUID SPEC DESC: NG72 NO GROWT H AFTER 72 HOURS Not Available [facility] - Add On Order Set Only [address] [place], [address], 07/24/2016 09:28:38 07/21/20 16 07/21/2016 cultu re, body fluid performing lab: - [facility] D MEDIC AL [facility] R - [address] [place] [place], [facility] issa meehan MD Not Available [facility] - Add On Order Set Only [address] [place], [address], 07/24/2016 09:28:38 06/10/20 15 06/10/2015 arthr ogram , hip DIAGNO STIC IMAGIN G REPORT [facility] - [address] [facility] [place] [address] PHONE #: [phone] FAX #: [phone] ------ ------ ------ ------ ------ ------ ------ ------ ------ ------ ------ ------ ------ - Name: GUTIERREZ EDWINA Loc: [facility] Radiol ogy No: : 1965 Age: 49 Sex: F Status : [facility] Unit No: [id number] Phys: Remberto Mckenna MD Acct: [id number] Reason For Exam: Exam Date: 2014 ------ ------ ------ ------ ------ ------ ------ ------ ------ ------ ------ ------ ------ - EXAMS: Reason for Exam:: [id number] ARTHRO GRAM HIP, RT HISTOR Y: [...] was obtain ed and sent to the [facility]esse [facility] for analys is. Intra- articu lar locati on was confir med with minima l iodina katelyn contra st. Impres olimpia: Succes sful fluoro scopic guided hip aspira tion/l imited arthro gram as above. Electr onical ly Signed by PAYAL THOMPSON MD on 2014 at 1457 Report ed and signed by: PAYAL THOMPSON MD CC: Rigo daniels MD Dictat ed Date/T indu: 2014 (1637) Techno logist : OSMANI BROWN S; LEÓN OVIEDO, RT (R) Transc ribed Date/T indu: 2014 (6577) Transc riptio nist: RAD.VR Electr onic Signat ure Date/T indu: 2014 (1977) Printe d Date/T indu: 2014 (0484) PAGE 1 Signed Report [facility] [address] [facility] [address], [place], [address], 06/10/2015 16:26:02 06/10/20 15 06/10/2015 arthr ogram , hip No observ ation record ed. [email or web address] Not Available 06/12 16:36:04 07/21/20 16 07/21/2016 - arthr ogram hip, RT DIAGNO STIC IMAGIN G REPORT [facility] - [address] [place], [place] [address] PHONE #: [phone] FAX #: [phone] ------ ------ ------ ------ ------ ------ ------ ------ ------ ------ ------ ------ ------ - Name: EDWINA GUTIERREZ Loc: F.SDRA D Radiol ogy No: : 1965 Age: 50 Sex: F Status : [facility] [place] Unit No: [id number] Phys: REJI daniels,Remberto Marie MD Acct: [id number] Reason For Exam: Exam Date: 2015 ------ ------ ------ ------ ------ ------ ------ ------ ------ ------ ------ ------ ------ - EXAMS: Reason for Exam:: [id number] ARTHRO GRAM HIP, RT HISTOR Y: [...] SHO GALEANO PAGE 1 Signed Report (LAKHWINDER WHITT) DIAGNO STIC SAADIN G REPORT [facility] - [address] [place], [place] [address] PHONE #: [phone] FAX #: [phone] ------ ------ ------ ------ ------ ------ ------ ------ ------ ------ ------ ------ ------ - Name: EDWINA GUTIERREZ Loc: FR[facility]Z [facility] Rad[facility] No: : 1965 Age: 50 Sex: F Status : REG [facility] Unit No: [id number] Phys: REJI daniels,Remberto Marie MD Acct: [id number] Reason For Exam: Exam Date: 2015 ------ ------ ------ ------ ------ ------ ------ ------ ------ ------ ------ ------ ------ - EXAMS: Reason for Exam:: [id number] ARTHRO YESSENIA LOWERY, RT CC: Rigo daniels MD Dictat ed Date/T indu: 2015 (1515) Techno logist : LEÓN OVIEDO RT (R) Transc ribed Date/T indu: 2015 (1515) Transc riptio nist: PHYTRO BR Electr onic Signat ure Date/T indu: 2015 (1515) Printe d Date/T indu: 2015 (1520) PAGE 2 Signed Report [address], [place], [address], 09/27/2016 18:34:23 07/22/20 16 07/21/2016 XR, arthr ogram , hip No observ ation record ed. [facility] (Radiology) [address] [place] [address], [place], [address], 07/29/2016 10:21:49 Result Notes None recorded. Problems Name Problem SNOMED Code Status Onset Date Resolution Date Notes Provider Name and Address Organization Details Recorded Time Injury of tendon of the rotator cuff of shoulder 996888454 Active Rigo Slaughter MD [address] [facility], [place], [address], [place] - [facility] 6 15:01:16 Postoperati ve wound cellulitis Active Rigo Slaughter MD [address] [facility], [place], [address], [place] [facility] 6 15:01:16 Dehiscence of surgical wound 97764646 Active Rigo Slaughter MD [address] [facility], [place], [address], [place] [facility] 6 15:01:16 Swelling of limb 83971989 Active Rigo Slaughter MD [address] [facility], [place], [address], [place] [facility] 6 15:01:16 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 Rigo Slaughter MD [address] [facility], [place], [address], [place] [facility] 6 15:01:16 Pain of multiple joints 99996662 Active Rigo Slaughter MD [address] [facility], [place], [address], [place] [facility] 6 15:04:33 Rheumatoid arthritis 19659770 Active Rigo Slaughter MD [address] [facility], [place], [address], [place] [facility] 6 15:04:33 Traumatic bulla Active Rigo Slaughter MD [address] [facility], [place], [address], [place] [facility] 6 15:04:33 Osteoarthri tis of knee 521533620 Active Rigo Slaughter MD [address] [facility], [place], [address], [place] [facility] 6 15:01:16 Derangement of knee 08635247 Active Rigo Slaughter MD [address] [facility], [place], [address], [place] [facility] 6 15:01:16 Localized, primary osteoarthri tis 945866427 Active Rigo Slaughter MD [address] [facility], [place], [address], [place] [facility] 6 15:01:15 Knee pain Active Rigo Slaughter MD [address] [facility], [place], [address], [place] [facility] 6 15:01:16 Pain of hip region 33378074 Active Rigo Slaughter MD [address] [facility], [place], [address], [place] [facility] 6 15:04:33 Localized, primary osteoarthri tis of the pelvic region and thigh 025994052 Active Rigo Slaughter MD [address] [facility], [place], [address], [place] [facility] 6 15:01:15 Knee joint ankylosis 449568844 Active Rigo Slaughter MD [address] [facility], [place], [address], [place] [facility] 6 15:01:16 Degeneratio n of lumbosacral interverteb ral disc 06218345 Active Rigo Slaughter MD [address] [facility], [place], [address], [place] [facility] 6 15:01:16 Shoulder joint pain 041031383 Active Rigo Slaughter MD [address] [facility], [place], [address], [place] - [facility] 6 15:01:16 Sprain of shoulder rotator cuff 653162208141 Active Rigo Slaughter MD [address] [facility], [place], [address], [place] - [facility] 6 15:01:16 Problem Notes None recorded. Procedures Surgical History Date Name Laterality Status Provider Name and Address Organization Details Recorded Time 0 Joint replacement surgery completed Kyleigh Jonny [place] - [facility] 01/10/2013 10:08:22 5 Other completed Kyleigh [place] - [facility] 01/10/2013 10:08:22 4 Other completed Kyleigh [place] - [facility] 01/10/2013 10:08:22 9 Other completed Kyleigh Jonny [place] - [facility] 01/10/2013 10:08:22 5 Other completed Kyleigh Jonny [place] - [facility] 01/10/2013 10:08:22 4 Knee arthroscopy-lef t completed Kyleigh [place] - [facility] 01/10/2013 10:08:22 3 Other completed Kyleigh [place] - [facility] 01/10/2013 10:08:22 2 Knee arthroscopy-lef t completed Kyleigh Jonny [place] - [facility] 01/10/2013 10:08:22 0 Knee arthroscopy-lef t completed Kyleigh [place] - [facility] 01/10/2013 10:08:22 8 Other completed Kyleigh [place] - [facility] 01/10/2013 10:08:22 7 Other completed Kyleigh Jonny [place] - [facility] 01/10/2013 10:08:22 7 Other completed Kyleigh [place] - [facility] 01/10/2013 10:08:22 6 Other completed Kyleigh [place] - [facility] 01/10/2013 10:08:22 05/01/198 5 Other completed Kyleigh Jonny [place] - [facility] 01/10/2013 10:08:22 Imaging Results None recorded. Procedure Notes None recorded. Medical Equipment None Reported. Allergies Allergen ID Allergen Name Allergen Category Reaction Reaction Severity Criticality Documentation Date Start Date Code Code System Note Provider Name and Address Organization Details Recorded Time 95191 codeine medicatio n rash moderate Not available 06/23/2016 2670 RxNorm Carmen VanegasAIMEE [facility] 6 12:09:37 Medications Name Sig [...] Available Vitals Date Recorded Body height Body weight Body mass index (BMI) Provider Name and Address Organization Details Last Updated DateTime 09/27/2016 157.48 cm 21003.01 g 23.8 kg/m2 Adele Cardenas [place] - [facility] 09/27/2016 15:26:38 Date Recorded Heart rate Systolic blood pressure Diastolic blood pressure Provider Name and Address Organization Details Last Updated DateTime 10/27/2015 82 /min 136 mm[Hg] 73 mm[Hg] Debra Joiner [place] - [facility] 10/27/2015 12:02:54 Date Recorded Body height Body weight Body mass index (BMI) Provider Name and Address Organization Details Last Updated DateTime 10/27/2015 157.48 cm 22501.0081 g 23.8 kg/m2 Adele Cardenas [place] - [facility] 10/27/2015 11:59:07 Date Recorded Body height Body mass index (BMI) Body weight Provider Name and Address Organization Details Last Updated DateTime 02/14/2017 157.48 cm 23.8 kg/m2 60509.01 g Missy Dorene [place] - [facility] 02/14/2017 15:15:30 Date Recorded Body height Provider Name an d Address Organization Details Last Updated DateTime 06/23/2016 157.48 cm Carmen Hirsch [place] - [facility] 06/23/2016 12:09:30 Date Recorded Body weight Heart rate Body mass index (BMI) Body height Systolic blood pressure Diastolic blood pressure Provider Name and Address Organization Details Last Updated DateTime 5 69209.0 081 g 77 /min 23.8 kg/m2 157.48 cm 134 mm[Hg] 88 mm[Hg] Adeleeduardo aguero [facility] 5 13:06:22 Social History Question Answer Notes LastModified by Organizat ion Details LastModified Time Tobacco Smoking Status Current Some Day Smoker Carmen Vanegasdayton figueroa, [facility] 06/23/2016 12:09:57 Are You Blind Or Do You Have Difficulty Seeing? No Information not available 01/10/2013 How Much Tobacco Do You Chew? None [email or web address] Information not available 10/27/2015 Are You Deaf [...] When I Can. Obtained Pt Job At [employer]. Was 4 Days A Week, Now 2 [...] Slide. Plans In Motion To Move Back [place] By December 2016. Giving Myself 6 Months To Pack And Sell. Looking To Buy Row Apartment Or Place With Less Maintance Information not available 06/23/2016 Do You Have Difficulty Walking Or Climbing Stairs? Yes Information not available 01/10/2013 Sex: Unknown Functional Status Question Answer Note LastModified by Organizat ion Details LastModified Time What is your level of alcohol consumption? None Information not available 06/23/2016 Do you have difficulty doing errands alone? Yes Information not available 01/10/2013 Do you have difficulty dressing or bathing? Yes Information not available 06/23/2016 What is your exercise level? Occasional Information not available 01/10/2013 Mental Status Question Answer Note LastModified by Organization D etails LastModified Time Do you have difficulty concentrating, remembering or making decisions? Yes [email or web address] Information no t available 01/10/2013 Family History Nothing Reported. Medical History Condition Response Coronary Artery Disease N Gout N Other Y Osteoarthritis Y Thyroid Disease N High Blood Pressure Y Scoliosis N Enlarged Prostate N Emphysema N Lyme Disease N Neurological N Depression Y COPD N Heart Disease/Attack N Vascular Disease N Multiple Sclerosis N Congestive Heart Failure N Cholesterol N [...] Code Diagnosis ICD10 Code Diagnosis Note [id number] Paul Carrington MD [facility] [address] [place] [address], [address] [address] 01/10/2013 09:12:07 01/10/2013 11:06:27 [id number] Rigo Slaughter MD [facility] [address] [place] [address], [address] [address] 6 01/22/2013 14:26:24 01/22/2013 15:59:00 [id number] Rigo Slaughter MD [facility] [address] [place] [address], [address] [address] 08/09/2014 12:25:30 08/09/2014 14:34:58 Pain of hip region 96465824 Knee pain 52227816 Localized, primary osteoarthritis of the pelvic region and thigh 454637485 Knee joint ankylosis 483000587 Degenerati on of lumbosacral intervertebral disc 00312564 Osteoarthr itis of knee 740116637 Derangement of knee 21519591 [id number] Rigo Slaughter MD [facility] [address] [place] [address], [address] [address] 08/23/2014 11:02:44 08/23/2014 12:45:07 Shoulder joint pain 092035924 Osteoarthr itis of knee 856133869 Sprain of shoulder rotator cuff 2945154884 04 Replacemen t of total knee joint 565219482 Transplant follow-up 936565123 Localized, primary osteoarthritis of the pelvic region and thigh 524552817 [id number] Rigo Slaughter MD [facility] [address] [place] [address], [address] [address] 6 10/04/2014 09:59:49 10/04/2014 11:32:12 Shoulder joint pain 254348537 Localized, primary osteoarthritis of the pelvic region and thigh 685498152 Derangement of knee 57716049 Sprain of shoulder rotator cuff 0343680754 04 Replacemen t of total knee joint 898500263 [id number] Rigo Slaughter MD [facility] [address] [place] [address] 6 11/06/2014 09:28:55 11/06/2014 10:44:23 Shoulder joint pain 148827865 Sprain of shoulder rotator cuff 5846563412 04 [id number] Rigo Slaughter MD [address] [address] 6 11/22/2014 11:18:28 11/22/2014 13:04:29 Shoulder joint pain 175617109 Injury of tendon of the rotator cuff of shoulder 810394506 [id number] Robert Riddle PA-C [facility] [address] [place] [address] 6 12/02/2014 13:48:30 12/02/2014 14:51:40 [id number] Rigo Slaugther MD [address] [address] 12/23/2014 13:27:40 12/23/2014 14:14:00 Pain of hip region 94616284 Total repl acement of hip 88824628 Implantati on of joint prosthesis 35277986 [id number] Rigo Slaughter MD [facility] [address] [place] [address], [address] [address] 6 01/08/2015 11:20:23 01/08/2015 11:59:25 Implantation of joint prosthesis 45992944 Total repl acement of hip 12518703 Postoperat jodi wound cellulitis 718147871 [id number] VANESSA Zimmerman [facility] [address] [place] [address], [address] [address] 6 01/21/2015 09:05:07 01/21/2015 10:23:59 Surgical follow-up 254746986 Total repl acement of hip 36897495 Postoperat jodi wound cellulitis 893126013 [id number] Rigo Slaughter MD [address] [address] 6 01/31/2015 12:34:44 01/31/2015 13:45:11 Postoperative wound cellulitis 397308141 Pain of hip region 85571961 History of operative procedure on hip 277506374 Implantati on of joint prosthesis 90607839 Total repl acement of hip 68194976 Dehiscence of surgical wound 88597159 [id number] Rigo Slaughter MD [address], [address] [address] 02/21/2015 10:09:33 02/21/2015 11:25:12 Total replacement of hip 18666007 Surgical follow-up 363641099 Dehiscence of surgical wound 08220324 Procedure on musculoskeletal system 917097595 [id number] Robert Riddle PA-C [address] [address] 6 03/13/2015 10:47:01 03/13/2015 11:46:39 Dehiscence of surgical wound 39229011 [id number] Rigo Slaughter MD [address] [address] 6 03/17/2015 10:01:28 03/17/2015 11:18:12 Pain of hip region 75206555 History of operative procedure on hip 773835011 Postoperat jodi follow-up visit 806864723 Implantati on of joint prosthesis 20991258 Replacemen t of total knee joint 333447669 Total repl acement of hip 05049947 Swelling of limb 81468140 [id number] Rigo Slaughter MD [address], [address] [address] 05/21/2015 11:00:21 05/21/2015 14:00:59 Pain of hip region 31724381 M25.551 Prosthetic joint infection 534597305 T84.51XD Total repl acement of hip 87577000 Z96.641 Implantati on of joint prosthesis 56798053 Z47.1 [id number] Rigo Slaughter MD [facility] [address] [place] [address] 6 07/02/2015 12:50:48 07/02/2015 15:00:22 Knee pain 98396664 M25.561 Pain of hip region 23079 002 M25.551 History of operative procedure on hip 991090759 Z96.641 Replacemen t of total knee joint 082837464 Z96.651 Pain of mu ltiple joints 65256371 M25.50 [id number] Rigo Slaughter MD [facility] [address] [place] [address]262 6 10/27/2015 11:26:00 10/27/2015 12:40:08 Pain of hip region 94913377 M25.551 Replacemen t of total knee joint 160709236 Z96.651 Total repl acement of hip 78648319 Z96.641 Pain of mu ltiple joints 46694563 M25.50 Rheumatoid arthritis 698 84467 M06.9 Traumatic bulla 59854516 2 S90.424D [id number] Rigo Slaughter MD [facility] [address] [place] [address], [address] [address] 6 06/23/2016 11:07:38 06/23/2016 14:06:05 Replacement of total knee joint 492541853 Z96.651 Total repl acement of hip 65210433 Z96.641 [id number] Rigo Slaughter MD [address] [address] 6 09/27/2016 14:59:12 09/27/2016 15:56:08 Prosthetic joint loosening 506009416 T84.030D [id number] Rigo Slaughter MD [facility] [address] [place] [address]-507 6 02/14/2017 14:39:43 02/14/2017 16:31:33 Laryngitis 93636631 J04.0 Replacemen t of total knee joint 106943245 Z96.651 Total repl acement of hip 05622729 Z96.641 Ligamentou s laxity of knee 501553451 M23.51 Health Concerns Section Related Observation LastModified by Organization Detai ls LastModified Time None Recorded Concern Status LastModified by Organization Details LastModified Time None Recorded Advance Directives Directive None Recorded Payers Insurance Date Sequence Insurance Name Policy Number Policy Fisher Covered Member ID Fisher Member ID Guarantor Name 03/17/2015 1 [place] Edwina Ro Shemar [id number] Edwina Gutierrez 05/02/2017 1 [place]: [place] [place] Edwina Ro Shemar [id number] Edwina Gutierrez 01/26/2013 2 UNSPECIFIED REMIT PAYOR Edwina Gutierrez 06/18/2015 2 [place] Edwinascottie Gutierrez [id number] Edwina Gutierrez 04/02/2015 2 [place] [facility] Edwina Shemar Cubae Shemar 05/02/2017 CGS (MEDICARE [facility]) Edwina Ro Shemar [id number] Edwina Gutierrez Notes Date Note Type Note Provider Name and Address Organization Details Recorded Time 07/02/2015 text/html Post-OpReported bypatient.Onset/Jeferson ing:date of surgery: (R ant THR & wound revision) Quality:procedure: (12/10/14; wound revision 01/14/15) Associated Symptoms:incision healing well; no fatigue; normal appetite; normal bowel function; no constipation; no nausea; no emesis; pain improving; no fever; no bleeding; no lower extremity edema/pain; no dysuria/urinary symptomsNotes:Havin g R knee/thigh pain. She still hurts but [...] ID doctor concurred. 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 She just started a new part-time job. 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 It had been poorly cared [...] rheumatoid arthritis now. Rigo Slaughter MD [address] [facility], [place], [address], [facility] 10/27/2015 18:05:02 06/23/2016 text/html Post-OpReported [...] also on sulfasalazine. Rigo Slaughter MD [address] [facility] [address], [place], [address], [facility] 06/23/2016 18:08:06 09/27/2016 text/html F/UReported [...] She is planning to move back to [place] in the summer. She had a hip arthrogram and is here today for follow-up. Rigo Slaughter MD [address] [facility] [address], [place], [address], [facility] 09/27/2016 18:38:23 02/14/2017 text/html KneeReported bystaff.Location:[facility] Quality:aching; constant; worsening Severity:moderate; severe Duration:continuous since [...] still in pain management. Rigo Slaughter MD [address] [place] [address], [facility] [address], [place], [address], [facility] 02/14/2017 18:45:55 OBGyn Episode No OBEpisode recorded.
--- OUTSIDE RECORDS SUMMARY | 2025-01-21 14:34 | XMS_ITS | Data Portability ---
Author Organization [facility], [facility] [facility] Address [address] [place] [address] Care Team Providers Care Home Advisor Name Role Phone [facility] Referring Provider [facility] Referring Provider Assessment Encounter Date Assessment Date [...] valacyclovi r 1 gram tablet 2023 024 [facility][id number], [address] [place], [address], 4 13:32:46 cephalexin 500 mg capsule 2022 023 [facility][id number], [address] [facility] [place], [address], 3 18:00:24 Patient TargetsNo targets recorded. Patient [...] /min 96 % 96 % 160.02 cm 22798.8 g 16 /min 98 [degF] 150 mm[Hg] 80 mm[Hg] Not Available [facility] - production 4 13:24:34 Date Recorded Body weight Respiratory rate Heart rate Body height Body temperature Oxygen saturation Oxygen saturation in Arterial blood by Pulse oximetry Systolic blood pressure Diastolic blood pressure Provider Name and Address Organization Details Last Updated DateTime 5 63506.8 g 14 /min 62 /min 152.4 cm [...] /min 166 mm[Hg] 76 mm[Hg] Not Available [facility] 3 17:53:52 Social History None [...] [id number] Tracie Cartwright MD Main - [facility] [address] [place] [address] 08/24/2022 17:53:41 08/26/2022 11:26:13 Cellulitis of lower limb 610204358 L03.119 [id number] Troy Mckeon MD Main - [facility] [address] [place] [address] 08/03/2023 13:24:25 08/04/2023 09:54:23 Localized eruption of skin 092221566 R21 57yo woman presents with one day [...] x 7 days- Followup with PCP or nursing care attendant- I advised that if no response to the treatment, this diagnosis may be incorrect and she should be sure to followup [id number] Molly Munoz MD Main - [facility] [address] [place] [address] 08/14/2024 18:01:32 08/14/2024 22:02:54 Chronic wound 5812372035 2103 T14.8XXD 58 year old female with [...] setting of peripheral vascular disease. Patient with jail plan to undergo elective revascular ization, reassuranc e offered that no evidence of superinfec tion today, continue outpatient FU as initially planned, recommende d contacting PCP to discuss longer term pain medication pending definitive management with vascular surgery. I have reviewed and agree with the assessment and plan as documented by the cabin crew. I provided real-time medical direction for this [...] Member ID Fisher Member ID Guarantor Name 08/02/2023 1 [facility] - DOS PRIOR TO 2022 - DUAL ELIGIBLE (MEDICARE REPLACEMENT/ADV ANTAGE - HMO) Edwina Staton [id number] Edwina Staton 08/14/2024 1 [facility] - DOS ON OR AFTER 2022 - DUAL ELIGIBLE - LONG-TERM OPTIONS AND ONE CARE (MEDICARE REPLACEMENT/ADV ANTAGE - HMO) Edwina Staton [id number] Edwina Staton Notes Date Note Type Note [...] ................... ................... ................... ................... ................... ................... ........ Or Nurse Manager Note From Nadege Trimble: Dispatched to 56 year-old females home with complaint of redness and cramping in her right foot. Patient states the pain and cramping usually happens while she s asleep and she wakes up to this patient s right foot presents red, warm to [...] ................... ........ Disposition: Fulfilled Tracie Cartwright MD [address] [facility], [place], [address], [employer] 08/24/2022 18:07:35 08/03/2023 text/html CRC Nurse Triage Notes (Armond Wheeler): Chief Complaints: Wound Care, Abdominal Pain PMH: Hypertension Allergies: Unknown Comments: Yard Conductor verified the pt. s address and phone number - Education [...] AM -Capacity = Julian Mckeon MD [address] [facility],[address], [place], [address], [employer] 08/03/2023 13:33:09 08/14/2024 text/html HPI: Mbr with PVD, has ulcer to right lower leg. (smalls area) Has been attending wound clinic at [facility] weekly and missed appt 08/13 d/t [...] Hypertension, Chronic Kidney Disease PMH Reviewed at 08/14/2024:18 Allergies Reviewed at 08/14/2024:18 Comments: An outreach completed. The size of the wound half dollar on her smalls , she also has a hole in toe, that she puts joint filler the area. She was explained that [...] ................... ................... ................... ................... ................... ................... ........ Or Nurse Manager Note From Bigg Hemphill: Patient alert and [...] heel no bleeding or swelling. Wounds re-bandaged. [facility] advises patient to follow up with OxyContin prescriber. Patient advised to use dry dressings and keep area clean. Red flag supportive care patient education discussed. Patient demonstrates understanding of care and plan. ................... ................... ................... ................... ................... ................... ................... ........ [facility] Consulted: Molly Munoz ................... ................... ................... ................... ................... ................... ................... ........ Disposition: Jenelle Munoz MD [address] [facility], [place], [address], [employer] 08/14/2024 19:03:43 OBGyn Episode No OBEpisode recorded.
== END 2025-01-21 15:16 | disposition home or self-care (01) ==
LOC: HO.HMCH 13:59
PROVIDERS: PCP Internal Medicine
DX: Z00.00 Encounter for general adult medical examination without abnormal findings (principal); I12.9 Hypertensive chronic kidney disease with stage 1 through stage 4 chronic kidney disease, or unspecified chronic kidney disease; N18.4 Chronic kidney disease, stage 4 (severe); L97.919 Non-pressure chronic ulcer of unspecified part of right lower leg with unspecified severity; I63.9 Cerebral infarction, unspecified; M06.9 Rheumatoid arthritis, unspecified; F11.21 Opioid dependence, in remission; K21.9 Gastro-esophageal reflux disease without esophagitis; Z72.0 Tobacco use; F51.01 Primary insomnia; D64.9 Anemia, unspecified; E66.9 Obesity, unspecified

== ENCOUNTER → 2025-01-21 13:59 | Outpatient (BNVA) | payer OTHER, SELFPAY | PROVIDERS: PCP Internal Medicine | DX: Z00.00 Encounter for general adult medical examination without abnormal findings (principal); E78.00 Pure hypercholesterolemia, unspecified; F43.10 Post-traumatic stress disorder, unspecified; M06.9 Rheumatoid arthritis, unspecified; G47.00 Insomnia, unspecified; F90.9 Attention-deficit hyperactivity disorder, unspecified type; F41.1 Generalized anxiety disorder; I73.9 Peripheral vascular disease, unspecified; K21.9 Gastro-esophageal reflux disease without esophagitis; L97.919 Non-pressure chronic ulcer of unspecified part of right lower leg with unspecified severity; F51.01 Primary insomnia; I12.9 Hypertensive chronic kidney disease with stage 1 through stage 4 chronic kidney disease, or unspecified chronic kidney disease; N18.4 Chronic kidney disease, stage 4 (severe); N18.9 Chronic kidney disease, unspecified; D63.1 Anemia in chronic kidney disease; E66.9 Obesity, unspecified; F11.21 Opioid dependence, in remission; F90.1 Attention-deficit hyperactivity disorder, predominantly hyperactive type; B35.3 Tinea pedis; Z87.891 Personal history of nicotine dependence; Z86.73 Personal history of transient ischemic attack (TIA), and cerebral infarction without residual deficits | CPT/HCPCS: 96127; 99212; 99396 ==